=== PATIENT | male | born 1940 | race Caucasian/White ===

== ENCOUNTER → 2017-05-31 13:29 | Outpatient (CLI) | payer MEDICARE, SELFPAY ==
[2017-05-31 13:51] LABS: Blood Urea Nitrogen 13 mg/dL (7-18); Creatinine,Serum 1.46 mg/dL (0.70-1.30); Estimated Glomerular Filt Rate 47 ml/min (>60); GFR (African American) 57 ML/MIN (>60)
--- NOTE | 2017-05-31 13:59 | CT_ITS ---
CT angio head CLINICAL INDICATION: Visual disturbance, history of giant cell arteritis ITS.REASON: GIANT CELL ARTERITIS ORDERING PHYSICIAN: Reynaldo Jauregui MD PATIENT AGE: 76 years COMPARISON: MRA of 07/05/2016 TECHNIQUE: Axial images are obtained following the intravenous administration 100 mL of Isovue-370. Thin section axial images as well as sagittal and coronal and 3-D reformatted images are reviewed FINDINGS: No aneurysms are apparent. No major intracranial occlusive process. There are atheromatous changes involving the intracranial carotid arteries as mentioned on the MRI report with high-grade stenosis of the distal aspect of the left A1 segment of the anterior cerebral artery. There is some luminal irregularity also involving the proximal aspect of the right A1 segment of the anterior cerebral artery. Calcific plaque is present involving the cavernous portion of the carotids bilaterally. There is minimal narrowing involving the proximal aspect of the M1 segment of the right middle cerebral artery and proximal aspect of the M1 segment left middle cerebral artery. The ophthalmic arteries have an unremarkable appearance. No aneurysms or AVMs. There is some minimal luminal irregularity involving the proximal aspect of the right vertebral artery in the mid aspect of the left temporal artery. No occlusive change evident. No midline shift or mass effect or enhancing intracranial lesions apparent. IMPRESSION: 1. Mild luminal irregularities of the proximal aspect of the temporal arteries on both sides. This is nonspecific but may be seen with giant cell arteritis. 2. Atherosclerotic changes of the intracranial carotid arteries as described above with focal calcific plaque involving the A1 segment of the left intercerebral artery and minimal luminal irregularities of the right A1 segment and both M1 segments of the middle cerebral arteries.
--- NOTE | 2017-05-31 14:42 | HMH.ITSHM ---
ASPIRIN LISINOPRIL LOVASTATIN
== END ==
PROVIDERS: PCP Internal Medicine Adolescent Medicine; Visit Provider Internal Medicine Adolescent Medicine
DX: R51 Headache (principal); M31.6 Other giant cell arteritis
CPT/HCPCS: 36415; 70496; 82565; 84520; Q9967

== ENCOUNTER → 2017-09-07 11:04 | Outpatient (CLI) | payer MEDICARE, SELFPAY ==
[2017-09-07 12:44] LABS: Prostate Specific Ag Screen < 0.1 ng/mL (0.0-4.0)
== END ==
PROVIDERS: Visit Provider Urology
DX: Z12.5 Encounter for screening for malignant neoplasm of prostate (principal); Z85.46 Personal history of malignant neoplasm of prostate
CPT/HCPCS: 36415; G0103

== ENCOUNTER → 2017-11-02 16:31 | Outpatient (CLI) | payer MEDICARE, SELFPAY ==
--- NOTE | 2017-11-02 | XR_ITS ---
XR chest 2V HISTORY: ITS.REASON: DYSPNEA ON EXERTION ORDERING PHYSICIAN: Reynaldo Jauregui MD PATIENT AGE: 77 years COMPARISON: AP supine chest 10/12/2016 FINDINGS: The cardiomediastinal silhouette and pulmonary vascularity are within normal limits. There are sternal wire sutures and surgical clips likely from previous CABG. The lungs are clear without infiltrates, suspicious nodules, or pleural effusions. No acute bony abnormalities. There are moderate diffuse multilevel degenerative changes of the thoracic spine with mild diffuse dextroscoliotic curvature mid thoracic spine. IMPRESSION: Negative chest, no acute finding
[2017-11-02 16:47] LABS: Basophils # 0.1 K/mm3 (0-0.2); Basophils % 0.6 % (0.1-2.0); Eosinophils # 0.1 K/mm3 (0.0-0.4); Eosinophils % 1.3 % (0.1-12.0); Hemoglobin 13.3 g/dL (14.1-18.0); Lymphocytes # 1.5 K/mm3 (0.7-4.5); Lymphocytes % 15.3 K/mm3 (10-50); Mean Corpuscular HGB Conc 32.5 g/dL (31.8-35.4); Mean Corpuscular Hemoglobin 32.7 pg (27.0-31.2); Mean Corpuscular Volume 100.4 fl (80-94); Mean Platelet Volume 7.5 fl (7.4-10.4); Monocytes # 0.7 K/mm3 (0.1-1.0); Monocytes % 7.5 % (1.7-9.3); Neutrophils # 7.3 K/mm3 (1.8-7.8); Neutrophils % 75.4 % (37.0-80.0); Platelet Count 218 K/mm3 (142-424); Red Blood Count 4.08 M/mm3 (4.60-6.20); Red Cell Distribution Width 14.5 % (11.5-17.5); White Blood Count 9.7 K/mm3 (4.8-10.8)
[2017-11-02 19:04] LABS: Erythrocyte Sedimentation Rate 42 mm/hr (0-20)
[2017-11-02 20:27] LABS: Creatine Kinase MB 0.7 ng/ml (0.0-3.6); Troponin I < 0.02 ng/ml (0.00-0.06)
[2017-11-02 20:47] LABS: Alanine Aminotransferase 25 U/L (12-78); Albumin Level 3.6 gm/dL (3.4-5.0); Albumin/Globulin Ratio 1.1 (1.1-1.8); Alkaline Phosphatase 86 U/L (46-116); Anion Gap 14.4 mEq/L (5-15); Aspartate Amino Transferase 17 U/L (15-37); Bilirubin,Total 0.5 mg/dL (0.2-1.0); Blood Urea Nitrogen 11 mg/dL (7-18); Carbon Dioxide 26 mmol/L (21.0-32.0); Chloride 102 mmol/L (98-107); Creatine Kinase 71 U/L (39-308); Creatinine,Serum 1.37 mg/dL (0.70-1.30); Estimated Glomerular Filt Rate 50 ml/min (>60); GFR (African American) 61 ML/MIN (>60); Globulin 3.2 gm/dl (1.3-3.2); Glucose 110 mg/dL (74-106); Potassium 4.4 mmoL/L (3.5-5.1); Sodium 138 mmol/L (136-145); Thyroid Stimulating Hormone 1.65 uIU/ml (0.358-3.740); Total Protein,Serum 6.8 gm/dL (6.4-8.2)
== END ==
PROVIDERS: Visit Provider Nurse Practitioner Family
DX: R06.09 Other forms of dyspnea (principal); I25.10 Atherosclerotic heart disease of native coronary artery without angina pectoris; M31.6 Other giant cell arteritis
CPT/HCPCS: 36415; 71046; 80053; 82550; 82553; 83880; 84443; 84484; 85025; 85651

== ENCOUNTER → 2018-07-04 12:22 | Outpatient (CLI) | payer MEDICARE, SELFPAY ==
[2018-07-04 13:11] LABS: INR 2.05 (0.9-1.1); Prothrombin Time 20.7 seconds (9.4-11.8)
== END ==
PROVIDERS: Visit Provider Internal Medicine Adolescent Medicine
DX: Z51.81 Encounter for therapeutic drug level monitoring (principal); Z79.01 Long term (current) use of anticoagulants; I82.90 Acute embolism and thrombosis of unspecified vein
CPT/HCPCS: 36415; 85610

== ENCOUNTER 2018-07-11 12:42 | Outpatient (CLI) | payer MEDICARE, SELFPAY ==
[2018-07-11 14:26] LABS: Prothrombin Time 32.8 seconds (9.4-11.8)
== END 2018-07-11 15:48 | disposition home or self-care (01) ==
LOC: ACC 12:43
PROVIDERS: PCP Internal Medicine Adolescent Medicine; Visit Provider Internal Medicine Adolescent Medicine
DX: Z79.01 Long term (current) use of anticoagulants (principal); Z51.81 Encounter for therapeutic drug level monitoring
CPT/HCPCS: 36415; 85610; 99211; G0463

== ENCOUNTER 2018-07-18 13:15 | Outpatient (CLI) | payer MEDICARE, SELFPAY ==
[2018-07-18 15:39] LABS: PHA INR Fingerstick 2.9 (0.9-1.1)
== END 2018-07-18 15:47 | disposition home or self-care (01) ==
LOC: ACC 13:16
PROVIDERS: PCP Internal Medicine Adolescent Medicine; Visit Provider Internal Medicine Adolescent Medicine
DX: Z51.81 Encounter for therapeutic drug level monitoring (principal); Z79.01 Long term (current) use of anticoagulants; Z86.711 Personal history of pulmonary embolism
CPT/HCPCS: 85610; 99211; G0463

== ENCOUNTER 2018-07-25 22:38 | Observation (INO) ==
[2018-07-25 23:12] LABS: Basophils # 0.1 K/mm3 (0-0.2); Basophils % 0.5 % (0.1-2.0); Eosinophils # 0.1 K/mm3 (0.0-0.4); Eosinophils % 0.7 % (0.1-12.0); Hematocrit 33.7 % (42.0-52.0); Hemoglobin 11.1 g/dL (14.1-18.0); Lymphocytes # 2.1 K/mm3 (0.7-4.5); Lymphocytes % 20.6 % (10-50); Mean Corpuscular HGB Conc 32.9 g/dL (31.8-35.4); Mean Corpuscular Hemoglobin 33.8 pg (27.0-31.2); Mean Corpuscular Volume 102.7 fl (80-94); Mean Platelet Volume 7.9 fl (7.4-10.4); Monocytes # 0.7 K/mm3 (0.1-1.0); Monocytes % 6.6 % (1.7-9.3); Neutrophils # 7.2 K/mm3 (1.8-7.8); Neutrophils % 71.5 % (37.0-80.0); Platelet Count 247 K/mm3 (142-424); Red Blood Count 3.28 M/mm3 (4.60-6.20); Red Cell Distribution Width 15.6 % (11.5-17.5); White Blood Count 10.1 K/mm3 (4.8-10.8)
[2018-07-25 23:27] LABS: Alanine Aminotransferase 23 U/L (12-78); Albumin/Globulin Ratio 0.8 (1.1-1.8); Alkaline Phosphatase 82 U/L (46-116); Aspartate Amino Transferase 20 U/L (15-37); Bilirubin,Total 0.2 mg/dL (0.2-1.0); Blood Urea Nitrogen 14 mg/dL (7-18); C-Reactive Protein 1.7 mg/L (0.0-0.9); Calcium 8.5 mg/dL (8.5-10.1); Carbon Dioxide 25 mmol/L (21.0-32.0); Chloride 105 mmol/L (98-107); Globulin 3.8 gm/dl (1.3-3.2); Glucose 118 mg/dL (74-106); Sodium 141 mmol/L (136-145); Total Protein,Serum 6.8 gm/dL (6.4-8.2)
[2018-07-25 23:38] LABS: INR 2.56 (0.9-1.1); Prothrombin Time 25.7 seconds (9.4-11.8)
--- NOTE | 2018-07-25 23:46 | Emergency Department Note ---
ED Disposition Clinical Impression: RBBB Syncope Qualifiers: Syncope type: unspecified Qualified Code(s): R55 - Syncope and collapse Disposition: Admitted as Observation Condition on Discharge: Fair - Critical Care Critical Care Time: No Attestation: On 07/25/18, the high probability of a clinically significant, sudden or life threatening deterioration of the following system(s) required my full and direct attention, intervention and personal management. The time I documented below is in addition to time spent performing reported procedures but includes the following listed in this critical care notation. Medical Decision Making - Medical Records Medical records reviewed: Yes: I reviewed the patient's medical records. - James Inquiry Pt receiving controlled substance: No Vital Signs: 07/25/18 22:46 07/25/18 23:40 07/26/18 00:30 Temperature 98 F Temperature Source Oral Pulse Rate [Right Radial] 95 H 89 86 Respiratory Rate 16 16 15 Blood Pressure [Right Arm] 176/99 H 149/99 H 134/71 Blood Pressure Mean [Right Arm] 124 115 92 Blood Pressure Source [Right Arm] Automatic Cuff Blood Pressure Position [Right Arm] Sitting 02 Sat by Pulse Oximetry 96 97 96 Oxygen Delivery Method Room Air Room Air - Lab Data Lab results reviewed: Yes: I reviewed the patient's lab results. Lab Results 07/25/18 23:05: WBC 10.1, RBC 3.28 L, Hgb 11.1 L, Hct 33.7 L, MCV 102.7 H, MCH 33.8 H, MCHC 32.9, RDW 15.6, Plt Count 247, MPV 7.9, Neut % (Auto) 71.5, Lymph % (Auto) 20.6, [place] % (Auto) 6.6, Eos % (Auto) 0.7, Baso % (Auto) 0.5, Neut # (Auto) 7.2, Lymph # (Auto) 2.1, [place] # (Auto) 0.7, Eos # (Auto) 0.1, Baso # (Auto) 0.1, ESR 69 H 07/25/18 23:05: Sodium 141, Potassium 4.0, Chloride 105, Carbon Dioxide 25, Anion Gap 15.0, BUN 14, Creatinine 1.33 H, Estimated Creat Clear 56, Estimated GFR 52 L, Est GFR ( Amer) 63, Glucose 118 H, Calcium 8.5, Total Bilirubin 0.2, AST 20, ALT 23, Alkaline Phosphatase 82, Troponin I < 0.02, C-Reactive Protein 1.7 H, Total Protein 6.8, Albumin 3.0 L, Globulin 3.8 H, Albumin/Globulin Ratio 0.8 L 07/25/18 23:25: PT 25.7 H, INR 2.56 H Result diagrams: 07/25/18 23:05 07/25/18 23:05 Orders (Tests/Meds): ED MEDICATIONS Generic Name Dose Route Start Last Admin Trade Name Freq PRN Reason Stop Dose Admin Sodium Chloride 10 ml 07/25/18 22:57 Saline Flush 10ml Syringe IV 08/24/18 22:56 NEEDED PRN Maintain IV Site ORDERS Category Date Time Status CT head/brain wo con Stat Cat Scan 07/25/18 22:56 Taken XR chest portable Stat Exams 07/25/18 23:06 Taken - Radiology Data #1 Image(s): Chest Image Reviewed: Yes I reviewed the patient's radiology image Preliminary Findings: Normal/NAD - CT Data CT Scan: Head Time Received: 01:[address] Reviewed: Yes: I have viewed the radiologist's interpretation Preliminary Findings: Normal/NAD - ECG Data Tracing #1 Normal Sinus Rhythm: Yes Ischemic changes: non-specific ST-T wave changes Conduction abnormalities present: RBBB ECG compared to prior tracings: there are no significant changes Syncope HPI - General Chief Complaint: Syncope Stated Complaint: Possible Blood Clot,Seizure Time Seen by Provider: 07/25/18 23:15 Mode of Arrival: Ambulatory Source of Information: Patient, Spouse, Medical Record Limitations: No Limitations Description of Symptoms (Recalled from ER Triage Doc. by RN): patient states that [facility] when he got home he walked over to the couch and sat down then "blacked out" reports he does not remember what happened after he sat down on the couch and then finally "came to" sitting up on the couch, reports he felt generally weak after the episode but now "feels much better" alert, oriented x3, appropriately answering questions, states patient sat down on couch and "dropped his head and would not speak for around one minute" before he came to - History of Present Illness HPI narrative: acute episode of syncope for about 1 minute tonight at home - no sz activity and pt felt not quite right just prior but no palpiations - he was back to baseline in a couple of minutes - no prev episodes does have hx of ht dis , s/p cabg- had recent dvt with pul emboli and on coumadin MD complaint: loss of consciousness Onset (ago): minute(s) Duration of episode: 1 -: minutes(s) Prodromal symptoms: lightheaded Witnessed: yes - by bystander Context: at rest Injuries sustained associated with event: none Current symptoms: back to baseline History: history of CAD Treatments prior to arrival: none - Related Data Home Medications Medication Instructions Recorded Confirmed aspirin 81 mg tablet,delayed 81 mg PO ONCE 09/07/17 07/25/18 release Lovastatin 40 mg PO WEEKLY 06/27/18 07/25/18 Warfarin Sodium 1.25 mg PO MOWEFR 07/18/18 07/25/18 Warfarin Sodium 2.5 mg PO SUTUWETHSA 07/18/18 07/25/18 Allergies Allergy/AdvReac Type Severity Reaction Status Date / Time No Known Allergies Allergy Verified 07/25/18 22:54 [facility] History - Hepatitis A Screen Drug use history?: No High risk sexual behaviors?: No History of sexually transmitted infection?: No Currently employed?: No Childcare worker?: No Do you have indoor plumbing?: Yes Do you have electricity?: Yes Attestation statement:: This patient has been screened for Hepatitis A risk factors. I have reviewed the patient's past medical history: Yes - Social History Alcohol Intake: never Occupational Status: other - Psychiatric History Expresses thoughts of harming self/others: None Suicide Plan Description: No Plan Family Hx:: Diabetes, Hypertension, Cancer ROS Obtained: Yes All systems reviewed & no additional complaints - Constitutional Constitutional: Denies fever(s) - Eyes Eyes: Denies change in vision - ENT Ears, Nose, Mouth, and Throat: Denies sore throat - Cardiovascular Cardiovascular: Denies chest pain, Reports lightheadedness, Denies rapid heart rate - Respiratory Respiratory: No cough - Gastrointestinal Gastrointestingal: Denies: abdominal pain - Genitourinary Male Genitourinary: Denies hematuria - Musculoskeletal Musculoskeletal: Denies joint pain, Denies joint swelling - Integumentary/Breasts Skin/Breast: Denies rash - Neurologic Neurologic: Reports as per HPI, Denies headache(s), Denies seizure-like activity Physical Exam - General General appearance: alert, in no apparent distress - Head Head exam: atraumatic - Eye Eye exam: Present: PERRL, EOMI. Absent: scleral icterus - ENT ENT exam: Present: mucous membranes dry, other (no evid of tongue biting ) - Neck Neck exam: Present: normal inspection, other (neg carotid bruit ) - Respiratory Respiratory exam: Present: normal lung sounds bilaterally. Absent: respiratory distress - Cardiovascular Cardiovascular exam: Present: regular rate, systolic murmur, +S4 - Abdominal Exam Abdominal exam: Present: soft - Extremities Exam Extremities exam: Absent: calf tenderness - Neurological Exam Neurological exam: Present: alert, oriented X3, CN II-XII intact. Absent: motor sensory deficit - Psychiatric Psychiatric exam: Present: normal affect - Skin Skin exam: Absent: rash
[2018-07-26 00:23] LABS: Erythrocyte Sedimentation Rate 69 mm/hr (0-20)
[2018-07-26 04:52] LABS: INR 2.75 (0.9-1.1); Prothrombin Time 27.5 seconds (9.4-11.8)
[2018-07-26 04:56] LABS: Basophils % 0.4 % (0.1-2.0); Eosinophils # 0.1 K/mm3 (0.0-0.4); Hematocrit 35.1 % (42.0-52.0); Hemoglobin 10.9 g/dL (14.1-18.0); Lymphocytes % 32.1 % (10-50); Mean Corpuscular HGB Conc 31.1 g/dL (31.8-35.4); Mean Corpuscular Hemoglobin 32.7 pg (27.0-31.2); Mean Corpuscular Volume 105.2 fl (80-94); Mean Platelet Volume 7.7 fl (7.4-10.4); Monocytes # 0.6 K/mm3 (0.1-1.0); Monocytes % 6.7 % (1.7-9.3); Neutrophils # 5.5 K/mm3 (1.8-7.8); Neutrophils % 59.8 % (37.0-80.0); Platelet Count 241 K/mm3 (142-424); Red Blood Count 3.34 M/mm3 (4.60-6.20); Red Cell Distribution Width 15.8 % (11.5-17.5); White Blood Count 9.3 K/mm3 (4.8-10.8)
[2018-07-26 05:00] LABS: Anion Gap 13.9 mEq/L (5-15); Calcium 8.9 mg/dL (8.5-10.1); Potassium 3.9 mmoL/L (3.5-5.1)
--- NOTE | 2018-07-26 09:08 | History & Physical Report ---
*Admission Date: 07/26/18 *Chief complaint: syncope *History of present illness: 78 year old year old male with a h/o of PMR, CAD with CABG 6 years ago, HTN, and hyperlipidemia who is currently warfarin for a DVT/PE that occurred approx 4 weeks ago presented to the ED last evening following a syncopal event at home. [facility] History Medical History: Reports:: Cancer (PROSTATE CANCER 2011), Coronary Artery Disease, Deep Vein Thrombosis Denies:: Diabetes Mellitus Type 1, Diabetes Mellitus Type 2, MRSA *Have you ever received a pneumonia vaccine?: Yes *Have you received a flu vaccine this season?: Yes Other Medical History: Reports: Arthritis Other Surgeries: Yes: CABG, Cardiac Catheterization, Cardiac Surgery, Cholecystectomy, Colonoscopy, EGD Amputation: No Fractures: No - *Social History Educational Level: Completed College Alcohol Intake: never *Occupational Status:: retired Housing: house Household Members: spouse *Travel in the last 8 weeks: None - Psychiatric History Expresses thoughts of harming self/others: None Suicide Plan Description: No Plan Family Hx:: Cancer, Diabetes, Stroke, Other Review of Systems - *Neurologic Denies headache(s), Denies seizure-like activity Meds Home Medications Medication Instructions Recorded Confirmed Type aspirin 81 mg tablet,delayed 81 mg PO 159909/07/17 07/26/18 History release Lovastatin 40 mg PO MO@159906/27/18 07/26/18 History Warfarin Sodium 1.25 mg PO MOFR@159907/18/18 07/26/18 History Warfarin Sodium 2.5 mg PO SUTUWETHSA@159907/18/18 07/26/18 History Cholecalciferol (Vitamin D3) 5,000 unit PO 159907/26/18 07/26/18 History [Vitamin D3] Lisinopril [Lisinopril 10mg Tab] 10 mg PO 1600 07/26/18 07/26/18 History predniSONE [Deltasone 10mg 10 mg PO 1600 07/26/18 07/26/18 History tablet] Allergies Allergy/AdvReac Type Severity Reaction Status Date / Time No Known Allergies Allergy Verified 07/25/18 22:54 Exam Vital signs and Labs for Last 24 Hours: Temp Pulse Resp BP Pulse Ox 98.8 F 87 17 163/87 H 98 07/26/18 07:21 07/26/18 07:21 07/26/18 07:21 07/26/18 07:21 07/26/18 07:21 Laboratory Results - last 24 hr 07/25/18 23:05: WBC 10.1, RBC 3.28 L, Hgb 11.1 L, Hct 33.7 L, MCV 102.7 H, MCH 33.8 H, MCHC 32.9, RDW 15.6, Plt Count 247, MPV 7.9, Neut % (Auto) 71.5, Lymph % (Auto) 20.6, [place] % (Auto) 6.6, Eos % (Auto) 0.7, Baso % (Auto) 0.5, Neut # (Auto) 7.2, Lymph # (Auto) 2.1, [place] # (Auto) 0.7, Eos # (Auto) 0.1, Baso # (Auto) 0.1, ESR 69 H 07/25/18 23:05: Sodium 141, Potassium 4.0, Chloride 105, Carbon Dioxide 25, Anion Gap 15.0, BUN 14, Creatinine 1.33 H, Estimated Creat Clear 56, Estimated GFR 52 L, Est GFR ( Amer) 63, Glucose 118 H, Calcium 8.5, Total Bilirubin 0.2, AST 20, ALT 23, Alkaline Phosphatase 82, Troponin I < 0.02, C-Reactive Protein 1.7 H, Total Protein 6.8, Albumin 3.0 L, Globulin 3.8 H, Albumin/Globulin Ratio 0.8 L 07/25/18 23:25: PT 25.7 H, INR 2.56 H 07/26/18 04:35: Troponin I < 0.02 07/26/18 04:35: WBC 9.3, RBC 3.34 L, Hgb 10.9 L, Hct 35.1 L, MCV 105.2 H, MCH 32.7 H, MCHC 31.1 L, RDW 15.8, Plt Count 241, MPV 7.7, Neut % (Auto) 59.8, Lymph % (Auto) 32.1, [place] % (Auto) 6.7, Eos % (Auto) 1.0, Baso % (Auto) 0.4, Neut # (Auto) 5.5, Lymph # (Auto) 3.0, [place] # (Auto) 0.6, Eos # (Auto) 0.1, Baso # (Auto) 0.0 07/26/18 04:35: PT 27.5 H, INR 2.75 H 07/26/18 04:35: Sodium 144, Potassium 3.9, Chloride 106, Carbon Dioxide 28, Anion Gap 13.9, BUN 12, Creatinine 1.16, Estimated Creat Clear 66, Estimated GFR 61, Est GFR ( Amer) 74, Glucose 92 D, Calcium 8.9, Magnesium 2.3 H 07/26/18 07:29: Troponin I < 0.02 I & O for Last 24 hours: Intake & Output 07/23/18 07/24/18 07/25/18 07/26/18 11:59 11:59 11:59 11:59 Intake Total 812 / 812 Balance 812 / 812 Weight 195 lb
--- NOTE | 2018-07-26 09:12 | Pharmacy Consult Notes ---
[facility] Pharmacy VTE Monitoring - Patient Demographics Admission date: 07/26/18 Report Date: 07/26/18 Time: 09:11 Allergies/Adverse Reactions: Patient Allergies No Known Allergies Allergy (Verified 07/25/18 22:54) Height: 1.7 m Weight: 88.451 kg Patient Problems: Current Active Problems Syncope (Acute) RBBB (Acute) - VTE Risk Labs: VTE Related Lab Results Hgb 10.9 g/dL (14.1-18.0) L 07/26/18 04:35 Hct 35.1 % (42.0-52.0) L 07/26/18 04:35 Plt Count 241 K/mm3 (142-424) 07/26/18 04:35 PT 27.5 seconds (9.4-11.8) H 07/26/18 04:35 INR 2.75 (0.9-1.1) H 07/26/18 04:35 BUN 12 mg/dL (7-18) 07/26/18 04:35 Creatinine 1.16 mg/dL (0.70-1.30) 07/26/18 04:35 Estimated Creat Clear 66 mL/min (50-200) 07/26/18 04:35 Was VTE Risk Assessment Performed: Yes VTE Risk Level: Moderate Risk Clinical Trial Participant: No - Prophylaxis VTE Prophylaxis Ordered?: Yes Types of VTE Prophylaxis: TEDS Knee High
--- NOTE | 2018-07-26 10:42 | Carotid Imaging Report ---
"Cerebrovascular Exam Indications: 780.2 Syncope and collapse. IMPRESSIONS 1. The bilateral vertebral arteries are patent with normal antegrade flow. 2. Study suggests less than 20% stenosis involving the right internal carotid artery and the left internal carotid artery. No change from the study of 12-Jun-2015. History: Coronary artery disease. Risk factors: Hypertension. Hyperlipidemia. Carotid duplex study. Complete study and Doppler flow study including spectral analysis, color and zacarias scale imaging. Location: Vascular laboratory. Patient status: Inpatient. Tables: Arterial flow: + +--------+--------+ |Location |V sys |V ed | + +--------+--------+ |Right CCA - proximal|45.6cm/s|14.9cm/s| + +--------+--------+ |Right CCA - distal |49.5cm/s|17.3cm/s| + +--------+--------+ |Right ECA |103cm/s |--------| + +--------+--------+ |Right ICA - proximal|33.4cm/s|11.8cm/s| + +--------+--------+ |Right ICA - mid |47.1cm/s|18.7cm/s| + +--------+--------+ |Right ICA - distal |62.9cm/s|28cm/s | + +--------+--------+ |Right vertebral |37.8cm/s|--------| + +--------+--------+ |Left CCA - proximal |71.7cm/s|22.6cm/s| + +--------+--------+ |Left CCA - distal |40.3cm/s|9.8cm/s | + +--------+--------+ |Left ECA |105cm/s |--------| + +--------+--------+ |Left ICA - proximal |41.3cm/s|17.2cm/s| + +--------+--------+ |Left ICA - mid |65.8cm/s|29cm/s | + +--------+--------+ |Left ICA - distal |57.8cm/s|21.9cm/s| + +--------+--------+ |Left vertebral |40.3cm/s|--------| + +--------+--------+ Velocity ratios: + + + + + + | |Right, V sys|Right, V ed|Left, V sys|Left, V ed| + + + + + + |Max ICA/dist CCA|1.27 |1.62 |1.63 |2.95 | + + + + + + (Report amended ) Electronically signed by: Eugene Hines [id number]"
--- NOTE | 2018-07-26 16:12 | H&P/Discharge Summary ---
General - General Admission date:: 07/26/18 Discharge date: 07/26/18 *Admission Date: 07/26/18 *Chief complaint: syncope *History of present illness: 78 year old male with a h/o HTN, hyperlidemia, CABG 6 years ago, PMR who was started on coumadin 4 weeks ago due to DVT/PE presented to ED for evaluation following a syncopal event at home. Patient had been to [facility] last evening and felt fairly well. States he got home, sit down on the couch and felt dizzy which led to tunnel vision and subsequent episode of unresponsiveness. reports he was unresponsive for approx one minute and was shaking a little. Patient awake to his saying "are you ok?" States he felt groggy for a few minutes, then has been at baseline since. No further episodes of dizziness. Denies any associated chest pain, shortness of breath or other CV symptoms. No recent illness. In the ED, EKG was found to be at baseline. Labs were unremarkable. He was admitted for observation and further evaluation. [facility] History I have reviewed the patient's past medical history: Yes Medical History: Reports:: Cancer (PROSTATE CANCER 2011), Coronary Artery Disease, Deep Vein Thrombosis Denies:: Diabetes Mellitus Type 1, Diabetes Mellitus Type 2, MRSA *Have you ever received a pneumonia vaccine?: Yes *Have you received a flu vaccine this season?: Yes Other Medical History: Reports: Arthritis Other Surgeries: Yes: CABG, Cardiac Catheterization, Cardiac Surgery, C holecystectomy, Colonoscopy, EGD Amputation: No Fractures: No - *Social History Educational Level: Completed College Alcohol Intake: never *Occupational Status:: retired Housing: house Household Members: spouse *Travel in the last 8 weeks: None - Psychiatric History Expresses thoughts of harming self/others: None Suicide Plan Description: No Plan Family Hx:: Cancer, Diabetes, Stroke, Other Review of Systems - Review of Systems Review of systems:: pertinent systems reviewed and negative unless documented below - *Neurologic Reports dizziness, Denies headache(s), Denies seizure-like activity Exam Vital signs and Labs for Last 24 Hours: Temp Pulse Resp BP Pulse Ox 98.0 F 88 18 144/87 H 96 07/26/18 11:44 07/26/18 11:44 07/26/18 11:44 07/26/18 11:44 07/26/18 11:44 Laboratory Results - last 24 hr 07/25/18 23:05: WBC 10.1, RBC 3.28 L, Hgb 11.1 L, Hct 33.7 L, MCV 102.7 H, MCH 33.8 H, MCHC 32.9, RDW 15.6, Plt Count 247, MPV 7.9, Neut % (Auto) 71.5, Lymph % (Auto) 20.6, [place] % (Auto) 6.6, Eos % (Auto) 0.7, Baso % (Auto) 0.5, Neut # (Auto) 7.2, Lymph # (Auto) 2.1, [place] # (Auto) 0.7, Eos # (Auto) 0.1, Baso # (Auto) 0.1, ESR 69 H 07/25/18 23:05: Sodium 141, Potassium 4.0, Chloride 105, Carbon Dioxide 25, Anion Gap 15.0, BUN 14, Creatinine 1.33 H, Estimated Creat Clear 56, Estimated GFR 52 L, Est GFR ( Amer) 63, Glucose 118 H, Calcium 8.5, Total Bilirubin 0.2, AST 20, ALT 23, Alkaline Phosphatase 82, Troponin I < 0.02, C-Reactive Protein 1.7 H, Total Protein 6.8, Albumin 3.0 L, Globulin 3.8 H, Albumin/Globulin Ratio 0.8 L 07/25/18 23:25: PT 25.7 H, INR 2.56 H 07/26/18 04:35: Troponin I < 0.02 07/26/18 04:35: WBC 9.3, RBC 3.34 L, Hgb 10.9 L, Hct 35.1 L, MCV 105.2 H, MCH 32.7 H, MCHC 31.1 L, RDW 15.8, Plt Count 241, MPV 7.7, Neut % (Auto) 59.8, Lymph % (Auto) 32.1, [place] % (Auto) 6.7, Eos % (Auto) 1.0, Baso % (Auto) 0.4, Neut # (Auto) 5.5, Lymph # (Auto) 3.0, [place] # (Auto) 0.6, Eos # (Auto) 0.1, Baso # (Auto) 0.0 07/26/18 04:35: PT 27.5 H, INR 2.75 H 07/26/18 04:35: Sodium 144, Potassium 3.9, Chloride 106, Carbon Dioxide 28, Anion Gap 13.9, BUN 12, Creatinine 1.16, Estimated Creat Clear 66, Estimated GFR 61, Est GFR ( Amer) 74, Glucose 92 D, Calcium 8.9, Magnesium 2.3 H 07/26/18 07:29: Troponin I < 0.02 I & O for Last 24 hours: Intake & Output 07/24/18 07/25/18 07/26/18 07/27/18 11:59 11:59 11:59 11:59 Intake Total 812 / 812 360 / 360 Balance 812 / 812 360 / 360 Weight 195 lb Narrative: Alert and oriented x3. Rate and rhythm regular. No LE edema. Lung sounds clear and equal. Abdomen soft and nontender. No carotid bruit. Cranial nerves intact. ENT exam unremarkable. Hospital Course Hospital Course: Patient was admitted for observation. Tele was placed which was uneventful. MRI brain, carotid doppler, EEG and Echo were obtained, all of which were unremarkable. Patient has not had any further episodes of dizziness. He is ambulated around the room without difficulty. He feels fairly well and desires to go home. Discharge home. No medication changes. FU with Dr. Jauregui on Monday. FU with coumadin clinic in 2 weeks Results Labs on day of discharge: Labs from last 24 hours 07/26/18 07/26/18 07/26/18 07:29 04:35 04:35 WBC RBC Hgb Hct MCV MCH MCHC RDW Plt Count MPV Neut % (Auto) Lymph % (Auto) [place] % (Auto) Eos % (Auto) Baso % (Auto) Neut # (Auto) Lymph # (Auto) [place] # (Auto) Eos # (Auto) Baso # (Auto) ESR PT 27.5 H INR 2.75 H Sodium 144 Potassium 3.9 Chloride 106 Carbon Dioxide 28 Anion Gap 13.9 BUN 12 Creatinine 1.16 Estimated Creat Clear 66 Estimated GFR 61 Est GFR ( Amer) 74 Glucose 92 D Calcium 8.9 Magnesium 2.3 H Total Bilirubin AST ALT Alkaline Phosphatase Troponin I < 0.02 C-Reactive Protein Total Protein Albumin Globulin Albumin/Globulin Ratio 07/26/18 07/26/18 07/25/18 04:35 04:35 23:25 WBC 9.3 RBC 3.34 L Hgb 10.9 L Hct 35.1 L MCV 105.2 H MCH 32.7 H MCHC 31.1 L RDW 15.8 Plt Count 241 MPV 7.7 Neut % (Auto) 59.8 Lymph % (Auto) 32.1 [place] % (Auto) 6.7 Eos % (Auto) 1.0 Baso % (Auto) 0.4 Neut # (Auto) 5.5 Lymph # (Auto) 3.0 [place] # (Auto) 0.6 Eos # (Auto) 0.1 Baso # (Auto) 0.0 ESR PT 25.7 H INR 2.56 H Sodium Potassium Chloride Carbon Dioxide Anion Gap BUN Creatinine Estimated Creat Clear Estimated GFR Est GFR ( Amer) Glucose Calcium Magnesium Total Bilirubin AST ALT Alkaline Phosphatase Troponin I < 0.02 C-Reactive Protein Total Protein Albumin Globulin Albumin/Globulin Ratio 07/25/18 07/25/18 23:05 23:05 WBC 10.1 RBC 3.28 L Hgb 11.1 L Hct 33.7 L MCV 102.7 H MCH 33.8 H MCHC 32.9 RDW 15.6 Plt Count 247 MPV 7.9 Neut % (Auto) 71.5 Lymph % (Auto) 20.6 [place] % (Auto) 6.6 Eos % (Auto) 0.7 Baso % (Auto) 0.5 Neut # (Auto) 7.2 Lymph # (Auto) 2.1 [place] # (Auto) 0.7 Eos # (Auto) 0.1 Baso # (Auto) 0.1 ESR 69 H PT INR Sodium 141 Potassium 4.0 Chloride 105 Carbon Dioxide 25 Anion Gap 15.0 BUN 14 Creatinine 1.33 H Estimated Creat Clear 56 Estimated GFR 52 L Est GFR ( Amer) 63 Glucose 118 H Calcium 8.5 Magnesium Total Bilirubin 0.2 AST 20 ALT 23 Alkaline Phosphatase 82 Troponin I < 0.02 C-Reactive Protein 1.7 H Total Protein 6.8 Albumin 3.0 L Globulin 3.8 H Albumin/Globulin Ratio 0.8 L DS: Diagnosis - Discharge Diagnosis (1) PMR (polymyalgia rheumatica) Status: Chronic (2) Essential (primary) hypertension Status: Chronic (3) Anticoagulated on warfarin Status: Acute (4) RBBB Status: Acute (5) Syncope Status: Acute (6) DVT (deep venous thrombosis) Status: Acute (7) Pulmonary emboli Status: Acute Discharge Medications - Medications for Discharge Home Medication List at Discharge: Continue aspirin 81 mg tablet,delayed release 81 mg PO 1600 Lovastatin 40 mg PO MO@1600 Warfarin Sodium 2.5 mg PO SUTUWETHSA@1600 Lisinopril [Lisinopril 10mg Tab] 10 mg PO 1600 Warfarin Sodium 1.25 mg PO MOFR@1600 predniSONE [Deltasone 10mg tablet] 10 mg PO 1600 Cholecalciferol (Vitamin D3) [Vitamin D3] 5,000 unit PO 1600 Disposition Disposition: Home, Self-Care
--- NOTE | 2018-07-26 16:36 | Cardiology Report ---
PROCEDURE: 2-D M-mode and color Doppler study INDICATIONS FOR THE TEST: Chest pain COPD Heart Murmur Tobacco Smoking Palpitations Fatigue SyncopeX Edema HypertensionXDiabetes Mellitus Rheumatic Fever SOB PRABHAKAR ObesityXHyperlipidemiaX Family History HD Additional History CAD,CABG PATIENT INFORMATION HEIGHT: 67 WEIGHT:195 GENDER: Male B/P:162/87 2-D/M-MODE INTERPRETATION: 2-D MEASUREMENTS OBSERVED VALUES IN CMS Right Ventricular Dimension (RVDd) 2.5 Interventricular Septum (Thickness)(IVsd) 1.0 Left Ventricular Internal Dimensions(LVIDd) 3.2 Left Ventricular Posterior Wall (Thickness)(LVPWd) 1.1 Aortic Root 3.6 Aortic Cusp Separation 1.9 Left Atrial Dimensions (LAD) 3.7 2D 1. Left atrium is mildly enlarged, left ventricle is normal size, mild qualitative concentric left ventricular hypertrophy, visually estimated ejection fraction 55% with no regional wall motion abnormality. 2. The right atrium and right ventricle are moderately enlarged with normal contractility. 3. The aortic valve is minimally thickened and fibrosed. 4. The mitral and tricuspid valve are grossly normal. 5. The pulmonic valve is poorly visualized. 6. No significant pericardial effusion noted. DOPPLER INTERROGATION: Doppler interrogation of the aortic, mitral and tricuspid valvular presence of mild mitral and tricuspid regurgitation, tricuspid regurgitation jet velocity is inadequate for calculation of the right ventricular systolic pressure, grade 1 diastolic dysfunction seen with tissue Doppler evidence of raised left atrial pressure. CONCLUSION: 1. Mildly enlarged left atrium, normal left ventricular size, mild concentric left ventricular hypertrophy, visually estimated ejection fraction 55% with no regional wall motion abnormality, grade 1 diastolic dysfunction seen with tissue Doppler evidence of raised left atrial pressure. 2. Moderately enlarged right ventricle with normal contractility. 3. Mild mitral and tricuspid regurgitation 4. No significant pericardial effusion noted.
== END 2018-07-26 17:03 | disposition home or self-care (01) ==
LOC: 2ND 22:38 → ER 22:38 → 2ND 07-26 01:25
PROVIDERS: ADMIT Emergency Medicine; ATTEND Internal Medicine Adolescent Medicine
CPT/HCPCS: 36415; 70450; 70553; 71010; 71045; 80048; 80053; 83735; 84484; 85025; 85610; 85651; 86140; 93005; 93306; 93880; 95816; 99284; A9576; G0378

== ENCOUNTER 2018-08-09 12:25 | Outpatient (CLI) | payer MEDICARE, SELFPAY ==
[2018-08-09 13:35] LABS: PHA INR Fingerstick 2.9 (0.9-1.1)
== END 2018-08-09 13:44 | disposition home or self-care (01) ==
LOC: ACC 12:25
PROVIDERS: PCP Internal Medicine Adolescent Medicine; Visit Provider Internal Medicine Adolescent Medicine
DX: Z51.81 Encounter for therapeutic drug level monitoring (principal); Z79.01 Long term (current) use of anticoagulants; I26.99 Other pulmonary embolism without acute cor pulmonale
CPT/HCPCS: 85610; 99211; G0463

== ENCOUNTER 2018-09-06 12:30 | Outpatient (CLI) | payer MEDICARE, SELFPAY ==
[2018-09-06 13:32] LABS: PHA INR Fingerstick 2.3 (0.9-1.1)
== END 2018-09-06 13:33 | disposition home or self-care (01) ==
LOC: ACC 12:33
PROVIDERS: PCP Internal Medicine Adolescent Medicine; Visit Provider Internal Medicine Adolescent Medicine
DX: Z51.81 Encounter for therapeutic drug level monitoring (principal); Z79.01 Long term (current) use of anticoagulants; I26.99 Other pulmonary embolism without acute cor pulmonale
CPT/HCPCS: 85610; 99211; G0463

== ENCOUNTER → 2018-09-13 11:51 | Outpatient (CLI) | payer MEDICARE, SELFPAY ==
[2018-09-13 13:58] LABS: Prostate Specific Ag, Diagnost < 0.05 ng/mL (0.0-4.0)
== END ==
PROVIDERS: Visit Provider Urology
DX: C61 Malignant neoplasm of prostate (principal)
CPT/HCPCS: 36415; 84153

== ENCOUNTER 2018-10-04 12:26 | Outpatient (CLI) | payer MEDICARE, SELFPAY ==
[2018-10-04 13:06] LABS: PHA INR Fingerstick 2.4 (0.9-1.1)
== END 2018-10-04 13:12 | disposition home or self-care (01) ==
LOC: ACC 12:27
PROVIDERS: PCP Internal Medicine Adolescent Medicine; Visit Provider Internal Medicine Adolescent Medicine
DX: Z51.81 Encounter for therapeutic drug level monitoring (principal); Z79.01 Long term (current) use of anticoagulants; I26.99 Other pulmonary embolism without acute cor pulmonale
CPT/HCPCS: 85610; 99211; G0463

== ENCOUNTER 2018-11-05 12:27 | Outpatient (CLI) | payer MEDICARE, SELFPAY ==
[2018-11-05 13:42] LABS: PHA INR Fingerstick 2.2 (0.9-1.1)
== END 2018-11-05 13:46 | disposition home or self-care (01) ==
LOC: ACC 12:28
PROVIDERS: PCP Internal Medicine Adolescent Medicine; Visit Provider Internal Medicine Adolescent Medicine
DX: Z51.81 Encounter for therapeutic drug level monitoring (principal); Z79.01 Long term (current) use of anticoagulants; I26.99 Other pulmonary embolism without acute cor pulmonale
CPT/HCPCS: 85610; 99211; G0463

== ENCOUNTER 2018-12-19 12:33 | Outpatient (CLI) | payer MEDICARE, SELFPAY ==
[2018-12-19 13:59] LABS: PHA INR Fingerstick 2.2 (0.9-1.1)
== END 2018-12-19 14:12 | disposition home or self-care (01) ==
LOC: ACC 12:34
PROVIDERS: PCP Internal Medicine Adolescent Medicine; Visit Provider Internal Medicine Adolescent Medicine
DX: Z51.81 Encounter for therapeutic drug level monitoring (principal); Z79.01 Long term (current) use of anticoagulants; I26.99 Other pulmonary embolism without acute cor pulmonale
CPT/HCPCS: 85610; 99211; G0463

== ENCOUNTER → 2019-01-15 12:11 | Outpatient (CLI) | payer MEDICARE, SELFPAY ==
[2019-01-15 12:44] LABS: Basophils # 0.1 K/mm3 (0-0.2); Basophils % 0.8 % (0.1-2.0); Eosinophils # 0.2 K/mm3 (0.0-0.4); Eosinophils % 2.2 % (0.1-12.0); Hematocrit 44.8 % (42.0-52.0); Hemoglobin 13.8 g/dL (14.1-18.0); Lymphocytes % 39.3 % (10-50); Mean Corpuscular HGB Conc 30.7 g/dL (31.8-35.4); Mean Corpuscular Hemoglobin 28.9 pg (27.0-31.2); Mean Platelet Volume 8.9 fl (7.4-10.4); Monocytes # 0.6 K/mm3 (0.1-1.0); Monocytes % 7.9 % (1.7-9.3); Neutrophils # 3.8 K/mm3 (1.8-7.8); Neutrophils % 49.8 % (37.0-80.0); Platelet Count 233 K/mm3 (142-424); Red Blood Count 4.76 M/mm3 (4.60-6.20); Red Cell Distribution Width 14.9 % (11.5-17.5); White Blood Count 7.5 K/mm3 (4.8-10.8)
[2019-01-15 12:52] LABS: Prothrombin Time 17.2 seconds (9.4-11.8)
[2019-01-15 14:30] LABS: C-Reactive Protein 0.2 mg/dL (0.0-0.9); Creatine Kinase 82 U/L (39-308)
[2019-01-15 17:25] LABS: Erythrocyte Sedimentation Rate 20 mm/hr (0-20)
== END ==
PROVIDERS: Visit Provider Internal Medicine Adolescent Medicine
DX: M31.6 Other giant cell arteritis (principal); Z51.81 Encounter for therapeutic drug level monitoring; Z79.01 Long term (current) use of anticoagulants
CPT/HCPCS: 36415; 82550; 85025; 85610; 85651; 86140

== ENCOUNTER 2019-01-30 12:30 | Outpatient (CLI) | payer MEDICARE, SELFPAY ==
[2019-01-30 15:25] LABS: PHA INR Fingerstick 2.6 (0.9-1.1)
== END 2019-01-30 15:31 | disposition home or self-care (01) ==
LOC: ACC 12:32
PROVIDERS: PCP Internal Medicine Adolescent Medicine; Visit Provider Internal Medicine Adolescent Medicine
DX: Z51.81 Encounter for therapeutic drug level monitoring (principal); Z79.01 Long term (current) use of anticoagulants; I26.99 Other pulmonary embolism without acute cor pulmonale
CPT/HCPCS: 85610; 99211; G0463

== ENCOUNTER 2019-03-13 12:23 | Outpatient (CLI) | payer MEDICARE, SELFPAY | END 2019-03-13 13:43 | disposition home or self-care (01) | LOC: ACC 12:25 | PROVIDERS: PCP Internal Medicine Adolescent Medicine; Visit Provider Internal Medicine Adolescent Medicine | DX: Z51.81 Encounter for therapeutic drug level monitoring (principal); Z79.01 Long term (current) use of anticoagulants; I26.99 Other pulmonary embolism without acute cor pulmonale | CPT/HCPCS: 99211; G0463 ==

== ENCOUNTER 2019-04-24 12:31 | Outpatient (CLI) | payer MEDICARE, SELFPAY ==
[2019-04-24 13:09] LABS: PHA INR Fingerstick 1.9 (0.9-1.1)
== END 2019-04-24 13:10 | disposition home or self-care (01) ==
LOC: ACC 12:32
PROVIDERS: PCP Internal Medicine Adolescent Medicine; Visit Provider Internal Medicine Adolescent Medicine
DX: Z51.81 Encounter for therapeutic drug level monitoring (principal); Z79.01 Long term (current) use of anticoagulants; I26.99 Other pulmonary embolism without acute cor pulmonale
CPT/HCPCS: 85610; 99211; G0463

== ENCOUNTER 2019-05-15 12:24 | Outpatient (CLI) | payer MEDICARE, SELFPAY ==
[2019-05-15 15:20] LABS: PHA INR Fingerstick 2.7 (0.9-1.1)
== END 2019-05-15 15:22 | disposition home or self-care (01) ==
LOC: ACC 12:25
PROVIDERS: PCP Internal Medicine Adolescent Medicine; Visit Provider Internal Medicine Adolescent Medicine
DX: Z51.81 Encounter for therapeutic drug level monitoring (principal); Z79.01 Long term (current) use of anticoagulants
CPT/HCPCS: 85610; 99211; G0463

== ENCOUNTER 2019-06-14 12:22 | Outpatient (CLI) | payer MEDICARE, SELFPAY ==
[2019-06-14 13:44] LABS: PHA INR Fingerstick 2.7 (0.9-1.1)
== END 2019-06-14 13:45 | disposition home or self-care (01) ==
LOC: ACC 12:24
PROVIDERS: PCP Internal Medicine Adolescent Medicine; Visit Provider Internal Medicine Adolescent Medicine
DX: Z51.81 Encounter for therapeutic drug level monitoring (principal); Z79.01 Long term (current) use of anticoagulants
CPT/HCPCS: 85610; 99211; G0463

== ENCOUNTER 2019-07-26 12:19 | Outpatient (CLI) | payer MEDICARE, SELFPAY ==
[2019-07-26 14:54] LABS: PHA INR Fingerstick 2.4 (0.9-1.1)
== END 2019-07-26 14:55 | disposition home or self-care (01) ==
PROVIDERS: PCP Internal Medicine Adolescent Medicine; Visit Provider Internal Medicine Adolescent Medicine
DX: Z51.81 Encounter for therapeutic drug level monitoring (principal); Z79.01 Long term (current) use of anticoagulants
CPT/HCPCS: 85610; 99211; G0463

== ENCOUNTER 2019-09-04 12:12 | Outpatient (CLI) | payer MEDICARE, SELFPAY ==
[2019-09-04 13:57] LABS: PHA INR Fingerstick 2.2 (0.9-1.1)
== END 2019-09-04 14:02 | disposition home or self-care (01) ==
LOC: ACC 12:13
PROVIDERS: PCP Internal Medicine Adolescent Medicine; Visit Provider Internal Medicine Adolescent Medicine
DX: Z51.81 Encounter for therapeutic drug level monitoring (principal); Z79.01 Long term (current) use of anticoagulants
CPT/HCPCS: 85610; 99211; G0463

== ENCOUNTER 2019-10-16 12:24 | Outpatient (CLI) | payer MEDICARE, SELFPAY | END 2019-10-16 14:36 | disposition home or self-care (01) | LOC: ACC 12:26 | PROVIDERS: PCP Internal Medicine Adolescent Medicine; Visit Provider Internal Medicine Adolescent Medicine | DX: Z51.81 Encounter for therapeutic drug level monitoring (principal); Z79.01 Long term (current) use of anticoagulants | CPT/HCPCS: 85610; 99211; G0463 ==

== ENCOUNTER 2019-11-27 12:25 | Outpatient (CLI) | payer MEDICARE, SELFPAY ==
[2019-11-27 14:08] LABS: PHA INR Fingerstick 2.3 (0.9-1.1)
== END 2019-11-27 14:26 | disposition home or self-care (01) ==
LOC: ACC 12:26
PROVIDERS: PCP Internal Medicine Adolescent Medicine; Visit Provider Internal Medicine Adolescent Medicine
DX: Z51.81 Encounter for therapeutic drug level monitoring (principal); Z79.01 Long term (current) use of anticoagulants
CPT/HCPCS: 85610; 99211; G0463

== ENCOUNTER 2020-01-08 12:25 | Outpatient (CLI) | payer MEDICARE, SELFPAY ==
[2020-01-08 16:12] LABS: PHA INR Fingerstick 2.4 (0.9-1.1)
== END 2020-01-08 16:14 | disposition home or self-care (01) ==
LOC: ACC 12:27
PROVIDERS: PCP Internal Medicine Adolescent Medicine; Visit Provider Internal Medicine Adolescent Medicine
DX: Z51.81 Encounter for therapeutic drug level monitoring (principal); Z79.01 Long term (current) use of anticoagulants
CPT/HCPCS: 85610; 99211; G0463

== ENCOUNTER 2020-02-19 12:23 | Outpatient (CLI) | payer MEDICARE, SELFPAY | END 2020-02-19 13:49 | disposition home or self-care (01) | LOC: ACC 12:24 | PROVIDERS: PCP Internal Medicine Adolescent Medicine; Visit Provider Internal Medicine Adolescent Medicine | DX: Z51.81 Encounter for therapeutic drug level monitoring (principal); Z79.01 Long term (current) use of anticoagulants | CPT/HCPCS: 85610; 99211; G0463 ==

== ENCOUNTER 2020-04-01 13:17 | Outpatient (CLI) | payer MEDICARE, SELFPAY ==
[2020-04-01 15:37] LABS: PHA INR Fingerstick 2.4 (0.9-1.1)
== END 2020-04-01 15:39 | disposition home or self-care (01) ==
LOC: ACC 13:18
PROVIDERS: PCP Internal Medicine Adolescent Medicine; Visit Provider Internal Medicine Adolescent Medicine
DX: Z51.81 Encounter for therapeutic drug level monitoring (principal); Z79.01 Long term (current) use of anticoagulants
CPT/HCPCS: 85610; 99211; G0463

== ENCOUNTER 2020-05-13 12:55 | Outpatient (CLI) | payer MEDICARE, SELFPAY ==
[2020-05-13 16:36] LABS: PHA INR Fingerstick 2.3 (0.9-1.1)
== END 2020-05-13 16:37 | disposition home or self-care (01) ==
LOC: ACC 12:57
PROVIDERS: PCP Internal Medicine Adolescent Medicine; Visit Provider Internal Medicine Adolescent Medicine
DX: Z51.81 Encounter for therapeutic drug level monitoring (principal); Z79.01 Long term (current) use of anticoagulants
CPT/HCPCS: 85610; 99211; G0463

== ENCOUNTER → 2020-06-11 10:33 | Outpatient (CLI) | payer MEDICARE, SELFPAY ==
[2020-06-11 11:04] LABS: Basophils # 0.1 K/mm3 (0-0.2); Basophils % 1.2 % (0.1-2.0); Eosinophils # 0.7 K/mm3 (0.0-0.4); Eosinophils % 7.9 % (0.1-12.0); Hematocrit 48.8 % (42.0-52.0); Lymphocytes # 3.1 K/mm3 (0.7-4.5); Lymphocytes % 34.9 % (10-50); Mean Corpuscular HGB Conc 30.7 g/dL (31.8-35.4); Mean Corpuscular Hemoglobin 30.9 pg (27.0-31.2); Mean Corpuscular Volume 100.5 fl (80-94); Mean Platelet Volume 8.3 fl (7.4-10.4); Monocytes # 0.6 K/mm3 (0.1-1.0); Monocytes % 6.3 % (1.7-9.3); Neutrophils # 4.4 K/mm3 (1.8-7.8); Neutrophils % 49.7 % (37.0-80.0); Platelet Count 235 K/mm3 (142-424); Red Blood Count 4.86 M/mm3 (4.60-6.20); Red Cell Distribution Width 13.7 % (11.5-17.5); White Blood Count 8.9 K/mm3 (4.8-10.8)
[2020-06-11 12:23] LABS: Erythrocyte Sedimentation Rate 18 mm/hr (0-20)
[2020-06-11 12:24] LABS: Chloride 105 mmol/L (98-107); Sodium 141 mmol/L (136-145)
[2020-06-11 12:26] LABS: Alanine Aminotransferase 19 U/L (12-78); Aspartate Amino Transferase 31 U/L (17-59); Blood Urea Nitrogen 16 mg/dl (9-20); Estimated Glomerular Filt Rate 49 ml/min (>60); GFR (African American) 59 ML/MIN (>60)
[2020-06-11 12:27] LABS: Albumin Level 4.4 g/dl (3.5-5.0); Albumin/Globulin Ratio 1.3 (1.1-1.8); Alkaline Phosphatase 103 U/L (38-126); Bilirubin,Total 0.6 mg/dl (0.2-1.3); Calcium 9.3 mg/dl (8.4-10.2); Carbon Dioxide 31 mmol/L (22.0-30.0); Chol/HDL Ratio 5.6 (1-3.5); Cholesterol 230 mg/dl (140-200); Globulin 3.3 g/dL (1.3-3.2); Glucose 102 mg/dl (74-100); HDL Cholesterol 41 mg/dl (40-60); Total Protein,Serum 7.7 g/dl (6.3-8.2); Triglycerides 284 mg/dl (30-150); VLDL Cholesterol 57 mg/dL (0-40)
[2020-06-11 12:38] LABS: Direct LDL Cholesterol 130.01 mg/dL (100-129)
== END ==
PROVIDERS: Visit Provider Internal Medicine Adolescent Medicine
DX: I25.10 Atherosclerotic heart disease of native coronary artery without angina pectoris (principal); M31.6 Other giant cell arteritis; E78.5 Hyperlipidemia, unspecified
CPT/HCPCS: 36415; 80053; 80061; 85025; 85651

== ENCOUNTER 2020-07-02 12:55 | Outpatient (CLI) | payer MEDICARE, SELFPAY ==
[2020-07-02 14:55] LABS: PHA INR Fingerstick 2.2 (0.9-1.1)
== END 2020-07-02 15:15 | disposition home or self-care (01) ==
LOC: ACC 12:56
PROVIDERS: PCP Internal Medicine Adolescent Medicine; Visit Provider Internal Medicine Adolescent Medicine
DX: Z51.81 Encounter for therapeutic drug level monitoring (principal); Z79.01 Long term (current) use of anticoagulants
CPT/HCPCS: 85610; 99211; G0463

== ENCOUNTER 2020-08-13 12:52 | Outpatient (CLI) | payer MEDICARE, SELFPAY ==
[2020-08-13 13:42] LABS: PHA INR Fingerstick 2.1 (0.9-1.1)
== END 2020-08-13 13:50 | disposition home or self-care (01) ==
LOC: ACC 12:53
PROVIDERS: PCP Internal Medicine Adolescent Medicine; Visit Provider Internal Medicine Adolescent Medicine
DX: Z51.81 Encounter for therapeutic drug level monitoring (principal); Z79.01 Long term (current) use of anticoagulants
CPT/HCPCS: 85610; 99211; G0463

== ENCOUNTER → 2020-08-18 17:21 | Outpatient (CLI) | payer MEDICARE, SELFPAY ==
[2020-08-18 17:56] LABS: Basophils # 0.1 K/mm3 (0-0.2); Basophils % 0.9 % (0.1-2.0); Eosinophils # 0.4 K/mm3 (0.0-0.4); Eosinophils % 4.7 % (0.1-12.0); Hemoglobin 14.4 g/dL (14.1-18.0); Lymphocytes % 40.2 % (10-50); Mean Corpuscular HGB Conc 32.8 g/dL (31.8-35.4); Mean Corpuscular Hemoglobin 31.1 pg (27.0-31.2); Mean Corpuscular Volume 94.7 fl (80-94); Mean Platelet Volume 8.1 fl (7.4-10.4); Monocytes # 0.6 K/mm3 (0.1-1.0); Monocytes % 8.2 % (1.7-9.3); Neutrophils # 3.5 K/mm3 (1.8-7.8); Platelet Count 219 K/mm3 (142-424); Red Blood Count 4.64 M/mm3 (4.60-6.20); Red Cell Distribution Width 13.5 % (11.5-17.5); White Blood Count 7.6 K/mm3 (4.8-10.8)
[2020-08-18 18:03] LABS: INR 1.72 (0.9-1.1); Prothrombin Time 19.5 seconds (10.1-12.5)
[2020-08-18 18:24] LABS: Erythrocyte Sedimentation Rate 25 mm/hr (0-20)
[2020-08-18 18:52] LABS: Alanine Aminotransferase 14 U/L (12-78); Albumin Level 4.5 g/dl (3.5-5.0); Albumin/Globulin Ratio 1.6 (1.1-1.8); Alkaline Phosphatase 88 U/L (38-126); Anion Gap 12.3 mEq/L (5-15); Aspartate Amino Transferase 30 U/L (17-59); Bilirubin,Total 0.3 mg/dl (0.2-1.3); Blood Urea Nitrogen 16 mg/dl (9-20); Calcium 9.9 mg/dl (8.4-10.2); Carbon Dioxide 29 mmol/L (22.0-30.0); Chloride 105 mmol/L (98-107); Estimated Glomerular Filt Rate 49 ml/min (>60); GFR (African American) 59 ML/MIN (>60); Globulin 2.8 g/dL (1.3-3.2); Glucose 76 mg/dl (74-100); Potassium 5.3 mmoL/L (3.5-5.1); Sodium 141 mmol/L (136-145); Total Protein,Serum 7.3 g/dl (6.3-8.2)
[2020-08-18 19:24] LABS: Thyroid Stimulating Hormone 2.69 uIU/mL (0.465-4.68)
== END ==
PROVIDERS: Visit Provider Nurse Practitioner Family
DX: R53.83 Other fatigue (principal); L30.9 Dermatitis, unspecified; I82.503 Chronic embolism and thrombosis of unspecified deep veins of lower extremity, bilateral
CPT/HCPCS: 36415; 80053; 84443; 85025; 85610; 85651

== ENCOUNTER → 2020-08-25 11:05 | Outpatient (POV) | payer MEDICARE, SELFPAY | PROVIDERS: Visit Provider Dermatology | DX: Z00.00 Encounter for general adult medical examination without abnormal findings (principal) ==

== ENCOUNTER 2020-09-24 12:57 | Outpatient (CLI) | payer MEDICARE, SELFPAY ==
[2020-09-24 13:52] LABS: PHA INR Fingerstick 2.2 (0.9-1.1)
== END 2020-09-24 13:55 | disposition home or self-care (01) ==
PROVIDERS: PCP Internal Medicine Adolescent Medicine; Visit Provider Internal Medicine Adolescent Medicine
DX: Z51.81 Encounter for therapeutic drug level monitoring (principal); Z79.01 Long term (current) use of anticoagulants
CPT/HCPCS: 85610; 99211; G0463

== ENCOUNTER → 2020-10-29 13:24 | Outpatient (CLI) | payer MEDICARE, SELFPAY ==
[2020-10-29 14:11] LABS: Erythrocyte Sedimentation Rate 25 mm/hr (0-20)
[2020-10-29 14:12] LABS: Anion Gap 13.1 mEq/L (5-15); Blood Urea Nitrogen 16 mg/dl (9-20); Calcium 9.2 mg/dl (8.4-10.2); Carbon Dioxide 31 mmol/L (22.0-30.0); Chloride 104 mmol/L (98-107); Estimated Glomerular Filt Rate 42 ml/min (>60); GFR (African American) 51 ML/MIN (>60); Glucose 98 mg/dl (74-100); Potassium 5.1 mmoL/L (3.5-5.1); Sodium 143 mmol/L (136-145)
== END ==
PROVIDERS: Visit Provider Nurse Practitioner Family
DX: R51.9 Headache, unspecified (principal); R70.0 Elevated erythrocyte sedimentation rate
CPT/HCPCS: 36415; 80048; 85651; 86140

== ENCOUNTER 2020-11-05 12:54 | Outpatient (CLI) | payer MEDICARE, SELFPAY ==
[2020-11-05 14:01] LABS: PHA INR Fingerstick 1.9 (0.9-1.1)
== END 2020-11-05 13:56 | disposition home or self-care (01) ==
PROVIDERS: PCP Internal Medicine Adolescent Medicine; Visit Provider Internal Medicine Adolescent Medicine
DX: Z51.81 Encounter for therapeutic drug level monitoring (principal); Z79.01 Long term (current) use of anticoagulants
CPT/HCPCS: 85610; 99211; G0463

== ENCOUNTER 2020-12-17 12:49 | Outpatient (CLI) | payer MEDICARE, SELFPAY ==
[2020-12-17 14:49] LABS: PHA INR Fingerstick 2.3 (0.9-1.1)
== END 2020-12-17 14:59 | disposition home or self-care (01) ==
LOC: ACC 12:51
PROVIDERS: PCP Internal Medicine Adolescent Medicine; Visit Provider Internal Medicine Adolescent Medicine
DX: Z51.11 Encounter for antineoplastic chemotherapy (principal); Z79.01 Long term (current) use of anticoagulants
CPT/HCPCS: 85610; 99211; G0463

== ENCOUNTER 2021-01-28 12:49 | Outpatient (CLI) | payer MEDICARE, SELFPAY ==
[2021-01-28 14:04] LABS: PHA INR Fingerstick 1.8 (0.9-1.1)
== END 2021-01-28 14:11 | disposition home or self-care (01) ==
LOC: ACC 12:51
PROVIDERS: PCP Internal Medicine Adolescent Medicine; Visit Provider Internal Medicine Adolescent Medicine
DX: Z51.81 Encounter for therapeutic drug level monitoring (principal); Z79.01 Long term (current) use of anticoagulants
CPT/HCPCS: 85610; 99211; G0463

== ENCOUNTER 2021-03-10 12:53 | Outpatient (CLI) | payer MEDICARE, SELFPAY ==
[2021-03-10 16:28] LABS: PHA INR Fingerstick 1.9 (0.9-1.1)
== END 2021-03-10 16:50 | disposition home or self-care (01) ==
LOC: ACC 12:54
PROVIDERS: PCP Internal Medicine Adolescent Medicine; Visit Provider Internal Medicine Adolescent Medicine
DX: Z51.81 Encounter for therapeutic drug level monitoring (principal); Z79.01 Long term (current) use of anticoagulants
CPT/HCPCS: 85610; 99211; G0463

== ENCOUNTER 2021-04-05 09:00 | Outpatient (CLI) | payer MEDICARE, SELFPAY ==
[2021-04-05 15:13] LABS: PHA INR Fingerstick 1.4 (0.9-1.1)
== END 2021-04-05 15:15 | disposition home or self-care (01) ==
LOC: ACC 09:01
PROVIDERS: PCP Internal Medicine Adolescent Medicine; Visit Provider Internal Medicine Adolescent Medicine
DX: Z51.81 Encounter for therapeutic drug level monitoring (principal); Z79.01 Long term (current) use of anticoagulants
CPT/HCPCS: 85610; 99211; G0463

== ENCOUNTER 2021-04-21 12:55 | Outpatient (CLI) | payer MEDICARE, SELFPAY | END 2021-04-21 15:06 | disposition home or self-care (01) | LOC: ACC 12:56 | PROVIDERS: PCP Internal Medicine Adolescent Medicine; Visit Provider Internal Medicine Adolescent Medicine | DX: Z51.81 Encounter for therapeutic drug level monitoring (principal); Z79.01 Long term (current) use of anticoagulants | CPT/HCPCS: 99211; G0463 ==

== ENCOUNTER 2021-06-01 12:57 | Outpatient (CLI) | payer MEDICARE, SELFPAY | END 2021-06-01 13:53 | disposition home or self-care (01) | LOC: ACC 12:59 | PROVIDERS: PCP Internal Medicine Adolescent Medicine; Visit Provider Internal Medicine Adolescent Medicine | DX: Z51.81 Encounter for therapeutic drug level monitoring (principal); Z79.01 Long term (current) use of anticoagulants | CPT/HCPCS: 85610; 99211; G0463 ==

== ENCOUNTER 2021-06-29 12:56 | Outpatient (CLI) | payer MEDICARE, SELFPAY ==
[2021-06-29 14:10] LABS: PHA INR Fingerstick 2.3 (0.9-1.1)
== END 2021-06-29 14:12 | disposition home or self-care (01) ==
LOC: ACC 12:57
PROVIDERS: PCP Internal Medicine Adolescent Medicine; Visit Provider Internal Medicine Adolescent Medicine
DX: Z51.81 Encounter for therapeutic drug level monitoring (principal); Z79.01 Long term (current) use of anticoagulants
CPT/HCPCS: 85610; 99211; G0463

== ENCOUNTER 2021-08-16 12:03 | Outpatient (CLI) | payer MEDICARE, SELFPAY | END 2021-08-16 13:14 | disposition home or self-care (01) | LOC: ACC 12:04 | PROVIDERS: PCP Internal Medicine Adolescent Medicine; Visit Provider Internal Medicine Adolescent Medicine | DX: Z51.81 Encounter for therapeutic drug level monitoring (principal); Z79.01 Long term (current) use of anticoagulants | CPT/HCPCS: 85610; 99211; G0463 ==

== ENCOUNTER 2021-09-27 12:58 | Outpatient (CLI) | payer MEDICARE, SELFPAY ==
[2021-09-27 14:42] LABS: INR 7.71 (0.9-1.1); Prothrombin Time 74.9 seconds (10.1-12.5)
[2021-09-27 14:55] LABS: PHA INR Fingerstick 6.8 (0.9-1.1)
== END 2021-09-27 14:57 | disposition home or self-care (01) ==
LOC: ACC 12:58
PROVIDERS: PCP Internal Medicine Adolescent Medicine; Visit Provider Internal Medicine Adolescent Medicine
DX: Z51.81 Encounter for therapeutic drug level monitoring (principal); Z79.01 Long term (current) use of anticoagulants; I82.503 Chronic embolism and thrombosis of unspecified deep veins of lower extremity, bilateral
CPT/HCPCS: 36415; 85610; 99211; G0463

== ENCOUNTER 2021-10-01 12:59 | Outpatient (CLI) | payer MEDICARE, SELFPAY ==
[2021-10-01 14:00] LABS: PHA INR Fingerstick 1.5 (0.9-1.1)
== END 2021-10-01 14:09 | disposition home or self-care (01) ==
PROVIDERS: Internal Medicine Adolescent Medicine; PCP Internal Medicine Adolescent Medicine; Visit Provider Internal Medicine Adolescent Medicine
DX: Z51.81 Encounter for therapeutic drug level monitoring (principal); Z79.01 Long term (current) use of anticoagulants
CPT/HCPCS: 85610; 99211; G0463

== ENCOUNTER 2021-10-14 12:58 | Outpatient (CLI) | payer MEDICARE, SELFPAY | END 2021-10-14 13:34 | disposition home or self-care (01) | LOC: ACC 12:59 | PROVIDERS: PCP Internal Medicine Adolescent Medicine; Visit Provider Internal Medicine Adolescent Medicine | DX: Z51.81 Encounter for therapeutic drug level monitoring (principal); Z79.01 Long term (current) use of anticoagulants | CPT/HCPCS: 85610; 99211; G0463 ==

== ENCOUNTER 2021-11-01 13:30 | Outpatient (CLI) | payer MEDICARE, SELFPAY ==
[2021-11-01 14:43] LABS: PHA INR Fingerstick 2.6 (0.9-1.1)
== END 2021-11-01 14:45 | disposition home or self-care (01) ==
PROVIDERS: PCP Internal Medicine Adolescent Medicine; Visit Provider Internal Medicine Adolescent Medicine
DX: Z51.81 Encounter for therapeutic drug level monitoring (principal); Z79.01 Long term (current) use of anticoagulants
CPT/HCPCS: 85610; 99211; G0463

== ENCOUNTER 2021-11-15 12:56 | Outpatient (CLI) | payer MEDICARE, SELFPAY ==
[2021-11-15 14:25] LABS: PHA INR Fingerstick 1.7 (0.9-1.1)
== END 2021-11-15 14:34 | disposition home or self-care (01) ==
LOC: ACC 12:59
PROVIDERS: PCP Internal Medicine Adolescent Medicine; Visit Provider Internal Medicine Adolescent Medicine
DX: Z51.81 Encounter for therapeutic drug level monitoring (principal); Z79.01 Long term (current) use of anticoagulants
CPT/HCPCS: 85610; 99211; G0463

== ENCOUNTER 2021-12-02 13:21 | Outpatient (CLI) | payer MEDICARE, SELFPAY ==
[2021-12-02 14:54] LABS: PHA INR Fingerstick 1.7 (0.9-1.1)
== END 2021-12-02 15:58 | disposition home or self-care (01) ==
LOC: ACC 13:22
PROVIDERS: PCP Internal Medicine Adolescent Medicine; Visit Provider Internal Medicine Adolescent Medicine
DX: Z51.81 Encounter for therapeutic drug level monitoring (principal); Z79.01 Long term (current) use of anticoagulants
CPT/HCPCS: 85610; 99211; G0463

== ENCOUNTER 2021-12-23 12:57 | Outpatient (CLI) | payer MEDICARE, SELFPAY ==
[2021-12-23 13:58] LABS: PHA INR Fingerstick 2.5 (0.9-1.1)
== END 2021-12-23 13:59 ==
LOC: ACC 12:57
PROVIDERS: PCP Internal Medicine Adolescent Medicine; Visit Provider Internal Medicine Adolescent Medicine
DX: Z51.81 Encounter for therapeutic drug level monitoring (principal); Z79.01 Long term (current) use of anticoagulants
CPT/HCPCS: 85610; 99211; G0463

== ENCOUNTER 2022-02-03 12:56 | Outpatient (CLI) | payer MEDICARE, SELFPAY ==
[2022-02-03 13:17] LABS: PHA INR Fingerstick 2.4 (0.9-1.1)
== END 2022-02-03 13:19 ==
LOC: ACC 12:57
PROVIDERS: PCP Internal Medicine Adolescent Medicine; Visit Provider Internal Medicine Adolescent Medicine
DX: Z51.81 Encounter for therapeutic drug level monitoring (principal); Z79.01 Long term (current) use of anticoagulants
CPT/HCPCS: 85610; 99211; G0463

== ENCOUNTER 2022-03-17 13:00 | Outpatient (CLI) | payer MEDICARE, SELFPAY ==
[2022-03-17 15:54] LABS: PHA INR Fingerstick 2.9 (0.9-1.1)
== END 2022-03-17 16:00 ==
LOC: ACC 13:01
PROVIDERS: PCP Internal Medicine Adolescent Medicine; Visit Provider Internal Medicine Adolescent Medicine
DX: Z51.81 Encounter for therapeutic drug level monitoring (principal); Z79.01 Long term (current) use of anticoagulants
CPT/HCPCS: 85610; 99211; G0463

== ENCOUNTER 2022-05-04 13:30 | Outpatient (CLI) | payer MEDICARE, SELFPAY ==
[2022-05-04 15:54] LABS: PHA INR Fingerstick 1.9 (0.9-1.1)
== END 2022-05-04 15:55 ==
LOC: ACC 13:32
PROVIDERS: PCP Internal Medicine Adolescent Medicine; Visit Provider Internal Medicine Adolescent Medicine
DX: Z51.81 Encounter for therapeutic drug level monitoring (principal); Z79.01 Long term (current) use of anticoagulants
CPT/HCPCS: 85610; 99211; G0463

== ENCOUNTER 2022-05-07 15:04 | Emergency (ER) | payer MEDICARE, SELFPAY ==
[2022-05-07 15:10] VITALS: BP 117/68; PULSE 72; RESP 20; TEMP 36.8; O2SAT 95; BMI 26.6
[2022-05-07 15:45] VITALS: BP 131/75; PULSE 83; RESP 22; O2SAT 94; BMI 25.8
--- NOTE | 2022-05-07 15:54 | XR_ITS ---
PROCEDURE INFORMATION: Exam: XR Chest Exam date and time: 05/07/2022 4:19 PM Age: 81 years old Clinical indication: Other: Dizzy TECHNIQUE: Imaging protocol: Radiologic exam of the chest. Views: 1 view. COMPARISON: CR [id number] XR chest portable 07/26/2018 12:00 AM FINDINGS: Lungs: No evidence of pneumonia or interstitial edema. Pleural spaces: Unremarkable. No pleural effusion. No pneumothorax. Heart/Mediastinum: Contours of the mediastinal silhouette are unchanged. Bones/joints: Sternotomy wires are intact IMPRESSION: No evidence of pneumonia or interstitial edema.
--- NOTE | 2022-05-07 16:12 | ECG_ITS ---
APPROVED REPORT Exam: Resting ECG HR:69 bpm ECG Measurements Heart Rate 69 AXES IL 180 P 62 QRSd 152 QRS 96 QT 423 T 88 QTc 443 Conclusion SINUS RHYTHM WITH SINUS ARRHYTHMIA INTRAVENTRICULAR CONDUCTION DELAY [130+ ms QRS DURATION] POSSIBLE RIGHT VENTRICULAR HYPERTROPHY [SOME/ALL OF: PROMINENT R IN V1, LATE TRANSITION, RAD, EDWIN, SSS] ABNORMAL ECG UNCONFIRMED REPORT Electronically signed by : Reynaldo Jauregui MD 05/09/2022 20:21:05
[2022-05-07 17:30] VITALS: BP 120/71; PULSE 66; RESP 18; O2SAT 96
[2022-05-07 17:30] LABS: Microscopic, Urine URINE MICROSCOPIC (MICROSCOPIC)
[2022-05-07 17:39] LABS: Appearance,Urine CLEAR (Clear); Bilirubin,Urine Negative (Negative); Blood, Urine Negative (Negative); Color,Urine YELLOW (Yellow); Glucose,Urine (UA) Negative (Negative); Ketones,Urine Negative (Negative); Leukocyte Esterase,Urine Negative (Negative); Nitrate,Urine Negative (Negative); Protein,Urine Negative (Negative); Urobilinogen,Urine 0.2 EU/dl (0.2)
[2022-05-07 17:45] LABS: Squamous Epithelial Cell,Urine Occasional #/hpf (0-5); WBC,Urine Occasional #/hpf (0-3)
[2022-05-07 18:00] VITALS: BP 110/54; PULSE 61; RESP 16; O2SAT 97
[2022-05-07 18:20] LABS: Alanine Aminotransferase 11 U/L (12-78); Albumin Level 3.8 g/dl (3.5-5.0); Albumin/Globulin Ratio 1.4 (1.1-1.8); Alkaline Phosphatase 88 U/L (38-126); Anion Gap 8.7 mEq/L (5-15); Aspartate Amino Transferase 24 U/L (17-59); Bilirubin,Total 0.2 mg/dl (0.2-1.3); Blood Urea Nitrogen 11 mg/dl (9-20); Calcium 8.4 mg/dl (8.4-10.2); Carbon Dioxide 32 mmol/L (22.0-30.0); Chloride 103 mmol/L (98-107); Creatinine Clearance Estimated 43 mL/min (50-200); Estimated Glomerular Filt Rate 45 ml/min (>60); GFR (African American) 54 ML/MIN (>60); Globulin 2.8 g/dL (1.3-3.2); Glucose 97 mg/dl (74-100); Potassium 4.7 mmoL/L (3.5-5.1); Sodium 139 mmol/L (136-145); Total Protein,Serum 6.6 g/dl (6.3-8.2)
[2022-05-07 18:23] LABS: Basophils # 0.1 K/mm3 (0-0.2); Basophils % 1.1 % (0.1-2.0); Eosinophils # 0.2 K/mm3 (0.0-0.4); Eosinophils % 2.6 % (0.1-12.0); Hematocrit 39.9 % (42.0-52.0); Hemoglobin 13.1 g/dL (14.1-18.0); INR 2.14 (0.9-1.1); Lymphocytes # 1.8 K/mm3 (0.7-4.5); Lymphocytes % 30.6 % (10-50); Mean Corpuscular HGB Conc 32.8 g/dL (31.8-35.4); Mean Corpuscular Hemoglobin 30.2 pg (27.0-31.2); Mean Corpuscular Volume 92.2 fl (80-94); Mean Platelet Volume 8.9 fl (7.4-10.4); Monocytes # 0.5 K/mm3 (0.1-1.0); Neutrophils # 3.4 K/mm3 (1.8-7.8); Neutrophils % 56.6 % (37.0-80.0); Platelet Count 209 K/mm3 (142-424); Prothrombin Time 22.1 seconds (10.1-12.5); Red Blood Count 4.33 M/mm3 (4.60-6.20); Red Cell Distribution Width 14.2 % (11.5-17.5); White Blood Count 5.9 K/mm3 (4.8-10.8)
[2022-05-07 18:32] LABS: Troponin I < 0.01 ng/ml (0.00-0.034)
--- NOTE | 2022-05-07 18:44 | HMH.EDGENADL ---
Discharge Plan Disposition Patient Disposition: Home, Self-Care Condition: Good Chief Complaint: Dizziness Prescriptions Prescriptions: No Action aspirin [Aspir-81] 81 mg tablet,delayed release (DR/EC) 81 mg PO 1600 lisinopril 10 MG tablet 10 mg PO 1600 lovastatin 40 MG tablet 40 mg PO MO@1600 warfarin 2.5 MG tablet 2.5 mg PO SUTUWETHSA@1600 warfarin 2.5 MG tablet 1.25 mg PO MOFR@1600 Referrals Follow up/Referrals: Reynaldo Jauregui MD [Primary Care Provider] - See instructions Activity Restrictions/Add. Instructions Additional Instructions/Restrictions: Call operation shift supervisor on Monday. Return to ER for recurrent symptoms. Home medication as directed Clinical Impressions Clinical Impression: Near syncope, Bradycardia Instructions Patient Instructions: Dizziness, Nonvertigo Discharge ED Provider: Donavon Blakely Adult HPI General Chief complaint: Dizziness Stated complaint: nausea, dizzy Time Seen by Provider: 05/07/22 15:54 Mode of Arrival: Ambulatory Source of Information: Patient and Spouse Limitations: No Limitations Description of Symptoms (Recalled from ER Triage Doc. 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 HE ALSO REPORTS CHEST HEAVINESS AT THE TIME OF THE EPISODE, AND C/O LEF SIDE CHEST PRESSURE AT THIS TIME. REPORTS A HISTORY OF HEART BYPASS. DENIES NAUSEA, SOA. History of Present Illness HPI narrative: 81yo M evaluated in the emergency department secondary to near syncope. Patient reports he became weak, pale and very lightheaded. Did not fully lose consciousness nor did he fall. Patient reports his smart watch told him his heart rate was in the 30s. Denies previous episodes similar to this. Patient did have bypass surgery several decades ago. Follows with a operation shift supervisor annually. Denies any chest pain. Had mild shortness of breath when his heart rate was low but is now recovered and feels normal. Denies recent illness. Related Data Home Medications Medication Instructions Recorded Confirmed aspirin 81 mg tablet,delayed 81 mg PO 1600 Heart disease 09/07/17 05/05/22 release (Aspir-) lovastatin 40 mg tablet 40 mg PO MO@1600 Cholesterol 06/27/18 05/05/22 warfarin 2.5 mg tablet 1.25 mg PO MOFR@1600 HX OF PE/DVT 07/18/18 05/05/22 warfarin 2.5 mg tablet 2.5 mg PO SUTUWETHSA@1600 HX OF 07/18/18 05/05/22 PE/DVT lisinopril 10 mg tablet 10 mg PO 1600 High blood pressure 07/26/18 05/05/22 Allergies Allergy/AdvReac Type Severity Reaction Status Date / Time No Known Allergies Allergy Verified 09/13/18 11:33 [facility] Disclaimer: The information contained in this section may have been updated after the patient was seen, as this information can be updated by other users. Medical History Coronary artery disease due to lipid rich plaque Prostate cancer Surgical History No significant past surgical history Family History Other Family history of cancer Family history of diabetes mellitus type II Family history of stroke Social History Smoking Status: Never smoker alcohol intake: never substance use type: denies use current occupational status: retired Travel in the last 8 weeks: None household members: spouse housing: house lives independently: Yes marital status: education level: college caffeine: No special arielle needs: No agree to transfusion: No do you feel safe at home: Yes victim of physical abuse: No victim of emotional abuse: No victim of sexual abuse: No would you like helpful sources: No ROS Obtained: Yes Systems reviewed as appropriate & no additional complaints except as documented Physical Exam General General appeara
--- NOTE | 2022-05-07 18:50 | PC.NURSE ---
pt refused covid test
[2022-05-07 19:05] VITALS: BP 119/76; PULSE 61; RESP 16; TEMP 36.8; O2SAT 97
== END 2022-05-07 19:07 | disposition home or self-care (01) ==
PROVIDERS: Emergency Provider Family Medicine; PCP Internal Medicine Adolescent Medicine
DX: R55 Syncope and collapse (principal); R00.1 Bradycardia, unspecified; R42 Dizziness and giddiness; I25.10 Atherosclerotic heart disease of native coronary artery without angina pectoris; C61 Malignant neoplasm of prostate; Z80.9 Family history of malignant neoplasm, unspecified; Z82.3 Family history of stroke; Z83.3 Family history of diabetes mellitus
CPT/HCPCS: 36415; 71045; 80053; 81001; 84484; 85025; 85610; 93005; 96361; 96374; 99285; J2405

== ENCOUNTER → 2022-05-09 12:49 | Outpatient (CLI) | payer MEDICARE, SELFPAY ==
--- NOTE | 2022-05-09 12:50 | CA_ITS ---
APPROVED REPORT EXAM: Comprehensive 2D, Doppler, and color-flow Echocardiogram [employer] Farmer: Bethanie Prasad RVT Ht: 5 ft 8 in Wt: 174lbs BSA: 1.93 BP: 110/59 mmHg Indications: BRADYCARDIA,CABG,CAD,SOA,PRE SYNCOPE 2D Dimensions LVOT 2.17 cm (M/F) 1.5-2.5 LA Volume 32.60 mL LA Volume Index 16.89 mL/m2 (M/F) 16-34 M-Mode Dimensions RVDd 2.74 cm (0.9-2.6) LA Diam 4.20 cm (1.9-4.0) LVDd 4.69 cm (3.5-5.7) Ao Diam 3.55 cm (2.0-3.7) LVDs 3.30 cm (3.5-5.7) IVSd 0.79 cm (0.6-1.1) PWd 0.64 cm (0.6-1.1) EF (Teich) 56.70% FS 29.60% EDV (Teich) 101.90 mL ESV (Teich) 44.10 mL LV Diastology E Decel Time 263.00 (160-240 msec) E/A Ratio 0.5 MED E' 6.70 (< 7 cm/sec) E'/MED E' Ratio 8.90 (>14) LAT E' 8.10 (<10 cm/sec) E/LAT E' Ratio 7.36 (>14) Aortic Valve AO Peak GR. 3.20 mmHg Mitral Valve MV E Max Anthony. 60.00 (40-130 cm/s) MV A Velocity 120.00 (40-130 cm/s) E/A Ratio 0.50 MV Decel. Time 263.00 (160-240 ms) MV PHT 77.00 ms Pulmonary Valve PV Peak Velocity 87.00 (50-150 cm/s) Left Ventricle Left atrium is mildly enlarged, left ventricle is normal size mild concentric left ventricular hypertrophy, estimated ejection fraction 55% with no regional wall motion abnormality, grade 1 diastolic dysfunction seen without tissue Doppler evidence of raise left atrial pressure. Right Ventricle Right atrium and right ventricle are normal size and contractility. Aortic Valve Aortic valve is minimally thickened and calcified without aortic stenosis or aortic insufficiency. Mitral Valve Mitral valve is grossly normal, there is trace mitral regurgitation. Tricuspid Valve Tricuspid grossly normal, there is trace tricuspid regurgitation, tricuspid regurgitation jet velocity is inadequate for calculation of the right ventricular systolic pressure. Pulmonic Valve Pulmonic valve is poorly visualized. Great Vessels Aortic root is normal size. Inferior vena cava is poorly visualized. Pericardium No significant pericardial effusion noted. Conclusion 1. Mildly enlarged left atrium, normal left ventricular size, mild concentric left ventricular hypertrophy, estimated ejection fraction 55% with no regional wall motion abnormality, grade 1 diastolic dysfunction seen without tissue Doppler evidence of raise left atrial pressure. 2. Trace mitral and tricuspid regurgitation. 3. No significant pericardial effusion noted. 4. Inferior vena cava is poorly visualized. Electronically signed by : Jerson De La Rosa MD 05/10/2022 06:07:36
== END ==
LOC: RT 12:50
PROVIDERS: PCP Internal Medicine Adolescent Medicine; Visit Provider Internal Medicine
DX: I25.810 Atherosclerosis of coronary artery bypass graft(s) without angina pectoris (principal); R00.1 Bradycardia, unspecified; R06.09 Other forms of dyspnea; R42 Dizziness and giddiness; R55 Syncope and collapse; R94.31 Abnormal electrocardiogram [ECG] [EKG]; Z95.1 Presence of aortocoronary bypass graft
CPT/HCPCS: 93306

== ENCOUNTER 2022-05-11 09:52 | Day surgery (SDC) | payer MEDICARE, SELFPAY ==
[2022-05-11] VITALS (15 sets, daily range): BP systolic 93–169; BP diastolic 54–97; PULSE 59–88; RESP 16–19; O2SAT 91–98; BMI 27.2
--- NOTE | 2022-05-11 07:04 | IR_ITS ---
APPROVED REPORT Patient Location: Outpatient [facility] Worker: AMILCAR Henriquez RT (R) PROCEDURES 1. Pocket formation for Permanent Pacemaker Placement. 2. Placement of an atrial sensing and pacing coil into the right atrial appendage. 3. Placement of a ventricular sensing and pacing coil in the right ventricular apex. 4. Permanent Pacemaker Placement. 5. Atrial Lead Revision INDICATION Symptomatic bradycardia, Syncope, Heart rate 30 per patient's home radiation monitor in the setting of syncope Informed consent was obtained prior to the procedure. COMPLICATIONS None Estimated Blood Loss: Less than 10 ML TECHNIQUE 1% Lidocaine with epinephrine used to anesthetized the left anterior aspect of the chest. Scalpel was used to make the initial cutaneous incision while electrocautery was used to dissect down tinto the fascia. The fascia was lifted off the pectoralis muscle and digitally manipulated creating a pocket for the pacemaker. The patient was then placed in Trendelenburg position and the subclavian vein was accessed twice via the Selinger technique, there are two wires in the vein. A 6 [place] sheath was placed under fluoroscopic guidance into the subclavian vein over one of the wires while keeping the other wire in place within the subclavian vein. The dilator was removed from the sheath. Using fluoroscopic guidance, the ventricular lead was placed into the right ventricular apex, screwed and secured into place. Electronic interrogation proved acceptable thresholds and voltage within the lead. Using 3-0 silk, the ventricular lead was then secured into place. Lead was secured to the facia using the 3-0 silk. Following this, the sheath was pealed away. An additional 6 [place] fresh sheath and dilator was placed over the existing wire. Using fluoroscopic guidance, the atrial lead was the placed into the right atrial appendage and screwed and secured in place. Electrical interrogation demonstrated acceptable thresholds and voltage number. The atrial lead was then secured into place using 3-0 silk. 1 gram of Ancef was used to flush the pocket. Following the pacemaker generator being secured to the fascia and in place, Monocryl was used to close the subcutaneous layers while vinod were used to close the cutaneous layer. A pressure dressing was placed and the patient was transferred to the postop holding area in stable condition for postoperative care. Patient brought back to procedure room for atrial lead revision. Using fluoroscopic guidance, the atrial lead was the placed into the right atrial appendage and screwed and secured in place. Electrical interrogation demonstrated acceptable thresholds and voltage number. The atrial lead was then secured into place using 3-0 silk. 1 gram of Ancef was used to flush the pocket. Following the pacemaker generator being secured to the fascia and in place, Monocryl was used to close the subcutaneous layers while vinod were used to close the cutaneous layer. A pressure dressing was placed and the patient was transferred to the postop holding area in stable condition for postoperative care. INTERROGATION Generator Model number: Hostspot MRI DR IS-1 L311 Generator Serial number: [id number] Atrial lead model number: Ingevity + IS-1 Bi Positive Fix RA/RV 52cm 7841 Atrial lead serial number: [id number] P-wave: 5.0 mV Impedence: 650 Ohms Threshold: 1.0V @ 0.4ms Current: 1.5 mA Right Ventricular lead model number: Ingevity + IS-1 Bi Positive Fix RA/RV 59cm 7842 Right Ventricular lead serial number: [id number] R-wave: 18.0 mV Impedence: 1100 Ohms Threshold: 1.0V @ 0.4ms Current: 0.9 mA Pacing Parameters: Mode: DDDR Base/Max Track:60 p
[2022-05-11 10:27] LABS: Basophils # 0.1 K/mm3 (0-0.2); Basophils % 1.3 % (0.1-2.0); Eosinophils # 0.2 K/mm3 (0.0-0.4); Eosinophils % 3.1 % (0.1-12.0); Hematocrit 45.6 % (42.0-52.0); Hemoglobin 14.6 g/dL (14.1-18.0); Lymphocytes # 2.2 K/mm3 (0.7-4.5); Lymphocytes % 33.3 % (10-50); Mean Corpuscular HGB Conc 32.1 g/dL (31.8-35.4); Mean Corpuscular Hemoglobin 29.9 pg (27.0-31.2); Mean Corpuscular Volume 93.3 fl (80-94); Monocytes # 0.4 K/mm3 (0.1-1.0); Monocytes % 6.5 % (1.7-9.3); Neutrophils # 3.7 K/mm3 (1.8-7.8); Neutrophils % 55.8 % (37.0-80.0); Platelet Count 228 K/mm3 (142-424); Red Blood Count 4.89 M/mm3 (4.60-6.20); Red Cell Distribution Width 14.2 % (11.5-17.5); White Blood Count 6.5 K/mm3 (4.8-10.8)
[2022-05-11 10:33] LABS: Chloride 104 mmol/L (98-107); Potassium 3.9 mmoL/L (3.5-5.1); Sodium 142 mmol/L (136-145)
[2022-05-11 10:36] LABS: Anion Gap 11.9 mEq/L (5-15); Blood Urea Nitrogen 12 mg/dl (9-20); Carbon Dioxide 30 mmol/L (22.0-30.0); Creatinine Clearance Estimated 48 mL/min (50-200); Estimated Glomerular Filt Rate 49 ml/min (>60); GFR (African American) 59 ML/MIN (>60)
[2022-05-11 10:37] LABS: Calcium 8.7 mg/dl (8.4-10.2); Glucose 95 mg/dl (74-100)
[2022-05-11 10:38] LABS: INR 1.38 (0.9-1.1); Prothrombin Time 14.6 seconds (10.1-12.5)
--- NOTE | 2022-05-11 12:02 | EXP.ANES.CKL ---
[facility] Disclaimer: The information contained in this section may have been updated after the patient was seen, as this information can be updated by other users. Medical History Coronary artery disease due to lipid rich plaque Prostate cancer Syncope Surgical History No significant past surgical history Family History Other Family history of cancer Family history of diabetes mellitus type II Family history of stroke Social History Smoking Status: Never smoker alcohol intake: never substance use type: denies use current occupational status: retired Travel in the last 8 weeks: None household members: spouse housing: house lives independently: Yes marital status: education level: college caffeine: No special arielle needs: No agree to transfusion: No do you feel safe at home: Yes victim of physical abuse: No victim of emotional abuse: No victim of sexual abuse: No would you like helpful sources: No [facility] Anesthesia Checklist Patient Identification Patient Identification: Arm Band and Verbal (Name & ) Structural Data Admitted From: Home Planned Operative Procedure/s: Pacemaker Consent for Planned Operative Procedure(s) Verified: Yes NPO Status Verified Time NPO: 00:00 Additional verifications Anesthesia Reactions: No Hx Blood Transfusions: No Blood Transfusion Reaction: No Airway Assessment C-Spine Mobility Assessed: Yes TMJ Mobility Assessed: Yes Dentition: Good Dentition Neurological Assessment Level of Consciousness: Awake Hx Seizures: No Numbness or tingling in extremities: No Anesthesia Plan Anesthesia Risk discussed: Yes Anesthesia Plan: Verified ASA Class: III Anesthesia Type: MAC
--- NOTE | 2022-05-11 13:13 | XR_ITS ---
FINAL REPORT CLINICAL HISTORY: post pacemaker COMPARISON: 05/07/2022 FINDINGS: SINGLE-VIEW CHEST The heart size is normal. The patient is status post median sternotomy and CABG. There has been interval placement of a left pacemaker. There is minimal atelectasis in the left lung base. There is no evidence of CHF. There is no pneumothorax. IMPRESSION: Interval placement of left-sided pacemaker without pneumothorax. Reviewed, Interpreted and Dictated by Anjel Bond MD Transcribed by Makenna Mon Authenticated and . [facility]
--- NOTE | 2022-05-11 15:02 | XR_ITS ---
FINAL REPORT CLINICAL HISTORY: abnormal ekg COMPARISON: Earlier the same day FINDINGS: PORTABLE CHEST A left-sided pacemaker is present. The patient is status post CABG. The heart is normal in size. The mediastinum is unremarkable. There has been resolution of left base atelectasis. There is no pneumothorax. IMPRESSION: Unremarkable. Reviewed, Interpreted and Dictated by Anjel Bond MD Transcribed by Althea Andre Authenticated and [facility]
--- NOTE | 2022-05-11 15:24 | SUR.PHASEII ---
1500 Dr Garcia notified of patient abnormal tele readings, multiple PVCs. Sent pictures of tele strips. New orders for chest xray, bisoprolol mg now and daily. Justyn PM rep. contacted. After chest xray, dr garcia states lead must be repositioned.
--- NOTE | 2022-05-11 17:54 | XR_ITS ---
PROCEDURE INFORMATION: Exam: XR Chest Exam date and time: 05/11/2022 5:54 PM Age: 81 years old Clinical indication: Screening exam; Other screening; Patient HX: Pacemaker/aid leads re-positioned. ; Additional info: Confirm pacemaker/aid placement TECHNIQUE: Imaging protocol: Radiologic exam of the chest. Views: 1 view. COMPARISON: CR XR CHEST PORTABLE 05/11/2022 3:02 PM FINDINGS: Lungs: Decreased pulmonary expansion. Question mild central vascular congestion. New bandlike alveolar opacity in the left base most likely represents atelectasis from current low lung volumes, new since comparison exam at 3:04 p.m.. Pleural spaces: No pleural effusion. No pneumothorax. Heart/Mediastinum: Heart size within normal limits for portable AP technique. No tracheal/mediastinal shift. Vasculature: Dual lead cardiac pacemaker via left subclavian approach again noted without gross hardware complication. The right atrial lead has been repositioned, directed more cranially. Bones/joints: No acute osseous abnormalities are identified. IMPRESSION: 1. Right atrial lead redirected. No gross hardware complication. 2. Low lung volumes with left basilar atelectasis. No pneumothorax.
--- NOTE | 2022-05-11 18:58 | SUR.PHASEII ---
1830 physician called about abnormal paced rhythm, tele strip sent to dr garcia. no new orders at this time.
== END 2022-05-11 19:01 | disposition home or self-care (01) ==
PROVIDERS: PCP Internal Medicine Adolescent Medicine; Visit Provider Internal Medicine
DX: R94.31 Abnormal electrocardiogram [ECG] [EKG] (principal); Z79.01 Long term (current) use of anticoagulants; Z79.899 Other long term (current) drug therapy; Z95.1 Presence of aortocoronary bypass graft; I45.4 Nonspecific intraventricular block; I49.5 Sick sinus syndrome; R55 Syncope and collapse; I25.83 Coronary atherosclerosis due to lipid rich plaque; I25.810 Atherosclerosis of coronary artery bypass graft(s) without angina pectoris
CPT/HCPCS: 33208; 71045; 80048; 85025; 85610; 99152; 99153; C1785; C1898; J2704

== ENCOUNTER 2022-05-19 04:07 | Emergency (ER) | payer MEDICARE, SELFPAY ==
[2022-05-19] VITALS (10 sets, daily range): BP systolic 127–147; BP diastolic 70–93; PULSE 72–88; RESP 10–17; TEMP 36.4–36.6; O2SAT 93–99; BMI 26.6
--- NOTE | 2022-05-19 03:58 | ECG_ITS ---
APPROVED REPORT Exam: Resting ECG HR:88 bpm ECG Measurements Heart Rate 88 AXES WI 216 P 58 QRSd 154 QRS 90 QT 413 T 54 QTc 459 Conclusion SINUS RHYTHM WITH FIRST DEGREE AV BLOCK RIGHT BUNDLE BRANCH BLOCK [120+ ms QRS DURATION, UPRIGHT V1, 40+ ms S IN I/aVL/V4/V5/V6] ABNORMAL ECG UNCONFIRMED REPORT Electronically signed by : Reynaldo Jauregui MD 05/19/2022 21:51:18
--- NOTE | 2022-05-19 04:09 | XR_ITS ---
PROCEDURE INFORMATION: Exam: XR Chest Exam date and time: 05/19/2022 4:12 AM Age: 81 years old Clinical indication: Pain; Prior surgery; Surgery date: Post-operative (0-2 days); Patient HX: States chest pressure, dizziness. ; Additional info: SOA, pacmaker placed 05/18 TECHNIQUE: Imaging protocol: Radiologic exam of the chest. Views: 2 views. COMPARISON: CR XR CHEST PORTABLE 05/11/2022 5:54 PM FINDINGS: Tubes, catheters and devices: Left-sided pacemaker is unchanged. Lungs: Unremarkable. No consolidation. Pleural spaces: Unremarkable. No pleural effusion. No pneumothorax. Heart/Mediastinum: Cardiomediastinal silhouette is stable with sequelae from prior open heart surgery. Bones/joints: Osseous structures are unchanged. IMPRESSION: No acute findings.
--- NOTE | 2022-05-19 04:22 | PC.NURSE ---
pt going to scan at this time
--- NOTE | 2022-05-19 04:24 | PC.NURSE ---
pt back in room
[2022-05-19 04:31] LABS: Basophils # 0.1 K/mm3 (0-0.2); Basophils % 1.8 % (0.1-2.0); Eosinophils # 0.3 K/mm3 (0.0-0.4); Eosinophils % 3.9 % (0.1-12.0); Hematocrit 42.4 % (42.0-52.0); Hemoglobin 13.8 g/dL (14.1-18.0); Lymphocytes # 3.4 K/mm3 (0.7-4.5); Lymphocytes % 44.2 % (10-50); Mean Corpuscular HGB Conc 32.6 g/dL (31.8-35.4); Mean Corpuscular Hemoglobin 29.9 pg (27.0-31.2); Mean Corpuscular Volume 91.8 fl (80-94); Mean Platelet Volume 9.2 fl (7.4-10.4); Monocytes # 0.6 K/mm3 (0.1-1.0); Monocytes % 7.7 % (1.7-9.3); Neutrophils # 3.3 K/mm3 (1.8-7.8); Neutrophils % 42.4 % (37.0-80.0); Platelet Count 202 K/mm3 (142-424); Red Blood Count 4.62 M/mm3 (4.60-6.20); Red Cell Distribution Width 14.5 % (11.5-17.5); White Blood Count 7.8 K/mm3 (4.8-10.8)
[2022-05-19 04:38] LABS: INR 1.48 (0.9-1.1); Prothrombin Time 15.6 seconds (10.1-12.5)
[2022-05-19 04:39] LABS: Anion Gap 8.9 mEq/L (5-15); Blood Urea Nitrogen 14 mg/dl (9-20); Calcium 8.6 mg/dl (8.4-10.2); Carbon Dioxide 30 mmol/L (22.0-30.0); Chloride 105 mmol/L (98-107); Creatinine Clearance Estimated 54 mL/min (50-200); Estimated Glomerular Filt Rate 58 ml/min (>60); GFR (African American) 70 ML/MIN (>60); Glucose 107 mg/dl (74-100); Potassium 3.9 mmoL/L (3.5-5.1); Sodium 140 mmol/L (136-145)
--- NOTE | 2022-05-19 04:44 | HMH.EDSOB ---
Discharge Plan Disposition Patient Disposition: Home, Self-Care Chief Complaint: Shortness of Breath/Dyspnea Prescriptions Prescriptions: No Action aspirin [Aspir-81] 81 mg tablet,delayed release (DR/EC) 81 mg PO 1600 bisoprolol fumarate 10 mg Tablet 10 mg PO DAILY Qty: 31 3RF lovastatin 40 MG tablet 40 mg PO MO@1600 warfarin 2.5 MG tablet 2.5 mg PO SUTUWETHSA@1600 warfarin 2.5 MG tablet 1.25 mg PO MOFR@1600 Clinical Impressions Clinical Impression: Chest pain, RBBB, Anticoagulated on warfarin Instructions Patient Instructions: DI for Shortness of Breath Discharge ED Provider: Norma (ED)Quang Resp/SOB HPI General Chief Complaint: Shortness of Breath/Dyspnea Stated Complaint: Dizzy Time Seen by Provider: 05/19/22 04:20 Mode of Arrival: EMS Source of Information: Patient, Spouse, EMS and Medical Record Limitations: No Limitations Description of Symptoms (Recalled from ER Triage Doc. by RN): Pt c/o being woke up with SOA, chest pressure, and dizziness. States he felt like I was having a heart attack . He did take Maalox d/t the pressure prior to EMS arrival to his home. Pt had a pacemaker placed 05/12. Dressings are intact. No crepitus or hematoma noted on palpation. Light bruising present to anterior chest. He is taking warfarin. Pt denies any pain, SOA, or pressure at this time. He denies having any continued dizziness. History of Present Illness pt with episode of indigestion with sob and weakness - recent pacemaker - uses coumadin Complaint: shortness of breath Onset (ago): hour(s) Context: other (pacemaker ) Severity: moderate Treatment prior to arrival: none Related Data Home oxygen amount: none Home Medications Medication Instructions Recorded Confirmed aspirin 81 mg tablet,delayed 81 mg PO 1600 Heart disease 09/07/17 05/11/22 release (Aspir-) lovastatin 40 mg tablet 40 mg PO MO@1600 Cholesterol 06/27/18 05/11/22 warfarin 2.5 mg tablet 1.25 mg PO MOFR@1600 HX OF PE/DVT 07/18/18 05/11/22 warfarin 2.5 mg tablet 2.5 mg PO SUTUWETHSA@1600 HX OF 07/18/18 05/11/22 PE/DVT Previous Rx's Medication Instructions Recorded bisoprolol fumarate 10 mg tablet 10 mg PO DAILY #31 tabs 05/11/22 Allergies Allergy/AdvReac Type Severity Reaction Status Date / Time No Known Allergies Allergy Verified 05/11/22 10:24 Well's Criteria PE Score Clinical signs/symptoms of DVT: No PE is #1 diagnosis or equally likely: Yes Heart rate is > 100: No Immobile at least 3 days, or surgery in past 4 wks: No Previously, obj. diagnosed PE or DVT: Yes Hemoptysis: No Malignancy w/Rx within 6mo, or palliative: No PE Score: 3 Risk of Pulmonary Embolism by score: >3 pts=Hi Risk (78%) [facility] Disclaimer: The information contained in this section may have been updated after the patient was seen, as this information can be updated by other users. Medical History Coronary artery disease due to lipid rich plaque Prostate cancer Syncope Surgical History No significant past surgical history Family History Other Family history of cancer Family history of diabetes mellitus type II Family history of stroke Social History Smoking Status: Never smoker alcohol intake: never substance use type: denies use current occupational status: retired Travel in the last 8 weeks: None household members: spouse housing: house lives independently: Yes marital status: education level: college caffeine: No special arielle needs: No agree to transfusion: No do you feel safe at home: Yes victim of physical abuse: No victim of emotional abuse: No victim of sexual abuse: No would you like helpful sources: No ROS Obtained: Yes A
[2022-05-19 04:48] LABS: NT Pro Brain Natriuretic Pep. 115 pg/mL (0-450)
[2022-05-19 04:52] LABS: Troponin I < 0.01 ng/ml (0.00-0.034)
--- NOTE | 2022-05-19 05:20 | CT_ITS ---
PROCEDURE INFORMATION: Exam: CTA Chest With Contrast Exam date and time: 05/19/2022 5:56 AM Age: 81 years old Clinical indication: Pain; Chest pressure; Prior surgery; Surgery type: Pacemaker; Additional info: SOA, recent pacemaker placement, warfarin d/t dvt TECHNIQUE: Imaging protocol: Computed tomographic angiography of the chest with contrast. 3D rendering (Not supervised by radiologist): MIP and/or 3D reconstructed images were created by the technologist. Radiation optimization: All CT scans at this facility use at least one of these dose optimization techniques: automated exposure control; mA and/or kV adjustment per patient size (includes targeted exams where dose is matched to clinical indication); or iterative reconstruction. Contrast material: ISOVUE; Contrast volume: 70 ml; Contrast route: INTRAVENOUS (IV); Other protocol: This patient has received 0 known CTs and 0 known cardiac nuclear medicine studies in the 12 months prior to the current study. COMPARISON: [facility] CT angio chest 06/27/2018 3:39 PM FINDINGS: Tubes, catheters and devices: Right heart pacemaker. Pulmonary arteries: Normal. No pulmonary emboli. Aorta: Unremarkable. No aortic aneurysm. No aortic dissection. Lungs: Unremarkable. No consolidation. No masses. Pleural spaces: Unremarkable. No pneumothorax. No pleural effusion. Heart: Unremarkable. No cardiomegaly. No pericardial effusion. Coronary arteries: Coronary atherosclerosis. Lymph nodes: Unremarkable. No enlarged lymph nodes. Bones/joints: Prior median sternotomy and CABG. Soft tissues: Unremarkable. IMPRESSION: 1. No evidence of pulmonary embolism or other acute process. 2. Coronary atherosclerosis status post CABG.
--- NOTE | 2022-05-19 05:25 | PC.NURSE ---
reviewed labs and POC with pt & spouse
--- NOTE | 2022-05-19 07:31 | PC.NURSE ---
DR SMITH AT BEDSIDE
[2022-05-19 07:44] LABS: Troponin I < 0.01 ng/ml (0.00-0.034)
--- NOTE | 2022-05-19 08:09 | PC.NURSE ---
pharmacy at the bedside
== END 2022-05-19 08:30 | disposition home or self-care (01) ==
PROVIDERS: Emergency Provider Emergency Medicine; PCP Internal Medicine Adolescent Medicine
DX: R07.89 Other chest pain (principal); I45.10 Unspecified right bundle-branch block; Z79.01 Long term (current) use of anticoagulants; I25.10 Atherosclerotic heart disease of native coronary artery without angina pectoris; Z85.038 Personal history of other malignant neoplasm of large intestine; Z80.9 Family history of malignant neoplasm, unspecified; Z83.3 Family history of diabetes mellitus; Z82.3 Family history of stroke
CPT/HCPCS: 71046; 71275; 80048; 83880; 84484; 85025; 85610; 93005; 96361; 96374; 96375; 99285; Q9967

== ENCOUNTER 2022-05-24 11:28 | Outpatient (CLI) | payer MEDICARE, SELFPAY ==
[2022-05-24 15:07] LABS: PHA INR Fingerstick 2.6 (0.9-1.1)
== END 2022-05-24 15:09 ==
LOC: ACC 11:29
PROVIDERS: PCP Internal Medicine Adolescent Medicine; Visit Provider Internal Medicine Adolescent Medicine
DX: Z51.81 Encounter for therapeutic drug level monitoring (principal); Z79.01 Long term (current) use of anticoagulants
CPT/HCPCS: 85610; 99211; G0463

== ENCOUNTER 2022-06-02 11:47 | Day surgery (SDC) | payer MEDICARE, SELFPAY ==
[2022-05-05 14:48] VITALS: BMI 25.8
[2022-06-02 12:20] VITALS: BP 122/69; PULSE 60; RESP 18; TEMP 36.3; O2SAT 98
--- NOTE | 2022-06-02 12:50 | EXP.ANES.CKL ---
[facility] Disclaimer: The information contained in this section may have been updated after the patient was seen, as this information can be updated by other users. Medical History Coronary artery disease due to lipid rich plaque Prostate cancer Syncope Surgical History (Updated 06/02/22 @ 12:15 by Corinna Renae RN) No significant past surgical history S/P placement of cardiac pacemaker Family History Other Family history of cancer Family history of diabetes mellitus type II Family history of stroke Social History Smoking Status: Never smoker alcohol intake: never substance use type: denies use current occupational status: retired Travel in the last 8 weeks: None household members: spouse housing: house lives independently: Yes marital status: education level: college caffeine: No special arielle needs: No agree to transfusion: No do you feel safe at home: Yes victim of physical abuse: No victim of emotional abuse: No victim of sexual abuse: No would you like helpful sources: No [facility] Anesthesia Checklist Patient Identification Patient Identification: Arm Band and Family Structural Data Admitted From: Home Planned Operative Procedure/s: EGD Consent for Planned Operative Procedure(s) Verified: Yes Verified Documents: Surgical Consent NPO Status Verified Time NPO: 00:00 Additional verifications Patient : No Anesthesia Reactions: No Hx Blood Transfusions: No Blood Transfusion Reaction: No Cephalosporin Allergy: No Previous Colonoscopy: No Airway Assessment C-Spine Mobility Assessed: Yes TMJ Mobility Assessed: Yes Dentition: Edentulous Neurological Assessment Level of Consciousness: Awake, Alert and Appropriate Hx Seizures: No Numbness or tingling in extremities: No Anesthesia Plan Anesthesia Risk discussed: Yes ASA Class: II Anesthesia Type: MAC Preoperative Comments Pre-Operative Comments: History of CABG. Current Pacemaker. Problem with balance.
[2022-06-02 13:12] VITALS: O2SAT 98
--- NOTE | 2022-06-02 13:23 | HMH.SCOPE ---
Procedure: Date: 06/02/22 Patient Date of :: 1940 Procedure Performed:: Diagnostic EGD Indications:: Dyspepsia, weight loss Performing Provider:: Abhay Levy MD Referring Provider:: Reynaldo Jauregui Sedation:: Propofol Procedure:: The gastroscope was gently passed through the incisoral orifice into the oral cavity and under direct visualization the esophagus was intubated. The endoscope was passed down the esophagus, through the stomach, and into the duodenum. Color, texture, mucosa, and anatomy of the esophagus, stomach, and duodenum were carefully examined with the scope. Findings:: Oropharynx: normal Esophagus: normal EG Junction: intact at 40 cm Cardia: normal Fundus: normal Body: normal Antrum: normal Duodenal bulb: normal Duodenum (second and third portion): normal Impression: Normal EGD No evidence of esophagitis, gastritis, ulcer disease or hiatus hernia Recommendations:: Symptomatic therapy as indicated. Anti-anxiety agent may someitmes be of benefit. Complications:: None Estimated blood obtained (mL): 0
[2022-06-02 13:29] VITALS: BP 89/54; PULSE 60; RESP 15; TEMP 36.4; O2SAT 96
[2022-06-02 13:39] VITALS: BP 126/71; BP 98/51; PULSE 60; PULSE 62; RESP 16; RESP 17; O2SAT 96; O2SAT 98
[2022-06-02 13:59] VITALS: BP 130/70; PULSE 61; RESP 16; O2SAT 98
[2022-06-02 14:39] VITALS: BP 130/70; PULSE 61; RESP 16; O2SAT 98
== END 2022-06-02 14:45 | disposition home or self-care (01) ==
PROVIDERS: PCP Internal Medicine Adolescent Medicine; Visit Provider Internal Medicine Gastroenterology
PROC: 0DJ08ZZ Inspection of Upper Intestinal Tract, Via Natural or Artificial Opening Endoscopic (ICD-10-PCS; CPT 43235; principal; 2022-06-02 13:00)
DX: R10.13 Epigastric pain (principal); R63.4 Abnormal weight loss; Z79.899 Other long term (current) drug therapy
CPT/HCPCS: 43235

== ENCOUNTER 2022-06-16 11:18 | Outpatient (CLI) | payer MEDICARE, SELFPAY ==
[2022-06-16 13:45] LABS: PHA INR Fingerstick 2.2 (0.9-1.1)
== END 2022-06-16 13:55 ==
LOC: ACC 11:18
PROVIDERS: PCP Internal Medicine Adolescent Medicine; Visit Provider Internal Medicine Adolescent Medicine
DX: Z51.81 Encounter for therapeutic drug level monitoring (principal); Z79.01 Long term (current) use of anticoagulants
CPT/HCPCS: 85610; 99211; G0463

== ENCOUNTER 2022-07-27 12:50 | Outpatient (CLI) | payer MEDICARE, SELFPAY ==
[2022-07-27 15:30] LABS: PHA INR Fingerstick 2.1 (0.9-1.1)
== END 2022-07-27 15:36 ==
LOC: ACC 12:50
PROVIDERS: PCP Internal Medicine Adolescent Medicine; Visit Provider Internal Medicine Adolescent Medicine
DX: Z51.81 Encounter for therapeutic drug level monitoring (principal); Z79.01 Long term (current) use of anticoagulants
CPT/HCPCS: 85610; 99211; G0463

== ENCOUNTER 2022-09-07 09:53 | Outpatient (CLI) | payer MEDICARE, SELFPAY ==
[2022-09-07 10:09] LABS: PHA INR Fingerstick 2.6 (0.9-1.1)
== END 2022-09-07 10:10 ==
LOC: ACC 09:54
PROVIDERS: PCP Internal Medicine Adolescent Medicine; Visit Provider Internal Medicine Adolescent Medicine
DX: Z51.81 Encounter for therapeutic drug level monitoring (principal); Z79.01 Long term (current) use of anticoagulants
CPT/HCPCS: 85610; 99211; G0463

== ENCOUNTER → 2022-09-15 12:02 | Outpatient (CLI) | payer MEDICARE, SELFPAY ==
--- NOTE | 2022-09-15 12:02 | CA_ITS ---
APPROVED REPORT Exam: Pharmacologic Technologist: Miri Ellsworth, Ht: 5 ft 6 in Wt: 173 lbs BSA: 1.88 m2 HR: 60 bpm BP: 146/80 mmHg Rhythm: NSR Medical History Medications: Warfarin,,,,, Asa,,,,, BisOPROLOL,,,,, Stress Test Details Test: LEXISCAN Reason for pharmacologic stress test: physical limitation. HR Resting HR: 60 bpm Max Heart Rate (APMHR): 138 bpm Max HR Achieved: 79 bpm Target HR (85% APMHR): 117 bpm % of APMHR: 57 Recovery HR: 63 bpm BP Resting BP: 146.0/80.0 mmHg Max BP: 156.0/72.0 mmHg Recovery BP: 156.0/72.0 mmHg ECG Resting ECG: NSR, 1st degree AVB, RBBB Stress ECG: No change Arrhythmia: APC's Recovery ECG: No change Recovery Arrhythmia: None Clinical Exercise duration: 04:18 min Highest Stage Achieved: Stress ECG Conclusion Symptoms: mild head discomfort & malaise. No CP. Arrhythmias/Ectopy: Occasional PAC. ST-T Changes: No significant changes Conclusion: Non-diagnostic Lexiscan stress due to baseline abnormalities. Myoview images reported separately. Test Summary REST . . . . . . . Resting REST 07:37 . . 60 . 146/ 80 . . Stage 1 01:00 . . 68 . . . . Stage 2 01:00 . . 74 . 147/ 64 . . Stage 3 01:00 . . 68 . . . . Stage 4 01:00 . . 66 . 152/ 74 . . Stage 4 01:18 . . 65 . 152/ 74 . Stop exercise at 04:18 RECOVERY 01:00 . . 65 . 149/ 72 . . RECOVERY 02:00 . . 73 . 147/ 72 . . RECOVERY 03:00 . . 64 . 156/ 72 . . RECOVERY 03:18 . . 65 . 156/ 72 . . Electronically signed by : Ya Hannah, 09/15/2022 23:41:14
--- NOTE | 2022-09-15 12:02 | NM_ITS ---
APPROVED REPORT Exam: Nuclear Stress Test Indication: soa...fatigue Patient Location: Outpatient Stress Tech: Miri Easley [place] Tech:Jessica CelestinAMILCAR RT(R)(N) Ht: 5 ft 8 in Wt: 175 lbs HR: 60 bpm BP: 146/80 mmHg BSA: 1.93 m2 TID: 1.12 BMI: 26.6 History: soa..fatigue Procedure: Patient received 0.4 mg of intravenous Lexiscan, resting heart rate 60 bpm, resting blood pressure 146/82 mmHg, with Lexiscan maximum heart rate achieved was 79 bpm which is 85 % of the maximum predicted heart rate and blood pressure was 156/72 mmHg. With Lexiscan, patient denied any complaint of chest pain. Cardiac Stress and Resting SPECT Images: Cardiac Stress and Resting SPECT images were obtained using technetium 99m Myoview 32.9 mCi stress and 10.39 mCi at rest. Resting and stress imaging in both supine and prone positions demonstrate no fixed or reversible perfusion defects. There is borderline reduction in global and regional LV systolic function. LVEF is calculated at 49%. Conclusion: No fixed or reversible perfusion defects. Borderline reduction in global and regional LV systolic function. LVEF is calculated at 49%. Electronically signed by : Ya Hannah, 09/15/2022 23:45:52
== END ==
LOC: RAD 12:02
PROVIDERS: PCP Internal Medicine Adolescent Medicine; Visit Provider Nurse Practitioner Family
DX: R06.09 Other forms of dyspnea (principal)
CPT/HCPCS: 78452; 93017; A9502; J2785

== ENCOUNTER 2022-10-19 12:59 | Outpatient (CLI) | payer MEDICARE, SELFPAY ==
[2022-10-19 14:42] LABS: PHA INR Fingerstick 2.3 (0.9-1.1)
== END 2022-10-19 14:48 ==
LOC: ACC 13:00
PROVIDERS: PCP Internal Medicine Adolescent Medicine; Visit Provider Internal Medicine Adolescent Medicine
DX: Z79.01 Long term (current) use of anticoagulants (principal); Z51.81 Encounter for therapeutic drug level monitoring
CPT/HCPCS: 85610; 99211; G0463

== ENCOUNTER 2022-11-30 12:58 | Outpatient (CLI) | payer MEDICARE, SELFPAY ==
[2022-11-30 13:14] LABS: PHA INR Fingerstick 2.8 (0.9-1.1)
== END 2022-11-30 13:16 ==
LOC: ACC 12:58
PROVIDERS: PCP Internal Medicine Adolescent Medicine; Visit Provider Internal Medicine Adolescent Medicine
DX: Z79.01 Long term (current) use of anticoagulants (principal); Z51.81 Encounter for therapeutic drug level monitoring
CPT/HCPCS: 85610; 99211; G0463

== ENCOUNTER 2023-01-11 12:50 | Outpatient (CLI) | payer MEDICARE, SELFPAY ==
[2023-01-11 16:13] LABS: PHA INR Fingerstick 2.7 (0.9-1.1)
== END 2023-01-11 16:14 ==
LOC: ACC 12:52
PROVIDERS: PCP Internal Medicine Adolescent Medicine; Visit Provider Internal Medicine Adolescent Medicine
DX: Z79.01 Long term (current) use of anticoagulants (principal); Z51.81 Encounter for therapeutic drug level monitoring
CPT/HCPCS: 85610; 99211; G0463

== ENCOUNTER 2023-02-22 12:59 | Outpatient (CLI) | payer MEDICARE, SELFPAY ==
[2023-02-22 13:15] LABS: PHA INR Fingerstick 3.1 (0.9-1.1)
== END 2023-02-22 13:19 ==
LOC: ACC 13:00
PROVIDERS: PCP Internal Medicine Adolescent Medicine; Visit Provider Internal Medicine Adolescent Medicine
DX: Z79.01 Long term (current) use of anticoagulants (principal); Z51.81 Encounter for therapeutic drug level monitoring
CPT/HCPCS: 85610; 99211; G0463

== ENCOUNTER 2023-03-22 13:22 | Outpatient (CLI) | payer MEDICARE, SELFPAY ==
[2023-03-22 14:20] LABS: PHA INR Fingerstick 2.8 (0.9-1.1)
== END 2023-03-22 15:29 ==
LOC: ACC 13:24
PROVIDERS: PCP Internal Medicine Adolescent Medicine; Visit Provider Internal Medicine Adolescent Medicine
DX: Z79.01 Long term (current) use of anticoagulants (principal); Z51.81 Encounter for therapeutic drug level monitoring
CPT/HCPCS: 85610; 99211; G0463

== ENCOUNTER 2023-05-03 12:57 | Outpatient (CLI) | payer MEDICARE, SELFPAY ==
[2023-05-03 13:37] LABS: PHA INR Fingerstick 2.5 (0.9-1.1)
== END 2023-05-03 13:42 ==
LOC: ACC 12:58
PROVIDERS: PCP Internal Medicine Adolescent Medicine; Visit Provider Internal Medicine Adolescent Medicine
DX: Z79.01 Long term (current) use of anticoagulants (principal); Z51.81 Encounter for therapeutic drug level monitoring
CPT/HCPCS: 85610; 99211; G0463

== ENCOUNTER 2023-06-21 13:00 | Outpatient (CLI) | payer MEDICARE, SELFPAY ==
[2023-06-21 14:15] LABS: PHA INR Fingerstick 2.4 (0.9-1.1)
== END 2023-06-21 14:36 ==
LOC: ACC 13:01
PROVIDERS: PCP Internal Medicine Adolescent Medicine; Visit Provider Internal Medicine Adolescent Medicine
DX: Z79.01 Long term (current) use of anticoagulants (principal); Z51.81 Encounter for therapeutic drug level monitoring
CPT/HCPCS: 85610; 99211; G0463

== ENCOUNTER 2023-08-02 12:26 | Outpatient (CLI) | payer MEDICARE, SELFPAY ==
[2023-08-02 13:08] LABS: PHA INR Fingerstick 1.7 (0.9-1.1)
== END 2023-08-02 13:09 ==
LOC: ACC 12:27
PROVIDERS: PCP Internal Medicine Adolescent Medicine; Visit Provider Internal Medicine Adolescent Medicine
DX: Z51.81 Encounter for therapeutic drug level monitoring (principal); Z79.01 Long term (current) use of anticoagulants
CPT/HCPCS: 85610; 99211; G0463

== ENCOUNTER 2023-09-13 12:27 | Outpatient (CLI) | payer MEDICARE, SELFPAY ==
[2023-09-13 13:24] LABS: PHA INR Fingerstick 3.4 (0.9-1.1)
== END 2023-09-13 13:27 ==
LOC: ACC 12:29
PROVIDERS: PCP Internal Medicine Adolescent Medicine; Visit Provider Internal Medicine Adolescent Medicine
DX: Z79.01 Long term (current) use of anticoagulants (principal); Z51.81 Encounter for therapeutic drug level monitoring
CPT/HCPCS: 85610; 99211; G0463

== ENCOUNTER 2023-10-11 12:25 | Outpatient (CLI) | payer MEDICARE, SELFPAY ==
[2023-10-11 13:53] LABS: PHA INR Fingerstick 2.4 (0.9-1.1)
== END 2023-10-11 14:07 ==
LOC: ACC 12:26
PROVIDERS: PCP Internal Medicine Adolescent Medicine; Visit Provider Internal Medicine Adolescent Medicine
DX: Z79.01 Long term (current) use of anticoagulants (principal); I26.99 Other pulmonary embolism without acute cor pulmonale
CPT/HCPCS: 85610; 99211; G0463

== ENCOUNTER 2023-11-21 12:22 | Outpatient (CLI) | payer MEDICARE, SELFPAY ==
[2023-11-21 12:44] LABS: PHA INR Fingerstick 2.6 (0.9-1.1)
== END 2023-11-21 15:00 | disposition home or self-care (01) ==
LOC: ACC 12:23
PROVIDERS: PCP Internal Medicine Adolescent Medicine; Visit Provider Internal Medicine Adolescent Medicine
DX: Z79.01 Long term (current) use of anticoagulants (principal); I48.91 Unspecified atrial fibrillation
CPT/HCPCS: 85610; 99211; G0463

== ENCOUNTER 2024-01-10 12:52 | Outpatient (CLI) | payer MEDICARE, SELFPAY ==
[2024-01-10 14:37] LABS: PHA INR Fingerstick 2.1 (0.9-1.1)
== END 2024-01-10 14:41 ==
LOC: ACC 12:53
PROVIDERS: PCP Internal Medicine Adolescent Medicine; Visit Provider Internal Medicine Adolescent Medicine
DX: Z79.01 Long term (current) use of anticoagulants (principal); Z86.711 Personal history of pulmonary embolism
CPT/HCPCS: 85610; 99211; G0463

== ENCOUNTER 2024-02-21 12:54 | Outpatient (CLI) | payer MEDICARE, SELFPAY ==
[2024-02-21 13:55] LABS: PHA INR Fingerstick 1.8 (0.9-1.1)
== END 2024-02-21 13:57 ==
LOC: ACC 12:55
PROVIDERS: PCP Internal Medicine Adolescent Medicine; Visit Provider Internal Medicine Adolescent Medicine
DX: Z79.01 Long term (current) use of anticoagulants (principal); Z86.711 Personal history of pulmonary embolism
CPT/HCPCS: 85610; 99211; G0463

== ENCOUNTER 2024-04-03 13:04 | Outpatient (CLI) | payer MEDICARE, SELFPAY ==
[2024-04-03 14:00] LABS: PHA INR Fingerstick 2.3 (0.9-1.1)
== END 2024-04-03 14:07 ==
LOC: ACC 13:04
PROVIDERS: PCP Internal Medicine Adolescent Medicine; Visit Provider Internal Medicine Adolescent Medicine
DX: Z79.01 Long term (current) use of anticoagulants (principal); Z86.711 Personal history of pulmonary embolism
CPT/HCPCS: 85610; 99211; G0463

== ENCOUNTER 2024-05-15 12:58 | Outpatient (CLI) | payer MEDICARE, SELFPAY ==
[2024-05-15 13:47] LABS: PHA INR Fingerstick 2.1 (0.9-1.1)
== END 2024-05-15 13:50 ==
LOC: ACC 12:59
PROVIDERS: PCP Internal Medicine Adolescent Medicine; Visit Provider Internal Medicine Adolescent Medicine
DX: Z79.01 Long term (current) use of anticoagulants (principal); Z86.711 Personal history of pulmonary embolism
CPT/HCPCS: 85610; 99211; G0463

== ENCOUNTER 2024-06-26 12:58 | Outpatient (CLI) | payer MEDICARE, SELFPAY ==
[2024-06-26 13:40] LABS: PHA INR Fingerstick 1.8 (0.9-1.1)
== END 2024-06-26 13:42 ==
LOC: ACC 12:59
PROVIDERS: PCP Internal Medicine Adolescent Medicine; Visit Provider Internal Medicine Adolescent Medicine
DX: I48.91 Unspecified atrial fibrillation (principal); Z79.01 Long term (current) use of anticoagulants
CPT/HCPCS: 85610; 99211; G0463

== ENCOUNTER 2024-08-07 12:46 | Outpatient (CLI) | payer MEDICARE, SELFPAY ==
--- OUTSIDE RECORDS SUMMARY | 2024-08-07 12:48 | XMS_ITS | Data Portability ---
Author Organization [facility] Address [address] [place] [address] Care Team Providers Care Rn Clinician Name Role Phone DANTENINI BORDEN Primary Care Provider Assessment Encounter Date Assessment Date Assessment LastModified by Organization Details LastModified Time 09/22/2023 09/22/2023 Impression: 1. Dyspnea on exertion: Undiagnosed new problem, appears stable x 6 months 2. Coronary artery disease s/p PCI 2002 and CABG 2012: Chronic problem, stable without angina. SPECT 05/28/2019: Normal perfusion, EF 65% No evidence of ischemia per SPECT 09/22/2023 3. [employer] dual-chamber pacemaker system (05/11/2022) 4. Hypertension: Chronic problem, stable. 5. CKD 3 6. History of Pulmonary Embolism June 2018 No evidence of pulmonary hypertension or RV dysfunction per echo 09/22/2023 Plan: As noted above, Mr. Pemberton presented in April with significant symptomatic bradycardia and underwent dual-chamber pacemaker implantation by Dr. Brumfield in the end of April. This was complicated by lead dislodgement requiring lead revision. Medication changes: None. Mr. Pemberton has noted worsening exertional dyspnea over the last 6 months or so. He is now having to stop several times whilst taking his trash bins to the bottom of his driveway. He has undergone a thorough evaluation for a cardiac cause, and he has no evidence of any significant structural abnormalities on echocardiogram, no pulmonary hypertension and no evidence of ischemia to explain his current symptoms. Likewise, he did not experience any clinical benefit after trial of diuretic therapy. We will refer him to Dr. Daniels for an evaluation for potential pulmonary cause for his exertional dyspnea. RTC: 3 months, or sooner if needed. Not available 09/23/2023 09:41:47 12/27/2023 12/27/2023 Impression: 1. Dyspnea on exertion: Undiagnosed new problem, appears stable 2. Coronary artery disease s/p PCI 2002 and CABG 2012: Chronic problem, stable without angina. SPECT 05/28/2019: Normal perfusion, EF 65% No evidence of ischemia per SPECT 09/22/2023 3. [employer] dual-chamber pacemaker system (05/11/2022) 4. Hypertension: Chronic problem, stable. 5. CKD 3 6. History of Pulmonary Embolism June 2018 No evidence of pulmonary hypertension or RV dysfunction per echo 09/22/2023 Plan: As noted above, Mr. Pemberton presented in April with significant symptomatic bradycardia and underwent dual-chamber pacemaker implantation by Dr. Brumfield in the end of April. This was complicated by lead dislodgement requiring lead revision. Medication changes: None. Mr. Pemberton has noted worsening exertional dyspnea over the last 6 months or so. He is now having to stop several times whilst taking his trash bins to the bottom of his driveway. He has undergone a thorough evaluation for a cardiac cause, and he has no evidence of any significant structural abnormalities on echocardiogram, no pulmonary hypertension and no evidence of ischemia to explain his current symptoms. Likewise, he did not experience any clinical benefit after trial of diuretic therapy. At this point, it remains unclear what the cause of his dyspnea is. We briefly discussed consideration of dyssynchrony from exclusive RV pacing. In this context, he may benefit from upgrading to a biventricular system. RTC: 6 months, or sooner if needed. [email or web address] Not available 12/27/2023 18:34:46 Plan of Treatment Reminders Order Date Submit Date Provider Last Modified By Organization Details Last Modified Time Details Appointments RECHECK 2024 02:30P M GABRIELE ROSENBERG MD Not available Not available Not available Lab CBC w/ auto diff 2023 024 [facility], [address] [place] [address], [place], [address], 12/12/2023 13:42:16 BMP, serum or plasma 2023 024 [facility], [address] [place] [address], [phone], 12/12/2023 13:26:38 Referral None recorded. Procedures None recorded. Surgeries None recorded. Imaging CT, chest, w/o contrast 2023 024 [facility], [address] [place], [address], 12/22/2023 14:42:31 Medication Orders None recorded. Patient TargetsNo targets recorded. Patient InstructionsNo instructions recorded. Reason for Referral None Reported. Results Created Date Observation Date Name Description Value Unit Range Abnormal Flag Note LastModifiedBy Organization Detail LastModifiedTime 12/12/1912/12/2023 BASIC METAB OLIC PANEL glucose 104 mg/dL 74-100 high Not Available [facility] [address] [place] [address], [phone], 12/12/2023 13:26:38 12/12/19 24 12/12/2023 BASIC METAB OLIC PANEL blood urea nitrogen 14 mg/dL 6-20 normal Not Available [facility] [address] [place] [address], [phone], 12/12/2023 13:26:38 12/12/19 24 12/12/2023 BASIC METAB OLIC PANEL creatinine 1.50 mg/dL 0.70-1 .28 high Not Available [facility] [address] [place] [address], [id number], 12/12/2023 13:26:38 12/12/19 24 12/12/2023 BASIC METAB OLIC PANEL BUN/creatini ne ratio 9 (calc ) 10-20 low Not Available [facility] [address] [place] [address], [address], 12/12/2023 13:26:38 12/12/19 24 12/12/2023 BASIC METAB OLIC PANEL sodium 141 mmol/ L 136-14 5 normal Not Available [facility] [address] [place] [address], [address], 12/12/2023 13:26:38 12/12/19 24 12/12/2023 BASIC METAB OLIC PANEL potassium 4.7 mmol/ L 3.4-5. 0 normal Not Available [facility] [address] [place] [address], [phone], 12/12/2023 13:26:38 12/12/19 24 12/12/2023 BASIC METAB OLIC PANEL chloride 105 mmol/ L 98-107 normal Not Available [facility] [address] [place] [address], [address], 12/12/2023 13:26:38 12/12/19 24 12/12/2023 BASIC METAB OLIC PANEL carbon dioxide 25 mmol/ L 22-31 normal Not Available [facility] [address] [place] [address], [phone], 12/12/2023 13:26:38 12/12/19 24 12/12/2023 BASIC METAB OLIC PANEL anion gap 11 (calc ) 7-25 normal Not Available [facility] [address] [place] [address], [address], 12/12/2023 13:26:38 12/12/19 24 12/12/2023 BASIC METAB OLIC PANEL calcium 9.2 mg/dL 8.6-10 .2 normal Not Available [facility] [address] [place] [address], [phone], 12/12/2023 13:26:38 12/12/19 24 12/12/2023 BASIC METAB OLIC PANEL GFR 46 >= 60 abnormal NOT E New calcu latio n for GFR (CKD- EPI 2020) is formu lated witho ut race adjus tment facto rs at the recom menda tion of the [employer] ty of Nephr ology . This calcu latio n has not been valid ated in pregn ant women . For pedia tric patie nts refer to https :[email or web address] [email or web address].o calri/pr ofess ional s/KDO QI/gf r_cal culat orPed Not Available [facility] [address] [place] [address], [address], 12/12/2023 13:26:38 12/12/19 24 12/12/2023 COMPL ETE BLOOD COUNT white blood cells 7.5 10*3/ uL 3.8-10 .8 normal Not Available [facility] [address] [place] [address], [address], 12/12/2023 13:42:15 12/12/19 24 12/12/2023 COMPL ETE BLOOD COUNT red blood cells 4.72 10*6/ uL 4.20-5 .80 normal Not Available [facility] [address] [place] [address], [address], 12/12/2023 13:42:15 12/12/19 24 12/12/2023 COMPL ETE BLOOD COUNT hemoglobin 14.4 g/dL 14.0-1 8.0 normal Not Available [facility] [address] [place] [address], [address], 12/12/2023 13:42:15 12/12/19 24 12/12/2023 COMPL ETE BLOOD COUNT hematocrit 44.6 % 40.0-5 2.0 normal Not Available [facility] [address] [place] [address], [address], 12/12/2023 13:42:15 12/12/19 24 12/12/2023 COMPL ETE BLOOD COUNT MCV 95 fL 80-100 normal Not Available [facility] [address] [place] [address], [address], 12/12/2023 13:42:15 12/12/19 24 12/12/2023 COMPL ETE BLOOD COUNT MCH 31 pg 26-35 normal Not Available [facility] [address] [place] [address], [address], 12/12/2023 13:42:15 12/12/19 24 12/12/2023 COMPL ETE BLOOD COUNT MCHC 32 g/dL 32-36 normal Not Available [facility] [address] [place] [address], [address], 12/12/2023 13:42:15 12/12/19 24 12/12/2023 COMPL ETE BLOOD COUNT RDW 13.7 % 11.0-1 5.0 normal Not Available [facility] [address] [place] [address], [address], 12/12/2023 13:42:15 12/12/19 24 12/12/2023 COMPL ETE BLOOD COUNT MPV 9.9 fL 6.2-10 .5 normal Not Available [facility] [address] [place] [address], [address], 12/12/2023 13:42:15 12/12/19 24 12/12/2023 COMPL ETE BLOOD COUNT platelet count 186 10*3/ uL 150-40 0 normal Not Available [facility] [address] [place] [address], [address], 12/12/2023 13:42:15 12/12/19 24 12/12/2023 COMPL ETE BLOOD COUNT neutrophil,a bsolute 4.3 10*3/ uL 1.6-8. 4 normal Not Available [facility] [address] [place] [address], [address], 12/12/2023 13:42:15 12/12/19 24 12/12/2023 COMPL ETE BLOOD COUNT lymphocyte,a bsolute 2.2 10*3/ uL 0.4-5. 1 normal Not Available [facility] [address] [place] [address], [address], 12/12/2023 13:42:15 12/12/19 24 12/12/2023 COMPL ETE BLOOD COUNT monocyte,abs olute 0.8 10*3/ uL 0.0-1. 2 normal Not Available [facility] [address] [place] [address], [address], 12/12/2023 13:42:15 12/12/19 24 12/12/2023 COMPL ETE BLOOD COUNT eosinophil,a bsolute 0.2 10*3/ uL 0.0-0. 8 normal Not Available [facility] [address] [place] [address], [address], 12/12/2023 13:42:15 12/12/19 24 12/12/2023 COMPL ETE BLOOD COUNT basophil,abs olute 0.0 10*3/ uL 0.0-0. 3 normal Not Available [facility] [address] [place] [address], [address], 12/12/2023 13:42:15 12/12/19 24 12/12/2023 COMPL ETE BLOOD COUNT % neutrophils 57.2 % 42.0-7 8.0 normal Not Available [facility] [address] [place] [address], [address], 12/12/2023 13:42:15 12/12/19 24 12/12/2023 COMPL ETE BLOOD COUNT % lymphocytes 28.8 % 11.0-4 7.0 normal Not Available [facility] [address] [place] [address], [address], 12/12/2023 13:42:15 12/12/19 24 12/12/2023 COMPL ETE BLOOD COUNT % monocytes 10.2 % 0.0-11 .0 normal Not Available [facility] [address] [place] [address], [address], 12/12/2023 13:42:15 12/12/19 24 12/12/2023 COMPL ETE BLOOD COUNT % eosinophils 3.2 % 0.0-7. 0 normal Not Available [facility] [address] [place] [address], [address], 12/12/2023 13:42:15 12/12/19 24 12/12/2023 COMPL ETE BLOOD COUNT % basophils 0.6 % 0.0-3. 0 normal Not Available [facility] [address] [place] [address], [address], 12/12/2023 13:42:15 12/12/19 24 12/12/2023 COMPL ETE BLOOD COUNT nucleated red cells 0.1 % 0.0-0. 9 normal Not Available [facility] [address] [place], [address], 12/12/2023 13:42:15 12/12/19 24 12/12/2023 COMPL ETE BLOOD COUNT nucleated RBCs, absolute 0.01 10*3/ uL not estab. normal Not Available [facility] [address] [place] [address], [address], 12/12/2023 13:42:15 08/29/19 24 08/26/2023 remot e devic e inter rogat ion (PROC ) No observ ation record ed. [email or web address] Not Available 2023 19:20:54 09/22/19 24 09/22/2023 US, doppl er echoc ardio gram, w/ color flow No observ ation record ed. [email or web address] [facility] Cardiology [address], [place], [address], 09/22/2023 16:58:13 11/07/19 24 11/06/2023 remot e devic e inter rogat ion (PROC ) No observ ation record ed. [email or web address] Not Available 2023 04:40:23 12/12/19 24 12/12/2023 XR, chest , 2 view [facility] [address] [facility] [address] [place] [address] Nelli moseley Name: SESAR Mauricionga moseley : 941 Nelli moseley Orderi ng Provid er: YECENIA NGUYEN EXAM DATE: 2023 EXAM: XR CHEST PA/LAT CLINIC AL INFORM ATION: Shortn ess of breath IMAGES PROVID ED: PA and latera l views of the chest. COMPAR LUKE: None. FINDIN GS: Heart size is within normal limits . Lung santamaria are clear. Left chest wall transv enous pacer in place. IMPRES KUMAR: No acute cardio pulmon john change s. Interp reted By: Court Marie MD Electr onical ly Signed By: Court Marie MD on 024 12:06 PM [email or web address] [facility] [address] [place], [address], 12/13/2023 10:51:00 12/22/19 24 12/22/2023 CT, chest , w/o contr ast [facility] [address] [place] [address] Patien t Name: SESAR moseley : 941 Patien t Orderi ng Provid er: YECENIA NGUYEN EXAM DATE: 2023 EXAM: CT CHEST W/O CONTRA ST CLINIC AL INFORM ATION: Shortn ess of breath TECHNI QUE: Multip le axial CT images of the chest were obtain ed withou t inject ion of IV contra st. COMPAR LUKE: None. FINDIN GS: AIRWAY S AND LUNGS: Trache a, princi pal bronch i and major bronch ial branch es are patent and normal . Puncta te subple ural nodule in the right base. Refere nce image #106 of series 202. MEDIAS TINUM: No medias tinal lympha denopa thy. SVC, pulmon john arteri es, pulmon john veins and their major branch es and tribut carin are normal . No gross cardia c abnorm ality. The ascend ing aorta is minima lly promin ent measur ing 3.7 cm. PLEURA AND CHEST WALL: No pleura l effusi on or mass. No chest wall abnorm ality. UPPER ABDOMI NAL ORGANS : Limite d imagin g of the upper abdome n shows a benign -appea ring cyst in the liver dome. IMPRES KUMAR: 1. Mild disten tion/d ilatat ion of the ascend ing thorac ic aorta 2. Puncta te nodule right base. Sugges t follow -up screen ing chest CT 12 Interp reted By: Court Marie MD Electr onical ly Signed By: Court Marie MD on 12/22/19 1:54 PM mazin [facility] [address] [place] [address] Dr, [place], [address], 12/22/2023 15:01:36 02/05/20 24 02/05/2024 remot e devic e inter rogat ion (PROC ) No observ ation record ed. [email or web address] Not Available 2023 18:57:09 05/06/19 25 05/06/2024 remot e devic e inter rogat ion (PROC ) No observ ation record ed. [email or web address] Not Available 2024 08:44:12 08/06/19 25 08/05/2024 remot e devic e inter rogat ion (PROC ) No observ ation record ed. [email or web address] Not Available 2024 19:19:58 Result Notes None recorded. Problems Name Problem SNOMED Code Status Onset Date Resolution Date Notes Provider Name and Address Organization Details Recorded Time Right bundle branch block 21225008 Active 2015 From [employer];Prov ider: Court Cruz;Stat us: Active Not Available [facility] 7 02:22:11 Headache 28621913 Active 2018 Brooklyn Scott [facility] 9 14:32:33 Low back pain 176426131 Active 2019 Brooklyn Scott [facility] 0 14:25:55 Dyspnea 231004011 Active 2023 Salena Galdamez [facility] 4 15:10:55 Coronary arteriosc lerosis in osage artery 84300145970 07 Active 2015 From Automated Load;Prov ider: Court Cruz;Stat us: Active Not Available [facility] 6 04:41:35 Hyperlipi demia 30449244 Active 2015 From Automated Load;Prov ider: Court Cruz;Stat us: Active Not Available [facility] 6 04:41:35 Problem Notes None recorded. Procedures Surgical History Date Name Laterality Status Provider Name and Address Organization Details Recorded Time 12/12/19 24 Airway Resistance completed [facility] 12/12/2023 11:23:15 12/12/19 24 Diffusion Capacity completed [facility] 12/12/2023 11:23:10 12/12/19 24 Lung Volumes, Plethysmography completed [facility] 12/12/2023 11:23:12 12/12/19 24 Spirometry completed [facility] 12/12/2023 11:23:07 12/12/19 24 Pulmonary Function Testing completed YECENIA GREEN MD [address] [place] [address], [address], [facility] 12/12/2023 11:28:29 09/22/19 24 Stress Test - Nuclear Lexiscan completed GABRIELE ROSENBERG MD [address] [place] [address], [phone], [facility] 09/22/2023 16:55:31 10/28/19 23 EKG completed Alyssia Ruiz [facility] 10/27/2022 10:32:39 05/28/19 20 Stress Test - Nuclear Lexiscan completed COURT CRUZ MD [address] [place] [address], [address], [facility] 05/28/2019 14:08:27 05/14/19 20 Electromyography (EMG) with Nerve Conduction Study (NCV) completed Yessenia (Citlali) Jennifer [facility] 05/14/2019 13:44:50 04/03/20 17 Stress Test - Nuclear completed COURT CRUZ MD [address] [place] [address], [phone], [facility] 04/03/2017 16:02:00 09/07/19 17 Electromyography (EMG) with Nerve Conduction Study (NCV) completed Yessenia (Citlali) Jennifer [facility] 09/06/2016 13:52:06 04/26/19 13 Cardiac Surgery completed Clare Uriarte [facility] 03/11/2019 14:51:26 09/22/19 02 Cardiac Catheterization completed Clare Uriarte [facility] 03/11/2019 14:51:26 CABG completed [facility] 09/01/2016 13:56:37 Prostate Surgery completed [facility] 09/01/2016 13:56:45 Cholecystectomy completed Daniela Beavers [facility] 03/07/2017 09:03:25 Imaging Results Imaging Date Name Status LastModified by Organization Details LastModified Time 08/26/2023 remote device interrogation (PROC) completed [email or web address] Information not available 08/29/2023 19:20:54 09/22/2023 US, doppler echocardiogram, w/ color flow completed mavis [facility] Cardiology [address] , [place], [address], 09/22/2023 16:58:13 11/06/2023 remote device interrogation (PROC) completed [email or web address] Information not available 11/07/2023 04:40:23 12/12/2023 XR, chest, 2 view completed [facility] Pulmonary [address] [facility], [place], [address], 12/13/2023 10:51:00 12/22/2023 CT, chest, w/o contrast completed [facility] [address] , [place], [address], 12/22/2023 15:01:36 02/05/2024 remote device interrogation (PROC) completed [email or web address] Information not available 02/05/2024 18:57:09 05/06/2024 remote device interrogation (PROC) completed [email or web address] Information not available 05/06/2024 08:44:12 08/05/2024 remote device interrogation (PROC) completed [email or web address] Information not available 08/05/2024 19:19:58 Procedure Notes None recorded. 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 . USE WITH CAUTI ON>. [facility] 0 08:25:31 [id number] Product containin g 3-hydroxy -3-methyl glutaryl- coenzyme A reductase inhibitor (product) medicatio n myalgias (muscle pain) Not available Not available 03/11/20162008 03120 009 SNOMED React ion: MYALG IA; INTOL ERANT OF MEDIC INE>> [facility] 0 08:25:49 Medications Name Sig Start Date Stop Date Status Note LastModified by Organization Details LastModified Time furosemid e 40 mg tablet Take 1 tablet every day by oral route as directed . 09/21 completed Not Available Not Available Not Available prednison e 10 mg tablet TAKE 4 TABLETS BY MOUTH ONCE DAILY FOR 30 DAYS 01/27 completed Not Available Not Available Not Available Protonix 40 mg tablet,de layed release Daily 09/01 completed Duration : 90 days;Ins truction s: TAKE 1 TABLET AT BEDTIME; Frequenc y: daily;Me dication Descript ion: pantopra zole; Dosage:1 ; Route:or al; refills: 2; Quantity :90 delayed release tablet Not Available Not Available Not Available ketoconaz ole 2 % shampoo 01/27 completed Not Available Not Available Not Available lovastati n 40 mg tablet Every week 03/11 completed Frequenc y: Every week;Med ication Descript ion: lovastat in; Dosage:1 ; Route:or al; refills: 6; Quantity :30 tablet Not Available Not Available Not Available warfarin 2.5 mg tablet TAKE 1 TABLET BY MOUTH ONCE DAILY active Not Available Not Available No t Available tramadol 50 mg tablet take 1 or 2 tablets Q4H not to exceed 8 per day 2019 active Not Available Not Available Not Avai lable triamcino lone acetonide 0.1 % topical cream active Not Available Not Available Not Available bisoprolo l fumarate 10 mg tablet Take 1 tablet every day by oral route. active Not Available Not Available No t Available erythromy yael 5 mg/gram (0.5 %) eye ointment APPLY A THIN 1/4 INCH STRIP TWICE A DAY FOR 3 DAYS BEFORE BUT NOT DAY OF SURGERY active Not Available Not Available No t Available lisinopri l 10 mg tablet TAKE 1 TABLET BY MOUTH ONCE DAILY 10/27 completed Not Available Not Available Not Available nitroglyc shayy 0.4 mg sublingua l tablet DISSOLVE ONE TABLET UNDER THE TONGUE EVERY 5 MINUTES NEEDED FOR CHEST PAIN. DO NOT EXCEED A TOTAL OF 3 DOSES IN 15 MINUTES active Not Available Not Available No t Available aspirin 81 mg tablet Take 1 tablet every day by oral route. 2008 active Duration : 30 days;Hung quency: daily;Me dication Descript ion: aspirin; Dosage:1 ; Route:or al; refills: 0; Quantity :30 tablet Not Available Not Available Not Available gabapenti n 100 mg capsule 01/27 completed Not Available Not Available Not Available ketoconaz ole 2 % topical cream 01/27 completed Not Available Not Available Not Available enoxapari n 80 mg/0.8 mL subcutane ous syringe INJECT 1 SYRINGE SUBCUTAN EOUSLY TWICE DAILY OR DIRECTED 10/27 completed Not Available Not Available Not Available Coumadin 09/01 completed Medicati on Descript ion: warfarin ; Dosage:a s directed ; refills: 0 Not Available Not Available Not Available Vitamin D3 1 QD active Not Available Not Available Not Available omeprazol e 20 mg tablet,de layed release TAKE 1 TABLET BY MOUTH ONCE DAILY active Not Available Not Available No t Available Multi Vitamin 1 QD 03/11 completed Not Available Not Available Not Available Vitals Date Recorded Body height Oxygen saturation Oxygen saturation in Arterial blood by Pulse oximetry Heart rate Body mass index (BMI) Body weight Systolic blood pressure Diastolic blood pressure Provider Name and Address Organization Details Last Updated DateTime 4 172.72 cm 99 % 99 % 93 /min 26.7 kg/m2 79498.4 6 g 132 mm[Hg] 78 mm[Hg] Jessi Colunga [facility] 4 14:47:11 Date Recorded Body height Body mass index (BMI) Body weight Heart rate Oxygen saturation Oxygen saturation in Arterial blood by Pulse oximetry Systolic blood pressure Diastolic blood pressure Provider Name and Address Organization Details Last Updated DateTime 4 165.1 cm 32.1 kg/m2 40497.3 3 g 97 /min 97 % 97 % 142 mm[Hg] 82 mm[Hg] Soraida Dixon [facility] 4 10:50:14 Date Recorded Body height Oxygen saturation Oxygen saturation in Arterial blood by Pulse oximetry Heart rate Body mass index (BMI) Body weight Systolic blood pressure Diastolic blood pressure Provider Name and Address Organization Details Last Updated DateTime 4 165.1 cm 97 % 97 % 70 /min 30.1 kg/m2 76692.2 2 g 126 mm[Hg] 80 mm[Hg] [facility] Keanu [facility] 4 14:07:52 Date Recorded Body height Body mass index (BMI) Body weight Heart rate Oxygen saturation Oxygen saturation in Arterial blood by Pulse oximetry Systolic blood pressure Diastolic blood pressure Provider Name and Address Organization Details Last Updated DateTime 4 165.1 cm 29.6 kg/m2 45260.4 4 g 59 /min 96 % 96 % 133 mm[Hg] 83 mm[Hg] Kellen Ochoa [facility] 4 11:36:00 Social History Question Answer Notes LastModified by Organizat ion Details LastModified Time Tobacco Smoking Status [facility] 13:56:04 What Is Your Level Of Alcohol Consumption? None [email or web address] Information not available 09/01/2016 What Is Your Level Of Caffeine Consumption? None [email or web address] Information not available 09/01/2016 How Much Tobacco Do You Chew? None Information not available 03/11/2019 Which Illicit Or Recreational Drugs Have You Used? None Information not available 03/11/2019 Do You Or Have You Ever Used E-cigarettes Or Vape? 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 With Others Information not available 03/11/2019 Marital Status [email or web address] Informatio n not available 09/01/2016 What Was The Date Of Your Most Recent Tobacco Screening? 12/28/2023 [email or web address] Information not available 12/28/2023 What Is Your Relationship Status? [email or web address] Information not available 10/27/2022 Do You Or Have You Ever Used Smokeless Tobacco? Never Used Smokeless Tobacco Information not available 03/11/2019 How Much Tobacco Do You Smoke? No [email or web address] Information not available 09/01/2016 Have You Recently Traveled Abroad? No [email or web address] Information not available 10/27/2022 Sex: Male Functional Status None recorded. Mental Status None recorded. Family History Relationship Description Onset Age of this Age Resolved Age Notes LastModified by Organization Details LastModified Time Father Hypertensive disorder [email or web address] Not available 2016 13:55:25 Father Family history of stroke Not available 2018 14:50:51 Father Family history of malignant neoplasm Not available 2018 14:50:51 Father Diabetes mellitus [email or web address] Not available 2016 13:55:50 Mother Hypertensive disorder [email or web address] Not available 2016 13:55:25 Mother Family history of malignant neoplasm Not available 2018 14:50:51 Unspecified Relation Heart disease Not available 2018 14:50:51 Medical History Condition Response Thyroid Disease N Atrial Fibrillation N Black Lung N Thyroid Problems N Lung Disease N Nervous Illness N Vascular Disease N Ulcers N Diabetes N Rheumatic Fever N Bleeding Disorder N Hiatal hernia N Blood Clot Y Tuberculosis N AIDS/HIV N Hyperlipidemia Y Cancer Y Stroke N Asthma N Peripheral Vascular Disease N Reflux/GERD Y Jaundice N Warfarin Management N Heart Disease N Headaches Y Hypertension N Immunizations Vaccine Type Date Status Note Provider Nam e and Address Organization Details Recorded Time Influenza, split virus, quadrivalent, preservative 7 completed Daniela crawford [facility] 03/07/2017 14:33:04 Influenza, split virus, quadrivalent, preservative 9 completed Clare Chapito [facility] 03/11/2019 14:45:47 pneumococcal, unspecified formulation 8 completed Clare Chapito [facility] 03/11/2019 14:46:12 Past Encounters Encounter ID Performer Location Encounter Start Date Encounter Closed Date Diagnosis/Indication Diagnosis SNOMED-CT Code Diagnosis ICD10 Code Diagnosis Note [id number] ANGIE CAMARENA MD NEUROLOGY [facility] [address] [place] [address] 09/01/2016 13:48:24 09/01/2016 15:18:09 Neuropathy 326431482 G62.9 Idiopathic peripheral neuropathy 13175273 G60.9 Paresthesia 34887856 R20 .2 History of giant cell arteritis 0855231005 12350 Z86.79 [id number] Yessenia (Citlali) Jennifer NEUROLOGY [facility] [address] [place] [address] 09/06/2016 13:25:19 09/09/2016 12:40:58 Paresthesia [address]84 R20.[id number] CRUZ MD CARDIOLOG Y [address] [place] [address] 03/07/2017 13:43:30 03/07/2017 15:48:21 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 The patient is otherwise doing well on current management . No new active problems identified . Chronic problems are all stable. Patient is to continue current regimen without change. All questions answered and regimen reviewed. Patient is to call for any change in status. Hyperlipidemia 83877014 E78.5 Managed by PCP. Right bund le branch block 58251935 I45.0 Atypical chest pain 1025 82334 R07.89 The patient's symptoms are unlikely to be cardiac. He was previously evaluated with a stress test in 2013 for atypical chest pain. The patient is however, feel that his symptoms are similar to what he experience d prior to his bypass surgery therefore we will arrange a Gabriele protocol stress Myoview study since he feels he's able to walk on a treadmill. [id number] COURT CRUZ MD HEART STATION [place] [address] [place] [address] 5 04/03/2017 12:08:37 04/04/2017 08:46:10 [id number] ANGIE CAMARENA MD NEUROLOGY [place] [address] 03/11/2019 14:29:45 03/11/2019 15:28:31 Low back pain 951032986 M54.5 Neuropathy 462802759 G62 [id number] CRUZ MD CARDIOLOG Y [place] [address] [place] [address] 5 04/22/2019 11:41:49 04/22/2019 12:16:48 Coronary arteriosclerosis in osage artery 0454737383 107 I25.10 Medication changes, as well as new medication s were reviewed and discussed in detail including benefit and risk of therapy. The patient is otherwise doing well on current management . No new active problems identified . Chronic problems are all stable. Patient is to continue current regimen without change. All questions answered and regimen reviewed. Patient is to call for any change in status. Hyperlipidemia 95239215 E78.5 Managed by PCP. Right bund le branch block 10611761 I45.0 [id number] Yessenia Rodriguez (Camille) NEUROLOGY [place] [address] 05/14/2019 13:05:23 05/14/2019 15:11:19 Paresthesia 64624557 R20.2 [id number] ANGIE CAMARENA MD NEUROLOGY [place] [address] 1 05/14/2019 13:51:24 05/14/2019 15:52:05 Low back pain 539646139 M54.[id number] CRUZ MD CARDIOLOG Y [address] [place] [address] 5 05/20/2019 11:46:54 05/20/2019 14:03:14 Coronary arteriosclerosis in osage artery 2851827913 107 I25.118 Electrocar diogram shows right bundle branch block. No acute changes. I've ordered some baseline laboratory studies and will renew his nitroglyce rin prescripti on. He will have a Lexiscan stress test scheduled with follow-up in 2 weeks. Hyperlipidemia 10994950 E78.5 Managed by PCP. Right bund le branch block 98048761 I45.0 Chronic right bundle branch block. [id number] COURT CRUZ MD HEART STATION [place] [address] [place], [place] [address] 05/28/2019 07:37:16 05/29/2019 08:24:[id number] CRUZ MD CARDIOLOG Y [address] FLOOR [place] [address] 5 06/06/2019 13:48:48 06/06/2019 14:38:58 Coronary arteriosclerosis in osage artery 4774946320 107 I25.118 Electrocar diogram shows right bundle branch block. No acute changes. 05/28/19: LexiNGXT: NML, EF 65%. Patient reassured. No further testing advise at this time. Hyperlipidemia 15268777 E78.5 Managed by PCP. Right bund le branch block 09269095 I45.0 Chronic right bundle branch block. [id number] ANGIE CAMARENA MD NEUROLOGY [address] [place] [address] 06/12/2019 14:23:47 06/12/2019 15:31:40 Low back pain 888711681 M54.[id number] CRUZ MD CARDIOLOG Y [address] [place], [place] [address] 01/06/2020 13:28:15 01/06/2020 15:45:42 Coronary arteriosclerosis in osage artery 8968965799 107 I25.118 Electrocar diogram shows right bundle branch block. No acute changes. 05/28/19: LexiNGXT: NML, EF 65%. Patient reassured. No further testing advise at this time. Hyperlipidemia 51958433 E78.5 Managed by PCP. Right bund le branch block 08676953 I45.0 Chronic right bundle branch block. [id number] GABRIELE ROSENBERG MD CARDIOLOG Y [address] [place], [place] [address] 01/27/2021 10:48:59 01/27/2021 11:18:23 Coronary arteriosclerosis in osage artery 1099233434 107 I25.118 History of PCI 09/26/2002 (Dr Cruz):P CI of the LAD with 2.5 x 13 Cypher stentPCI of diagonal with 2.5 x 13 Cypher stent Coronary angiograph y 05/09/2012 showed severe three vessel disease and he underwent CABGLexisc an SPECT 05/28/2019: Normal perfusion, EF 65% 01/2021: Stable clinical condition. PLAN:Cosmo nue ASA 81mg; lipid lowering per PCP. I advise him to treat to target LDL of <70He has Nitro for PRN usageRTC 1 year Hyperlipidemia 33017376 E78.5 Managed by PCP. Right bund le branch block 76200454 I45.0 Chronic right bundle branch block. No specific management required History of pulmonary embolus 229284905 Z86.711 On chronic Warfarin managed by PCP History of coronary artery bypass grafting 054736355 Z95.1 04/2012: 3v CABG Chronic ki dney disease stage 3B 453625121 N18.32 [id number] GABRIELE ROSENBERG MD CARDIOLOG Y [address] [place] [address] 10/27/2022 10:14:28 10/27/2022 11:19:35 Coronary arteriosclerosis in osage artery 5441515647 107 I25.118 History of PCI 09/26/2002 (Dr Cruz):P CI of the LAD with 2.5 x 13 Cypher stentPCI of diagonal with 2.5 x 13 Cypher stent Coronary angiograph y 05/09/2012 showed severe three vessel disease and he underwent CABGLexisc an SPECT 05/28/2019: Normal perfusion, EF 65% History of coronary artery bypass grafting 139048207 Z95.1 04/2012: 3v CABG Hyperlipidemia 19040718 E78.5 Right bund le branch block 07211289 I45.0 History of pulmonary embolus 953037658 Z86.711 On chronic Warfarin managed by PCP Chronic ki dney disease stage 3B 639411450 N18.32 Cardiac pa cemaker in situ 500280146 Z95.0 [id number] GABRIELE ROSENBERG MD CARDIOLOG Y [address] [place] [address] 08/10/2023 13:52:20 08/10/2023 15:17:20 Coronary arteriosclerosis in osage artery 3339080905 107 I25.118 History of PCI 09/26/2002 (Dr Cruz):P CI of the LAD with 2.5 x 13 Cypher stentPCI of diagonal with 2.5 x 13 Cypher stent Coronary angiograph y 05/09/2012 showed severe three vessel disease and he underwent CABGLexisc an SPECT 05/28/2019: Normal perfusion, EF 65% History of coronary artery bypass grafting 643039354 Z95.1 04/2012: 3v CABG Hyperlipidemia 46174367 E78.5 Right bund le branch block 77601276 I45.0 History of pulmonary embolus 343297516 Z86.711 On chronic Warfarin managed by PCP Chronic dney disease stage 3B 739821338 N18.32 Cardiac pa cemaker in situ 220462284 Z95.0 Dyspnea on exertion 6084 5006 R06.09 [id number] GABRIELE ROSENBERG MD CARDIOLOG Y [address] ,[address] [place] [address] 09/22/2023 12:10:13 09/22/2023 15:16:30 Coronary arteriosclerosis in osage artery 4672874816 107 I25.118 History of PCI 09/26/2002 (Dr Cruz):P CI of the LAD with 2.5 x 13 Cypher stentPCI of diagonal with 2.5 x 13 Cypher stent Coronary angiograph y 05/09/2012 showed severe three vessel disease and he underwent CABGLexisc an SPECT 05/28/2019: Normal perfusion, EF 65% 09/22/2023 Impression :1. Low risk nuclear stress test.2. There was no clinical, hemodynami c, or electrocar diographic evidence for myocardial ischemia during vasodilato r infusion.3 . Perfusion: SPECT images demonstrat e normal myocardial perfusion. 4. Function: Gated SPECT images demonstrat e normal ventricula r size and low-normal systolic function. LVEDV: 93ml. LVEF: 49%. Septal wall motion is abnormal. History of coronary artery bypass grafting 578800216 Z95.1 04/2012: 3v CABG Hyperlipidemia 28363440 E78.5 Right bund le branch block 07437962 I45.0 History of pulmonary embolus 370608301 Z86.711 On chronic Warfarin managed by PCP Chronic ki dney disease stage 3B 033006834 N18.32 Cardiac pa lynette in situ 907282550 Z95.0 Dyspnea on exertion 6084 5006 R06.09 [id number] GABRIELE ROSENBERG MD HEART STATION [address] [place] [address] 09/22/2023 12:28:12 09/25/2023 13:13:10 [id number] YECENIA DANIELS-KIERA ESQUIVEL MD PULMONARY [address] [facility] [place] [address] 12/12/2023 10:18:55 12/12/2023 12:30:34 Dyspnea 356189457 R06.00 New onset exertional dyspnea without any recent evidence of worsened cardiac pathology despite his previous coronary disease status post CABG and pacemaker implantati on, no radiograph ic or PFT abnormalit ies to suggest a pulmonary cause however, presenting symptomato logy as well as clinical findings suggestive of likely coexistent anemia which may explain his recent exertional shortness of breath. Favor proceeding with a chest CT to complete a pulmonary evaluation as a potential cause of his dyspnea as well as proceeding with a CBC and a basic metabolic profile. I will communicat e results of his blood work which he has agreed to have done today and I plan to see him soon after his CT images been obtained. Coronary arteriosclerosis 52737981 I25.10 [id number] GABRIELE ROSENBERG MD CARDIOLOG Y [address] ,[address] [place] [address] 12/27/2023 13:21:44 12/27/2023 15:05:57 Coronary arteriosclerosis in osage artery 8309816203 107 I25.118 History of PCI 09/26/2002 (Dr Cruz):P CI of the LAD with 2.5 x 13 Cypher stentPCI of diagonal with 2.5 x 13 Cypher stent Coronary angiograph y 05/09/2012 showed severe three vessel disease and he underwent CABGLexisc an SPECT 05/28/2019: Normal perfusion, EF 65% 09/22/2023 Impression :1. Low risk nuclear stress test.2. There was no clinical, hemodynami c, or electrocar diographic evidence for myocardial ischemia during vasodilato r infusion.3 . Perfusion: SPECT images demonstrat e normal myocardial perfusion. 4. Function: Gated SPECT images demonstrat e normal ventricula r size and low-normal systolic function. LVEDV: 93ml. LVEF: 49%. Septal wall motion is abnormal. History of coronary artery bypass grafting 908042792 Z95.1 04/2012: 3v CABG Hyperlipidemia 67354007 E78.5 Right bund le branch block 72959310 I45.0 History of pulmonary embolus 856752716 Z86.711 On chronic Warfarin managed by PCP Chronic ki dney disease stage 3B 078511073 N18.32 Cardiac pa cemaker in situ 912900297 Z95.0 Dyspnea on exertion 6084 5006 R06.09 [id number] YECENIA DANIELS-KIERA ESQUIVEL MD PULMONARY [address] [facility] [place] [address] 12/28/2023 10:57:04 12/28/2023 11:58:18 Dyspnea 607852987 R06.00 Exertional dyspnea without any other upper or lower respirator y tract symptoms, no radiograph ic nor functional pulmonary dysfunctio n, no evidence of cardiac pathology and no evidence of anemia. Etiology likely secondary to cardiopulm onary deconditio telly and increased weight. We discussed the importance of structured aerobic exercise activities as well as weight reduction. I plan to see him back in reevaluati on on an as-needed basis Multiple n odules of lung 504511945 R91.[address] (<6 mm) noncalcifi ed pulmonary nodules in this patient without any previous history of tobacco exposure nor environmen tiffany exposures, and overall low risk for a primary pulmonary neoplastic process. No indication for further imaging studies as per current Fleischner 's criteria Health Concerns Section Related Observation LastModified by Organization Detai ls LastModified Time None Recorded Concern Status LastModified by Organization Details LastModified Time None Recorded Advance Directives Directive None Recorded Payers Encounter Date Sequence Insurance Name Policy Number Policy Araiza Covered Member ID Araiza Member ID Guarantor Name 09/22/2023 1 [employer] (MEDICARE REPLACEMENT/A DVANTAGE - PPO) Sesar Pemberton [id number] Sesar Pemberton 09/22/2023 1 [employer] (MEDICARE REPLACEMENT/A DVANTAGE - PPO) Sesar Pemberton [id number] Sesar Pemberton 12/12/2023 1 [employer] (MEDICARE REPLACEMENT/A DVANTAGE - PPO) Sesar Pemberton [id number] Sesar Pemberton 12/27/2023 1 [employer] (MEDICARE REPLACEMENT/A DVANTAGE - PPO) Sesar Pemberton [id number] Sesar Pemberton 12/28/2023 1 [employer] (MEDICARE REPLACEMENT/A DVANTAGE - PPO) Sesar Pemberton [id number] Sesar Pemberton Notes Date Note Type Note Provider Name and Address Organization Details Recorded Time 09/22/2023 text/html CARDIOVASCULAR HISTORY:# Coronary artery disease s/p PCI 2002 and CABG 2013a. 09/26/2002 (Dr Cruz) PCI of LAD and diagonal:PCI of the LAD with 2.5 x 13 Cypher stentPCI of diagonal with 2.5 x 13 Cypher stent b. Coronary angiography 05/09/2012 showed severe three vessel disease and he underwent CABG Lexiscan SPECT 05/28/2019: Normal perfusion, EF 65% # CKD 3b# Dyslipidemia Other comorbidities:June 2018 thrombophlebitis and pulmonary embolism and have subsequently been on warfarin managed by Dr. Jauregui. 08/11/2023: Earlier than scheduled visit due to concerns about dyspneaa. CAD s/p PCI 2002 and CABG 2013b. History of PE June 2018c. [employer] dual-chamber pacemaker implant 05/11/2022 (Dr Brumfield)Former patient of Dr Court Cruz from [place], [place]. As noted in his patient case, Mr. Pemberton reports being hardly able to do anything for about 6 months. He is symptomatic when he does groceries, and with showering. He reports some orthopnea over the last month or so. He is not aware of any weight gain. Objectively, his weight is gone up by about 3 pounds since last visit. He has not been aware of any sustained chest pain or nausea, but does report some chest tightness when he is out of breath. I do not have any lab work for review today. We discussed checking a CBC and BMP today. He would like to add on an A1c and PSA. We discussed that in the absence of any significant abnormalities on his lab work, an ischemic evaluation would be in order given his exertional symptoms described above. He underwent bypass surgery 11 years ago, and has not had any ischemic testing since May 2019. Likewise, he has a history of PE and 2019, but has not had any follow-up echo to evaluate for pulmonary hypertension. 09/21/2023: Followup visit re: concerns about dyspneaa. CAD s/p PCI 2002 and CABG 2013b. History of PE June 2018c. [employer] dual-chamber pacemaker implant 05/11/2022 (Dr Brumfield)Former patient of Dr Court Cruz from [place], [place]. As previously discussed, Mr. Pemberton had reported being hardly able to do anything for about 6 months. He is symptomatic when he does groceries, and with showering. He reports some orthopnea over the last month or so. He is not aware of any weight gain. He has not been aware of any sustained chest pain or nausea, but does report some chest tightness when he is out of breath. At his last visit, furosemide was prescribed but did not make any difference in his symptoms of dyspnea. Lab workup 08/10/2023 did not reveal any cause for his symptoms. He completed an echo which did not show any evidence of pulmonary hypertension, and an ischemic evaluation did not show any evidence of left ventricular chamber enlargement or ischemia. At this point, it is not clear what the cause of his dyspnea is. We discussed evaluation by one of our pulmonologists, which she would like to proceed with. We also discussed that in the absence of any pulmonary pathology, consideration should be given to dyssynchrony from exclusive RV pacing. On 12/07/2022, he had been 43% v-paced, and is now around 90% RVP. GABRIELE ROSENBERG MD [address] [place] [address], [phone], [facility] 09/23/2023 09:41:53 12/12/2023 text/html Patient comes in for evaluation of exertional dyspnea. He has a longstanding history of coronary disease status post CABG and pacemaker placement implantation, a recent cardiac evaluation was unrevealing as to the etiology of his exertional dyspnea sputum production or wheezes. He does state that his activity tolerance has significantly decreased over the last few months. He also states that he becomes fairly dizzy when he gets short of breath and he has to lean forward and in order to regain his composure, not feel as dizzy and not feel as short of breath. He denies any significant tobacco exposure or any other known environmental exposures. He does not have any history of hematemesis, melena or hematochezia but is on chronic warfarin therapy secondary to a previous history of pulmonary emboli. He has been told he would require systemic anticoagulation for life. He does not have any previous history of seasonal allergies. Chest x-ray performed today does not show any evidence of acute airspace disease. PFTs are unremarkable YECENIA GHOTRA MD [address] [place] [address], [phone], [facility] 12/12/2023 11:44:54 12/27/2023 text/html CARDIOVASCULAR HISTORY:# Coronary artery disease s/p PCI 2002 and CABG 2013a. 09/26/2002 (Dr Cruz) PCI of LAD and diagonal:PCI of the LAD with 2.5 x 13 Cypher stentPCI of diagonal with 2.5 x 13 Cypher stent b. Coronary angiography 05/09/2012 showed severe three vessel disease and he underwent CABG Lexiscan SPECT 05/28/2019: Normal perfusion, EF 65% # CKD 3b# Dyslipidemia Other comorbidities:June 2018 thrombophlebitis and pulmonary embolism and have subsequently been on warfarin managed by Dr. Jauregui. 09/21/2023: Followup visit re: concerns about dyspneaa. CAD s/p PCI 2002 and CABG 2013b. History of PE June 2018c. [employer] dual-chamber pacemaker implant 05/11/2022 (Dr Brumfield)Former patient of Dr Court Cruz from [place], [place]. As previously discussed, Mr. Pemberton had reported being hardly able to do anything for about 6 months. He is symptomatic when he does groceries, and with showering. He reports some orthopnea over the last month or so. He is not aware of any weight gain. He has not been aware of any sustained chest pain or nausea, but does report some chest tightness when he is out of breath. At his last visit, furosemide was prescribed but did not make any difference in his symptoms of dyspnea. Lab workup 08/10/2023 did not reveal any cause for his symptoms. He completed an echo which did not show any evidence of pulmonary hypertension, and an ischemic evaluation did not show any evidence of left ventricular chamber enlargement or ischemia. At this point, it is not clear what the cause of his dyspnea is. We discussed evaluation by one of our pulmonologists, which she would like to proceed with. We also discussed that in the absence of any pulmonary pathology, consideration should be given to dyssynchrony from exclusive RV pacing. On 12/07/2022, he had been 43% v-paced, and is now around 90% RVP. 12/27/2023: 3 month rechecka. CAD s/p PCI 2002 and CABG 2013b. History of PE June. [employer] dual-chamber pacemaker implant 05/11/2022 (Dr Brumfield)Former patient of Dr Court Cruz from [place], [place]. As previously discussed, Mr. Pemberton had reported being hardly able to do anything for about 6 months. He is symptomatic when he does groceries, and with showering. Since his last visit, he reports no changes . He was seen by Dr. Daniels, and has a follow-up visit scheduled for tomorrow. He currently reports up to 13,000 steps of activity per day.His weight has increased by about 6 pounds since last visit.No peripheral edema, PND or orthopnea reported.He has not experienced any falls since I last saw him.No epistaxis, or GI bleeding on Coumadin. As previously discussed, a trial of furosemide did not make any difference in his symptoms of dyspnea. Lab workup 08/10/2023 did not reveal any cause for his symptoms. He completed an echo which did not show any evidence of pulmonary hypertension, and an ischemic evaluation did not show any evidence of left ventricular chamber enlargement or ischemia. At this point, it remains unclear what the cause of his dyspnea is. We briefly discussed consideration of dyssynchrony from exclusive RV pacing. In this context, he may benefit from upgrading to a biventricular system. Labwork of 12/12/2023 was reviewed:CBC: NormalBMP: Creatinine 1.50, potassium 4.7 CT chest 12/22/2023:1. Mild distention/dilatation of the ascending thoracic aorta2. Punctate nodule right base. Suggest follow-up screening chest CT GABRIELE ROSENBERG MD [address] [place], [id number], [facility] 12/27/2023 18:36:40 12/28/2023 text/html Patient comes in for follow-up of exertional dyspnea. He has had an extensive cardiac evaluation which was unremarkable. Previous PFTs were essentially unremarkable and he returns today with a CT scan of the chest which shows no significant parenchymal pulmonary normalities other than minimal punctuate lung nodules, largest one measuring 4 mm in size without a previous history of tobacco abuse, environmental exposures and no family history of lung cancer. He continues to complain of mild exertional dyspnea without any associated cough, sputum production, hemoptysis or wheezes. He does not have any chest pains or anginal equivalents, denies any significant palpitations and he does not have any lower extremity edema, orthopnea or pressures or nodule dyspnea. He does not have any evidence of anemia as per recent CBC. He does have chronic kidney disease which has remained stable. YECENIA GHOTRA MD [address] [place] [address], [id number], [facility] 12/28/2023 11:49:59
[2024-08-07 13:09] LABS: PHA INR Fingerstick 3.6 (0.9-1.1)
== END 2024-08-07 13:16 ==
LOC: ACC 12:46
PROVIDERS: PCP Internal Medicine Adolescent Medicine; Visit Provider Internal Medicine Adolescent Medicine
DX: Z79.01 Long term (current) use of anticoagulants (principal); Z86.711 Personal history of pulmonary embolism
CPT/HCPCS: 85610; 99211; G0463

== ENCOUNTER 2024-09-04 13:06 | Outpatient (CLI) | payer MEDICARE, SELFPAY ==
--- OUTSIDE RECORDS SUMMARY | 2024-09-04 13:08 | XMS_ITS | Data Portability ---
Author Organization [facility] Address [address] [place] [address] Care Team Providers Care Data Engineer Name Role Phone DANTENINI BORDEN Primary Care Provider [phone] Assessment Encounter Date Assessment Date Assessment LastModified by Organization Details LastModified Time 09/22/2023 09/22/2023 Impression: 1. Dyspnea on exertion: Undiagnosed new problem, appears stable x 6 months 2. Coronary artery disease s/p PCI 2002 and CABG 2012: Chronic problem, stable without angina. SPECT 05/28/2019: Normal perfusion, EF 65% No evidence of ischemia per SPECT 09/22/2023 3. [employer] dual-chamber pacemaker system (05/11/2022) 4. Hypertension: [...] RTC: 3 months, or sooner if needed. [email or web address] Not available 09/23/2023 09:41:47 12/27/2023 12/27/2023 Impression: 1. Dyspnea on exertion: Undiagnosed new problem, appears stable 2. Coronary artery disease s/p PCI 2002 and CABG 2012: Chronic problem, stable without angina. SPECT 05/28/2019: Normal perfusion, EF 65% No evidence of ischemia per SPECT 09/22/2023 3. [employer] dual-chamber pacemaker system (05/11/2022) 4. Hypertension: [...] RTC: 6 months, or sooner if needed. [email or web address] Not available 12/27/2023 18:34:46 Plan of Treatment Reminders Order Date Submit Date Provider Last Modified By Organization Details Last Modified Time Details Appointments RECHECK 2024 02:30P M GABRIELE ROSENBERG MD Not available Not available Not available Lab CBC w/ auto diff 2023 024 [facility], [address] [place] [address], [place], [address], 12/12/2023 13:42:16 BMP, serum or plasma 2023 024 [facility], [address] [place] [address], [address], 12/12/2023 13:26:38 Referral None recorded. Procedures None recorded. Surgeries None recorded. Imaging CT, chest, w/o contrast 2023 024 [facility], [address] [place], [address], 12/22/2023 14:42:31 Medication Orders None recorded. Patient TargetsNo targets recorded. Patient InstructionsNo instructions recorded. Reason for Referral None Reported. Results Created Date Observation Date Name Description Value Unit Range Abnormal Flag Note LastModifiedBy Organization Detail LastModifiedTime 12/12/1912/12/2023 BASIC METAB OLIC PANEL glucose 104 mg/dL 74-100 high Not Available [facility] [address] [place] [address], [address], 12/12/2023 13:26:38 12/12/19 24 12/12/2023 BASIC METAB OLIC PANEL blood urea nitrogen 14 mg/dL 6-20 normal Not Available [facility] [address] [place] [address], [address], 12/12/2023 13:26:38 12/12/19 24 12/12/2023 BASIC METAB OLIC PANEL creatinine 1.50 mg/dL 0.70-1 .28 high Not Available [facility] [address] [place] [address], [address], 12/12/2023 13:26:38 12/12/19 24 12/12/2023 BASIC METAB OLIC PANEL BUN/creatini ne ratio 9 (calc ) 10-20 low Not Available [facility] [address] [place] [address], [address], 12/12/2023 13:26:38 12/12/19 24 12/12/2023 BASIC METAB OLIC PANEL sodium 141 mmol/ L 136-14 5 normal Not Available [facility] [address] [place] [address], [address], 12/12/2023 13:26:38 12/12/19 24 12/12/2023 BASIC METAB OLIC PANEL potassium 4.7 mmol/ L 3.4-5. 0 normal Not Available [facility] [address] [place] [address], [address], 12/12/2023 13:26:38 12/12/19 24 12/12/2023 BASIC METAB OLIC PANEL chloride 105 mmol/ L 98-107 normal Not Available [facility] [address] [place] [address], [address], 12/12/2023 13:26:38 12/12/19 24 12/12/2023 BASIC METAB OLIC PANEL carbon dioxide 25 mmol/ L 22-31 normal Not Available [facility] [address] [place] [address], [address], 12/12/2023 13:26:38 12/12/19 24 12/12/2023 BASIC METAB OLIC PANEL anion gap 11 (calc ) 7-25 normal Not Available [facility] [address] [place] [address], [address], 12/12/2023 13:26:38 12/12/19 24 12/12/2023 BASIC METAB OLIC PANEL calcium 9.2 mg/dL 8.6-10 .2 normal Not Available [facility] [address] [place] [address], [address], 12/12/2023 13:26:38 12/12/19 24 12/12/2023 BASIC METAB [...] patie nts refer to [email or web address] :[email or web address] QI/gf r_cal culat orPed Not Available [facility] [address] [place] [address], [address], 12/12/2023 13:26:38 12/12/19 24 12/12/2023 COMPL ETE BLOOD COUNT white blood cells 7.5 10*3/ uL 3.8-10 .8 normal Not Available [facility] [address] [place] [address], [address], 12/12/2023 13:42:15 12/12/19 24 12/12/2023 COMPL ETE BLOOD COUNT red blood cells 4.72 10*6/ uL 4.20-5 .80 normal Not Available [facility] [address] [place] [address], [address], 12/12/2023 13:42:15 12/12/19 24 12/12/2023 COMPL ETE BLOOD COUNT hemoglobin 14.4 g/dL 14.0-1 8.0 normal Not Available [facility] [address] [place] [address], [address], 12/12/2023 13:42:15 12/12/19 24 12/12/2023 COMPL ETE BLOOD COUNT hematocrit 44.6 % 40.0-5 2.0 normal Not Available [facility] [address] [place] [address], [address], 12/12/2023 13:42:15 12/12/19 24 12/12/2023 COMPL ETE BLOOD COUNT MCV 95 fL 80-100 normal Not Available [facility] [address] [place] [address], [address], 12/12/2023 13:42:15 12/12/19 24 12/12/2023 COMPL ETE BLOOD COUNT MCH 31 pg 26-35 normal Not Available [facility] [address] [place] [address], [address], 12/12/2023 13:42:15 12/12/19 24 12/12/2023 COMPL ETE BLOOD COUNT MCHC 32 g/dL 32-36 normal Not Available [facility] [address] [place] [address], [address], 12/12/2023 13:42:15 12/12/19 24 12/12/2023 COMPL ETE BLOOD COUNT RDW 13.7 % 11.0-1 5.0 normal Not Available [facility] [address] [place] [address], [address], 12/12/2023 13:42:15 12/12/19 24 12/12/2023 COMPL ETE BLOOD COUNT MPV 9.9 fL 6.2-10 .5 normal Not Available [facility] [address] [place] [address], [address], 12/12/2023 13:42:15 12/12/19 24 12/12/2023 COMPL ETE BLOOD COUNT platelet count 186 10*3/ uL 150-40 0 normal Not Available [facility] [address] [place] [address], [address], 12/12/2023 13:42:15 12/12/19 24 12/12/2023 COMPL ETE BLOOD COUNT neutrophil,a bsolute 4.3 10*3/ uL 1.6-8. 4 normal Not Available [facility] [address] [place] [address], [address], 12/12/2023 13:42:15 12/12/19 24 12/12/2023 COMPL ETE BLOOD COUNT lymphocyte,a bsolute 2.2 10*3/ uL 0.4-5. 1 normal Not Available [facility] [address] [place] [address], [address], 12/12/2023 13:42:15 12/12/19 24 12/12/2023 COMPL ETE BLOOD COUNT monocyte,abs olute 0.8 10*3/ uL 0.0-1. 2 normal Not Available [facility] [address] [place] [address], [address], 12/12/2023 13:42:15 12/12/19 24 12/12/2023 COMPL ETE BLOOD COUNT eosinophil,a bsolute 0.2 10*3/ uL 0.0-0. 8 normal Not Available [facility] [address] [place] [address], [address], 12/12/2023 13:42:15 12/12/19 24 12/12/2023 COMPL ETE BLOOD COUNT basophil,abs olute 0.0 10*3/ uL 0.0-0. 3 normal Not Available [facility] [address] [place] [address], [address], 12/12/2023 13:42:15 12/12/19 24 12/12/2023 COMPL ETE BLOOD COUNT % neutrophils 57.2 % 42.0-7 8.0 normal Not Available [facility] [address] [place] [address], [address], 12/12/2023 13:42:15 12/12/19 24 12/12/2023 COMPL ETE BLOOD COUNT % lymphocytes 28.8 % 11.0-4 7.0 normal Not Available [facility] [address] [place] [address], [address], 12/12/2023 13:42:15 12/12/19 24 12/12/2023 COMPL ETE BLOOD COUNT % monocytes 10.2 % 0.0-11 .0 normal Not Available [facility] [address] [place] [address], [address], 12/12/2023 13:42:15 12/12/19 24 12/12/2023 COMPL ETE BLOOD COUNT % eosinophils 3.2 % 0.0-7. 0 normal Not Available [facility] [address] [place] [address], [address], 12/12/2023 13:42:15 12/12/19 24 12/12/2023 COMPL ETE BLOOD COUNT % basophils 0.6 % 0.0-3. 0 normal Not Available [facility] [address] [place] [address], [address], 12/12/2023 13:42:15 12/12/19 24 12/12/2023 COMPL ETE BLOOD COUNT nucleated red cells 0.1 % 0.0-0. 9 normal Not Available [facility] [address] [place], [address], 12/12/2023 13:42:15 12/12/19 24 12/12/2023 COMPL ETE BLOOD COUNT nucleated RBCs, absolute 0.01 10*3/ uL not estab. normal Not Available [facility] [address] [place] [address], [address], 12/12/2023 13:42:15 08/29/19 24 08/26/2023 remot e devic e inter rogat ion (PROC ) No observ ation record ed. [email or web address] Not Available 2023 19:20:54 09/22/19 24 09/22/2023 US, doppl er echoc ardio gram, w/ color flow No observ ation record ed. [email or web address] [facility] Cardiology [address], [place], [address], 09/22/2023 16:58:13 11/07/19 24 11/06/2023 remot e devic e inter rogat ion (PROC ) No observ ation record ed. [email or web address] Not Available 2023 04:40:23 12/12/19 24 12/12/2023 XR, chest , 2 view [facility] [address] [facility] [address] [place] [address] Nelli moseley Name: SESAR Mauricionga moseley : [...] MD on 024 12:06 PM [email or web address] [facility] Pulmonary [address] [place], [address], 12/13/2023 10:51:00 12/22/19 24 12/22/2023 CT, chest , w/o contr ast [facility] [address] [facility] [place] [address] Patien t Name: SESAR moseley : 89 [...] MD on 12/22/19 1:54 PM [email or web address] [facility] [address] [place] [address] Dr, [place], [address], 12/22/2023 15:01:36 02/05/20 24 02/05/2024 remot e [...] Details Recorded Time Right bundle branch block 19800596 Active 2015 From Automated Load;Prov ider: Court Cruz;Stat us: Active Not Available [facility] 7 02:22:11 Headache 45050582 Active 2018 Brooklyn Scott [facility] 9 14:32:33 Low back pain 809990960 Active 2019 Brooklyn Scott [facility] 0 14:25:55 Dyspnea 535825233 Active 2023 Salena Galdamez [facility] 4 15:10:55 Coronary arteriosc lerosis in [place] artery 37119050852 07 Active 2015 From Automated Load;Prov ider: Court Cruz;Stat us: Active Not Available [facility] 6 04:41:35 Hyperlipi demia 83366812 Active 2015 From Automated Load;Prov ider: Court Cruz;Stat us: Active Not Available [facility] 6 04:41:35 Problem Notes None recorded. Procedures Surgical History Date Name Laterality Status Provider Name and Address Organization Details Recorded Time 12/12/19 24 Airway Resistance completed [facility] 12/12/2023 11:23:15 12/12/19 24 Diffusion Capacity completed [facility] 12/12/2023 11:23:10 12/12/19 24 Lung Volumes, Plethysmography completed [facility] 12/12/2023 11:23:12 12/12/19 24 Spirometry completed [facility] 12/12/2023 11:23:07 12/12/19 24 Pulmonary Function Testing completed YECENIA GREEN MD [address] [place] [address], [address], [facility] 12/12/2023 11:28:29 09/22/19 24 Stress Test - Nuclear Lexiscan completed GABRIELE ROSENBERG MD [address] [place] [address], [address], [facility] 09/22/2023 16:55:31 10/28/19 23 EKG completed Alyssia Ruiz [facility] 10/27/2022 10:32:39 05/28/19 20 Stress Test - Nuclear Lexiscan completed COURT CRUZ MD [address] [place] [address], [address], [facility] 05/28/2019 14:08:27 05/14/19 20 Electromyography (EMG) with Nerve Conduction Study (NCV) completed Yessenia (Citlali) Jennifer [facility] 05/14/2019 13:44:50 04/03/20 17 Stress Test - Nuclear completed COURT CRUZ MD [address] [place] [address], [address], [facility] 04/03/2017 16:02:00 09/07/19 17 Electromyography (EMG) with Nerve Conduction Study (NCV) completed Yessenia (Citlali) Jennifer [facility] 09/06/2016 13:52:06 04/26/19 13 Cardiac Surgery completed Clare Uriarte [facility] 03/11/2019 14:51:26 09/22/19 02 Cardiac Catheterization completed Clare Uriarte [facility] 03/11/2019 14:51:26 CABG completed [facility] 09/01/2016 13:56:37 Prostate Surgery completed [facility] 09/01/2016 13:56:45 Cholecystectomy completed Daniela Beavers [facility] 03/07/2017 09:03:25 Imaging Results Imaging Date Name Status LastModified by Organization Details LastModified Time 08/26/2023 remote device interrogation (PROC) completed [email or web address] Information not available 08/29/2023 19:20:54 09/22/2023 US, doppler echocardiogram, w/ color flow completed [email or web address] [facility] Cardiology [address] , [place], [address], 09/22/2023 16:58:13 11/06/2023 remote device interrogation (PROC) completed [email or web address] Information not available 11/07/2023 04:40:23 12/12/2023 XR, chest, 2 view completed [facility] [address] [facility], [place], [address], 12/13/2023 10:51:00 12/22/2023 CT, chest, w/o contrast completed [facility] [address] , [place], [address], 12/22/2023 15:01:36 02/05/2024 remote device interrogation (PROC) completed [email or web address] Information not available 02/05/2024 18:57:09 05/06/2024 remote device interrogation (PROC) completed [email or web address] Information not available 05/06/2024 08:44:12 08/05/2024 remote device interrogation (PROC) completed [email or web address] Information not available 08/05/2024 19:19:58 Procedure Notes None recorded. 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 . USE WITH CAUTI ON>. [facility] 0 08:25:31 058556 Product containin g 3-hydroxy -3-methyl glutaryl- coenzyme A reductase inhibitor (product) medicatio n myalgias (muscle pain) Not available Not available 03/11/20162008 56598 009 SNOMED React ion: MYALG IA; INTOL ERANT OF MEDIC INE>> [facility] 0 08:25:49 Medications Name Sig Start Date [...] % 99 % 93 /min 26.7 kg/m2 24941.4 6 g 132 mm[Hg] 78 mm[Hg] Jessi Keanu [facility] 4 14:47:11 Date Recorded Body height Body mass index (BMI) Body weight Heart rate Oxygen saturation Oxygen saturation in Arterial blood by Pulse oximetry Systolic blood pressure Diastolic blood pressure Provider Name and Address Organization Details Last Updated DateTime 4 165.1 cm 32.1 kg/m2 48247.3 3 g 97 /min 97 % 97 % 142 mm[Hg] 82 mm[Hg] Soraida Dixon [facility] 4 10:50:14 Date Recorded Body height Oxygen saturation Oxygen saturation in Arterial blood by Pulse oximetry Heart rate Body mass index (BMI) Body weight Systolic blood pressure Diastolic blood pressure Provider Name and Address Organization Details Last Updated DateTime 4 165.1 cm 97 % 97 % 70 /min 30.1 kg/m2 86294.2 2 g 126 mm[Hg] 80 mm[Hg] [facility] Keanu [facility] 4 14:07:52 Date Recorded Body height Body mass index (BMI) Body weight Heart rate Oxygen saturation Oxygen saturation in Arterial blood by Pulse oximetry Systolic blood pressure Diastolic blood pressure Provider Name and Address Organization Details Last Updated DateTime 4 165.1 cm 29.6 kg/m2 24365.4 4 g 59 /min 96 % 96 % 133 mm[Hg] 83 mm[Hg] Kellen Ochoa [facility] 4 11:36:00 Social History Question Answer Notes LastModified by Organizat ion Details LastModified Time Tobacco Smoking Status Never Smoker [facility] 09/01/2016 13:56:04 What Is Your Level Of Caffeine Consumption? None [email or web address] Information not available 09/01/2016 How Much Tobacco Do You Chew? None Information not available 03/11/2019 Which Illicit Or Recreational Drugs Have You Used? None Information not available 03/11/2019 Education 4 Year College [email or web address] Information not available 09/01/2016 Live Alone Or With Others? With Others Information not available 03/11/2019 Marital Status [email or web address] Informatio n not available 09/01/2016 What Was The Date Of Your Most Recent Tobacco Screening? 12/28/2023 Information not available 12/28/2023 What Is Your Relationship Status? [email or web address] Information not available 10/27/2022 How Much Tobacco Do You Smoke? No [email or web address] Information not available 09/01/2016 Have You Recently Traveled Abroad? No [email or web address] Information not available 10/27/2022 Sex: Male Functional Status Question Answer Note LastModified by Organizat ion Details LastModified Time What is your level of alcohol consumption? None [email or web address] Information not available 09/01/2016 Do you or have you ever used smokeless tobacco? Never used smokeless tobacco Information not available 03/11/2019 What is your occupation? [employer] [email or web address] Information not available 09/01/2016 Do you or have you ever used e-cigarettes or vape? Never used electronic cigarettes Information not available 03/11/2019 Mental Status None recorded. Family History Relationship Description Onset Age of this Age Resolved Age Notes LastModified by Organization Details LastModified Time Father Hypertensive disorder [email or web address] Not available 2016 13:55:25 Father Family history of stroke Not available 2018 14:50:51 Father Family history of malignant neoplasm Not available 2018 14:50:51 Father Diabetes mellitus [email or web address] Not available 2016 13:55:50 Mother Hypertensive disorder [email or web address] Not available 2016 13:55:25 Mother Family history [...] split virus, quadrivalent, preservative 7 completed Daniela Short [facility] 03/07/2017 14:33:04 Influenza, split virus, quadrivalent, preservative 9 completed Clare Uriarte [facility] 03/11/2019 14:45:47 pneumococcal, unspecified formulation 8 completed Clare Uriarte [facility] 03/11/2019 14:46:12 Past Encounters Encounter ID Performer Location Encounter Start Date Encounter Closed Date Diagnosis/Indication Diagnosis SNOMED-CT Code Diagnosis ICD10 Code Diagnosis Note [id number] ANGIE CAMARENA MD NEUROLOGY [facility] [address] [place] [address] 09/01/2016 13:48:24 09/01/2016 15:18:09 Neuropathy 049091384 G62.9 Idiopathic peripheral neuropathy 74566112 G60.9 Paresthesia 43543678 R20 .2 History of giant cell arteritis 4798339476 56514 Z86.79 [id number] ANGIE CAMARENA MD NEUROLOGY [facility] [address] [place] [id number] 09/06/2016 13:25:19 09/09/2016 12:40:58 [address]67 R20.[id number] CRUZ MD CARDIOLOG [address] [place] [address] 03/07/2017 13:43:30 03/07/2017 15:48:21 Coronary arteriosclerosis in [place] artery 8343319418 107 I25.10 Medication changes, as well as [...] call for any change in status. Hyperlipidemia 23690018 E78.5 Managed by PCP. Right bund le branch block 09823409 I45.0 Atypical chest pain 1025 35722 R07.89 The patient's symptoms are unlikely to be cardiac. He was previously evaluated with a stress test in 2013 for atypical chest pain. The patient is however, feel that his symptoms are similar to what he experience d prior to his bypass surgery therefore we will arrange a Gabriele protocol stress Myoview study since he feels he's able to walk on a treadmill. [id number] COURT CRUZ MD HEART [facility]ATION [place] [address] [place], [place] [address] 04/03/2017 12:08:37 04/04/2017 08:46:10 [id number] ANGIE [place] [address] 03/11/2019 14:29:45 03/11/2019 15:28:31 Low back pain 644989750 M54.5 Neuropathy 242618235 G62 [id number] CRUZ MD CARDIOLOG Y [address] [place] [address] 5 04/22/2019 11:41:49 04/22/2019 12:16:48 Coronary arteriosclerosis in [place] artery 3403113853 107 I25.10 Medication changes, as well as [...] call for any change in status. Hyperlipidemia 80123213 E78.5 Managed by PCP. Right bund le branch block [id number] I45.0 [id number] ANGIE CAMARENA MD NEUROLOGY [place] [address] 1 05/14/2019 13:05:23 05/14/2019 15:11:19 Paresthesia 69575388 R20.2 [id number] ANGIE CAMARENA MD NEUROLOGY [place] [address] 1 05/14/2019 13:51:24 05/14/2019 15:52:05 Low back pain 260352624 M54.[id number] CRUZ MD CARDIOLOG Y [address] [place], [place] [address] 05/20/2019 11:46:54 05/20/2019 14:03:14 Coronary arteriosclerosis in [place] artery 6728727144 107 I25.118 Electrocar diogram shows right bundle branch block. No acute changes. I've ordered some baseline laboratory studies and will renew his nitroglyce rin prescripti on. He will have a Lexiscan stress test scheduled with follow-up in 2 weeks. Hyperlipidemia 87374168 E78.5 Managed by PCP. Right bund le branch block 96747270 I45.0 Chronic right bundle branch block. [id number] COURT CRUZ MD [facility]ART [facility] [place] [address] [place], [place] [address] 05/28/2019 07:37:16 05/29/2019 08:24:[id number] CRUZ MD CARDIOLOG Y [address],[facility] FLOOR [place] [address] 5 06/06/2019 13:48:48 06/06/2019 14:38:58 Coronary arteriosclerosis in [place] artery 9921215321 107 I25.118 Electrocar diogram shows right bundle branch block. No acute changes. 05/28/19: LexiNGXT: NML, EF 65%. Patient reassured. No further testing advise at this time. Hyperlipidemia 89921172 E78.5 Managed by PCP. Right bund le branch block 14374051 I45.0 Chronic right bundle branch block. [id number] ANGIE CAMARENA MD NEUROLOGY [address] [place] [address] 06/12/2019 14:23:47 06/12/2019 15:31:40 Low back pain 883659043 M54.[id number] CRUZ MD CARDIOLOG Y [address] [place], [place] [address] 01/06/2020 13:28:15 01/06/2020 15:45:42 Coronary arteriosclerosis in [place] artery 3407160428 107 I25.118 Electrocar diogram shows right bundle branch block. No acute changes. 05/28/19: LexiNGXT: NML, EF 65%. Patient reassured. No further testing advise at this time. Hyperlipidemia 97329308 E78.5 Managed by PCP. Right bund le branch block 69600680 I45.0 Chronic right bundle branch block. [id number] GABRIELE ROSENBERG MD CARDIOLOG Y [address] [place], [place] [address] 01/27/2021 10:48:59 01/27/2021 11:18:23 Coronary arteriosclerosis in [place] artery 5235786182 107 I25.118 History of PCI 09/26/2002 (Dr [...] Nitro for PRN usageRTC 1 year Hyperlipidemia 14655910 E78.5 Managed by PCP. Right bund le branch block 62115015 I45.0 Chronic right bundle branch block. No specific management required History of pulmonary embolus 638479907 Z86.711 On chronic Warfarin managed by PCP History of coronary artery bypass grafting 418006708 Z95.1 04/2012: 3v CABG Chronic ki dney disease stage 3B 929985676 N18.32 [id number] GABRIELE ROSENBERG MD CARDIOLOG Y [address] [place] [address] 10/27/2022 10:14:28 10/27/2022 11:19:35 Coronary arteriosclerosis in [place] artery [id number] 107 I25.118 History of PCI 09/26/2002 (Dr Cruz):P CI of the LAD with 2.5 x 13 Cypher stentPCI of diagonal with 2.5 x 13 Cypher stent Coronary angiograph y 05/09/2012 showed severe three vessel disease and he underwent CABGLexisc an SPECT 05/28/2019: Normal perfusion, EF 65% History of coronary artery bypass grafting 139309915 Z95.1 04/2012: 3v CABG Hyperlipidemia 56221990 E78.5 Right bund le branch block 39397543 I45.0 History of pulmonary embolus 947535159 Z86.711 On chronic Warfarin managed by PCP Chronic ki dney disease stage 3B 003602642 N18.32 Cardiac pa cemaker in situ 576366487 Z95.0 [id number] GABRIELE ROSENBERG MD CARDIOLOG Y [address] V[address] HERNANDEZ,[address] [place] [address] 08/10/2023 13:52:20 08/10/2023 15:17:20 Coronary arteriosclerosis in [place] artery 3666674703 107 I25.118 History of PCI 09/26/2002 (Dr Cruz):P CI of the LAD with 2.5 x 13 Cypher stentPCI of diagonal with 2.5 x 13 Cypher stent Coronary angiograph y 05/09/2012 showed severe three vessel disease and he underwent CABGLexisc an SPECT 05/28/2019: Normal perfusion, EF 65% History of coronary artery bypass grafting 731854654 Z95.1 04/2012: 3v CABG Hyperlipidemia 67050598 E78.5 Right bund le branch block 64134360 I45.0 History of pulmonary embolus 936278948 Z86.711 On chronic Warfarin managed by PCP Chronic ki dney disease stage 3B 658330516 N18.32 Cardiac pa cemaker in situ 399926718 Z95.0 Dyspnea on exertion 6084 5006 R06.09 [id number] GABRIELE ROSENBERG MD CARDIOLOG Y [address] [place] [address] 09/22/2023 12:10:13 09/22/2023 15:16:30 Coronary arteriosclerosis in [place] artery 0517407706 107 I25.118 History of PCI 09/26/2002 (Dr [...] abnormal. History of coronary artery bypass grafting 018050912 Z95.1 04/2012: 3v CABG Hyperlipidemia 90054868 E78.5 Right bund le branch block 16014876 I45.0 History of pulmonary embolus 893702284 Z86.711 On chronic Warfarin managed by PCP Chronic ki dney disease stage 3B 422876511 N18.32 Cardiac pa cemaker in situ 264507791 Z95.0 Dyspnea on exertion 6084 5006 R06.09 [id number] GABRIELE ROSENBERG MD HEART STATION [address] ,[address] [place] [address] 09/22/2023 12:28:12 09/25/2023 13:13:10 [id number] YECENIA DANIELS-KIERA ESQUIVEL MD PULMONARY [address] [facility], [address] [place] [address] 12/12/2023 10:18:55 12/12/2023 12:30:34 Dyspnea 678243446 R06.00 New onset exertional dyspnea without any [...] his CT images been obtained. Coronary arteriosclerosis 32689543 I25.10 [id number] GABRIELE ROSENBERG MD CARDIOLOG Y [address] [place] [address] 12/27/2023 13:21:44 12/27/2023 15:05:57 Coronary arteriosclerosis in [place] artery 3967584594 107 I25.118 History of PCI 09/26/2002 (Dr [...] abnormal. 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 History of pulmonary embolus 310183581 Z86.711 On chronic Warfarin managed by PCP Chronic ki dney disease stage 3B 716122862 N18.32 Cardiac pa cemaker in situ 565670235 Z95.0 Dyspnea on exertion 6084 5006 R06.09 [id number] YECENIA DANIELS-KIERA ESQUIVEL MD PULMONARY [address] [facility], [address] [place] [address] 12/28/2023 10:57:04 12/28/2023 11:58:18 Dyspnea 613115875 R06.00 Exertional dyspnea without any other upper [...] as-needed basis Multiple n odules of lung 356992380 R91.[address] (<6 mm) [...] Recorded Advance Directives Directive None Recorded Payers Insurance Date Sequence Insurance Name Policy Number Policy Araiza Covered Member ID Araiza Member ID Guarantor Name 08/05/2024 1 [employer] (MEDICARE REPLACEMENT/A DVANTAGE - PPO) Sesar Pemberton [id number] Sesar Pemberton 08/21/2020 PAYMENT PLAN Sesar Pemberton Notes Date Note Type Note [...] CABG 2013b. History of PE June 2018c. [employer] dual-chamber pacemaker implant 05/11/2022 (Dr Brumfield)Former patient of Dr Court Cruz from [place], [place]. As noted in his patient case, [...] CABG 2013b. History of PE June 2018c. [employer] dual-chamber pacemaker implant 05/11/2022 (Dr Brumfield)Former patient of Dr Court Cruz from [place], [place]. As previously discussed, Mr. Pemberton had [...] now around 90% RVP. GABRIELE ROSENBERG MD [address] [place] [address], [phone], [facility] 09/23/2023 09:41:53 12/12/2023 text/html Patient comes in [...] disease. PFTs are unremarkable YECENIA GHOTRA MD [address] [place] [address], [phone], [facility] 12/12/2023 11:44:54 12/27/2023 text/html CARDIOVASCULAR HISTORY:# Coronary [...] and CABG 2013b. History of PE June. [employer] dual-chamber pacemaker implant 05/11/2022 (Dr Brumfield)Former patient of Dr Court Cruz from [place], [place]. As previously discussed, Mr. Pemberton had [...] CABG 2013b. History of PE June 2018c. [employer] dual-chamber pacemaker implant 05/11/2022 (Dr Brumfield)Former patient of Dr Court Cruz from [place], [place]. As previously discussed, Mr. Pemberton had [...] follow-up screening chest CT GABRIELE ROSENBERG MD [address] [place] [address], [phone], [facility] 12/27/2023 18:36:40 12/28/2023 text/html Patient comes in [...] which has remained stable. YECENIA GHOTRA MD [address] [place] [address], [phone], [facility] 12/28/2023 11:49:59
[2024-09-04 14:43] LABS: PHA INR Fingerstick 2.6 (0.9-1.1)
== END 2024-09-04 14:45 ==
LOC: ACC 13:06
PROVIDERS: PCP Internal Medicine Adolescent Medicine; Visit Provider Internal Medicine Adolescent Medicine
DX: Z79.01 Long term (current) use of anticoagulants (principal); I48.91 Unspecified atrial fibrillation
CPT/HCPCS: 85610; 99211; G0463

== ENCOUNTER 2024-10-16 12:59 | Outpatient (CLI) | payer MEDICARE, SELFPAY ==
--- OUTSIDE RECORDS SUMMARY | 2024-10-16 13:02 | XMS_ITS | Encounter Summary ---
Author Organization [employer] ([place], [place], [place], [place]) Address [address] [place] [address] Care Team Providers Care Harvesting Manager Name Role Phone Unavailable Primary Care Provider Unavailabl e Encounter Details Date Type Department Care Team (Late st Contact Info) Description 06/29/2018 Transcribed Document [facility] [place] [facility] [place] [address] ProviderAngelique MD [address] [place] [id number] Social History Tobacco Use Types Packs/Day Years Used Date Smoking Tobacco: Never Assessed Sex and Gender Information Value Date Recorded Sex Assigned at Not on file Legal Sex Male 3:45 PM CDT Gender Identity Not on file Sexual Orientation Not on file documented as of this encounter Miscellaneous Notes * Cerner Conversion Note - Historical ProviderMD - 06/29/2018 10:15 AM CDT Care Management Assessment/Plan Entered On: 06/29/2018 10:19 EDT Performed On: 06/29/2018 10:15 EDT by CYNTHIA FRANKLIN Manager-Care Lexii Care Management Note Care Management Note Report : CYNTHIA FRANKLIN Manager-Care Management - 06/29/18 10:19:32 pt is alert and oriented, he agrees that a nurse coming in and checking on him after his hospital stay would be helpful. he will be on Coumadin. pt and are very pleasant. will support POC and assess for any further DC needs. CYNTHIA Mosqueda Manager-Care Management - 06/29/2018 11:12 EDT Anticipated Discharge Date : 07/02/2018 10:18 EDT Care Management Note : pt is alert and oriented, he agrees that a nurse coming in and checking on him after his hospital stay would be helpful. he will be on Coumadin. pt and are very pleasant. will support POC and assess for any further DC needs. rj Documentation Status Complete : Yes CYNTHIA FRANKLIN Manager-Care Management - 06/29/2018 10:15 EDT Patient History Information Obtained from, Care Mgt : Patient Current Primary Care Physician : Reynaldo Jauregui Durable Power of Chip Crusher Operator Name : No Emergency Contact #1 : Shefali Pemberton Emergency Contact #1 Emergency Contact #1 Relationship : Emergency Contact #2 : Brooklyn Gardner Emergency Contact #2 Emergency Contact #2 Relationship : daughter Living Situation : Home Patient Lives With : Family member(s) Mobility Assistance Prior to Admission : Independent Current Daily Living Assistance : None Sensory Deficits : None Professional Skilled Services : None Current Home Treatments : None Home Equipment : None Assistance Needed with ADLs : None Sources of Income : Social Security, Disability (SSD) Patient History Note : Pt is alert and oriented, he is here with a PE. Pts is at bedside. pt and are very pleasant, I thanked them for choosing [facility] and they seem content with the service. pt reports that he has had issues with Coumadin vs Elaquis before. Pts reports that if they lived in [facility] they would be able to get Part D with [employer] but because they live in [place] they can not. Pt is agreeable to home health. CYNTHIA FRANKLIN Manager-Care Management - 06/29/2018 10:15 EDT Info/List/Choices Provided Patient Offered Choice/Affiliations Explained : Yes List/Info Provided Pt/Fam/Support Person : Home health Important Medicare Message Reviewed With : Spouse CYNTHIA FRANKLIN Manager-Care Management - 06/29/2018 11:14 EDT Final Discharge Disposition Note-CM Final Discharge Disposition Note-CM : Pt has a low readmission risk score of 32. he will be followed by , for a quick medication check. CYNTHIA FRANKLIN Manager-Care Management - 06/29/2018 11:12 EDT Electronically signed by Kimberly Jefferson Conversion Cloth Winding Supervisor Cerner at 08/05/2022 1:21 PM CDT documented in this encounter Plan of Treatment Not on file documented as of this encounter Visit Diagnoses Not on filedocumented in this encounter
--- OUTSIDE RECORDS SUMMARY | 2024-10-16 13:02 | XMS_ITS | Encounter Summary ---
Author Organization [employer] ([place], [place], [place], [place]) Address [address] [place] [address] Care Team Providers Care Road Production General Manager Name Role Phone Unavailable Primary Care Provider Unavailabl e Encounter Details Date Type Department Care Team (Late st Contact Info) Description 06/29/2018 Transcribed Document [facility] [place] Family Medicine [facility] [place] [address] ProviderAngelique MD [address] [place] [address] [id number] Social History Tobacco Use Types Packs/Day Years Used Date Smoking Tobacco: Never Assessed Sex and Gender Information Value Date Recorded Sex Assigned at Not on file Legal Sex Male 3:45 PM CDT Gender Identity Not on file Sexual Orientation Not on file documented as of this encounter Miscellaneous Notes * Cerner Conversion Note - Historical ProviderMD - 06/29/2018 1:46 PM CDT Patient: SESAR FU Age: 77 years Sex: Male : 1940 Associated Diagnoses: None Author: THU ARAGON MD Refering Physician: Dr. Narvaez Reason for Consult: Pulmonary Embolism Basic Information CC: shortness of breath with exertion, lower extremity swelling HPI: This is a 77-year-old male with a past medical history significant for bilateral lower extremity DVTs who presented to an [facility] for complaints of numbness in the lower extremities over the last 2 weeks. 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 On morning of presentation patient woke up with moderate edema and swelling of the right lower extremity and some mild discomfort. He went to the [facility] emergency department where he had a lower extremity venous duplex and a CT PE protocol. It was found he had a right lower extremity acute DVT as well as a reported bilateral pulmonary embolism. He was started on a heparin drip and transferred to [facility] for further evaluation and treatment. We've been asked to see him today for pulmonary embolism. Past Medical History: History of bilateral lower extremity DVTs CAD Hypertension Hyperlipidemia Prostate cancer Past surgical history: Left heart catheter with stents CABG Cholecystectomy Prostate cancer surgical intervention Family history: Diabetes Cancer CVA Social history: Patient is a nonsmoker. No drug or alcohol abuse history. 06/29: Patient resting in bed, seen on RA. States he has been up walking in the hallways some, his shortness of breath with exertion has improved significantly since admission. Started on Lovenox last evening per IM and transitioning to Coumadin. Review of Systems Constitutional: No fever. Eye: No recent visual problem. Ear/Nose/Mouth/Throat: No decreased hearing. Respiratory: Shortness of breath (improved), No cough, No sputum production, No wheezing. Cardiovascular: Peripheral edema (right lower extremity), No chest pain. Gastrointestinal: No nausea, No vomiting, No abdominal pain. Genitourinary: No dysuria, No hematuria. Musculoskeletal: No back pain, No muscle pain. Integumentary: No rash, No pruritus. Neurologic: Alert and oriented X4. Psychiatric: No anxiety, No depression. Health Status Allergies: Allergic Reactions (Selected) Severity Not Documented Iodinated radiocontrast dyes- Skin rash and skin rash. Nonallergic Reactions (Selected) Severe Statins- Leg pain and leg pain., No qualifying data available Current medications: (Selected) Inpatient Medications Ordered Colace: 100 mg, Oral, BID, PRN: Constipation DuoNeb 0.5 mg-2.5 mg/3 mL inhalation solution: 3 mL, Nebulized Inhalation, Q6H, PRN: Shortness of Breath Lipitor: 10 mg, Oral, Weekly Lovenox: 90 mg, SubCutaneous, [id number] MiraLax: 17 Gram, Oral, Daily, PRN: Constipation Pepcid: 20 mg, Oral, Q12H Tylenol: 650 mg, Oral, Q4H, PRN: Pain (Mild 1-3) Zofran: 4 mg, IV Push, Q4H, PRN: Nausea aspirin: 81 mg, Oral, Daily lisinopril: 10 mg, Oral, Daily morphine: 2 mg, IV Push, Q2H, PRN: Pain (Severe 7-10) warfarin: 10 mg, Oral, 1-Time warfarin: 5 mg, Oral, Daily Documented Medications Documented CeleBREX 200 mg oral capsule: 1 Cap, Oral, Daily, 60 Cap, 0 Refill(s) aspirin 325 mg oral tablet: 1 Tab, Oral, Daily, 0 Refill(s) gabapentin 100 mg oral capsule: 1 Cap, Oral, At Bedtime, 0 Refill(s) lisinopril 10 mg oral tablet: 1 Tab, Oral, Daily, 0 Refill(s) lovastatin 40 mg oral tablet: 1 Tab, Oral, Monday, 0 Refill(s), Medications (13) Active Scheduled: (7) aspirin EC 81 mg tab 81 mg 1 Tab, Oral, Daily atorvastatin 10 mg tab 10 mg 1 Tab, Oral, Weekly enoxaparin 100 mg/1 mL inj 90 mg 0.9 mL, SubCutaneous, [id number] famotidine 20 mg tab 20 mg 1 Tab, Oral, Q12H lisinopril 10 mg tab 10 mg 1 Tab, Oral, Daily warfarin 10 mg tab 10 mg 1 Tab, Oral, 1-Time warfarin 5 mg tab 5 mg 1 Tab, Oral, Daily Continuous: (0) PRN: (6) acetaminophen 325 mg tab 650 mg 2 Tab, Oral, Q4H albuterol-ipratropium inh 3 mL 3 mL, Nebulized Inhalation, Q6H docusate sodium 100 mg cap 100 mg 1 Cap, Oral, BID morphine 2 mg/1 ml inj 2 mg 1 mL, IV Push, Q2H ondansetron 4 mg/2 mL inj 4 mg 2 mL, IV Push, Q4H polyethylene glycol 3350 pwd 17 g pkt 17 Gram 1 Packet, Oral, Daily Problem list: All Problems At risk for sleep apnea / IMO 21099213 / Confirmed Hx of temporal arteritis / SNOMED CT 761730951 / Confirmed, Active Problems (2) At risk for sleep apnea Hx of temporal arteritis Physical Examination VS/Measurements Vitals Signs (last 24 hrs) Last Charted Minimum Maximum Temp 98.7 (JUN 29 11:15) 97.9 (JUN 29 08:40) H 100 (JUN 28 18:30) Mon HR 104 (JUN 29 11:15) 96 (JUN 29 06:22) 104 (JUN 29 11:15) Resp Rate 18 (JUN 29 11:15) 18 (JUN 29 00:30) 20 (JUN 28 18:30) SBP L 86 (JUN 29 11:15) L 86 (JUN 29 11:15) 122 (JUN 29 00:30) DBP L 51 (JUN 29:15) L 51 (JUN 29 11:15) 89 (JUN 29 00:30) MAP 62 (JUN 29 11:15) 62 (JUN 29 11:15) 104 (JUN 29 00:30) SpO2 95 (JUN 29:) L 93 (JUN 29 00:30) 96 (JUN 29 08:40) Intake & Output Totals Last 24 Hours (7a-7a) Intake (3 Events) Continuous Infusions (25 mL) Oral Intake (480 mL) Output (0 Events) No output events found in the last 24 hours. Input Total: 505 mL Output Total: 0 mL Balance: 505 mL General: Alert and oriented, No acute distress. Eye: Pupils are equal, round and reactive to light, Normal conjunctiva. HENT: Normocephalic, Oral mucosa is moist. Neck: Supple. Respiratory: Respirations are non-labored. Pattern: Regular. Breath sounds: Bilateral, Diminished, No rales present, No rhonchi present, No wheezes present. Cardiovascular: Normal rate, Regular rhythm, right lower extremity swelling, 1+ edema. Gastrointestinal: Soft, Non-tender, Normal bowel sounds, rounded/obese. Musculoskeletal: Normal range of motion. Integumentary: Warm, Dry, Shields, Intact. Neurologic: Alert, Oriented, No focal deficits. Psychiatric: Cooperative, Appropriate mood & affect. Review / Management Results review: Labs (Last four charted values) WBC H 9.8 (JUN 28) HB L 10.8 (JUN 28) HCT L 34.5 (JUN 28) Plt 195 (JUN 28) Na 144 (JUN 28) K 3.8 (JUN 28) Cl 110 (JUN 28) CO2 26 (JUN 28) BUN 17 (JUN 28) Cr 1.20 (JUN 28) Glu R 91 (JUN 28) Ca 8.9 (JUN 28) PT 11.3 (JUN 29) INR 1.0 (JUN 29) . No Radiology Results Found Impression and Plan 1. Pulmonary - Acute pulmonary embolisms Saddle PE Involving bilateral pulmonary arteries and subsegmental branches Not in acute decompensation. No hypoxemia or hemodynamic instabilty Pending TTE Patient was on coumadin for his last DVT and he was on it for about a year Hx of Giant cell arteritis on prednisone in the past 2. Cardiovascular - Reported Right heart strain from OSH Patient has no current hemodynamic compromise or hypoxia - Right lower extremity DVT - Hx previous BLE DVT 3. Temporal arteritis Giant cell arteritis Plan: Supplemental O2 as needed; currently on RA Therapeutic Lovenox with bridge to Coumadin. If other oral agent started, bridging is not indicated Hypercoagulable work up including Factor V, Antiphospholipid and cardiolipin - can follow up with results in outpatient clinic Prednisone 40 mg daily; taper over a week to 10mg, to stay at 10 mg daily until sees us in clinic for Giant cell arteritis TTE did not show any strain Patient will need a lifelong anticoagulation therapy due to second episode of DVT. He is at risk of DVT/PE due to his underlying Giant cell arteritis. Follow up in clinic for PE. Will need rheumatology referral as well Thank you for the consult. Will sign off. Please call for any questions or concerns documented in this encounter Plan of Treatment Not on file documented as of this encounter Visit Diagnoses Not on filedocumented in this encounter
--- OUTSIDE RECORDS SUMMARY | 2024-10-16 13:02 | XMS_ITS | Encounter Summary ---
Author Organization [employer] ([place], [place], [place], [place]) Address [address] [place] [address] Care Team Providers Care Juice Packaging Machines Setter Name Role Phone Unavailable Primary Care Provider Unavailabl e Encounter Details Date Type Department Care Team (Late st Contact Info) Description 06/27/2018 Transcribed Document [facility] [place] Family Medicine [facility] [place] [address] ProviderAngelique MD [address] [place] [address] [id number] Social History Tobacco Use Types Packs/Day Years Used Date Smoking Tobacco: Never Assessed Sex and Gender Information Value Date Recorded Sex Assigned at Not on file Legal Sex Male 3:45 PM CDT Gender Identity Not on file Sexual Orientation Not on file documented as of this encounter Miscellaneous Notes * Cerner Conversion Note - Historical ProviderMD - 06/27/2018 11:02 PM CDT Evaluation, Occupational Therapy Entered On: 06/29/2018 15:20 EDT Performed On: 06/29/2018 10:44 EDT by HOLLEY JACKSON OTR/L General Information, OT Visit Type, OT : Initial evaluation Patient Orders : Order Date Order Ordering 06/27/2018 23:02 OT Evaluation and Treatment Ordered By: RHETT GREEN MD Active Diagnoses : 06/28/2018 00:00 Acute embolism and thrombosis of unspecified deep veins of right lower extremity 06/28/2018 00:00 Other pulmonary embolism without acute cor pulmonale Admission Date : 06/27/2018 19:49 Co-treated by, OT : Physical Therapist Personal Devices : Personal Devices Dentures, lower, Dentures, partial plate, Glasses Assistive Devices : Assistive Devices No Devices Recorded General Information Comment, OT : PE/DVT HOLLEY JACKSON OTR/Kathia - 06/29/2018 15:16 EDT General Status Patient Received Status : Supine in bed Treatment Start Time : 06/29/2018 10:36 EDT Patient Left Status : RN/PCT informed, Family/Visitors at bedside, All needs met and within reach, Other: up in room RN/PCT Informed Comment : TOMASZ joaquin Treatment End Time : 06/29/2018 10:44 EDT Treatment Time : 8 Minute(s) HOLLEY JACKSON OTR/Kathia - 06/29/2018 15:16 EDT History and Environment, OT Living Situation, Therapy : Home Patient Lives With : Family member(s) Professional Skilled Services : None Persons Providing Information : Patient Home Equipment, Therapy : None HOLLEY JACKSON OTR/Kathia - 06/29/2018 15:16 EDT Prior LOF Bathing, OT : Independent Prior LOF Bed Mobility : Independent Prior LOF Upper Body Dressing, OT : Independent Prior LOF Lower Body Dressing, OT : Independent Prior LOF Toileting : Independent Prior LOF Transfer : Independent Prior LOF Grooming, OT : Independent Prior LOF for IADLs, OT : Independent HOLLEY JACKSON OTR/Kathia - 06/29/2018 15:16 EDT Upper Extremity Right UE Active ROM : WFL Right UE Strength : WFL Left UE Active ROM : WFL Left UE Strength : WFL HOLLEY JACKSON OTR/Kathia - 06/29/2018 15:16 EDT Self Care/Home Management, OT Self Feeding Assist Level, OT : Independent, complete Grooming Assist Level, OT : Independent, complete Bathing Assist Level, OT : Independent, complete Upper Body Dressing Assist Level, OT : Independent, complete Lower Body Dressing Assist Level, OT : Independent, complete Toileting Assist Level : Independent, complete Toilet Transfer Assist Level : Independent, complete HOLLEY JACKSON OTR/Kathia - 06/29/2018 15:16 EDT Functional Mobility Mobility Grid Bed Roll Left : Rehab Complete independence Bed Roll Right : Rehab Complete independence Bed Scooting : Rehab Complete independence Supine to Sit : Rehab Complete independence Sit to Stand : Rehab Complete independence Bed to Chair : Rehab Complete independence Chair to Bed : Rehab Complete independence Stand to Sit : Rehab Complete independence Sit to Supine : Rehab Complete independence HOLLEY JACKSON ROSSI/Kathia - 06/29/2018 15:16 EDT Cognition Assessment, OT Orientation : Oriented x 4 HLOLEY JACKSON ROSIS/Kathia - 06/29/2018 15:16 EDT Indication Assessment, OT Occupational Therapy Indicated : No Occupational Therapy Not Indicated : No skilled services indicated HOLLEY JACKSON ROSSI/Kathia - 06/29/2018 15:16 EDT Plan of Care, OT OT Tx Plan/Goals Established w Patient : No HOLLEY JACKSONROSSI/Kathia - 06/29/2018 15:16 EDT Treatment Note Subjective Comment : agreeable Patient's Response to Treatment : pt tolerated well Additional Objective Information : pt independent in room transfers. Extended distance to hallway with . Demonstarted safety and independence. Assessment : pt has no OT concerns. Pt safe with transfers with no SOA. Independent with ADLS. Safe for home dc Plan for Treatment : defer HOLLEY JACKSON ROSSI/Kathia - 06/29/2018 15:16 EDT Pain Assessment Pain Scaled Used : 0-10 Pain scale Pain Score During-Intervention : 0 HOLLEY JACKSON ROSSI/Kathia - 06/29/2018 15:16 EDT Image 1 - Images currently included in the form version of this document have not been included in the text rendition version of the form. [facility] OT Charges OT Eval Low Complexity : 1 HOLLEY JACKSONROSSI/Kathia - 06/29/2018 15:16 EDT Electronically signed by Gt Jefferson Conversion Program Or Project Administrator Cerner at 08/05/2022 1:27 PM CDT documented in this encounter Plan of Treatment Not on file documented as of this encounter Visit Diagnoses Not on filedocumented in this encounter
--- OUTSIDE RECORDS SUMMARY | 2024-10-16 13:02 | XMS_ITS | Encounter Summary ---
Author Organization [employer] ([place], [place], [place], [place]) Address [address] [place] [address] Care Team Providers Care Information Management Specialist Name Role Phone Unavailable Primary Care Provider Unavailabl e Encounter Details Date Type Department Care Team (Late st Contact Info) Description 06/30/2018 Transcribed Document [facility] [place] [address] [place] [address] ProviderAngelique MD [address] [place], [place] [phone] Social History Tobacco Use Types Packs/Day Years Used Date Smoking Tobacco: Never Assessed Sex and Gender Information Value Date Recorded Sex Assigned at Not on file Legal Sex Male 3:45 PM CDT Gender Identity Not on file Sexual Orientation Not on file documented as of this encounter Miscellaneous Notes * [employer]ner Conversion Note - Historical ProviderMD - 06/30/2018 2:00 AM CDT Supervisor Cook Room Details Entered On: 06/30/2018 1:31 EDT Performed On: 06/30/2018 2:00 EDT by Alix Galarza, Rn-Resource Order Details Isolation Precautions Order Detail : Standard Precautions Order Detail : N/A IV Order Detail : 1 Oxygen Order Detail : 0 Nurse Collect Order Detail : 0 Lift/Transfer : Minimal Central Line Order Detail : No Room Service : Appropriate Arterial Line : No Alix Galarza, Rn-Resource - 06/30/2018 1:31 EDT documented in this encounter Plan of Treatment Not on file documented as of this encounter Visit Diagnoses Not on filedocumented in this encounter
--- OUTSIDE RECORDS SUMMARY | 2024-10-16 13:02 | XMS_ITS | Encounter Summary ---
Author Organization [employer] ([place], [place], [place], [place]) Address [address] [place] [address] Care Team Providers Care Meat Carrier Name Role Phone Unavailable Primary Care Provider Unavailabl e Encounter Details Date Type Department Care Team (Late st Contact Info) Description 06/29/2018 Transcribed Document [facility] [place] [facility] [place] [address] ProviderAngelique MD [address] [place] [address] [id number] Social History Tobacco Use Types Packs/Day Years Used Date Smoking Tobacco: Never Assessed Sex and Gender Information Value Date Recorded Sex Assigned at Not on file Legal Sex Male 3:45 PM CDT Gender Identity Not on file Sexual Orientation Not on file documented as of this encounter Miscellaneous Notes * Cerner Conversion Note - Historical ProviderMD - 06/29/2018 10:35 PM CDT Patient: WILLY PEMBERTON Age: 77 Years Sex: Male : 1940 Chief Complaint: transferred from [facility] with SOA, RLE swelling, DVT, bilat PE Subjective Had extensive discussion about anticoagulants once again and high risk case manager confirms that his insurance will not cover after the first month eliquis. So the patient agrees with loading with warfarin. Physical Exam (1, 6, 12) Vitals & Measurements T: 36.8 ??C TMIN: 36.6 ??C TMAX: 37.5 ??C HR: 114(Monitored) RR: 14 BP: 109/68 SpO2: 95% Awake alert pleasantly conversant in no acute distress illogically grossly intact with appropriate Speech pattern and thought processes HEENT normocephalic atraumatic PERRLA EOMI no conjunctivitis no sclerae icterus oropharynx is clear Neck supple no JVD no thyromegaly Lungs clear to auscultation bilaterally with good air movement Heart regular rate no murmur Abdomen normal bowel sounds soft nontender nondistended no organomegaly Extremities without clubbing cyanosis but 1+ edema in the right lower extremity with obvious DVT discussed pulses 2+ equal bilaterally Blood Glucose Checks No qualifying data available. Intake & Output Intake & Output Totals Last 24 Hours (7a-7a) Intake (3 Events) Continuous Infusions (25 mL) Oral Intake (480 mL) Output (0 Events) No output events found in the last 24 hours. Input Total: 505 mL Output Total: 0 mL Balance: 505 mL Assessment/Plan (1, 3 (EC+EU or N), 4(2 EU or EC +N or NW)) Bilateral pulmonary embolism I26.99 Lovenox bridging to Coumadin. We'll watch until INR is moving and determine how long he can stay versus going home 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, 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 Right leg DVT I82.401 Warfarin Orders: warfarin, 5 mg, Oral, Tab, Daily, Routine, Start 06/30/18 18:00:00 EDT Consult to Home Health PT/INR Prothrombin Time Medications Inpatient aspirin, 81 mg= 1 Tab, Oral, Daily Colace, 100 mg= 1 Cap, Oral, BID, PRN DuoNeb 0.5 mg-2.5 mg/3 mL inhalation solution, 3 mL, Nebulized Inhalation , Q6H, PRN Lipitor, 10 mg= 1 Tab, Oral, Weekly lisinopril, 10 mg= 1 Tab, Oral, Daily Lovenox, 90 mg= 0.9 mL, SubCutaneous, Q16DSke MiraLax, 17 Gram= 1 Packet, Oral, Daily, PRN morphine, 2 mg= 1 mL, IV Push, Q2H, PRN Pepcid, 20 mg= 1 Tab, Oral, Q12H Tylenol, 650 mg= 2 Tab, Oral, Q4H, PRN warfarin, 5 mg= 1 Tab, Oral, Daily Zofran, 4 mg= 2 mL, IV Push, Q4H, PRN Home aspirin 325 mg oral tablet, 325 mg= 1 Tab, Oral, Daily CeleBREX 200 mg oral capsule, 200 mg= 1 Cap, Oral, Daily gabapentin 100 mg oral capsule, 100 mg= 1 Cap, Oral, At Bedtime lisinopril 10 mg oral tablet, 10 mg= 1 Tab, Oral, Daily lovastatin 40 mg oral tablet, 40 mg= 1 Tab, Oral, Monday Allergies statins (leg pain, leg pain) iodinated radiocontrast dyes (Skin rash, Skin rash) Routine Labs - Last 24 Hours JUN 28 05:43 144 110 17 / 91 3.8 26 1.20 \ No qualifying data available. Blood Gases (Current Encounter/Past 24 Hours) No Blood Gas Results Found (Past 24 Hours) Electrolytes(BMP) Results (Current Encounter/Past 24 Hours) Sodium Level 144 mmol/L 06/28/2018 07:42 Potassium Level 3.8 mmol/L 06/28/2018 07:42 Chloride Level 110 mmol/L 06/28/2018 07:42 Carbon Dioxide Level 26 mmol/L 06/28/2018 07:42 Anion Gap 12 06/28/2018 07:42 Blood Urea Nitrogen 17 mg/dL 06/28/2018 07:42 Glucose Level 91 mg/dL 06/28/2018 07:42 Calcium Level 8.9 mg/dL 06/28/2018 07:42 Creatinine Level 1.20 mg/dL 06/28/2018 07:42 Cardiac Markers (Current Encounter/Past 24 Hours) ProBNP 84 pg/mL 06/28/2018 07:51 CBC Results (Current Encounter/Past 24 Hours) WBC 9.8 K/uL HI 06/28/2018 07:41 Hct 34.5 % LOW 06/28/2018 07:41 Hgb 10.8 g/dL LOW 06/28/2018 07:41 Platelet Count 195 K/uL 06/28/2018 07:41 CMP Results (Current Encounter/Past 24 Hours) Bun/Creatinine 14.2 06/28/2018 07:42 eGFR NonAfrican 59 mL/min/1.73m2 LOW 06/28/2018 07:58 eGFR >60 mL/min/1.73m2 06/28/2018 07:42 Creatinine Level 1.20 mg/dL 06/28/2018 07:42 Sodium Level 144 mmol/L 06/28/2018 07:42 Potassium Level 3.8 mmol/L 06/28/2018 07:42 Chloride Level 110 mmol/L 06/28/2018 07:42 Carbon Dioxide Level 26 mmol/L 06/28/2018 07:42 Anion Gap 12 06/28/2018 07:42 Blood Urea Nitrogen 17 mg/dL 06/28/2018 07:42 Glucose Level 91 mg/dL 06/28/2018 07:42 Calcium Level 8.9 mg/dL 06/28/2018 07:42 Coagulation Results (Current Encounter/Past 24 Hours) PT 11.3 Second(s) 06/29/2018 10:27 INR 1.0 06/29/2018 10:27 Creatinine Clearance (Current Encounter/Past 24 Hours) Creatinine Level 1.20 mg/dL 06/28/2018 07:42 Bun/Creatinine 14.2 06/28/2018 07:42 Estimated Creatinine Clearance 49.88 mL/Min 06/28/2018 07:42 Diagnostic Results No Radiology Results Found documented in this encounter Plan of Treatment Not on file documented as of this encounter Visit Diagnoses Not on filedocumented in this encounter
--- OUTSIDE RECORDS SUMMARY | 2024-10-16 13:02 | XMS_ITS | Encounter Summary ---
Author Organization [employer] ([place], [place], [place], [place]) Address [address] [place] [address] Care Team Providers Care Apprise Counselor Name Role Phone Unavailable Primary Care Provider Unavailabl e Encounter Details Date Type Department Care Team (Late st Contact Info) Description 06/27/[address] [facility] [place] Medicine [facility] [place] [address] ProviderAngelique MD [address] [place] [id number] Social History Tobacco Use Types Packs/Day Years Used Date Smoking Tobacco: Never Assessed Sex and Gender Information Value Date Recorded Sex Assigned at Not on file Legal Sex Male 3:45 PM CDT Gender Identity Not on file Sexual Orientation Not on file documented as of this encounter Miscellaneous Notes * [employer]ner Conversion Note - Historical ProviderMD - 06/27/2018 11:02 PM CDT Pain Assessment Entered On: 06/30/2018 1:31 EDT Performed On: 06/30/2018 0:27 EDT by Alix Galarza Rn-Resource Intervention Information: acetaminophen Performed by Alix Galarza Rn-Resource on 06/29/2018 23:27:00 EDT acetaminophen,650mg Oral,Pain (Mild 1-3) Pain Assessment Pain Scale Used : 0-10 Scale Alix Galarza Rn-Resource - 06/30/2018 1:31 EDT Pain Scale Intensity : 0 Alix Galarza Rn-Resource - 06/30/2018 1:31 EDT Image 4 - Images currently included in the form version of this document have not been included in the text rendition version of the form. documented in this encounter Plan of Treatment Not on file documented as of this encounter Visit Diagnoses Not on filedocumented in this encounter
--- OUTSIDE RECORDS SUMMARY | 2024-10-16 13:02 | XMS_ITS | Encounter Summary ---
Author Organization [employer] ([place], [place], [place], [place]) Address [address] [place] [address] Care Team Providers Care Hardener Helper Name Role Phone Unavailable Primary Care Provider Unavailabl e Encounter Details Date Type Department Care Team (Late st Contact Info) Description 06/29/2018 Transcribed Document [facility] [place] Family Medicine [address] [place] [address] ProviderAngelique MD [address] [place], [place] [phone] Social History Tobacco Use Types Packs/Day Years Used Date Smoking Tobacco: Never Assessed Sex and Gender Information Value Date Recorded Sex Assigned at Not on file Legal Sex Male 3:45 PM CDT Gender Identity Not on file Sexual Orientation Not on file documented as of this encounter Miscellaneous Notes * [employer]ner Conversion Note - Historical ProviderMD - 06/29/2018 2:00 AM CDT Professor Of Latin American Studies Details Entered On: 06/29/2018 5:35 EDT Performed On: 06/29/2018 2:00 EDT by Lizzy Balbuena, RN Order Details Isolation Precautions Order Detail : Standard Precautions Order Detail : N/A IV Order Detail : 1 Oxygen Order Detail : 0 Nurse Collect Order Detail : 0 Lift/Transfer : Minimal Central Line Order Detail : No Room Service : Appropriate Arterial Line : No Lizzy Balbuena RN - 06/29/2018 5:35 EDT Electronically signed by Kimberly Jefferson Conversion Safety Pin Assembling Machine Operator Jc at 08/05/2022 1:06 PM CDT documented in this encounter Plan of Treatment Not on file documented as of this encounter Visit Diagnoses Not on filedocumented in this encounter
--- OUTSIDE RECORDS SUMMARY | 2024-10-16 13:02 | XMS_ITS | Encounter Summary ---
Author Organization [employer] ([place], [place], [place], [place]) Address [address] [place] [address] Care Team Providers Care Dump Operator Name Role Phone Unavailable Primary Care Provider Unavailabl e Encounter Details Date Type Department Care Team (Late st Contact Info) Description 06/29/2018 Transcribed Document [facility] [place] Family Medicine [address] [place] [address] ProviderAngelique MD [address] [place], [place] [phone] Social History Tobacco Use Types Packs/Day Years Used Date Smoking Tobacco: Never Assessed Sex and Gender Information Value Date Recorded Sex Assigned at Not on file Legal Sex Male 3:45 PM CDT Gender Identity Not on file Sexual Orientation Not on file documented as of this encounter Miscellaneous Notes * Cerner Conversion Note - Historical ProviderMD - 06/29/2018 5:00 AM CDT Chart Check - Review Order Profile Entered On: 06/29/2018 5:38 EDT Performed On: 06/29/2018 5:00 EDT by Lizzy Balbuena, RN Chart Check Chart Reviewed Date and Time : 06/29/2018 5:38 EDT Powerplans Initiated/Discontinued as Appropriate : Yes All Active Orders Reviewed : Yes Lizzy Balbuena, RN - 06/29/2018 5:37 EDT documented in this encounter Plan of Treatment Not on file documented as of this encounter Visit Diagnoses Not on filedocumented in this encounter
--- OUTSIDE RECORDS SUMMARY | 2024-10-16 13:02 | XMS_ITS | Encounter Summary ---
Author Organization [employer] ([place], [place], [place], [place]) Address [address] [place] [address] Care Team Providers Care Registered Nurses Name Role Phone Unavailable Primary Care Provider Unavailabl e Encounter Details Date Type Department Care Team (Late st Contact Info) Description 06/27/2018 Transcribed Document [facility] [place] [facility] [place] [address] ProviderAngelique MD [address] [place] [id number] Social History Tobacco Use Types Packs/Day Years Used Date Smoking Tobacco: Never Assessed Sex and Gender Information Value Date Recorded Sex Assigned at Not on file Legal Sex Male 3:45 PM CDT Gender Identity Not on file Sexual Orientation Not on file documented as of this encounter Miscellaneous Notes * Cerner Conversion Note - Historical ProviderMD - 06/27/2018 8:09 PM CDT Care Management Assessment/Plan Entered On: 06/29/2018 12:42 EDT Performed On: 06/29/2018 12:41 EDT by TAVO JAMES RN Care Management Note Anticipated Discharge Date : 07/02/2018 10:18 EDT Care Management Note : [facility] is not covered by [facility]. Spoke with Silva. She arranged with [facility] through [facility] Care Management Note Report : CYNTHIA FRANKLIN, Corking Machine Operator-Care Management - 06/29/18 10:19:32 pt is alert and oriented, he agrees that a nurse coming in and checking on him after his hospital stay would be helpful. he will be on Coumadin. pt and are very pleasant. will support POC and assess for any further DC needs. rj Documentation Status Complete : Yes TAVO JAMES RN - 06/29/2018 12:41 EDT Electronically signed by Ronny, [facility] Conversion Oil Seal Assembler Cerner at 08/05/2022 1:25 PM CDT documented in this encounter Plan of Treatment Not on file documented as of this encounter Visit Diagnoses Not on filedocumented in this encounter
--- OUTSIDE RECORDS SUMMARY | 2024-10-16 13:02 | XMS_ITS | Encounter Summary ---
Author Organization [employer] ([place], [place], [place], [place]) Address [address] [place] [address] Care Team Providers Care Metal Hanging Supervisor Name Role Phone Unavailable Primary Care Provider Unavailabl e Encounter Details Date Type Department Care Team (Late st Contact Info) Description 06/29/2018 Transcribed Document [facility] [place] Family Medicine [facility] [place] [address] ProviderAngelique MD [address] [place] [id number] Social History Tobacco Use Types Packs/Day Years Used Date Smoking Tobacco: Never Assessed Sex and Gender Information Value Date Recorded Sex Assigned at Not on file Legal Sex Male 3:45 PM CDT Gender Identity Not on file Sexual Orientation Not on file documented as of this encounter Miscellaneous Notes * Cerner Conversion Note - Historical ProviderMD - 06/29/2018 11:20 AM CDT Discharge Summary, PT Entered On: 06/29/2018 11:20 EDT Performed On: 06/29/2018 11:20 EDT by LINDA CRESPO PT Discharge Summary Reason for Discharge : Other: no acute skilled PTx services required at this time Discharged to, Therapy : Other: remains at hospital for workup Discharge Summary Comment, PT : As 06/29, pt without c/o pain, SOA and noted saturating with SpO2 >=94% throughout; pt ambulating up ad nestor in room; educated pt on role of PTx and importance of ambulation with anticoagulants; pt with verbal understanding and noted to be ambulating with in hallways post therapy session; no acute skilled PTx services required at this time LINDA CRESPO PT - 06/29/2018 11:20 EDT documented in this encounter Plan of Treatment Not on file documented as of this encounter Visit Diagnoses Not on filedocumented in this encounter
--- OUTSIDE RECORDS SUMMARY | 2024-10-16 13:02 | XMS_ITS | Encounter Summary ---
Author Organization [employer] ([place], [place], [place], [place]) Address [address] [place] [address] Care Team Providers Care Page Makeup System Operator Name Role Phone Unavailable Primary Care Provider Unavailabl e Encounter Details Date Type Department Care Team (Late st Contact Info) Description 06/30/[address] [facility] [place] [facility] [place] [address] ProviderAngelique MD [facility] [place], [place] [phone] Social History Tobacco Use Types Packs/Day Years Used Date Smoking Tobacco: Never Assessed Sex and Gender Information Value Date Recorded Sex Assigned at Not on file Legal Sex Male 3:45 PM CDT Gender Identity Not on file Sexual Orientation Not on file documented as of this encounter Miscellaneous Notes * Cerner Conversion Note - Historical ProviderMD - 06/30/2018 3:17 PM CDT Patient: WILLY PEMBERTON Age: 77 Years Sex: Male : 1940 Chief Complaint: transferred from [facility] with SOA, RLE swelling, DVT, bilat PE Subjective Discussed with patient his INR is already moving and try to confirm with him what his dose was in the past and he believes it may be 2-1/2 mg. He states that he has had high readings after 5 mg before. We will watch the patient closely and see if he is safe for discharge in the next 1-2 days Physical Exam (1, 6, 12) Vitals & Measurements T: 37.7 ??C TMIN: 36.3 ??C TMAX: 37.9 ??C HR: 99(Monitored) RR: 16 BP: 114/66 SpO2: 94% Awake alert pleasantly conversant in no acute distress illogically grossly intact with appropriate Speech pattern and thought processes HEENT normocephalic atraumatic PERRLA EOMI no conjunctivitis no sclerae icterus oropharynx is clear Neck supple no JVD no thyromegaly Lungs clear to auscultation bilaterally Heart regular rate no murmur Abdomen normal bowel sounds soft nontender nondistended no organomegaly Extremities without clubbing cyanosis but 1+ edema in the right lower extremity with obvious DVT discussed pulses 2+ equal bilaterally Blood Glucose Checks No qualifying data available. Intake & Output Intake & Output Totals Last 24 Hours (7a-7a) Intake (1 Events) Oral Intake (360 mL) Output (0 Events) No output events found in the last 24 hours. Input Total: 360 mL Output Total: 0 mL Balance: 360 mL Assessment/Plan (1, 3 (EC+EU or N), 4(2 EU or EC +N or NW)) Bilateral pulmonary embolism I26.99 Recurrent DVT and now pulmonary embolism before he knew he had DVT. Lovenox bridging to Coumadin. We will mobilize and make sure he is safe on room air to go home 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, 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 Right leg DVT I82.401 Lovenox to warfarin Medications Inpatient aspirin, 81 mg= 1 Tab, Oral, Daily Colace, 100 mg= 1 Cap, Oral, BID, PRN DuoNeb 0.5 mg-2.5 mg/3 mL inhalation solution, 3 mL, Nebulized Inhalation , Q6H, PRN Lipitor, 10 mg= 1 Tab, Oral, Weekly lisinopril, 10 mg= 1 Tab, Oral, Daily Lovenox, 90 mg= 0.9 mL, SubCutaneous, [id number] MiraLax, 17 Gram= 1 Packet, Oral, Daily, [...] Hours) Electrolytes(BMP) Results (Current Encounter/Past 24 Hours) No BMP Results Found (Past 24 Hours) Cardiac Markers (Current Encounter/Past 24 Hours) No Cardiac Marker Results Found (Past 24 Hours) CBC Results (Current Encounter/Past 24 Hours) No CBC Results Found (Past 24 Hours) CMP Results (Current Encounter/Past 24 Hours) No CMP Results Found (Past 24 Hours) Coagulation Results (Current Encounter/Past 24 Hours) PT 13.4 Second(s) DC 06/30/2018 05:22 INR 1.2 DC 06/30/2018 05:22 Creatinine Clearance (Current Encounter/Past 24 Hours) No Creatinine Clearance Results Found (Past 24 Hours) documented in this encounter Plan of Treatment Not on file documented as of this encounter Visit Diagnoses Not on filedocumented in this encounter
--- OUTSIDE RECORDS SUMMARY | 2024-10-16 13:03 | XMS_ITS | Encounter Summary ---
Author Organization [employer] ([place], [place], [place], [place]) Address [address] [place] [address] Care Team Providers Care Assisted Living Administrator Name Role Phone Unavailable Primary Care Provider Unavailabl e Encounter Details Date Type Department Care Team (Late st Contact Info) Description 06/28/2018 Transcribed Document [facility] [address] [place] [address] Jett Narvaez MD [address] [place] [address] [place] [address] Social History Tobacco Use Types Packs/Day Years Used Date Smoking Tobacco: Never Assessed Sex and Gender Information Value Date Recorded Sex Assigned at Not on file Legal Sex Male 3:45 PM CDT Gender Identity Not on file Sexual Orientation Not on file documented as of this encounter Miscellaneous Notes * Cerner Conversion Note - Jett Narvaez MD - 06/28/2018 12:04 AM EDT Patient: SESAR FU Age: 77 years Sex: Male : 1940 Associated Diagnoses: None Author: JETT NARVAEZ MD Subjective Date of admission 06/27/[address] Jauregui Accepting physician Dr. Wells Transferring facility [facility] Chief complaint right leg swelling History of present illness Patient presents as a transfer from [facility]. He has been having some numbness in her lower extremities for the past 2 weeks Patient was recently placed on gabapentin for presumed neuropathic leg pain. This morning patient woke up with moderate edema and swelling of right lower extremity with some mild discomfort He called his family physician who recommended patient be seen in the emergency room. Patient underwent Emergent workup in the emergency room including lower extremity venous duplex and CT scan of the chest Which identified right lower extremity acute DVT as well as reported bilateral pulmonary emboli. Patient subsequently transported to our hospital for admission and further inpatient management Patient received heparin drip prior to transfer. Mr. Nilay garcia the arrived in room 4:15 His is present at bedside. Patient is currently pain free on room air without any distress. He denies any chest pain as outlined above although reports dyspnea for the past several weeks. No report of syncope nausea vomiting or diarrhea. Further workup in the emergency room identified the peripheral right cell count of 14,000, potassium of 3.5, serum creatinine 1.5, And EKG with right bundle branch block. Vision was noted to have normal troponin. Review of Systems Constitutional: Negative Eye: Negative. Ear/Nose/Mouth/Throat: Negative. Respiratory: SOA. Cardiovascular: Negative. Gastrointestinal: Nausea. Genitourinary: Negative. Endocrine: Negative. Musculoskeletal: Negative. Integumentary: Negative Neurologic: Negative. All other systems are negative PMH: History of DVT bilateral lower extremity approximately 4 years ago, coronary artery disease with prior stents as well as coronary artery bypass graft Hypertension, dyslipidemia, cholecystectomy, and history of prostate cancer with prior surgical intervention Family history reviewed and is positive for diabetes, cancers, and cerebrovascular accident Home medications home medication list is attached reviewed with the patient and med rec was done Health Status Allergies: Allergic Reactions (Selected) Severity Not Documented Iodinated radiocontrast dyes- Skin rash and skin rash. Nonallergic Reactions (Selected) Severe Statins- Leg pain and leg pain., No qualifying data available Current medications: (Selected) Inpatient Medications Ordered Colace: 100 mg, Oral, BID, PRN: Constipation DuoNeb 0.5 mg-2.5 mg/3 mL inhalation solution: 3 mL, Nebulized Inhalation, Q6H, PRN: Shortness of Breath MiraLax: 17 Gram, Oral, Daily, PRN: Constipation Pepcid: 20 mg, Oral, Q12H Tylenol: 650 mg, Oral, Q4H, PRN: Pain (Mild 1-3) Zofran: 4 mg, IV Push, Q4H, PRN: Nausea aspirin: 81 mg, Oral, Daily heparin injection 25,000 Units + NaCl 0.45% Premix Diluent 250 mL: Titrate, IntraVENous lisinopril: 10 mg, Oral, Daily morphine: 2 mg, IV Push, Q2H, PRN: Pain (Severe 7-10) Incomplete lovastatin 40 mg oral tablet: 1 Tab, Oral, Weekly Documented Medications Documented CeleBREX 200 mg oral capsule: 1 Cap, Oral, Daily, 60 Cap, 0 Refill(s) gabapentin 100 mg oral capsule: Cap, Oral, Daily, 0 Refill(s) lisinopril 10 mg oral tablet: Tab, Oral, Daily, 0 Refill(s) lovastatin 40 mg oral tablet: Tab, Oral, Weekly, 0 Refill(s), Home Medications (4) Active CeleBREX 200 mg oral capsule 200 mg = 1 Cap, Oral, Daily gabapentin 100 mg oral capsule , Oral, Daily lisinopril 10 mg oral tablet , Oral, Daily lovastatin 40 mg oral tablet , Oral, Weekly , Medications (10) Active Scheduled: (3) aspirin 81 mg, Oral, Daily famotidine 20 mg tab 20 mg 1 Tab, Oral, Q12H lisinopril 10 mg tab 10 mg 1 Tab, Oral, Daily Continuous: (1) heparin/NaCl 0.45% 25,000 Units + Premix Diluent NaCl 0.45% 250 mL 250 mL, IntraVENous PRN: (6) acetaminophen 325 mg tab 650 [...] Gram 1 Packet, Oral, Daily Problem list: Medical At risk for sleep apnea / IMO [id number] / Confirmed, Active Problems (1) At risk for sleep apnea Objective VS/Measurements No qualifying data available General: No acute distress. Eye: Normal conjunctiva. Neck: No jugular venous distention. Respiratory: Lungs are clear to auscultation, Respirations are non-labored, Breath sounds are equal. Cardiovascular: Regular rhythm, No gallop, S1+ S2 No S3 or S4 Hardin.. Gastrointestinal: Soft, Non-tender, Non-distended, Normal bowel sounds. Integumentary: No rash. Neurologic: No focal deficits. Psychiatric: Cooperative. Results Review General results Interpretation: No qualifying data available No qualifying data available No Radiology Results Found Ultrasound of lower extremities identified acute deep venous thrombosis involving right common femoral vein, popliteal vein, and posterior tibial vein Impression and Plan -Acute extensive right lower extremity DVT involving right common femoral vein, popliteal vein, and posterior tibial V -Acute bilateral pulmonary emboli per verbal report -Prior history of bilateral lower extremity DVTs approximately 4 years ago -Coronary artery disease with prior CABG -History of prostate cancer with prior surgical intervention -Abnormal serum creatinine likely represents some degree of acute kidney injury -Leukocytosis of unclear etiology, suspect stress related Plan: Patient is being admitted on telemetry , Continue with heparin drip Monitor labs closely, Obtain transthoracic echo cardiogram Pulmonary consultation, Continue subset off home medications I have discussed plan of care with patient as well as family members Patient elected full CODE STATUS documented in this encounter Plan of Treatment Not on file documented as of this encounter Visit Diagnoses Not on filedocumented in this encounter
--- OUTSIDE RECORDS SUMMARY | 2024-10-16 13:03 | XMS_ITS | Encounter Summary ---
Author Organization [employer] ([place], [place], [place], [place]) Address [address] [place] [address] Care Team Providers Care Capital [employer] Specialist Name Role Phone Unavailable Primary Care Provider Unavailabl e Encounter Details Date Type Department Care Team (Late st Contact Info) Description 07/01/2018 Transcribed Document [facility] [place] [facility] [place] [address] ProviderAngelique MD [address] [place] [id number] Social History Tobacco Use Types Packs/Day Years Used Date Smoking Tobacco: Never Assessed Sex and Gender Information Value Date Recorded Sex Assigned at Not on file Legal Sex Male 3:45 PM CDT Gender Identity Not on file Sexual Orientation Not on file documented as of this encounter Miscellaneous Notes * Cerner Conversion Note - Angelique ProviderMD - 07/01/2018 1:24 PM CDT [address] [place] [address] Patient Copy Patient Information: Name: SESAR FU Current Date: 07/01/2018 13:24:38 : 1940 Patient Address: [address] [id number] Patient Attending Physician: CATALINA MARIN MD-INT Primary Care Provider: NINI ROBLEDO (REF)JERZY Primary Care Provider Discharge Diagnosis: Right leg DVT Weight on Admission: 197 lb, 0 oz Comment: Follow-up Instructions: With: Address: When: Follow up with primary care provider Within 2 to 3 days Comments: see dr narvaez for pulmonary emboli,RLE DVT, warfarin adjust lifelong Discharge Instructions: Diet after Discharge: Resume usual diet as tolerated Activity after Discharge: No strenuous activities, Other: No deep bending or lifting heavy items. Wound/Incision Care after Discharge Comment: Keep right lower extremity elevated above heart level for next week for 15 mins at a time. Keep leg elevated otherwise as much as you can to relief pain and swelling. Return to hospital if shortness of air returns. Immunizations Documented During Stay: No Immunizations Found Heart Failure Discharge Instructions (if any): Stroke Related Discharge Instructions (if any): Warfarin Related Discharge Instructions (if any): Indication for Warfarin Anticoagulation: DVT treatment Warfarin Anticoagulation Disposition: Initiated this hospitalization Target INR: 2.0- 3.0 INR to be Drawn on: 07/04/2018 INR Result: INR: 2.4 (High), Reference Range: (0.9 - 1.1), 07/01/2018 4:41 AM DIAGNOSIS THERAPEUTIC RANGE a) Primary and secondary prevention of 2.0-3.0 venous thrombosis b) Active venous thrombosis, pulmonary 2.0-4.0 embolism and prevention of recurrent venous thrombosis c) Prevention of arterial thromboembolism 3.0-4.5 including patients with mechanical heart valves Notify Provider of Signs/Symptoms of: Significant bleeding, Clot Final Medication List: Printed Prescriptions aspirin (aspirin 81 mg oral delayed release tablet) 1 Tablet(s) Oral Every Day. Refills: 0. famotidine (Pepcid 20 mg oral tablet) 1 Tablet(s) Oral every 12 hours. Refills: 0. warfarin (warfarin 2.5 mg oral tablet) 1 Tablet(s) Oral Every Day. hold on 07/01, start doses on 07/02. Refills: 0. Other Medications acetaminophen (Tylenol 325 mg oral tablet) 2 Tablet(s) Oral Every 4 Hours as needed Pain (Mild 1-3). celecoxib (CeleBREX 200 mg oral capsule) 1 Capsule(s) Oral Every Day. gabapentin (gabapentin 100 mg oral capsule) 1 Capsule(s) Oral At Bedtime. lisinopril (lisinopril 10 mg oral tablet) 1 Tablet(s) Oral Every Day. lovastatin (lovastatin 40 mg oral tablet) 1 Tablet(s) Oral Monday. Patient Allergies: statins; iodinated radiocontrast dyes Medication Instructions: Take your medications faithfully. Do NOT skip medication. Do NOT stop taking medications without the direction of a physician. Carry a list of your medications with you at all times, and take this medication list with you to your first follow up visit. Report any side effects. Avoid herbal remedies unless discussed with your physician. As part of your treatment plan, your physician may have prescribed a limited course of a controlled substance. This medication may be given to help people with moderate or severe pain or for other medical conditions, but there are risks involved with treatment. Common side effects may include nausea, constipation, drowsiness, sweating, itching, dry mouth, and rash. More serious side effects may include cognitive and motor impairment, like problems with thinking, concentrating, alertness, and movement (e.g. slowed reflexes), and driving and operating heavy machinery can be dangerous. It is important for you to talk to your physician if you have these side effects or questions. These controlled substances can produce physical dependence and be habit-forming if taken for an extended period of time, which means that the body has gotten used to them and may experience withdrawal symptoms if they are abruptly stopped. Withdrawal symptoms can include runny nose, sweating, goose bumps, diarrhea, abdominal cramping, rapid heartbeat, difficulty sleeping, and nervousness. Patient education materials: Venous Thromboembolism Prevention Venous thromboembolism (VTE) is a condition in which a blood clot (thrombus) develops in the body. A thrombus usually occurs in a deep vein in the leg or the pelvis (DVT), but it can also occur in the arm. Sometimes, pieces of a thrombus can break off from its original place of development and travel through the bloodstream to other parts of the body. When that happens, the thrombus is called an embolus. An embolus that travels to one or both lungs is called a pulmonary embolism. An embolism can block the blood flow in the blood vessels of other organs as well. VTE is a serious health condition that can cause disability or . It is very important to get help right away and to not ignore symptoms. How can a VTE be prevented? Exercise regularly. Take a brisk 30 minute walk every day. Staying active and moving around can help you to prevent blood clots. ??? Avoid sitting or lying in bed for long periods of time without moving your legs. Change your position often, especially during long-distance travel (over 4 hours). ??? If you are a woman who is over 35 years of age, avoid unnecessary use of medicines that contain estrogen. These include control pills and hormone replacement therapy. ??? Do notsmoke, especially if you take estrogen medicines. If you need help quitting, ask your health care provider. ??? Eat plenty of fruits and vegetables. Ask your health care provider or dietitian if there are foods that you should avoid. ??? Maintain a weight that is appropriate for your height. Ask your health care provider what weight is healthy for you. ??? Wear loose-fitting clothing. Avoid constrictive or tight clothing around your legs or waist. ??? Try not to bump or injure your legs. Avoid crossing your legs when you are sitting. ??? Do notuse pillows under your knees while lying down unless told by your health care provider. ??? Wear support hose (compression stockings or BELKIS hose) as told by your health care provider Compression stockings increase blood flow in your legs and can help prevent blood clots. Do not let them bunch up when you are wearing them. How can I prevent VTE when I travel? Long-distance travel (over 4 hours) can increase the risk of a VTE. To prevent VTE when traveling: ??? Exercise your legs every hour by standing, stretching, and bending and straightening your legs. If you are traveling by airplane, train, or bus, walk up and down the aisle as often as possible to get your blood moving. If you are traveling by car, stop and get out of the car every hour to exercise your legs and stretch. Other types of exercise might include: ? Keeping your feet flat on the ground and raising your toes. ? Switching from tightening the muscles in your calves and thighs to relaxing those same muscles while you are sitting. ? Pointing and flexing your feet at the ankle joints while you are sitting. ??? Stay well hydrated while traveling. Drink enough water to keep your urine clear or pale yellow. ??? Avoid drinking alcohol during long travel. Generally, it is not recommended that you take medicines to prevent DVT during routine travel. How can VTE be prevented if I am hospitalized? A VTE may be prevented by taking medicines that are prescribed to prevent blood clots (anticoagulants). You can also help to prevent VTE while in the hospital by taking these actions: ??? Get out of bed and walk. Ask your health care provider if this is safe for you to do. ??? Request the use of a sequential compression device (SCD). This is a machine that pumps air into compression sleeves that are wrapped around your legs. ??? Request the use of compression stockings, which are tight, elastic stockings that apply pressure to the lower legs. Compression stockings are sometimes used with SCDs. How can I prevent VTE after surgery? Understand that there is an increased risk for VTE for the first 4?6 weeks after surgery. During this time: ??? Avoid long-distance travel (over 4 hours). If you must travel during this time, ask your health care provider about additional preventive actions that you can take. These might include exercising your arms and legs every hour while you travel. ??? Avoid sitting or lying still for too long. If possible, get up and walk around one time every hour. Ask your health care provider when this is safe for you to do. Get help right away if: ??? You have new or increased pain, swelling, or redness in an arm or leg. ??? You have numbness or tingling in an arm or leg. ??? You have shortness of breath while active or at rest. ??? You have chest pain. ??? You have a rapid or irregular heartbeat. ??? You feel light-headed or dizzy. ??? You cough up blood. ??? You notice blood in your vomit, bowel movement, or urine. These symptoms may represent a serious problem that is an emergency. Do not wait to see if the symptoms will go away. Get medical help right away. Call your local emergency services (911 in the [place] Do not drive yourself to the hospital. This information is not intended to replace advice given to you by your health care provider. Make sure you discuss any questions you have with your health care provider. Document Released: 03/22/2010 Document Revised: 09/08/2016 Document Reviewed: 07/29/2015 [employer] Interactive Patient Education ? 2017 [employer] Deep Vein Thrombosis A deep vein thrombosis (DVT) is a blood clot (thrombus) that usually occurs in a deep, larger vein of the lower leg or the pelvis, or in an upper extremity such as the arm. These are dangerous and can lead to serious and even life-threatening complications if the clot travels to the lungs. A DVT can damage the valves in your leg veins so that instead of flowing upward, the blood pools in the lower leg. This is called post-thrombotic syndrome, and it can result in pain, swelling, discoloration, and sores on the leg. What are the causes? A DVT is caused by the formation of a blood clot in your leg, pelvis, or arm. Usually, several things contribute to the formation of blood clots. A clot may develop when: ??? Your blood flow slows down. ??? Your vein becomes damaged in some way. ??? You have a condition that makes your blood clot more easily. What increases the risk? A DVT is more likely to develop in: ??? People who are older, especially over 60 years of age. ??? People who are overweight (obese). ??? People who sit or lie still for a long time, such as during long-distance travel (over 4 hours), bed rest, hospitalization, or during recovery from certain medical conditions like a stroke. ??? People who do not engage in much physical activity (sedentary lifestyle). ??? People who have chronic breathing disorders. ??? People who have a personal or family history of blood clots or blood clotting disease. ??? People who have peripheral vascular disease (PVD), diabetes, or some types of cancer. ??? People who have heart disease, especially if the person had a recent heart attack or has congestive heart failure. ??? People who have neurological diseases that affect the legs (leg paresis). ??? People who have had a traumatic injury, such as breaking a hip or leg. ??? People who have recently had major or lengthy surgery, especially on the hip, knee, or abdomen. ??? People who have had a central line placed inside a large vein. ??? People who take medicines that contain the hormone estrogen. These include control pills and hormone replacement therapy. ??? or during childbirth or the period. ??? Long plane flights (over 8 hours). What are the signs or symptoms? Symptoms of a DVT can include: ??? Swelling of your leg or arm, especially if one side is much worse. ??? Warmth and redness of your leg or arm, especially if one side is much worse. ??? Pain in your arm or leg. If the clot is in your leg, symptoms may be more noticeable or worse when you stand or walk. ??? A feeling of pins and needles, if the clot is in the arm. The symptoms of a DVT that has traveled to the lungs (pulmonary embolism, PE) usually start suddenly and include: ??? Shortness of breath while active or at rest. ??? Coughing or coughing up blood or blood-tinged mucus. ??? Chest pain that is often worse with deep breaths. ??? Rapid or irregular heartbeat. ??? Feeling light-headed or dizzy. ??? Fainting. ??? Feeling anxious. ??? Sweating. There may also be pain and swelling in a leg if that is where the blood clot started. These symptoms may represent a serious problem that is an emergency. Do not wait to see if the symptoms will go away. Get medical help right away. Call your local emergency services (911 in the [place] Do not drive yourself to the hospital.How is this diagnosed? Your health care provider will take a medical history and perform a physical exam. You may also have other tests, including: ??? Blood tests to assess the clotting properties of your blood. ??? Imaging tests, such as CT, ultrasound, MRI, X-ray, and other tests to see if you have clots anywhere in your body. How is this treated? After a DVT is identified, it can be treated. The type of treatment that you receive depends on many factors, such as the cause of your DVT, your risk for bleeding or developing more clots, and other medical conditions that you have. Sometimes, a combination of treatments is necessary. Treatment options may be combined and include: ??? Monitoring the blood clot with ultrasound. ??? Taking medicines by mouth, such as newer blood thinners (anticoagulants), thrombolytics, or warfarin. ??? Taking anticoagulant medicine by injection or through an IV tube. ??? Wearing compression stockings or using different types of?devices. ??? Surgery (rare) to remove the blood clot or to place a filter in your abdomen to stop the blood clot from traveling to your lungs. Treatments for a DVT are often divided into immediate treatment and long-term treatment (up to 3 months after DVT). You can work with your health care provider to choose the treatment program that is best for you. Follow these instructions at home: If you are taking a newer oral anticoagulant:??? Take the medicine every single day at the same time each day. ??? Understand what foods and drugs interact with this medicine. ??? Understand that there are no regular blood tests required when using this medicine. ??? Understand the side effects of this medicine, including excessive bruising or bleeding. Ask your health care provider or pharmacist about other possible side effects. If you are taking warfarin:??? Understand how to take warfarin and know which foods can affect how warfarin works in your body. ??? Understand that it is dangerous to take too much or too little warfarin. Too much warfarin increases the risk of bleeding. Too little warfarin continues to allow the risk for blood clots. ??? Follow your PT and INR blood testing schedule. The PT and INR results allow your health care provider to adjust your dose of warfarin. It is very important that you have your PT and INR tested as often as told by your health care provider. ??? Avoid major changes in your diet, or tell your health care provider before you change your diet. Arrange a visit with a registered dietitian to answer your questions. Many foods, especially foods that are high in vitamin K, can interfere with warfarin and affect the PT and INR results. Eat a consistent amount of foods that are high in vitamin K, such as: ? Spinach, kale, broccoli, cabbage, anni greens, turnip greens, Cleghorn sprouts, peas, cauliflower, seaweed, and parsley. ? Beef liver and pork liver. ? Green tea. ? Soybean oil. ??? Tell your health care provider about any and all medicines, vitamins, and supplements that you take, including aspirin and other edsq-lhb-exomjej anti-inflammatory medicines. Be especially cautious with aspirin and anti-inflammatory medicines. Do not take those before you ask your health care provider if it is safe to do so. This is important because many medicines can interfere with warfarin and affect the PT and INR results. ??? Do notstart or stop taking any vvow-jjw-ebfecoh or prescription medicine unless your health care provider or pharmacist tells you to do so. If you take warfarin, you will also need to do these things: ??? Hold pressure over cuts for longer than usual. ??? Tell your dentist and other health care providers that you are taking warfarin before you have any procedures in which bleeding may occur. ??? Avoid alcohol or drink very small amounts. Tell your health care provider if you change your alcohol intake. ??? Do notuse tobacco products, including cigarettes, chewing tobacco, and e-cigarettes. If you need help quitting, ask your health care provider. ??? Avoid contact sports. General instructions ??? Take abvn-cas-dyobcte and prescription medicines only as told by your health care provider. Anticoagulant medicines can have side effects, including easy bruising and difficulty stopping bleeding. If you are prescribed an anticoagulant, you will also need to do these things: ? Hold pressure over cuts for longer than usual. ? Tell your dentist and other health care providers that you are taking anticoagulants before you have any procedures in which bleeding may occur. ? Avoid contact sports. ??? Wear a medical alert bracelet or carry a medical alert card that says you have had a PE. ??? Ask your health care provider how soon you can go back to your normal activities. Stay active to prevent new blood clots from forming. ??? Make sure to exercise while traveling or when you have been sitting or standing for a long period of time. It is very important to exercise. Exercise your legs by walking or by tightening and relaxing your leg muscles often. Take frequent walks. ??? Wear compression stockings as told by your health care provider to help prevent more blood clots from forming. ??? Do notuse tobacco products, including cigarettes, chewing tobacco, and e-cigarettes. If you need help quitting, ask your health care provider. ??? Keep all follow-up appointments with your health care provider. This is important. How is this prevented? Take these actions to decrease your risk of developing another DVT: ??? Exercise regularly. For at least 30 minutes every day, engage in: ? Activity that involves moving your arms and legs. ? Activity that encourages good blood flow through your body by increasing your heart rate. ??? Exercise your arms and legs every hour during long-distance travel (over 4 hours). Drink plenty of water and avoid drinking alcohol while traveling. ??? Avoid sitting or lying in bed for long periods of time without moving your legs. ??? Maintain a weight that is appropriate for your height. Ask your health care provider what weight is healthy for you. ??? If you are a woman who is over 35 years of age, avoid unnecessary use of medicines that contain estrogen. These include control pills. ??? Do notsmoke, especially if you take estrogen medicines. If you need help quitting, ask your health care provider. If you are hospitalized, prevention measures may include: ??? Early walking after surgery, as soon as your health care provider says that it is safe. ??? Receiving anticoagulants to prevent blood clots.?If you cannot take anticoagulants, other options may be available, such as wearing compression stockings or using different types of devices. Get help right away if: ??? You have new or increased pain, swelling, or redness in an arm or leg. ??? You have numbness or tingling in an arm or leg. ??? You have shortness of breath while active or at rest. ??? You have chest pain. ??? You have a rapid or irregular heartbeat. ??? You feel light-headed or dizzy. ??? You cough up blood. ??? You notice blood in your vomit, bowel movement, or urine. These symptoms may represent a serious problem that is an emergency. Do not wait to see if the symptoms will go away. Get medical help right away. Call your local emergency services (911 in the [place] Do not drive yourself to the hospital. This information is not intended to replace advice given to you by your health care provider. Make sure you discuss any questions you have with your health care provider. Document Released: 04/03/2006 Document Revised: 09/08/2016 Document Reviewed: 07/29/2015 [employer] Interactive Patient Education ? 2017 [employer] Medication Leaflets: aspirin (oral) ( pir in) Arthritis Pain, Aspir 81, Aspir-Low, Ricardo Childrens Aspirin, Durlaza, Ecotrin, Ecpirin, Fasprin, Halfprin, Miniprin What is the most important information I should know about aspirin? You should not use aspirin if you have a bleeding disorder such as hemophilia, a recent history of stomach or intestinal bleeding, or if you are allergic to an NSAID (non-steroidal anti-inflammatory drug). Aspirin can cause Fabby's syndrome, a serious and sometimes fatal condition in children. What is aspirin? Aspirin is a salicylate (mf-HWP-xj-ate). It works by reducing substances in the body that cause pain, fever, and inflammation. Aspirin is used to treat pain, and reduce fever or inflammation. Aspirin is sometimes used to treat or prevent heart attacks, strokes, and chest pain (angina). Aspirin should be used for cardiovascular conditions only under the supervision of a doctor. Aspirin may also be used for purposes not listed in this medication guide. What should I discuss with my healthcare provider before taking aspirin? Do not give this medicine to a child or teenager with a fever, flu symptoms, or chicken pox. Aspirin can cause Fabby's syndrome, a serious and sometimes fatal condition in children. You should not use aspirin if you are allergic to it, or if you have: ? a recent history of stomach or intestinal bleeding; ?? a bleeding disorder such as hemophilia; or ?? if you have ever had an asthma attack or severe allergic reaction after taking aspirin or an NSAID (non-steroidal anti-inflammatory drug). Tell your doctor if you have ever had: ? asthma or seasonal allergies; ?? stomach ulcers; ?? liver disease; ?? kidney disease; ?? a bleeding or blood clotting disorder; ?? gout; or ?? heart disease, high blood pressure, or congestive heart failure. Taking aspirin during late may cause bleeding in the mother or the baby during delivery. Tell your doctor if you are or plan to become . You should not breast-feed while using this medicine. How should I take aspirin? Use exactly as directed on the label, or as prescribed by your doctor. Take with food if aspirin upsets your stomach. Do not crush, chew, break, or open an enteric-coated or delayed-release pill. Swallow it whole. The chewable tablet form of aspirin must be chewed before swallowing. If you use the orally disintegrating tablet or the dispersible tablet, follow all dosing instructions provided with your medicine. If you need surgery, tell your surgeon you currently use this medicine. You may need to stop for a short time. Do not take this medicine if you smell a strong vinegar odor in the aspirin bottle. The medicine may no longer be effective. Store at room temperature away from moisture and heat. What happens if I miss a dose? Since aspirin is used when needed, you may not be on a dosing schedule. Skip any missed dose if it's almost time for your next dose. Do not use two doses at one time. What happens if I overdose? Seek emergency medical attention or call the Poison Help line at . Overdose symptoms may include temporary hearing loss, seizure (convulsions), or coma. What should I avoid while taking aspirin? Avoid alcohol. Heavy drinking can increase your risk of stomach bleeding. If you are taking aspirin to prevent heart attack or stroke, avoid also taking ibuprofen (Advil, Motrin). Ibuprofen may make aspirin less effective. If you must use both medications, take the ibuprofen at least 8 hours before or 30 minutes after you take the aspirin (non-enteric coated form). Ask a doctor or pharmacist before using other medicines for pain, fever, swelling, or cold/flu symptoms. They may contain ingredients similar to aspirin (such as magnesium salicylate, ibuprofen, ketoprofen, or naproxen). What are the possible side effects of aspirin? Get emergency medical help if you have signs of an allergic reaction: hives; difficult breathing; swelling of your face, lips, tongue, or throat. Stop using aspirin and call your doctor at once if you have: ? ringing in your ears, confusion, hallucinations, rapid breathing, seizure (convulsions); ?? severe nausea, vomiting, or stomach pain; ?? bloody or tarry stools, coughing up blood or vomit that looks like coffee grounds; ?? fever lasting longer than 3 days; or ?? swelling, or pain lasting longer than 10 days. Common side effects may include: ? upset stomach, heartburn; ?? drowsiness; or ?? mild headache. This is not a complete list of side effects and others may occur. Call your doctor for medical advice about side effects. You may report side effects to FDA at 9-205-IGI-5309. What other drugs will affect aspirin? Ask your doctor before using aspirin if you take an antidepressant. Taking certain antidepressants with aspirin may cause you to bruise or bleed easily. Ask a doctor or pharmacist before using aspirin with any other medications, especially: ? a blood thinner (warfarin, Coumadin, Jantoven), or other medication used to prevent blood clots; or ?? other salicylates such as Nuprin Backache Caplet, Kaopectate, KneeRelief, Pamprin Cramp Formula, Pepto-Bismol, Tricosal, Trilisate, and others. This list is not complete. Other drugs may affect aspirin, including prescription and thho-eke-oaxnmts medicines, vitamins, and herbal products. Not all possible drug interactions are listed here. Where can I get more information? Your pharmacist can provide more information about aspirin. Remember, keep this and all other medicines out of the reach of children, never share your medicines with others, and use this medication only for the indication prescribed. Every effort has been made to ensure that the information provided by [employer] is accurate, up-to-date, and complete, but no guarantee is made to that effect. Drug information contained herein may be time sensitive. [employer] information has been compiled for use by healthcare practitioners and consumers in the [place] and therefore [employer] does not warrant that uses outside of the [place] are appropriate, unless specifically indicated otherwise. [employer] drug information does not endorse drugs, diagnose patients or recommend therapy. [employer] drug information is an informational resource designed to assist licensed healthcare practitioners in caring for their patients and/or to serve consumers viewing this service as a supplement to, and not a substitute for, the expertise, skill, knowledge and judgment of healthcare practitioners. The absence of a warning for a given drug or drug combination in no way should be construed to indicate that the drug or drug combination is safe, effective or appropriate for any given patient. [employer] does not assume any responsibility for any aspect of healthcare administered with the aid of information [employer] provides. The information contained herein is not intended to cover all possible uses, directions, precautions, warnings, drug interactions, allergic reactions, or adverse effects. If you have questions about the drugs you are taking, check with your doctor, nurse or pharmacist. Copyright 1713-0027 [employer] Version: 15.. Revision Date: 07/17/2017. warfarin (oral) (WAR far in) Coumadin, Jantoven What is the most important information I should know about warfarin? You should not take warfarin if you are prone to bleeding because of a medical condition, if you have an upcoming surgery, or if you need a spinal tap or epidural. Do not take warfarin if you cannot take it on time every day. Warfarin increases your risk of severe or fatal bleeding, especially if you have certain medical conditions, if you are 65 or older, or if you have had a stroke, or bleeding in your stomach or intestines. Seek emergency help if you have any bleeding that will not stop. Call your doctor at once if you have other signs of bleeding such as: swelling, pain, feeling very weak or dizzy, unusual bruising, bleeding gums, nosebleeds, heavy menstrual periods or abnormal vaginal bleeding, blood in your urine, bloody or tarry stools, coughing up blood or vomit that looks like coffee grounds. Many other drugs can increase your risk of bleeding when used with warfarin. Tell your doctor about all medicines you have recently used. Avoid making any changes in your diet without first talking to your doctor. Some foods can make warfarin less effective. What is warfarin? Warfarin is an anticoagulant (blood thinner). Warfarin reduces the formation of blood clots. Warfarin is used to treat or prevent blood clots in veins or arteries, which can reduce the risk of stroke, heart attack, or other serious conditions. Warfarin may also be used for purposes not listed in this medication guide. What should I discuss with my healthcare provider before taking warfarin? You should not take warfarin if you are allergic to it, or if: ? you have very high blood pressure; ?? you recently had or will have surgery on your brain, spine, or eye; ?? you undergo a spinal tap or spinal anesthesia (epidural); or ?? you cannot take warfarin on time every day. You also should not take warfarin if you are are prone to bleeding because of a medical condition, such as: ? a blood cell disorder (such as low red blood cells or low platelets); ?? ulcers or bleeding in your stomach, intestines, lungs, or urinary tract; ?? an aneurysm or bleeding in the brain; or ?? an infection of the lining of your heart. Do not take warfarin if you are , unless your doctor tells you to. Warfarin can cause defects, but preventing blood clots may outweigh any risks to the baby. If you are not , use effective control to prevent while taking warfarin and for at least 1 month after your last dose. Tell your doctor right away if you become . Warfarin can make you bleed more easily, especially if you have ever had: ? high blood pressure or serious heart disease; ?? kidney disease; ?? cancer or low blood cell counts; ?? an accident or surgery; ?? bleeding in your stomach or intestines; ?? a stroke; or ?? if you are 65 or older. To make sure warfarin is safe for you, tell your doctor if you have ever had: ? diabetes; ?? congestive heart failure; ?? liver disease, kidney disease (or if you are on dialysis); ?? a hereditary clotting deficiency; or ?? low blood platelets after receiving heparin. It is not known whether warfarin passes into breast milk. Watch for signs of bruising or bleeding in the baby if you take warfarin while you are breast-feeding a baby. How should I take warfarin? Follow all directions on your prescription label. Your doctor may occasionally change your dose. Do not take warfarin in larger or smaller amounts or for longer than your doctor tells you to. Take warfarin at the same time every day, with or without food. Never take a double dose. Warfarin can make it easier for you to bleed. Seek emergency help if you have any bleeding that will not stop. You will need frequent 'INR' or prothrombin time tests (to measure your blood-clotting time and determine your warfarin dose). You must remain under the care of a doctor while taking warfarin. If you receive warfarin in a hospital, call or visit your doctor 3 to 7 days after you leave the hospital. Your INR will need to be tested at that time. Do not miss any follow-up appointments. Tell your doctor if you are sick with diarrhea, fever, chills, or flu symptoms, or if your body weight changes. You may need to stop taking warfarin 5 to 7 days before having any surgery, dental work, or a medical procedure. Call your doctor for instructions. Wear a medical alert tag or carry an ID card stating that you take warfarin. Any medical care provider who treats you should know that you are taking this medicine. Store at room temperature away from heat, moisture, and light. What happens if I miss a dose? Take the missed dose as soon as you remember. Skip the missed dose if it is almost time for your next scheduled dose. Do not take extra medicine to make up the missed dose. What happens if I overdose? Seek emergency medical attention or call the Poison Help line at . An overdose can cause excessive bleeding. What should I avoid while taking warfarin? Avoid activities that may increase your risk of bleeding or injury. Use extra care to prevent bleeding while shaving or brushing your teeth. You may still bleed more easily for several days after you stop taking warfarin. Avoid making any changes in your diet without first talking to your doctor. Foods that are high in vitamin K (liver, leafy green vegetables, or vegetable oils) can make warfarin less effective. If these foods are part of your diet, eat a consistent amount on a weekly basis. Grapefruit juice, cranberry juice, jocelin juice, and pomegranate juice may interact with warfarin and lead to unwanted side effects. Avoid the use of these juice products while taking warfarin. Avoid drinking alcohol. Ask your doctor before using any medicine for pain, arthritis, fever, or swelling. This includes aspirin, ibuprofen (Advil, Motrin), naproxen (Aleve), celecoxib (Celebrex), diclofenac, indomethacin, meloxicam, and others. These medicines may affect blood clotting and may also increase your risk of stomach bleeding. What are the possible side effects of warfarin? Get emergency medical help if you have signs of an allergic reaction: hives; difficult breathing; swelling of your face, lips, tongue, or throat. Warfarin increases your risk of bleeding, which can be severe or life-threatening. Call your doctor at once if you have any signs of bleeding such as: ? sudden headache, feeling very weak or dizzy; ?? swelling, pain, unusual bruising; ?? bleeding gums, nosebleeds; ?? bleeding from wounds or needle injections that will not stop; ?? heavy menstrual periods or abnormal vaginal bleeding; ?? blood in your urine, bloody or tarry stools; or ?? coughing up blood or vomit that looks like coffee grounds. Clots formed by warfarin may block normal blood flow, which could lead to tissue or amputation of the affected body part. Get medical help at once if you have: ? pain, swelling, hot or cold feeling, skin changes, or discoloration anywhere on your body; or ?? sudden and severe leg or foot pain, foot ulcer, purple toes or fingers. Bleeding is the most common side effect of warfarin. This is not a complete list of side effects and others may occur. Call your doctor for medical advice about side effects. You may report side effects to FDA at 0-552-DMT-2402. What other drugs will affect warfarin? Many drugs (including some pzeu-ihe-mlwmphb medicines and herbal products) can affect your INR and may increase the risk of bleeding if you take them with warfarin. Not all possible drug interactions are listed in this medication guide. It is very important to ask your doctor and pharmacist before you start or stop using any other medicine, especially: ? other medicines to prevent blood clots; ?? an antibiotic or antifungal medicine; ?? supplements that contain vitamin K; or ?? herbal (botanical) products--coenzyme Q10, cranberry, echinacea, garlic, ginkgo biloba, ginseng, goldenseal, or Melvern's wort. This list is not complete and many other drugs can interact with warfarin. This includes prescription and sshp-ghx-lffjfvl medicines, vitamins, and herbal products. Give a list of all your medicines to any healthcare provider who treats you. Where can I get more information? Your pharmacist can provide more information about warfarin. Remember, keep this and all other medicines out of the reach of children, never share your medicines with others, and use this medication only for the indication prescribed. Every effort has been made to ensure that the information provided by [employer] is accurate, up-to-date, and complete, but no guarantee is made to that effect. Drug information contained herein may be time sensitive. [employer] information has been compiled for use by healthcare practitioners and consumers in the [place] and therefore [employer] does not warrant that uses outside of the [place] are appropriate, unless specifically indicated otherwise. [employer]'s drug information does not endorse drugs, diagnose patients or recommend therapy. [employer] drug information is an informational resource designed to assist licensed healthcare practitioners in caring for their patients and/or to serve consumers viewing this service as a supplement to, and not a substitute for, the expertise, skill, knowledge and judgment of healthcare practitioners. The absence of a warning for a given drug or drug combination in no way should be construed to indicate that the drug or drug combination is safe, effective or appropriate for any given patient. [facility] does not assume any responsibility for any aspect of healthcare administered with the aid of information [facility] provides. The information contained herein is not intended to cover all possible uses, directions, precautions, warnings, drug interactions, allergic reactions, or adverse effects. If you have questions about the drugs you are taking, check with your doctor, nurse or pharmacist. Copyright 5692-8556 [facility]. Version: 22.01. Revision Date: 12/29/2016. famotidine (fam [place] ti marysol) Heartburn Relief, Pepcid, Pepcid AC, Pepcid AC Maximum Strength What is the most important information I should know about famotidine? Follow all directions on your medicine label and package. Tell each of your healthcare providers about all your medical conditions, allergies, and all medicines you use. What is famotidine? Famotidine is used to treat and prevent ulcers in the stomach and intestines. It also treats conditions in which the stomach produces too much acid, such as Deborah-Mederos syndrome. Famotidine also treats gastroesophageal reflux disease (GERD) and other conditions in which acid backs up from the stomach into the esophagus, causing heartburn. Famotidine may also be used for purposes not listed in this medication guide. What should I discuss with my healthcare provider before taking famotidine? Heartburn can mimic early symptoms of a heart attack. Get emergency medical help if you have chest pain that spreads to your jaw or shoulder and you feel anxious or light-headed. You should not use this medicine if you are allergic to famotidine or similar medicines such as ranitidine (Zantac), cimetidine (Tagamet), or nizatidine (Axid). Ask a doctor or pharmacist if this medicine is safe to use if you have: ? kidney disease; ?? liver disease; ?? cancer stomach; or ?? long QT syndrome (in you or a family member). Ask a doctor before using this medicine if you are or breast-feeding. How should I take famotidine? Use exactly as directed on the label, or as prescribed by your doctor. You may take famotidine with or without food. Measure liquid medicine carefully. Use the dosing syringe provided, or use a medicine dose-measuring device (not a kitchen spoon). Most ulcers heal within 4 weeks of famotidine treatment, but it may take up to 8 weeks of using this medicine before your ulcer heals. Keep using the medication as directed. Call your doctor if the condition you are treating with famotidine does not improve, or if it gets worse while using famotidine. Famotidine may be only part of a complete program of treatment that also includes changes in diet or lifestyle habits. Follow all instructions of your doctor or dietitian. Store at room temperature away from moisture, heat, and light. Do not allow the liquid medicine to freeze. Throw away any unused famotidine liquid that is older than 30 days. What happens if I miss a dose? Take the medicine as soon as you can, but skip the missed dose if it is almost time for your next dose. Do not take two doses at one time. What happens if I overdose? Seek emergency medical attention or call the Poison Help line at . What should I avoid while taking famotidine? Avoid drinking alcohol. It can increase the risk of damage to your stomach. Avoid taking other stomach acid reducers unless your doctor has told you to. However, you may take an antacid (such as Maalox, Mylanta, Gaviscon, Milk of Magnesia, Rolaids, or Tums) with famotidine. What are the possible side effects of famotidine? Get emergency medical help if you have signs of an allergic reaction: hives; difficult breathing; swelling of your face, lips, tongue, or throat. Stop using famotidine and call your doctor at once if you have: ? confusion, hallucinations, agitation, lack of energy; ?? a seizure; ?? fast or pounding heartbeats, sudden dizziness (like you might pass out); or ?? unexplained muscle pain, tenderness, or weakness especially if you also have fever, unusual tiredness, and dark colored urine. Some side effects may be more likely in older adults. Common side effects may include: ? headache; ?? dizziness; or ?? constipation or diarrhea. This is not a complete list of side effects and others may occur. Call your doctor for medical advice about side effects. You may report side effects to FDA at 6-390-IHR-4920. What other drugs will affect famotidine? Famotidine can make it harder for your body to absorb other medicines you take by mouth. Tell your doctor if you are taking: ? cefditoren; ?? dasatinib; ?? delavirdine; or ?? fosamprenavir. This list is not complete. Other drugs may affect famotidine, including prescription and levr-zdl-ebuyzqw medicines, vitamins, and herbal products. Not all possible drug interactions are listed here. Where can I get more information? Your pharmacist can provide more information about famotidine. Remember, keep this and all other medicines out of the reach of children, never share your medicines with others, and use this medication only for the indication prescribed. Every effort has been made to ensure that the information provided by [employer] is accurate, up-to-date, and complete, but no guarantee is made to that effect. Drug information contained herein may be time sensitive. [employer] information has been compiled for use by healthcare practitioners and consumers in the [place] and therefore [employer] does not warrant that uses outside of the [place] are appropriate, unless specifically indicated otherwise. [employer] drug information does not endorse drugs, diagnose patients or recommend therapy. [employer] drug information is an informational resource designed to assist licensed healthcare practitioners in caring for their patients and/or to serve consumers viewing this service as a supplement to, and not a substitute for, the expertise, skill, knowledge and judgment of healthcare practitioners. The absence of a warning for a given drug or drug combination in no way should be construed to indicate that the drug or drug combination is safe, effective or appropriate for any given patient. [employer] does not assume any responsibility for any aspect of healthcare administered with the aid of information [employer] provides. The information contained herein is not intended to cover all possible uses, directions, precautions, warnings, drug interactions, allergic reactions, or adverse effects. If you have questions about the drugs you are taking, check with your doctor, nurse or pharmacist. Copyright 6565-3766 [employer] Version: 15.02. Revision Date: 03/15/2018. CIGARETTE SMOKING: The facts are clear, cigarette smoking will shorten your life. Smoking can cause many illnesses along the way. As a healthcare provider, we recommend that you stop smoking. Assistance with quitting is available by contacting 0-292-VUNH-NOW. This is a free resource providing counseling, support, and referral. Or you may contact your personal physician. 4 WAYS TO GET AHEAD OF SEPSIS SEPSIS is a MEDICAL EMERGENCY. Time matters! Infections put you and your family at risk for a life-threatening condition called sepsis. Sepsis is the body???s extreme response to an infection. It is life-threatening, and without timely treatment, sepsis can rapidly lead to tissue damage, organ failure, and . Sepsis happens when an infection you already have???in your skin, lungs, urinary tract or somewhere else???triggers a chain reaction throughout your body. 1 PREVENT INFECTIONS Take good care of chronic conditions. Talk to your doctor about getting the recommended vaccines. 2 PRACTICE GOOD HYGIENE Wash your hands frequently. Keep cuts or open sores clean and covered until they are healed. 3 KNOW THE SYMPTOMS Confusion or disorientation Shortness of breath High heart rate Fever, shivering, or feeling very cold Extreme pain or discomfort Clammy or sweaty skin 4 ACT FAST Get medical care IMMEDIATELY if you suspect sepsis or if you have an infection that???s not getting better or is getting worse. To learn more about sepsis and how to prevent infections, visit www.cdc.gov/sepsis. STROKE is an EMERGENCY [employer] ACT F.A.S.T! FACE ?? Facial droop ?? Uneven smile ARM ?? Arm numbness ?? Arm weakness SPEECH ?? Slurred speech ?? Difficulty speaking or understanding TIME ?? Call 911 and get to the hospital immediately Have the ambulance go to the nearest stroke center. STROKE Risk Factors High blood pressure High cholesterol Heart Disease Diabetes Smoking Heavy alcohol use Physical inactivity and obesity Atrial Fibrillation (irregular heartbeat) Family history of stroke Reminder: Be sure to sign up for the [employer] patient portal, which gives you 07/11 access to your medical information ??? including these discharge instructions ??? using your computer, smartphone, or tablet. Just go to [employer] to get started. Questions? Call . [facility] would like to thank you for allowing us to assist you with your healthcare needs. TANK Arreguin WARREN B, (or assisted sales representative) have received the above patient education materials/instructions and have verbalized understanding: Patient Signature _ Date/Time Patient Butadiene Converter Helper Signature (if needed) Date/Time Clinician/Hospital Butadiene Converter Helper Signature (if needed) Date/Time Electronically signed by Ronny [facility] Conversion Bird Tender Jc at 08/05/2022 1:31 PM CDT documented in this encounter Plan of Treatment Not on file documented as of this encounter Visit Diagnoses Not on filedocumented in this encounter
--- OUTSIDE RECORDS SUMMARY | 2024-10-16 13:03 | XMS_ITS | Encounter Summary ---
Author Organization [employer] ([place], [place], [place], [place]) Address [address] [place] [address] Care Team Providers Care Transition Program Manager Name Role Phone Unavailable Primary Care Provider Unavailabl e Encounter Details Date Type Department Care Team (Late st Contact Info) Description 07/01/2018 Transcribed Document [facility] [place] [facility] [place] [address] ProviderAngelique MD [address] [place] [id number] Social History Tobacco Use Types Packs/Day Years Used Date Smoking Tobacco: Never Assessed Sex and Gender Information Value Date Recorded Sex Assigned at Not on file Legal Sex Male 3:45 PM CDT Gender Identity Not on file Sexual Orientation Not on file documented as of this encounter Miscellaneous Notes * [employer]ner Conversion Note - Historical ProviderMD - 07/01/2018 3:16 PM CDT Patient: SESAR FU Age: 77 Years Sex: Male : 1940 Admission Information Mr. Fu is a 77-year-old white male who presented to outside hospital with apparent shortness of breath lower extremity edema was found to have DVT and pulmonary emboli. We received him in transfer and placed him on heparin drip. A partner Dr. seth admitted him on June 27 with the following description: Patient: SESAR FU Age: 77 years Sex: Male : 1940 Associated Diagnoses: None Author: REHTT SETH MD Subjective Date of admission 06/27/[address] Jauregui Accepting physician Dr. Faroouqi Transferring facility [facility] Chief complaint right leg swelling History of present illness Patient presents as a transfer from [facility]. He has been having some numbness [...] the patient and med rec was done [1] Hospital Course Patient was admitted initially on heparin drip he tolerated this well and required elevation of his right lower extremity to keep swelling that had collected out of his right leg. Patient was breathing fairly easily during his hospital stay and actually weaned to room air with sats of 95-96%. He's had no significant shortness of breath with activity and after debate about treatment he wanted warfarin due to ease of tolerance last time he had DVT and cost issues related to no prescription coverage with his Medicare. 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 So the patient was loaded with warfarin and he recalled that he was easy to anticoagulate and his usual dose was around 2-1/2 mg. The patient has easily anticoagulated with warfarin over the past 3 days. INR is currently 2.4 so I will have him hold today's dose and he will start 2.5 mg warfarin at home on July 02. He'll follow up closely with his PCP Dr. Latham and get his INR checked within the next 3 days for warfarin adjustment. At time of discharge patient feels no significant dyspnea on exertion or shortness of breath room air sats are 95-96% he is having some lower extremity edema in the right leg and I have told him to be up for 10-15 minutes at a time and elevate the right lower extremity above his heart as often as possible the next week. Patient will then advance his activity depending on tolerance and edema. Procedures and Treatment Provided No qualifying data available. 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 Warfarin is therapeutic so we will proceed with previous dosing of 2-1/2 mg daily but to start tomorrow skipping today. Rapid rise in INR is concerning that he will be supratherapeutic tomorrow but should revert back down to normal very quickly 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, 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 Anticipated patient would need home O2 but he appears to be well without it but he should follow up closely with Dr. 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 no deep knee bends or lifting items. return if more short of air,... Patient Discharge Condition Improved Discharge Disposition Discharge to home for self-care with Follow up closely with Dr. Latham for rechecking INR and recheck in O2 sat with activity Discharge Follow Up Follow up with primary care provider - Within 2 to 3 days Discharge Medications Home Medications (8) Active aspirin 81 mg oral delayed release tablet 81 mg = 1 Tab, Oral, Daily CeleBREX 200 mg oral capsule 200 mg = 1 Cap, Oral, Daily gabapentin 100 mg oral capsule 100 mg = 1 Cap, Oral, At Bedtime lisinopril 10 mg oral tablet 10 mg = 1 Tab, Oral, Daily lovastatin 40 mg oral tablet 40 mg = 1 Tab, Oral, Monday Pepcid 20 mg oral tablet 20 mg = 1 Tab, Oral, Q12H Tylenol 325 mg oral tablet 650 mg = 2 Tab, PRN, Oral, Q4H warfarin 2.5 mg oral tablet 2.5 mg = 1 Tab, Oral, Daily Lab Results Blood Gases (Current Encounter/Past 24 Hours) No [...] Coagulation Results (Current Encounter/Past 24 Hours) PT 25.9 Second(s) ME 07/01/2018 04:59 INR 2.4 ME 07/01/2018 04:59 Creatinine Clearance (Current Encounter/Past 24 Hours) No Creatinine Clearance Results Found (Past 24 Hours) Blood Products No qualifying data available. Type of Study: TTE procedure: EC Echo Complete. Patient Status: Routine IP [facility]: Adequate visualization Indications:Coronary artery disease. Allergies - Contrast. - Statins. Impression: Normal sized left ventricle. Normal left ventricular wall thickness. Visually estimated ejection fraction 50-55%. Abnormal systolic strain pattern. Normal left ventricular diastolic function. No hemodynamically significant valvular heart disease. No masses or thrombi are seen. [2] [1] H and P; RHETT SETH MD-INT 06/27/2018 23:04 EDT [2] [facility]; AMAURY ROJO MD-CAR 06/28/2018 07:52 EDT Electronically signed by [facility] Conversion Shearer [employer] at 08/05/2022 1:33 PM CDT documented in this encounter Plan of Treatment Not on file documented as of this encounter Visit Diagnoses Not on filedocumented in this encounter
--- OUTSIDE RECORDS SUMMARY | 2024-10-16 13:03 | XMS_ITS | Encounter Summary ---
Author Organization [employer] ([place], [place], [place], [place]) Address [address] [place] [address] Care Team Providers Care Ferris Wheel Attendant Name Role Phone Unavailable Primary Care Provider Unavailabl e Encounter Details Date Type Department Care Team (Late st Contact Info) Description 07/01/2018 Transcribed Document [facility] [place] [facility] [place] [address] ProviderAngelique MD [address] [place] [phone] Social History Tobacco Use Types Packs/Day Years Used Date Smoking Tobacco: Never Assessed Sex and Gender Information Value Date Recorded Sex Assigned at Not on file Legal Sex Male 3:45 PM CDT Gender Identity Not on file Sexual Orientation Not on file documented as of this encounter Miscellaneous Notes * Cerner Conversion Note - Angelique ProviderMD - 07/01/2018 1:14 PM CDT Discharge Instructions Entered On: 07/01/2018 13:24 EDT Performed On: 07/01/2018 13:14 EDT by Corinna Najera RN DC Instructions HWD Stroke/TIA Discharge Ins : N/A Heart Failure Discharge Ins : N/A Warfarin Discharge Ins : Open Diet After Discharge : Resume usual diet as tolerated Activity After Discharge : No strenuous activities, Other: No deep bending or lifting heavy items. Wound/Incision Care At Discharge Comment cision Care At Discharge Comment : Keep right lower extremity elevated above heart level for next week for 15 mins at a time. Keep leg elevated otherwise as much as you can to relief pain and swelling. Return to hospital if shortness of air returns. Corinna Najera RN - 07/01/2018 13:14 EDT Warfarin Discharge Instructions Indication for Warfarin Anticoagulation : DVT treatment Warfarin Anticoagulation Disposition : Initiated this hospitalization Target INR : 2.0- 3.0 INR to be Drawn on : 07/04/2018 EDT Last INR Result : INR: 2.4 (High), Reference Range: (0.9 - 1.1), 07/01/2018 4:41 AM DIAGNOSIS THERAPEUTIC RANGE a) Primary and secondary prevention of 2.0-3.0 venous thrombosis b) Active venous thrombosis, pulmonary 2.0-4.0 embolism and prevention of recurrent venous thrombosis c) Prevention of arterial thromboembolism 3.0-4.5 including patients with mechanical heart valves Notify Provider of Signs/Symptoms of : Significant bleeding, Clot Corinna Najera RN - 07/01/2018 13:14 EDT documented in this encounter Plan of Treatment Not on file documented as of this encounter Visit Diagnoses Not on filedocumented in this encounter
--- OUTSIDE RECORDS SUMMARY | 2024-10-16 13:03 | XMS_ITS | Encounter Summary ---
Author Organization [employer] ([place], [place], [place], [place]) Address [address] [place] [address] Care Team Providers Care Patient Intake Representative Name Role Phone Unavailable Primary Care Provider Unavailabl e Encounter Details Date Type Department Care Team (Late st Contact Info) Description 06/30/2018 Transcribed Document [facility] [place] Family Medicine [address] [place] [address] ProviderAngelique MD [address] [place], [place] [address] Social History Tobacco Use Types Packs/Day Years Used Date Smoking Tobacco: Never Assessed Sex and Gender Information Value Date Recorded Sex Assigned at Not on file Legal Sex Male 3:45 PM CDT Gender Identity Not on file Sexual Orientation Not on file documented as of this encounter Miscellaneous Notes * [employer]ner Conversion Note - Historical ProviderMD - 06/30/2018 5:00 AM CDT Chart Check - Review Order Profile Entered On: 06/30/2018 4:40 EDT Performed On: 06/30/2018 5:00 EDT by Alix Galarza, Rn-Resource Chart Check Chart Reviewed Date and Time : 06/30/2018 4:40 EDT [employer] Initiated/Discontinued as Appropriate : Yes All Active Orders Reviewed : Yes Alix Galarza, Rn-Resource - 06/30/2018 4:40 EDT documented in this encounter Plan of Treatment Not on file documented as of this encounter Visit Diagnoses Not on filedocumented in this encounter
--- OUTSIDE RECORDS SUMMARY | 2024-10-16 13:03 | XMS_ITS | Encounter Summary ---
Author Organization [employer] ([place], [place], [place], [place]) Address [address] [place] [address] Care Team Providers Care Electrician Apprentice Powerhouse Name Role Phone Unavailable Primary Care Provider Unavailabl e Encounter Details Date Type Department Care Team (Late st Contact Info) Description 06/27/2018 Transcribed Document [facility] [place] [facility] [place] [address] ProviderAngelique MD [address] [place] [id number] Social History Tobacco Use Types Packs/Day Years Used Date Smoking Tobacco: Never Assessed Sex and Gender Information Value Date Recorded Sex Assigned at Not on file Legal Sex Male 3:45 PM CDT Gender Identity Not on file Sexual Orientation Not on file documented as of this encounter Miscellaneous Notes * [employer]ner Conversion Note - Historical ProviderMD - 06/27/2018 11:02 PM CDT Evaluation, Physical Therapy Entered On: 06/29/2018 11:20 EDT Performed On: 06/29/2018 11:14 EDT by LINDA CRESPO, SIERRA General Information, PT Visit Type, PT : Initial evaluation Patient Orders : Order Date Order Ordering 06/27/2018 23:02 PT Evaluation and Treatment Ordered By: RHETT GREEN MD Active Diagnoses : 06/28/2018 00:00 Acute embolism and thrombosis of unspecified deep veins of right lower extremity 06/28/2018 00:00 Other pulmonary embolism without acute cor pulmonale Therapy Diagnosis, PT : Debility Onset of Problem, PT : 06/29/2018 EDT Admission Date : 06/27/2018 19:49 Co-treated by, PT : Occupational Therapist Personal Devices : Personal Devices Dentures, lower, Dentures, partial plate, Glasses Assistive Devices : Assistive Devices No Devices Recorded General Information Comment, PT : Admit Dx: acute PE, RLE DVT Hx: DVT LINDA CRESPO, PT - 06/29/2018 11:14 EDT General Status Patient Received Status : Supine in bed Treatment Start Time : 06/29/2018 10:36 EDT Patient Left Status : Other: standing with in room and ambulating soon after Treatment End Time : 06/29/2018 10:44 EDT Treatment Time : 8 Minute(s) LINDA CRESPO, PT - 06/29/2018 11:14 EDT History and Environment Patient Lives With : Family member(s) Professional Skilled Services : None Persons Providing Information : Patient CHERIE LINDA, PT - 06/29/2018 11:14 EDT Prior Level of Function PT GRID Prior LOF Ambulation, Household : Independent Prior LOF Ambulation, Community : Independent Prior LOF Bed Mobility : Independent Prior LOF Toileting : Independent Prior LOF Transfer : Independent LINDA CRESPO, PT - 06/29/2018 11:14 EDT Lower Extremity RLE Active ROM : WFL Right LE Strength : WFL LLE Active ROM : WFL Left LE Strength : WFL LINDA CRESPO, PT - 06/29/2018 11:14 EDT Functional Mobility Mobility Grid Supine to Sit : Rehab Complete independence Sit to Stand : Rehab Complete independence Stand to Sit : Rehab Complete independence Sit to Supine : Rehab Complete independence LINDA CRESPO, PT - 06/29/2018 11:14 EDT Sit to Stand Device : Belt, gait Stand to Sit Device : Belt, gait LINDA CRESPO, PT - 06/29/2018 11:14 EDT Gait Training/Assessment, PT Gait Assistance Level : Independent, complete Walking Distance : ~30ft inside room; pt then ambulating independently with in hallways Ambulatory Devices : None LINDA CRESPO, PT - 06/29/2018 11:14 EDT Cognition Assessment, PT Orientation : Oriented x 4 Attention Assessment : Present LINDA CRESPO, PT - 06/29/2018 11:14 EDT Edu Topics Physical Therapy Education Grid Gait Training : Verbalizes understanding, Returns demonstration LINDA CRESPO, PT - 06/29/2018 11:14 EDT Indication Assesessment, PT Physical Therapy Indicated : No LINDA CRESPO, PT - 06/29/2018 11:14 EDT Plan of Care, PT PT Tx Plan/Goals Established w Patient : Laurie LINDA CRESPO PT - 06/29/2018 11:14 EDT Treatment Note Subjective Comment : pt agreed to PTx eval Patient's Response to Treatment : Stable Assessment : pt without c/o pain, SOA and noted saturating with SpO2 >=94% throughout; pt ambulating up ad nestor in room; educated pt on role of PTx and importance of ambulation with anticoagulants; pt with verbal understanding and noted to be ambulating with in hallways post therapy session; no acute skilled PTx services required at this time LINDA CRESPO PT - 06/29/2018 11:14 EDT Pain Assessment Pain Scaled Used : 0-10 Pain scale Pain Score Pre-Intervention : 0 LINDA CRESPO PT - 06/29/2018 11:14 EDT Image 1 - Images currently included in the form version of this document have not been included in the text rendition version of the form. Anticipated Discharge Needs, OT/PT Recommend Continued Therapy at Discharge : No LINDA CRESPO PT - 06/29/2018 11:[address] [facility] PT Charges PT Eval Low Complexity : 1 LINDA CRESPO PT - 06/29/2018 11:14 EDT documented in this encounter Plan of Treatment Not on file documented as of this encounter Visit Diagnoses Not on filedocumented in this encounter
--- OUTSIDE RECORDS SUMMARY | 2024-10-16 13:03 | XMS_ITS | Encounter Summary ---
Author Organization [employer] ([place], [place], [place], [place]) Address [address] [place] [address] Care Team Providers Care Furs Salesperson Name Role Phone Unavailable Primary Care Provider Unavailabl e Encounter Details Date Type Department Care Team (Late st Contact Info) Description 06/27/2018 Transcribed Document [facility] [place] Medicine [address] [place] [address] ProviderAngelique MD [address] [place], [place] [id number] Social History Tobacco Use Types Packs/Day Years Used Date Smoking Tobacco: Never Assessed Sex and Gender Information Value Date Recorded Sex Assigned at Not on file Legal Sex Male 3:45 PM CDT Gender Identity Not on file Sexual Orientation Not on file documented as of this encounter Miscellaneous Notes * [employer] Conversion Note - Historical ProviderMD - 06/27/2018 11:03 PM CDT Consult Phone Call Documentation Entered On: 06/28/2018 8:07 EDT Performed On: 06/27/2018 23:03 EDT by Bethanie Gallardo Phone Call for Consults Consult Phone Call/Page Attempt : First call Consult Reason : pumlonary embolism Physician Requesting Consult : CATALINA MARIN MD-INT Provider Team Notified Name : Pulmonary medicine Date and Time Call Returned : 06/28/2018 8:06 EDT Additional Information : spoke to aj about the consult and he was aware of the consult and will see the pt Bethanie Gallardo - 06/28/2018 8:06 EDT documented in this encounter Plan of Treatment Not on file documented as of this encounter Visit Diagnoses Not on filedocumented in this encounter
--- OUTSIDE RECORDS SUMMARY | 2024-10-16 13:03 | XMS_ITS | Encounter Summary ---
Author Organization [employer] ([place], [place], [place], [place]) Address [address] [place] [address] Care Team Providers Care Application Spec Name Role Phone Unavailable Primary Care Provider Unavailabl e Encounter Details Date Type Department Care Team (Late st Contact Info) Description 06/27/2018 Transcribed Document [facility] Family Medicine Formerly [facility] [place] [address] ProviderAngelique MD [address] [place] [address] [id number] Social History Tobacco Use Types Packs/Day Years Used Date Smoking Tobacco: Never Assessed Sex and Gender Information Value Date Recorded Sex Assigned at Not on file Legal Sex Male 3:45 PM CDT Gender Identity Not on file Sexual Orientation Not on file documented as of this encounter Miscellaneous Notes * Cerner Conversion Note - Historical ProviderMD - 06/27/2018 7:46 PM CDT Admission History, Adult Entered On: 06/27/2018 20:09 EDT Performed On: 06/27/2018 19:46 EDT by Lizzy Balbuena RN Advance Directive Patient has Advance Directive *Q : Yes, Advance Directive not with the patient Advance Directive Type : CPR directive, Living will, Medical durable power of public relations associate (proxy) Copy Advance Directive Verified/on Chart : No Lizzy Balbuena RN - 06/27/2018 19:53 EDT Anesthesia/Transfusion History Family History of Anesthesia Reaction : No prior transfusion(s) Transfusion History : Prior anesthesia without reaction Family History of Anesthesia Reaction : None Lizzy Balbuena RN - 06/27/2018 19:53 EDT Functional Assessment Living Situation : Home Patient Lives With : Family member(s) Current Home Treatments : None Lizzy Balbuena RN - 06/27/2018 19:53 EDT General Info Arrived From : Acute Care Facility Mode of Arrival on Unit : Stretcher Patient Arrival Date/Time : 06/27/2018 19:30 EDT Want Family/Rep/Phys Notified of Admit : No Emergency Contact #1 : Shefali Pemberton Emergency Contact #1 Emergency Contact #1 Relationship : Emergency Contact #2 : Brooklyn Gardner Emergency Contact #2 Emergency Contact #2 Relationship : daughter Chief Complaint : transferred from [facility] with SOA, RLE swelling, DVT, bilat PE Information Obtained From : Patient Primary Language : [place] Communication Barrier : None Lizzy Balbuena RN - 06/27/2018 19:53 EDT Fall Risk Scales ABCs Fall Injury Risk Identification : Coagulation ABC Fall Injury Risk : Moderate to high injury risk RADER Hx Falls Immediate/Within 3 Months : No Rader Secondary Diagnosis : Yes RADER Use of Ambulatory Aid : None RADER IV Therapy or IV Access : Yes Rader Gait/Transferring : Normal, bedrest, immobile Rader Mental Status : Oriented to own ability Rader Fall Risk Score : 35 RADER Fall Scale Risk Level : 25-45 Medium Risk [place] Fall Interventions : Adequate lighting, Assistive devices within reach, Bed in low position, Call device within reach, Fall prevention handout/education per facility policy, Hourly comfort/safety rounds, Non-slip footwear, Personal items within reach, Reinforced to call for assistance before getting out of bed, Room free of clutter/spills, Upper side-rails up, Wheels locked, Wires/Cords secured Lizzy Balbuena RN - 06/27/2018 19:53 EDT Fall Risk Education Grid Alarms : Verbalizes understanding Assistive Equipment Use : Verbalizes understanding Bed Height/Stabilization : Verbalizes understanding Call light use : Verbalizes understanding Door Open : Verbalizes understanding Environmental Management : Verbalizes understanding Eyeglasses Use : Verbalizes understanding Fall Community Resources : Verbalizes understanding Fall Contract/Letter : Verbalizes understanding Fall Prevention in the Home : Verbalizes understanding Fall Prevention Protocol : Verbalizes understanding Hearing Aid Use : Verbalizes understanding Home Risk Assessment : Verbalizes understanding Need Constant Observation : Verbalizes understanding Night Light Use : Verbalizes understanding Nonskid Footwear Use : Verbalizes understanding Notification of Staff When Leaving : Verbalizes understanding Orthostatic Hypotension Precautions : Verbalizes understanding Personal Article Availability : Verbalizes understanding Prevention Responsibility Family : Verbalizes understanding Prevention Responsibility Patient : Verbalizes understanding Risk Alert Methods : Verbalizes understanding Risk Factors : Verbalizes understanding Safety Aids : Verbalizes understanding Siderails use/risks : Verbalizes understanding Special Assistive Devices : Verbalizes understanding Staff Responsiveness : Verbalizes understanding Symptom Identification & Action Plan *Q : Verbalizes understanding Symptom Reporting : Verbalizes understanding Toileting Schedule : Verbalizes understanding Transfer/Mobility Techniques : Verbalizes understanding Urinal/Bedpan Availability : Verbalizes understanding Wait for Assistance : Verbalizes understanding Wheelchair Safety : Verbalizes understanding Lizzy Balbuena RN - 06/27/2018 19:53 EDT Health Histories Smoking Status : Never (less than 100 in lifetime; none in last 30 days) Smokeless Tobacco Status : Never Lizzy Balbuena RN - 06/27/2018 19:53 EDT Social History (As Of: 06/27/2018 20:09:50 EDT) Tobacco: Never (less than 100 in lifetime) Smoking Status. Never Smokeless Tobacco Status. (Last Updated: 06/27/2018 20:00:56 EDT by Lizzy Balbuena RN) Alcohol: Alcohol Use History No. (Last Updated: 06/27/2018 20:00:56 EDT by Lizzy Balbuena RN) Substance Abuse: Drug Use Hx: No. (Last Updated: 06/27/2018 20:00:56 EDT by Lizzy Balbuena, RN) Height and Weight, Clinical Dosing Height Source : Stated Height Entry Format : [place] Height, Feet : 5 ft(Converted to: 152 cm, 60 Inch) Height, Inches : 8 Inch(Converted to: 0 ft 8 Inch, 20.32 cm) Clinical Height : 172.72 cm Weight Source : Bed scale Weight Entry Format : [place] Clinical Dosing Weight : 89.55 kg Weight, Pounds : 197 lb Body Surface Area (BSA) : 2.03 m2 Body Mass Index : 30 kg/m2 (HI) [place] Body Weight : 67 kg Lizzy Balbuena RN - 06/27/2018 19:53 EDT Infectious Disease History Infectious Disease History : Chicken pox/Shingles, Influenza, Measles, Mumps, Pertussis (Whooping cough) Active Surveillance Screen Assessment : Patient transferred from another hospital/ED Active Surveillance Screen Positive : Yes Fever/Chills Last 48 Hours : No Travel To Regions with Travel Advisories : No Travel Outside [place] Within Last 30 Days : No Contact With Traveler to Advisory Region : No Tuberculosis Symptoms : None Lizzy Balbuena RN - 06/27/2018 19:53 EDT Influenza Vaccine Asmt, Adult Previous Vaccines from Immunization Schedule : No qualifying data available. Influenza Immunization, Current Season : Yes Lizzy Balbuena RN - 06/27/2018 19:53 EDT Pneumococcal Vaccine Previous Vaccines from Immunization Schedule : No qualifying data available. Pneumonia Immunization Received : Yes Lizzy Balbuena RN - 06/27/2018 19:53 EDT Order Details Isolation Precautions Order Detail : Standard Precautions Order Detail : N/A IV Order Detail : 1 Oxygen Order Detail : 0 Nurse Collect Order Detail : 0 Lift/Transfer : Minimal Central Line Order Detail : No Room Service : Appropriate Arterial Line : No Lizzy Balbuena RN - 06/27/2018 19:53 EDT Nutrition History Feeding Ability : Independent Adaptive Feeding Equipment : Regular Eating Poorly Due to Decreased Appetite : No Unplanned Weight Loss in Past 3-6 Months : No Malnutrition Screening Tool Total(mal) : 0 Malnutrition Screening Tool Risk Level : Patient not at risk Lizzy Balbuena RN - 06/27/2018 19:53 EDT Psychosocial History Currently in Unsafe Situation : No Tried to Harm Yourself in the Past? : No Thoughts of Harming/Killing Yourself : No Lizzy Balbuena RN - 06/27/2018 19:53 EDT Sleep Apnea Risk Assmt Hx of Obstructive Sleep Apnea Diagnosis : No Snore Loudly : Yes Tired, Fatigued, or Sleepy During Day : No Observed Stopping Breathing During Sleep : Yes Have/Are Being Treated for Hypertension : Yes BMI Greater Than 35 kg/m2 : No Age over 50 Years Old : Yes Neck Circumference Greater Than 40 cm : No Gender Male : Yes STOP-BANG Sleep Apnea Risk Level Score : 5 Lizzy Balbuena RN - 06/27/2018 19:53 EDT Spiritual/Cultural Needs Taoism Preference : Temple Lizzy Balbuena RN - 06/27/2018 19:53 EDT Valuables and Belongings Valuables and Belongings : Clothing, Personal devices Clothing : Common streetwear Clothing Disposition : With patient Personal Device Disposition : With patient Personal Devices : Dentures, lower, Dentures, partial plate, Glasses Lizzy Balbuena, TOMASZ - 06/27/2018 19:53 EDT Electronically signed by [facility] Conversion Dinkey Locomotive Engineer Cerner at 08/05/2022 1:33 PM CDT documented in this encounter Plan of Treatment Not on file documented as of this encounter Visit Diagnoses Not on filedocumented in this encounter
--- OUTSIDE RECORDS SUMMARY | 2024-10-16 13:03 | XMS_ITS | Clinical Summary ---
Author Organization [employer] ([place], [place], [place], [place]) Address [address] [place] [address] Care Team Providers Care Residential Aide Name Role Phone Unavailable Primary Care Provider Unavailabl e Social History Tobacco Use Types Packs/Day Years Used Date Smoking Tobacco: Never Assessed Sex and Gender Information Value Date Recorded Sex Assigned at Not on file Legal Sex Male 3:45 PM CDT Gender Identity Not on file Sexual Orientation Not on file Plan of Treatment Not on file
--- OUTSIDE RECORDS SUMMARY | 2024-10-16 13:03 | XMS_ITS | Encounter Summary ---
Author Organization [employer] ([place], [place], [place], [place]) Address [address] [place] [address] Care Team Providers Care Lapping Machine Tender Name Role Phone Unavailable Primary Care Provider Unavailabl e Encounter Details Date Type Department Care Team (Late st Contact Info) Description 07/09/2018 Transcribed Document [facility] [place] Family Medicine [address] [place] [address] ProviderAngelique MD [address] [place], [place] [id number] Social History Tobacco Use Types Packs/Day Years Used Date Smoking Tobacco: Never Assessed Sex and Gender Information Value Date Recorded Sex Assigned at Not on file Legal Sex Male 3:45 PM CDT Gender Identity Not on file Sexual Orientation Not on file documented as of this encounter Miscellaneous Notes * Cerner Conversion Note - Historical ProviderMD - 07/09/2018 4:06 PM CDT Post Visit Phone Call Entered On: 07/09/2018 16:07 EDT Performed On: 07/09/2018 16:06 EDT by Brenda Ruiz Rn Post Visit Phone Call Post Visit Phone Call History : First call, Second call, Left message Brenda Ruiz Rn - 07/09/2018 16:06 EDT Electronically signed by Kimberly Jefferson Conversion Wall Mirror Department Supervisor Cerjeannine at 08/05/2022 1:24 PM CDT documented in this encounter Plan of Treatment Not on file documented as of this encounter Visit Diagnoses Not on filedocumented in this encounter
--- OUTSIDE RECORDS SUMMARY | 2024-10-16 13:03 | XMS_ITS | Continuity of Care Document ---
Author Organization [facility], [facility]Y [facility] Address [address] [facility] [address] [facility] [address] [place] [address] Care Team Providers Care Cargo Checker Name Role Phone VENKATNINI Primary Care Provider [phone] Assessment Encounter Date Assessment Date Assessment LastModified by Organization Details LastModified Time 09/30/2024 09/30/2024 Impression: 1. Dyspnea on exertion: Recent problem, appears stable 2. Coronary artery disease s/p PCI 2002 and CABG 2012: Chronic problem, stable without angina. SPECT 05/28/2019: Normal perfusion, EF 65% No evidence of ischemia per SPECT 09/22/2023 3. [employer] dual-chamber pacemaker system (05/11/2022) His device is functioning appropriately per in office device check 09/30/2024 4. Hypertension: Chronic problem, stable. 5. CKD [...] dislodgement requiring lead revision. Medication changes: None. We again discussed consideration of dyssynchrony from exclusive RV pacing. In this context, he may benefit from upgrading to a biventricular system. We will schedule him for an echocardiogram at his next visit, with further recommendations to follow. RTC: 6 months, or sooner if needed. Not available 09/30/2024 20:27:14 Plan of Treatment Reminders Order Date Submit Date Provider Last Modified By Organization Details Last Modified Time Details Appointments CARDIO ULTRASOUN D 2024 02:30P M CARDIO_UL TRASOUND Not available Not available Not available RECHECK 2024 03:15P M CHRISTY ROSENBERG MD Not available Not available Not available Lab None recorded. Referral None recorded. Procedures pacemaker programmi ng, dual lead (PROC) 2024 025 [facility], [address] [facility] [address], [place], [address], 10/01/2024 08:38:03 Surgeries None recorded. Imaging None recorded. Medication Orders None recorded. Patient TargetsNo targets recorded. Patient InstructionsNo instructions recorded. Reason for Referral None Reported. Results Created Date Observation Date Name Description Value Unit Range Abnormal Flag Note LastModifiedBy Organization Detail LastModifiedTime 10/02/19 25 09/30/2024 estrada mariano ion (PROC ) No observ ation record ed. BARCODE Not Available 2024 10:29:09 Result Notes None recorded. Problems Name Problem SNOMED Code Status Onset Date Resolution Date Notes Provider Name and Address Organization Details Recorded Time Right bundle branch block 92818211 Active 2015 From Automated Load;Prov ider: Court Cruz;Stat us: Active Not Available [facility] 7 02:22:11 Headache 40040236 Active 2018 Brooklyn Scott [facility] 9 14:32:33 Low back pain 091780378 Active 2019 Brooklyn Scott [facility] 0 14:25:55 Dyspnea 999132564 Active 2023 Salena Galdamez [facility] 4 15:10:55 Coronary arteriosc lerosis in [place] artery 78555588126 07 Active 2015 From Automated Load;Prov ider: Court Cruz;Stat us: Active Not Available [facility] 6 04:41:35 Hyperlipi demia 57710498 Active 2015 From Automated Load;Prov ider: Court Cruz;Stat us: Active Not Available [facility] 6 04:41:35 Problem Notes None recorded. Procedures Surgical History Date Name Laterality Status Provider Name and Address Organization Details Recorded Time 12/12/19 24 Airway Resistance completed [facility] 12/12/2023 11:23:15 12/12/19 24 Diffusion Capacity completed [facility] 12/12/2023 11:23:10 12/12/19 24 Lung Volumes, Plethysmography completed [facility] 12/12/2023 11:23:12 12/12/19 24 Spirometry completed [facility] 12/12/2023 11:23:07 12/12/19 24 Pulmonary Function Testing completed YECENIA GREEN MD [address] [place] [address], [phone] 12/12/2023 11:28:29 09/22/19 24 Stress Test - Nuclear Lexiscan completed CHRISTY ROSENBERG MD [address] [place] [address], [phone], [facility] 09/22/2023 16:55:31 10/28/19 23 EKG completed Alyssia Ruiz [facility] 10/27/2022 10:32:39 05/28/19 20 Stress Test - Nuclear Lexiscan completed COURT CRUZ MD [address] [place] [address], [phone], [facility] 05/28/2019 14:08:27 05/14/19 20 Electromyography (EMG) with Nerve Conduction Study (NCV) completed Yessenia Garcia) Jennifer [facility] 05/14/2019 13:44:50 04/03/20 17 Stress Test - Nuclear completed COURT CRUZ MD [address] [place] [address], [phone], [facility] 04/03/2017 16:02:00 09/07/19 17 Electromyography (EMG) with Nerve Conduction Study (NCV) completed Yessenia Garcia) Jennifer [facility] 09/06/2016 13:52:06 04/26/19 13 Cardiac Surgery completed Clare Uriarte [facility] 03/11/2019 14:51:26 09/22/19 02 Cardiac Catheterization completed Clare Uriarte [facility] 03/11/2019 14:51:26 CABG completed Zia Olea [facility] 09/01/2016 13:56:37 Prostate Surgery completed Zia [facility] 09/01/2016 13:56:45 Cholecystectomy completed Daniela Nimesh [facility] 03/07/2017 09:03:25 Imaging Results None recorded. Procedure Notes None recorded. Medical Equipment Implant [employer] Issuing Agency Serial Number Lot Number Status Provider Name and Address Organization Details Recorded Time [employer] FDA [id number] Y Mary Hart [facility] 10/28/2022 08:53:51 Allergies Allergen ID Allergen Name Allergen Category Reaction Reaction Severity Criticality Documentation Date Start Date Code Code System Note Provider Name and Address Organization Details Recorded Time 024300 Iodinated contrast media (substanc e) medicatio n Not available Not available Not available 03/11/20162008 63122 2003 SNOMED 2-202 0 PT claim s that he had cintr ast dye in 2019 witho ut a react ion.. . USE WITH CAUTI ON>. Jen Cyril jesusita [facility] 0 08:25:31 309514 Product containin g 3-hydroxy -3-methyl glutaryl- coenzyme A reductase inhibitor (product) medicatio n myalgias (muscle pain) Not available Not available 03/11/20162008 58203 009 SNOMED React ion: MYALG IA; INTOL ERANT OF MEDIC INE>> [facility] 08:25:49 Medications Name Sig Start Date [...] Not Available Vitals Date Recorded Body height Body mass index (BMI) Body weight Oxygen saturation Oxygen saturation in Arterial blood by Pulse oximetry Heart rate Systolic blood pressure Diastolic blood pressure Provider Name and Address Organization Details Last Updated DateTime 5 165.1 cm 28.7 kg/m2 13497.6 1 g 95 % 95 % 89 /min 128 mm[Hg] 70 mm[Hg] Jonathan Bush [facility] 5 11:23:44 Social History Question Answer Notes LastModified by Organizat ion Details LastModified Time Tobacco Smoking Status Never Smoker Zia Olea [facility] 09/01/2016 13:56:04 What Is Your Level Of Caffeine Consumption? None Information not available 09/01/2016 How Much Tobacco Do You Chew? None Information not available 03/11/2019 Which Illicit Or Recreational Drugs Have You Used? None Information not available 03/11/2019 Education 4 Year College [email or web address] Information not available 09/01/2016 Live Alone Or With Others? With Others Information not available 03/11/2019 Marital Status [email or web address] Informatio n not available 09/01/2016 What Was The Date Of Your Most Recent Tobacco Screening? 09/30/2024 [email or web address] Information not available 09/30/2024 What Is Your Relationship Status? [email or web address] Information not available 10/27/2022 How Much Tobacco Do You Smoke? No [email or web address] Information not available 09/01/2016 Have You Recently Traveled Abroad? No [email or web address] Information not available 10/27/2022 Sex: Male Functional Status Question Answer Note LastModified by Organizat ion Details LastModified Time What is your level of alcohol consumption? None [email or web address] Information not available 09/01/2016 Do you or have you ever used smokeless tobacco? 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 Never used electronic cigarettes Information not available 03/11/2019 Mental Status None recorded. Family History Relationship Description Onset Age of this Age Resolved Age Notes LastModified by Organization Details LastModified Time Father Hypertensive disorder [email or web address] Not available 2016 13:55:25 Father Family history of stroke Not available 2018 14:50:51 Father Family history of malignant neoplasm Not available 2018 14:50:51 Father Diabetes mellitus [email or web address] Not available 2016 13:55:50 Mother Hypertensive disorder [email or web address] Not available 2016 13:55:25 Mother Family history of malignant neoplasm Not available 2018 14:50:51 Unspecified Relation Heart disease Not available 2018 14:50:51 Medical History Condition Response Coronary Artery Disease Y Atrial Fibrillation N Heart Arrhythmia N COPD N Peripheral Arterial Disease N Nervous Illness N Edema N Anxiety Disorder N Hiatal hernia N Blood Clot Y Acid Reflux (GERD) Y Cancer Y Stroke N Arrhythmia N Headaches Y Endocrine Disorder N Heart Problems N Heart Conditions N Implanted Cardiac Device Y Black Lung N Ulcers N Rheumatic Fever N Bleeding Disorder N Tuberculosis N AIDS/HIV N Asthma N Cardiac Disease Y Peripheral Vascular Disease N Jaundice N GERD/Reflux Y Restless leg syndrome N Thyroid Disease N Lung Disease N Pacemaker Y Vascular Disease N History of Blood Thinners Y Blood Thinners Y Shortness of Breath Y High Cholesterol N Thyroid Problems N Chest Pain N Heart Attack (MA) N Diabetes N Cardiomyopathy N Heart Murmur N Congestive Heart Failure (CHF) N Hyperlipidemia Y Reflux/GERD Y Sleep Apnea N Warfarin Management N Heart Disease N Hypertension N Immunizations Vaccine Type Date Status Note Provider Nam e and Address Organization Details Recorded Time Influenza, split virus, quadrivalent, preservative 7 completed Daniela Beavers [facility] 03/07/2017 14:33:04 Influenza, split virus, quadrivalent, preservative 9 completed Clare Uriarte [facility] 03/11/2019 14:45:47 pneumococcal, unspecified formulation 8 completed Clare Uriarte [facility] 03/11/2019 14:46:12 Past Encounters Encounter ID Performer Location Encounter Start Date Encounter Closed Date Diagnosis/Indication Diagnosis SNOMED-CT Code Diagnosis ICD10 Code Diagnosis Note [id number] CHRISTY ROSENBERG MD CARDIOLOG [address] [place] [address] 09/30/2024 10:49:25 09/30/2024 13:53:08 Coronary arteriosclerosis in [place] artery 4010339755 107 I25.118 History of PCI 09/26/2002 (Dr [...] abnormal. History of coronary artery bypass grafting 298137885 Z95.1 04/2012: 3v CABG Hyperlipidemia 28205411 E78.5 Right bund le branch block 80035314 I45.0 History of pulmonary embolus 691658175 Z86.711 On chronic Warfarin managed by PCP Chronic ki dney disease stage 3B 365498451 N18.32 Cardiac pa cemaker in situ 440825872 Z95.0 Device: [employer] dual-chamb er pacemaker systemImpl ant: 05/10/2022M ode: DDDR 60 Dyspnea on exertion 6084 5006 R06.09 Health Concerns Section Related Observation LastModified by Organization Detai ls LastModified Time None Recorded Concern Status LastModified by Organization Details LastModified Time None Recorded Payers Encounter Date Sequence Insurance Name Policy Number Policy Araiza Covered Member ID Araiza Member ID Guarantor Name 09/30/2024 1 [employer] (MEDICARE REPLACEMENT/A DVANTAGE - PPO) Willy Pemberton [id number] Willy Pemberton Notes Date Note Type Note Provider Name and Address Organization Details Recorded Time 09/30/2024 text/html CARDIOVASCULAR HISTORY:# Coronary artery disease s/p [...] been on warfarin managed by Dr. Jauregui. 12/27/2023: 3 month recheckLabwork of 12/12/2023 was reviewed:CBC: NormalBMP: Creatinine 1.50, potassium 4.7 CT chest 12/22/2023:1. Mild distention/dilatation of the ascending thoracic aorta2. Punctate nodule right base. Suggest follow-up screening chest CT 09/30/2024: 6 month rechecka. CAD s/p PCI 2002 and CABG 2013b. History of PE June 2018c. [employer] dual-chamber pacemaker implant 05/11/2022 (Dr Brumfield)Former patient of Dr Court Cruz from [place], [place]. Since his last visit, he reports no changes .He continues to complain of exertional dyspnea.He currently reports about 2-6k steps of activity per day. Max of 11k over the past 6 months.He has lost about 6lbs of weight since last visit.No peripheral edema, PND or orthopnea reported.He has not experienced any falls since I last saw him.No epistaxis, or GI bleeding on Coumadin. His pacemaker system was interrogated at today's visit, and I reviewed the findings with him.See scanned document for complete results.Device: [employer] dual-chamber pacemaker systemImplant: 05/10/2022Mode: DDDR 60Pacing: AP 14%, RVP 95%Events: ATR x1.No permanent programming changes were made to his device. CHRISTY ROSENBERG MD [facility] [place], [address], [facility] 09/30/2024 20:28:17
--- OUTSIDE RECORDS SUMMARY | 2024-10-16 13:03 | XMS_ITS | Encounter Summary ---
Author Organization [employer] ([place], [place], [place], [place]) Address [address] [place] [address] Care Team Providers Care Fish Hatchery Inspector Name Role Phone Unavailable Primary Care Provider Unavailabl e Encounter Details Date Type Department Care Team (Late st Contact Info) Description 06/28/2018 Transcribed Document [facility] Family Medicine [address] [place] [address] ProviderAngelique MD [address] [place], [place] [id number] Social History Tobacco Use Types Packs/Day Years Used Date Smoking Tobacco: Never Assessed Sex and Gender Information Value Date Recorded Sex Assigned at Not on file Legal Sex Male 3:45 PM CDT Gender Identity Not on file Sexual Orientation Not on file documented as of this encounter Miscellaneous Notes * Cerner Conversion Note - Historical ProviderMD - 06/28/2018 10:20 AM CDT Attempt to Treat, OT Entered On: 06/28/2018 11:22 EDT Performed On: 06/28/2018 10:20 EDT by H[place]LEY JACKSON OTR/Kathia Attempt to Treat Unable to Treat Due To : Patient on hold Inability to Treat Comment : hold for DVT and PE not therapeutic yet for RN Notification : RN HOLLEY Pierre OTR/Kathia - 06/28/2018 11:22 EDT documented in this encounter Plan of Treatment Not on file documented as of this encounter Visit Diagnoses Not on filedocumented in this encounter
--- OUTSIDE RECORDS SUMMARY | 2024-10-16 13:03 | XMS_ITS | Encounter Summary ---
Author Organization [employer] ([place], [place], [place], [place]) Address [address] [place] [address] Care Team Providers Care Juvenile Court Judge Name Role Phone Unavailable Primary Care Provider Unavailabl e Encounter Details Date Type Department Care Team (Late st Contact Info) Description 06/28/2018 Transcribed Document [facility] Family Medicine [facility] [place] [address] ProviderAngelique MD [address] [place] [id number] Social History Tobacco Use Types Packs/Day Years Used Date Smoking Tobacco: Never Assessed Sex and Gender Information Value Date Recorded Sex Assigned at Not on file Legal Sex Male 3:45 PM CDT Gender Identity Not on file Sexual Orientation Not on file documented as of this encounter Miscellaneous Notes * Cerner Conversion Note - Historical ProviderMD - 06/28/2018 12:10 PM CDT Patient: WILLY PEMBERTON Age: 77 Years Sex: Male : 1940 Chief Complaint: transferred from [facility] with SOA, RLE swelling, DVT, bilat PE Subjective Discussed with patient treatment options. His heparin drip appears to be sleeping and not following properly and is therefore inadequate ineffective and not treating him properly. We will switch to subcutaneous Lovenox and consider other options for treatment with pulmonary coming to see him. Patient states he would prefer to be on warfarin as he does not have prescription drug coverage Physical Exam (1, 6, 12) Vitals & Measurements T: 37.4 ??C HR: 97(Monitored) RR: 18 BP: 156/104 SpO2: 94% HT: 172.72 cm WT: 89.55 kg BMI: 30 Awake alert pleasantly conversant in no acute [...] Output Totals Last 24 Hours (7a-7a) Intake (0 Events) No intake events found in the last 24 hours. Output (1 Events) Urine Voided (Volume) (350 mL) Input Total: 0 mL Output Total: 350 mL Balance: -350 mL Assessment/Plan (1, 3 (EC+EU or N), 4(2 EU or EC +N or NW)) Bilateral pulmonary embolism I26.99 Change heparin drip to Lovenox subcutaneous in anticipation that he will need Coumadin loading. Patient wishes to be back on warfarin due to lack of prescription drug coverage. He states he go to the Coumadin clinic in [place] 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, 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 Right leg DVT I82.401 Lovenox and then warfarin Orders: enoxaparin, 90 mg, SubCutaneous, Inj, B53BTaq, Start 06/28/18 10:00:[address] [facility] Medications Inpatient aspirin, 81 mg= 1 Tab, Oral, Daily Colace, 100 mg= 1 Cap, Oral, BID, PRN DuoNeb 0.5 mg-2.5 mg/3 mL inhalation solution, 3 mL, Nebulized Inhalation , Q6H, PRN Lipitor, 10 mg= 1 Tab, Oral, Weekly lisinopril, 10 mg= 1 Tab, Oral, Daily Lovenox, 90 mg= 0.9 mL, SubCutaneous, A93QKhb MiraLax, 17 Gram= 1 Packet, Oral, Daily, PRN morphine, 2 mg= 1 mL, IV Push, Q2H, PRN Pepcid, 20 mg= 1 Tab, Oral, Q12H Tylenol, 650 mg= 2 Tab, Oral, Q4H, PRN Zofran, 4 mg= 2 mL, IV Push, Q4H, PRN Home CeleBREX 200 mg oral capsule, 200 mg= 1 Cap, Oral, Daily gabapentin 100 mg oral capsule, Oral, Daily lisinopril 10 mg oral tablet, Oral, Daily lovastatin 40 mg oral tablet, Oral, Weekly Allergies statins (leg pain, leg pain) iodinated radiocontrast dyes (Skin rash, Skin rash) Routine Labs - Last 24 Hours JUN 28 05:43 144 110 17 / 91 3.8 26 1.20 \ Anion Gap: 12 Calcium Level: 8.9 mg/dL documented in this encounter Plan of Treatment Not on file documented as of this encounter Visit Diagnoses Not on filedocumented in this encounter
--- OUTSIDE RECORDS SUMMARY | 2024-10-16 13:03 | XMS_ITS | Encounter Summary ---
Author Organization [employer] ([place], [place], [place], [place]) Address [address] [place] [address] Care Team Providers Care Flat Bed Operator Name Role Phone Unavailable Primary Care Provider Unavailabl e Encounter Details Date Type Department Care Team (Late st Contact Info) Description 06/28/2018 Transcribed Document [facility] [place] [address] [place] [address] ProviderAngelique MD [address] [place], [place] [address] Social History Tobacco Use Types Packs/Day Years Used Date Smoking Tobacco: Never Assessed Sex and Gender Information Value Date Recorded Sex Assigned at Not on file Legal Sex Male 3:45 PM CDT Gender Identity Not on file Sexual Orientation Not on file documented as of this encounter Miscellaneous Notes * Cerner Conversion Note - Historical ProviderMD - 06/28/2018 12:21 PM CDT Attempt to Treat, PT Entered On: 06/28/2018 12:21 EDT Performed On: 06/28/2018 12:21 EDT by LINDA CRESPO PT Attempt to Treat Unable to Treat Due To : Patient on hold Inability to Treat Comment : RN request to hold due to acute PE and DVT and questionable therapeutic yet; will check 06/29 for PTx eval and tx; LINDA CRESPO PT - 06/28/2018 12:21 EDT Electronically signed by Kimberly Jefferson Conversion Spot Welder Body Assembly Cerner at 08/05/2022 1:15 PM CDT documented in this encounter Plan of Treatment Not on file documented as of this encounter Visit Diagnoses Not on filedocumented in this encounter
--- OUTSIDE RECORDS SUMMARY | 2024-10-16 13:03 | XMS_ITS | Encounter Summary ---
Author Organization [email or web address] ([place], [place], [place], [place]) Address [address] [place] [address] Care Team Providers Care Professional Nurse Name Role Phone Unavailable Primary Care Provider Unavailabl e Encounter Details Date Type Department Care Team (Late st Contact Info) Description 07/04/[address] [facility] Family Medicine [address] [place] [address] ProviderAngelique MD [address] [place], [place] [phone] Social History Tobacco Use Types Packs/Day Years Used Date Smoking Tobacco: Never Assessed Sex and Gender Information Value Date Recorded Sex Assigned at Not on file Legal Sex Male 3:45 PM CDT Gender Identity Not on file Sexual Orientation Not on file documented as of this encounter Miscellaneous Notes * Cerner Conversion Note - Historical ProviderMD - 07/04/2018 2:52 PM CDT Post Visit Phone Call Entered On: 07/04/2018 14:53 EDT Performed On: 07/04/2018 14:52 EDT by Brenda Ruiz Rn Post Visit Phone Call Post Visit Phone Call History : First call, Left message Brenda Ruiz Rn - 07/04/2018 14:52 EDT Electronically signed by Kimberly Jefferson Conversion Fabricator Assembler [employer] at 08/05/2022 1:12 PM CDT documented in this encounter Plan of Treatment Not on file documented as of this encounter Visit Diagnoses Not on filedocumented in this encounter
--- OUTSIDE RECORDS SUMMARY | 2024-10-16 13:03 | XMS_ITS | Referral Summary ---
Author Organization [employer] ([place], [place], [place], [place]) Address [address] [place] [address] Care Team Providers Care Pulp Machine Operator Name Role Phone Unavailable Primary Care [...]
--- OUTSIDE RECORDS SUMMARY | 2024-10-16 13:03 | XMS_ITS | Encounter Summary ---
Author Organization [employer] ([place], [place], [place], [place]) Address [address] [place] [address] Care Team Providers Care House Servant Name Role Phone Unavailable Primary Care Provider Unavailabl e Encounter Details Date Type Department Care Team (Late st Contact Info) Description 07/01/2018 Transcribed Document [facility] [place] [facility] [place] [address] ProviderAngelique MD [address] [place] [id number] Social History Tobacco Use Types Packs/Day Years Used Date Smoking Tobacco: Never Assessed Sex and Gender Information Value Date Recorded Sex Assigned at Not on file Legal Sex Male 3:45 PM CDT Gender Identity Not on file Sexual Orientation Not on file documented as of this encounter Miscellaneous Notes * Cerner Conversion Note - Historical ProviderMD - 07/01/2018 1:24 PM CDT Patient Education Materials Follows: Venous Thromboembolism Prevention Venous thromboembolism (VTE) is [...] 03/22/2010 Document Revised: 09/08/2016 Document Reviewed: 07/29/2015 [employer] Interactive Patient Education ? 2017 [employer] Deep Vein Thrombosis A deep vein [...] kale, broccoli, cabbage, anni greens, turnip greens, [place] sprouts, peas, cauliflower, seaweed, and parsley. ? Beef liver and pork liver. ? Green tea. ? Soybean oil. ??? Tell your health care provider about any and all medicines, vitamins, and supplements that you take, including aspirin and other dcqr-vwk-juajkvy anti-inflammatory medicines. Be especially cautious with aspirin and anti-inflammatory medicines. Do not take those before you ask your health care provider if it is safe to do so. This is important because many medicines can interfere with warfarin and affect the PT and INR results. ??? Do notstart or stop taking any nzza-slp-nsdwbav or prescription medicine unless your health care [...] Avoid contact sports. General instructions ??? Take livf-cob-gxmpklp and prescription medicines only as told by [...] 07/29/2015 [employer] Interactive Patient Education ? 2017 [employer] documented in this encounter Plan of Treatment Not on file documented as of this encounter Visit Diagnoses Not on filedocumented in this encounter
--- OUTSIDE RECORDS SUMMARY | 2024-10-16 13:03 | XMS_ITS | Encounter Summary ---
Author Organization [employer] ([place], [place], [place], [place]) Address [address] [place] [address] Care Team Providers Care Theoretical Physics Teacher Name Role Phone Unavailable Primary Care Provider Unavailabl e Encounter Details Date Type Department Care Team (Late st Contact Info) Description 07/01/[address] [facility] [place] [facility] [place] [address] ProviderAngelique MD [address] [place] [address] [id number] Social History Tobacco Use Types Packs/Day Years Used Date Smoking Tobacco: Never Assessed Sex and Gender Information Value Date Recorded Sex Assigned at Not on file Legal Sex Male 3:45 PM CDT Gender Identity Not on file Sexual Orientation Not on file documented as of this encounter Miscellaneous Notes * Cerner Conversion Note - Historical ProviderMD - 07/01/2018 1:13 PM CDT Nursing Discharge Summary Entered On: 07/01/2018 13:14 EDT Performed On: 07/01/2018 13:13 EDT by Corinna Najera RN Discharge Documentation Discharge Date/Time : 07/01/2018 13:45 EDT Patient Disposition, General : Discharge Discharge To : Home with ambulatory/outpatient follow-up Mode Of Departure, General Discharge : Private vehicle Accompanied By, Discharge : Spouse IV Discontinued : Yes Medications Given to Patient : No Personal Belongings With Patient : Yes Pt's Own Supply of Medications Returned : No Prescriptions Given to Patient : Yes Discharge Instructions Reviewed With, Opportunity For Questions Given : Patient, Spouse Patient Education Completed : Yes Number of Prescriptions Given : 1 Teaching Method : Explanation, Printed materials Teaching Evaluation : Verbalizes understanding Corinna Najera RN - 07/01/2018 13:13 EDT Electronically signed by [facility] Conversion Bundle Sorter Cerner at 08/05/2022 1:33 PM CDT documented in this encounter Plan of Treatment Not on file documented as of this encounter Visit Diagnoses Not on filedocumented in this encounter
--- OUTSIDE RECORDS SUMMARY | 2024-10-16 13:03 | XMS_ITS | Data Portability ---
Author Organization [facility] Douglas BRAYDON TidwellS [address] [facility] Address [address] [address] [place] [address] Care Team Providers Care Ambulance Driver Name Role Phone NINI ROBLEDO Primary Care Provider Assessment Encounter Date Assessment Date Assessment LastModified by Organization Details LastModified Time 12/27/2023 12/27/2023 Impression: 1. Dyspnea on exertion: Undiagnosed new problem, appears stable 2. Coronary artery disease s/p PCI 2002 and CABG 2012: Chronic problem, stable without angina. SPECT 05/28/2019: Normal perfusion, EF 65% No evidence of ischemia per SPECT 09/22/2023 3. [employer] dual-chamber pacemaker system (05/11/2022) 4. Hypertension: [...] RTC: 6 months, or sooner if needed. [email or web address] Not available 12/27/2023 18:34:46 09/30/2024 09/30/2024 Impression: 1. Dyspnea on exertion: Recent problem, appears stable 2. Coronary artery disease s/p PCI 2002 and CABG 2012: Chronic problem, stable without angina. SPECT 05/28/2019: Normal perfusion, EF 65% No evidence of ischemia per SPECT 09/22/2023 3. [employer] dual-chamber pacemaker system (05/11/2022) His device is [...] RTC: 6 months, or sooner if needed. [email or web address] Not available 09/30/2024 20:27:14 Plan of Treatment Reminders Order Date Submit Date Provider Last Modified By Organization Details Last Modified Time Details Appointments CARDIO ULTRASOUN D 2024 02:30P M CARDIO_UL TRASOUND Not available Not available Not available RECHECK 2024 03:15P M GABRIELE ROSENBERG MD Not available Not available Not available Lab CBC w/ auto diff 2023 024 [facility], [address] [place] [address], [phone], 12/12/2023 13:42:16 BMP, serum or plasma 2023 024 [facility], [address] [place] [address], [address], 12/12/2023 13:26:38 Referral None recorded. Procedures pacemaker programmi ng, dual lead (PROC) 2024 025 [facility], [address], [place], [address], 10/01/2024 08:38:03 Surgeries None recorded. Imaging CT, chest, w/o contrast 2023 024 [facility], [address] [place], [address], 12/22/2023 14:42:31 Medication Orders None recorded. Patient TargetsNo targets recorded. Patient InstructionsNo instructions recorded. Reason for Referral None Reported. Results Created Date Observation Date Name Description Value Unit Range Abnormal Flag Note LastModifiedBy Organization Detail LastModifiedTime 12/12/1912/12/2023 BASIC METAB OLIC PANEL glucose 104 mg/dL 74-100 high Not Available [facility] [address] [place] [address], [address], 12/12/2023 13:26:38 12/12/19 24 12/12/2023 BASIC METAB OLIC PANEL blood urea nitrogen 14 mg/dL 6-20 normal Not Available [facility] [address] [place] [address], [address], 12/12/2023 13:26:38 12/12/19 24 12/12/2023 BASIC METAB OLIC PANEL creatinine 1.50 mg/dL 0.70-1 .28 high Not Available [facility] [address] [place] [address], [address], 12/12/2023 13:26:38 12/12/19 24 12/12/2023 BASIC METAB OLIC PANEL BUN/creatini ne ratio 9 (calc ) 10-20 low Not Available [facility] [address] [place] [address], [address], 12/12/2023 13:26:38 12/12/19 24 12/12/2023 BASIC METAB OLIC PANEL sodium 141 mmol/ L 136-14 5 normal Not Available [facility] [address] [place] [address], [address], 12/12/2023 13:26:38 12/12/19 24 12/12/2023 BASIC METAB OLIC PANEL potassium 4.7 mmol/ L 3.4-5. 0 normal Not Available [facility] [address] [place] [address], [address], 12/12/2023 13:26:38 12/12/19 24 12/12/2023 BASIC METAB OLIC PANEL chloride 105 mmol/ L 98-107 normal Not Available [facility] [address] [place] [address], [address], 12/12/2023 13:26:38 12/12/19 24 12/12/2023 BASIC METAB OLIC PANEL carbon dioxide 25 mmol/ L 22-31 normal Not Available [facility] [address] [place] [address], [address], 12/12/2023 13:26:38 12/12/19 24 12/12/2023 BASIC METAB OLIC PANEL anion gap 11 (calc ) 7-25 normal Not Available [facility] [address] [place] [address], [address], 12/12/2023 13:26:38 12/12/19 24 12/12/2023 BASIC METAB OLIC PANEL calcium 9.2 mg/dL 8.6-10 .2 normal Not Available [facility] [address] [place] [address], [address], 12/12/2023 13:26:38 12/12/19 24 12/12/2023 BASIC METAB OLIC PANEL GFR 46 >= 60 abnormal NOT E New calcu latio n for GFR (CKD- EPI 2020) is formu lated witho ut race adjus tment facto rs at [facility] menda tion of the [employer] [employer] [facility] [employer] ation and Ameri can Socie ty of Nephr ology . This calcu latio n has not been valid ated in pregn ant women . For umm lemus nts refer to https ://marcos chavarria.raheem boyce/imer roy s/KDO QI/gf r_cal culat orPed Not Available [facility] [address] [place] [address], [address], 12/12/2023 13:26:38 12/12/19 24 12/12/2023 COMPL ETE BLOOD COUNT white blood cells 7.5 10*3/ uL 3.8-10 .8 normal Not Available [facility] [address] [place] [address], [address], 12/12/2023 13:42:15 12/12/19 24 12/12/2023 COMPL ETE BLOOD COUNT red blood cells 4.72 10*6/ uL 4.20-5 .80 normal Not Available [facility] [address] [place] [address], [address], 12/12/2023 13:42:15 12/12/19 24 12/12/2023 COMPL ETE BLOOD COUNT hemoglobin 14.4 g/dL 14.0-1 8.0 normal Not Available [facility] [address] [place] [address], [address], 12/12/2023 13:42:15 12/12/19 24 12/12/2023 COMPL ETE BLOOD COUNT hematocrit 44.6 % 40.0-5 2.0 normal Not Available [facility] [address] [place] [address], [address], 12/12/2023 13:42:15 12/12/19 24 12/12/2023 COMPL ETE BLOOD COUNT MCV 95 fL 80-100 normal Not Available [facility] [address] [place] [address], [address], 12/12/2023 13:42:15 12/12/19 24 12/12/2023 COMPL ETE BLOOD COUNT MCH 31 pg 26-35 normal Not Available [facility] [address] [place] [address], [address], 12/12/2023 13:42:15 12/12/19 24 12/12/2023 COMPL ETE BLOOD COUNT MCHC 32 g/dL 32-36 normal Not Available [facility] [address] [place] [address], [address], 12/12/2023 13:42:15 12/12/19 24 12/12/2023 COMPL ETE BLOOD COUNT RDW 13.7 % 11.0-1 5.0 normal Not Available [facility] [address] [place] [address], [address], 12/12/2023 13:42:15 12/12/19 24 12/12/2023 COMPL ETE BLOOD COUNT MPV 9.9 fL 6.2-10 .5 normal Not Available [facility] [address] [place] [address], [address], 12/12/2023 13:42:15 12/12/19 24 12/12/2023 COMPL ETE BLOOD COUNT platelet count 186 10*3/ uL 150-40 0 normal Not Available [facility] [address] [place] [address], [address], 12/12/2023 13:42:15 12/12/19 24 12/12/2023 COMPL ETE BLOOD COUNT neutrophil,a bsolute 4.3 10*3/ uL 1.6-8. 4 normal Not Available [facility] [address] [place] [address], [address], 12/12/2023 13:42:15 12/12/19 24 12/12/2023 COMPL ETE BLOOD COUNT lymphocyte,a bsolute 2.2 10*3/ uL 0.4-5. 1 normal Not Available [facility] [address] [place] [address], [address], 12/12/2023 13:42:15 12/12/19 24 12/12/2023 COMPL ETE BLOOD COUNT monocyte,abs olute 0.8 10*3/ uL 0.0-1. 2 normal Not Available [facility] [address] [place] [address], [address], 12/12/2023 13:42:15 12/12/19 24 12/12/2023 COMPL ETE BLOOD COUNT eosinophil,a bsolute 0.2 10*3/ uL 0.0-0. 8 normal Not Available [facility] [address] [place] [address], [address], 12/12/2023 13:42:15 12/12/19 24 12/12/2023 COMPL ETE BLOOD COUNT basophil,abs olute 0.0 10*3/ uL 0.0-0. 3 normal Not Available [facility] [address] [place] [address], [address], 12/12/2023 13:42:15 12/12/19 24 12/12/2023 COMPL ETE BLOOD COUNT % neutrophils 57.2 % 42.0-7 8.0 normal Not Available [facility] [address] [place] [address], [address], 12/12/2023 13:42:15 12/12/19 24 12/12/2023 COMPL ETE BLOOD COUNT % lymphocytes 28.8 % 11.0-4 7.0 normal Not Available [facility] [address] [place] [address], [address], 12/12/2023 13:42:15 12/12/19 24 12/12/2023 COMPL ETE BLOOD COUNT % monocytes 10.2 % 0.0-11 .0 normal Not Available [facility] [address] [place] [address], [address], 12/12/2023 13:42:15 12/12/19 24 12/12/2023 COMPL ETE BLOOD COUNT % eosinophils 3.2 % 0.0-7. 0 normal Not Available [facility] [address] [place] [address], [place], [address], 12/12/2023 13:42:15 12/12/19 24 12/12/2023 COMPL ETE BLOOD COUNT % basophils 0.6 % 0.0-3. 0 normal Not Available [facility] [address] [place] [address], [address], 12/12/2023 13:42:15 12/12/19 24 12/12/2023 COMPL ETE BLOOD COUNT nucleated red cells 0.1 % 0.0-0. 9 normal Not Available [facility] [address] [place] [address], [address], 12/12/2023 13:42:15 12/12/19 24 12/12/2023 COMPL ETE BLOOD COUNT nucleated RBCs, absolute 0.01 10*3/ uL not estab. normal Not Available [facility] [address] [place] [address], [address], 12/12/2023 13:42:15 08/29/19 24 08/26/2023 remot e devic e inter rogat ion (PROC ) No observ ation record ed. [email or web address] Not Available 2023 19:20:54 09/22/19 24 09/22/2023 US, doppl er echoc ardio gram, w/ color flow No observ ation record ed. [email or web address] [facility] [address] , [place], [address], 09/22/2023 16:58:13 11/07/19 24 11/06/2023 remot e devic e inter rogat ion (PROC ) No observ ation record ed. [email or web address] Not Available 2023 04:40:23 12/12/19 24 12/12/2023 XR, chest , 2 view [facility] [address] [facility] [address], [address] [place] [address] Nelli moseley Name: SESAR moseley : 941 Nelli moseley Orderi ng [...] Court Marie MD on 024 12:06 [facility] [address] [place], [address], 12/13/2023 10:51:00 12/22/19 24 12/22/2023 CT, chest , w/o contr ast [facility] [address] [facility] [place] [address] Nelli moseley Name: SESAR moseley : 941 Patinga moseley Orderi ng Provid er: YECENIA Vasquez [facility] EXAM DATE: 2023 EXAM: CT CHEST W/O [...] ural nodule in the right base. Refere lae image #106 of series 202. MEDIAS TINUM: [...] Marie MD on 12/22/19 1:54 PM mazin [facility] [address] [place] [address] Dr, [place], [address], 12/22/2023 15:01:36 02/05/20 24 02/05/2024 remot e [...] record ed. [email or web address] Not Available 2024 19:19:58 10/02/19 25 09/30/2024 pacem jesus inter rogat ion (PROC ) No observ ation record ed. [email or web address] Not Available 2024 10:29:09 Result Notes Documentation Provider Name and Address Organization Details Recorded Time Xr, Chest, 2 View : [place] [address] Patient Name: SESAR PEMBERTON Patient : 1940 Patient Ordering Provider: YECENIA NGUYEN EXAM DATE: 12/12/2023 EXAM: XR CHEST PA/LAT CLINICAL INFORMATION: Shortness of breath IMAGES PROVIDED: PA and lateral views of the chest. COMPARISON: None. FINDINGS: Heart size is within normal limits. Lung santamaria are clear. Left chest wall transvenous pacer in place. IMPRESSION: No acute cardiopulmonary changes. Interpreted By: Court Marie MD NIA GOHTRA MD [address] [place] [address], [address], [facility] 12/13/2023 10:51:00 Ct, Chest, W/o Contrast : [facility] [address] [place] [address] Patient Name: SESAR PEMBERTON Patient : 1940 Patient Ordering Provider: YECENIA NGUYEN EXAM DATE: 12/22/2023 EXAM: CT CHEST W/O CONTRAST CLINICAL INFORMATION: Shortness of breath TECHNIQUE: Multiple axial CT images of the chest were obtained without injection of IV contrast. COMPARISON: None. FINDINGS: AIRWAYS AND LUNGS: Trachea, principal bronchi and major bronchial branches are patent and normal. Punctate subpleural nodule in the right base. Reference image #106 of series 202. MEDIASTINUM: No mediastinal lymphadenopathy. SVC, pulmonary arteries, pulmonary veins and their major branches and tributaries are normal. No gross cardiac abnormality. The ascending aorta is minimally prominent measuring 3.7 cm. PLEURA AND CHEST WALL: No pleural effusion or mass. No chest wall abnormality. UPPER ABDOMINAL ORGANS: Limited imaging of the upper abdomen shows a benign-appearing cyst in the liver dome. IMPRESSION: 1. Mild distention/dilatation of the ascending thoracic aorta 2. Punctate nodule right base. Suggest follow-up screening chest CT 12 Interpreted By: Court Marie MD NIA GHOTRA MD [address] [place], [address], [facility] 12/22/2023 15:01:36 Problems Name Problem SNOMED Code Status Onset Date Resolution Date Notes Provider Name and Address Organization Details Recorded Time Right bundle branch block 25444290 Active 2015 From [employer];Prov ider: Court Cruz;Stat us: Active Not Available [facility] 7 02:22:11 Headache 79424547 Active 2018 [facility] 9 14:32:33 Low back pain 434153753 Active 2019 [place] [facility] 0 14:25:55 Dyspnea 383232846 Active 2023 [facility] 15:10:55 Coronary arteriosc lerosis in [place] artery 95426658282 07 Active 2015 From Automated Load;Prov ider: Court Cruz;Stat us: Active Not Available [facility] 6 04:41:35 Hyperlipi tramia 15538931 Active 2015 From Automated Load;Prov ider: Court Cruz;Stat us: Active Not Available [facility] 6 04:41:35 Problem Notes None recorded. Procedures Surgical History Date Name Laterality Status Provider Name and Address Organization Details Recorded Time 12/12/19 24 Airway Resistance completed [facility] 12/12/2023 11:23:15 12/12/19 24 Diffusion Capacity completed [facility] 12/12/2023 11:23:10 12/12/19 24 Lung Volumes, Plethysmography completed [facility] 12/12/2023 11:23:12 12/12/19 24 Spirometry completed [facility] 12/12/2023 11:23:07 12/12/19 24 Pulmonary Function Testing completed YECENIA GREEN MD [address] [place] [address], [address], [facility] 12/12/2023 11:28:29 09/22/19 24 Stress Test - Nuclear Lexiscan completed GABRIELE ROSENBERG MD [address] [place] [address], [address], [facility] 09/22/2023 16:55:31 10/28/19 EKG completed Alyssia Ruiz [facility] 10/27/2022 10:32:39 05/28/19 20 Stress Test - Nuclear Lexiscan completed COURT CRUZ MD [address] [place] [address], [address], [facility] 05/28/2019 14:08:27 05/14/19 20 Electromyography (EMG) with Nerve Conduction Study (NCV) completed Yessenia Rodriguez (Camille) [facility] 05/14/2019 13:44:50 04/03/20 17 Stress Test - Nuclear completed COURT CRUZ MD [address] [place], [address], [facility] 04/03/2017 16:02:00 09/07/19 17 Electromyography (EMG) with Nerve Conduction Study (NCV) completed Yessenia (Citlali) Jennifer [facility] 09/06/2016 13:52:06 04/26/19 13 Cardiac Surgery completed Clare Chapito [facility] 03/11/2019 14:51:26 09/22/19 02 Cardiac Catheterization completed Clare Chapito [facility] 03/11/2019 14:51:26 CABG completed Zia Olea [facility] 09/01/2016 13:56:37 Prostate Surgery completed [facility] 09/01/2016 13:56:45 Cholecystectomy completed Dnaiela Beavers [facility] 03/07/2017 09:03:25 Imaging Results None recorded. Procedure Notes None recorded. Medical Equipment Implant ABBIE Issuing Agency Serial Number Lot Number Status Provider Name and Address Organization Details Recorded Time [employer] FDA L311 Y Mary Hart [facility] 10/28/2022 08:53:51 Allergies Allergen ID Allergen Name Allergen Category Reaction Reaction Severity Criticality Documentation Date Start Date Code Code System Note Provider Name and Address Organization Details Recorded Time 083115 Iodinated contrast media (substanc e) medicatio n Not available Not available Not available 03/11/20162008 21755 2003 SNOMED 2-202 0 PT claim s that he had cintr ast dye in 2019 witho ut a react ion.. . USE WITH CAUTI ON>. Jen mc [facility] 0 08:25:31 777687 Product containin g 3-hydroxy -3-methyl glutaryl- coenzyme A reductase inhibitor (product) medicatio n myalgias (muscle pain) Not available Not available 03/11/20162008 44366 009 SNOMED React ion: MYALG IA; INTOL ERANT OF MEDIC INE>> Jen mc [facility] 0 08:25:49 Medications Name Sig Start [...] % 99 % 93 /min 26.7 kg/m2 25859.4 6 g 132 mm[Hg] 78 mm[Hg] Jessi Morganitez [facility] 4 14:47:11 Date Recorded Body height Body mass index (BMI) Body weight Oxygen saturation Oxygen saturation in Arterial blood by Pulse oximetry Heart rate Systolic blood pressure Diastolic blood pressure Provider Name and Address Organization Details Last Updated DateTime 5 165.1 cm 28.7 kg/m2 07129.6 1 g 95 % 95 % 89 /min 128 mm[Hg] 70 mm[Hg] Jonathan Bush [facility] 5 11:23:44 Date Recorded Body height Body mass index (BMI) Body weight Heart rate Oxygen saturation Oxygen saturation in Arterial blood by Pulse oximetry Systolic blood pressure Diastolic blood pressure Provider Name and Address Organization Details Last Updated DateTime 4 165.1 cm 32.1 kg/m2 43352.3 3 g 97 /min 97 % 97 % 142 mm[Hg] 82 mm[Hg] Soraida Dixon [facility] 4 10:50:14 Date Recorded Body height Oxygen saturation Oxygen saturation in Arterial blood by Pulse oximetry Heart rate Body mass index (BMI) Body weight Systolic blood pressure Diastolic blood pressure Provider Name and Address Organization Details Last Updated DateTime 4 165.1 cm 97 % 97 % 70 /min 30.1 kg/m2 98183.2 2 g 126 mm[Hg] 80 mm[Hg] Jessi Colunga [facility] 4 14:07:52 Date Recorded Body height Body mass index (BMI) Body weight Heart rate Oxygen saturation Oxygen saturation in Arterial blood by Pulse oximetry Systolic blood pressure Diastolic blood pressure Provider Name and Address Organization Details Last Updated DateTime 4 165.1 cm 29.6 kg/m2 75401.4 4 g 59 /min 96 % 96 % 133 mm[Hg] 83 mm[Hg] Kellen Ochoa [facility] 4 11:36:00 Social History Question Answer Notes LastModified by [employer] Details LastModified Time Tobacco Smoking Status Never Smoker [facility] 09/01/2016 13:56:04 What Is Your Level Of Caffeine Consumption? None [email or web address] Information not available 09/01/2016 How Much Tobacco Do You Chew? None Information not available 03/11/2019 Which Illicit Or Recreational Drugs Have You Used? None Information not available 03/11/2019 Education 4 Year College [email or web address] Information not available 09/01/2016 Live Alone Or With Others? With Others Information not available 03/11/2019 Marital Status [email or web address] Informatio n not available 09/01/2016 What Was The Date Of Your Most Recent Tobacco Screening? 09/30/2024 [email or web address] Information not available 09/30/2024 What Is Your Relationship Status? Information not available 10/27/2022 How Much Tobacco Do You Smoke? No [email or web address] Information not available 09/01/2016 Have You Recently Traveled Abroad? No [email or web address] Information not available 10/27/2022 Sex: Male Functional Status Question Answer Note LastModified by [employer] Details LastModified Time What is your level of alcohol consumption? None [email or web address] Information not available 09/01/2016 Do you or have you ever used smokeless tobacco? Never used smokeless tobacco Information not available 03/11/2019 What is your occupation? [employer] [email or web address] Information not available 09/01/2016 Do you or have you ever used e-cigarettes or vape? Never used electronic cigarettes Information not available 03/11/2019 Mental Status None recorded. Family History Relationship Description Onset Age of this Age Resolved Age Notes LastModified by Organization Details LastModified Time Father Hypertensive disorder Not available 2016 13:55:25 Father Family history of stroke Not available 2018 14:50:51 Father Family history of malignant neoplasm Not available 2018 14:50:51 Father Diabetes mellitus [email or web address] Not available 2016 13:55:50 Mother Hypertensive disorder [email or web address] Not available 2016 13:55:25 Mother Family history [...] Problems N Chest Pain N Heart Attack (ID) N Diabetes N Cardiomyopathy N Heart Murmur N Congestive Heart Failure (CHF) N Hyperlipidemia Y Reflux/GERD Y Sleep Apnea N Warfarin Management N Heart Disease N Hypertension N Immunizations Vaccine Type Date Status Note Provider Nam e and Address Organization Details Recorded Time Influenza, split virus, quadrivalent, preservative 7 completed Daniela crawford [facility] 03/07/2017 14:33:04 Influenza, split virus, quadrivalent, preservative 9 completed Clare Uriarte [facility] 03/11/2019 14:45:47 pneumococcal, unspecified formulation 8 completed Clare Uriarte [facility] 03/11/2019 14:46:12 Past Encounters Encounter ID Performer Location Encounter Start Date Encounter Closed Date Diagnosis/Indication Diagnosis SNOMED-CT Code Diagnosis ICD10 Code Diagnosis Note [id number] ANGIE CAMARENA MD NEUROLOGY [facility] [address] [place] [address] 09/01/2016 13:48:24 09/01/2016 15:18:09 Neuropathy 259342430 G62.9 Idiopathic peripheral neuropathy 44449215 G60.9 Paresthesia 27266018 R20 .2 History of giant cell arteritis 1633854969 18157 Z86.79 [id number] ANGIE CAMARENA MD NEUROLOGY [facility] [address] [place] [address] 09/06/2016 13:25:19 09/09/2016 12:40:58 Paresthesia [address]011 R20.[id number] CRUZ MD CARDIOLOG Y [address] [place] [address] 03/07/2017 13:43:30 03/07/2017 15:48:21 Coronary arteriosclerosis in [place] artery 1064676664 107 I25.10 Medication changes, as well as [...] call for any change in status. Hyperlipidemia 03503775 E78.5 Managed by PCP. Right bund le branch block 57952799 I45.0 Atypical chest pain 1025 31054 R07.89 The patient's symptoms are unlikely to be cardiac. He was previously evaluated with a stress test in 2013 for atypical chest pain. The patient is however, feel that his symptoms are similar to what he experience d prior to his bypass surgery therefore we will arrange a Gabriele protocol stress Myoview study since he feels he's able to walk on a treadmill. [id number] COURT CRUZ MD HEART STATION [place] [address] [place] [address] 04/03/2017 12:08:37 04/04/2017 08:46:10 [id number] ANGIE CAMARENA MD NEUROLOGY [place] [facility] [address] [place] [address] 03/11/2019 14:29:45 03/11/2019 15:28:31 Low back pain 211404493 M54.5 Neuropathy 757778593 G62 [id number] CRUZ MD CARDIOLOG Y [place] [address] [place], [place] [address] 04/22/2019 11:41:49 04/22/2019 12:16:48 Coronary arteriosclerosis in [place] artery 9570643966 107 I25.10 Medication changes, as well as [...] call for any change in status. Hyperlipidemia 73703940 E78.5 Managed by PCP. Right bund le branch block [id number] I45.0 [id number] ANGIE CAMARENA MD NEUROLOGY [facility] [address] [place] [address] 1 05/14/2019 13:05:23 05/14/2019 15:11:19 Paresthesia 93780621 R20.2 [id number] ANGIE CAMARENA MD NEUROLOGY [place] [facility] [address] [place] [address] 05/14/2019 13:51:24 05/14/2019 15:52:05 Low back pain 916002083 M54.[id number] CRUZ MD CARDIOLOG Y [address] [place] [address] 05/20/2019 11:46:54 05/20/2019 14:03:14 Coronary arteriosclerosis in [place] artery [id number] 107 I25.118 Electrocar diogram shows right bundle branch block. No acute changes. I've ordered some baseline laboratory studies and will renew his nitroglyce rin prescripti on. He will have a Lexiscan stress test scheduled with follow-up in 2 weeks. Hyperlipidemia 87686206 E78.5 Managed by PCP. Right bund le branch block 04659493 I45.0 Chronic right bundle branch block. [id number] COURT CRUZ MD [facility]ART STATION [place] [address] [place], [place] [address] 05/28/2019 07:37:16 05/29/2019 08:24:[id number] CRUZ MD CARDIOLOG Y [address] [place] [address] 5 06/06/2019 13:48:48 06/06/2019 14:38:58 Coronary arteriosclerosis in [place] artery [id number] 107 I25.118 Electrocar diogram shows right bundle branch block. No acute changes. 05/28/19: LexiNGXT: NML, EF 65%. Patient reassured. No further testing advise at this time. Hyperlipidemia 75044921 E78.5 Managed by PCP. Right bund le branch block 82808834 I45.0 Chronic right bundle branch block. [id number] ANGIE CAMARENA MD NEUROLOGY SB CLOSED [address] [place] [address] 06/12/2019 14:23:47 06/12/2019 15:31:40 Low back pain 503341155 M54.[id number] CRUZ MD CARDIOLOG Y [address] [place] [address] 5 01/06/2020 13:28:15 01/06/2020 15:45:42 Coronary arteriosclerosis in [place] artery [id number] 107 I25.118 Electrocar diogram shows right bundle branch block. No acute changes. 05/28/19: LexiNGXT: NML, EF 65%. Patient reassured. No further testing advise at this time. Hyperlipidemia 73919708 E78.5 Managed by PCP. Right bund le branch block 68535508 I45.0 Chronic right bundle branch block. [id number] GABRIELE ROSENBERG MD CARDIOLOG Y [address] [address]NANDEZ,[address] [place], [place] [address] 01/27/2021 10:48:59 01/27/2021 11:18:23 Coronary arteriosclerosis in [place] artery [id number] 107 I25.118 History of PCI 09/26/2002 (Dr [...] Nitro for PRN usageRTC 1 year Hyperlipidemia 72782693 E78.5 Managed by PCP. Right bund le branch block 34392949 I45.0 Chronic right bundle branch block. No specific management required History of pulmonary embolus 798744515 Z86.711 On chronic Warfarin managed by PCP History of coronary artery bypass grafting 459568170 Z95.1 04/2012: 3v CABG Chronic ki dney disease stage 3B 061532973 N18.32 [id number] GABRIELE ROSENBERG MD CARDIOLOG Y [address] [place] [address] 10/27/2022 10:14:28 10/27/2022 11:19:35 Coronary arteriosclerosis in [place] artery 6994858397 107 I25.118 History of PCI 09/26/2002 (Dr Cruz):P CI of the LAD with 2.5 x 13 Cypher stentPCI of diagonal with 2.5 x 13 Cypher stent Coronary angiograph y 05/09/2012 showed severe three vessel disease and he underwent CABGLexisc an SPECT 05/28/2019: Normal perfusion, EF 65% History of coronary artery bypass grafting 714499793 Z95.1 04/2012: 3v CABG Hyperlipidemia 52856900 E78.5 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 History of pulmonary embolus 328176672 Z86.711 On chronic Warfarin managed by PCP Chronic ki dney disease stage 3B 847059121 N18.32 Cardiac pa cemaker in situ 620387689 Z95.0 [id number] GABRIELE ROSENBERG MD CARDIOLOG Y [address] [place] [address] 08/10/2023 13:52:20 08/10/2023 15:17:20 Coronary arteriosclerosis in [place] artery 2192687889 107 I25.118 History of PCI 09/26/2002 (Dr Cruz):P CI of the LAD with 2.5 x 13 Cypher stentPCI of diagonal with 2.5 x 13 Cypher stent Coronary angiograph y 05/09/2012 showed severe three vessel disease and he underwent CABGLexisc an SPECT 05/28/2019: Normal perfusion, EF 65% History of coronary artery bypass grafting 089597303 Z95.1 04/2012: 3v CABG Hyperlipidemia 82798647 E78.5 Right bund le branch block 97625512 I45.0 History of pulmonary embolus 744892592 Z86.711 On chronic Warfarin managed by PCP Chronic bryn travis disease stage 3B 932285497 N18.32 Cardiac pa cemaker in situ 657702724 Z95.0 Dyspnea on exertion 6084 5006 R06.09 [id number] GABRIELE ROSENBERG MD CARDIOLOG Y [address] [place] [address] 09/22/2023 12:10:13 09/22/2023 15:16:30 Coronary arteriosclerosis in [place] artery 4117187631 107 I25.118 History of PCI 09/26/2002 (Dr [...] abnormal. History of coronary artery bypass grafting 627844047 Z95.1 04/2012: 3v CABG Hyperlipidemia 05391754 E78.5 Right bund le branch block 77819068 I45.0 History of pulmonary embolus 212391152 Z86.711 On chronic Warfarin managed by PCP Chronic ki dney disease stage 3B 946312530 N18.32 Cardiac pa lynette in situ 868795141 Z95.0 Dyspnea on exertion 6084 5006 R06.09 [id number] GABRIELE ROSENBERG MD HEART STATION [address] ,[address] [place] [address] 09/22/2023 12:28:12 09/25/2023 13:13:10 [id number] YECENIA DANIELS-KIERA ESQUIVEL MD PULMONARY [address] [facility], [address] [place] [address] 12/12/2023 10:18:55 12/12/2023 12:30:34 Dyspnea 510865472 R06.00 New onset exertional dyspnea without any [...] his CT images been obtained. Coronary arteriosclerosis 36984893 I25.10 [id number] GABRIELE ROSENBERG MD CARDIOLOG Y [address] ,[address] [place] [address] 12/27/2023 13:21:44 12/27/2023 15:05:57 Coronary arteriosclerosis in [place] artery 2198750894 107 I25.118 History of PCI 09/26/2002 (Dr [...] abnormal. History of coronary artery bypass grafting 734770139 Z95.1 04/2012: 3v CABG Hyperlipidemia 14259645 E78.5 Right bund le branch block 32446520 I45.0 History of pulmonary embolus 244403284 Z86.711 On chronic Warfarin managed by PCP Chronic ki dney disease stage 3B 837255076 N18.32 Cardiac pa katrinaker in situ 884559999 Z95.0 Dyspnea on exertion 6084 5006 R06.09 [id number] YECENIA DANIELS-KIERA ESQUIVEL MD PULMONARY [address] [facility], [address] [place] [address] 12/28/2023 10:57:04 12/28/2023 11:58:18 Dyspnea 314492424 R06.00 Exertional dyspnea without any other upper [...] as-needed basis Multiple n odules of lung 360213918 R91.[address] (<6 mm) noncalcifi ed pulmonary nodules in this patient without any previous history of tobacco exposure nor environmen tiffany exposures, and overall low risk for a primary pulmonary neoplastic process. No indication for further imaging studies as per current Fleischner 's criteria [id number] GABRIELE ROSENBERG MD CARDIOLOG Y EAST [address] [place] [address] ,[address] [place] [address] 09/30/2024 10:49:25 09/30/2024 13:53:08 Coronary arteriosclerosis in [place] artery 8302156914 107 I25.118 History of PCI 09/26/2002 (Dr [...] abnormal. History of coronary artery bypass grafting 621068688 Z95.1 04/2012: 3v CABG Hyperlipidemia 18343332 E78.5 Right bund [place] branch block 20718019 I45.0 History of pulmonary embolus 528582334 Z86.711 On chronic Warfarin managed by PCP Luz Maria clemente dney disease stage 3B 052338380 N18.32 Cardiac pa cemaker in situ 123096881 Z95.0 Device: FilterEasy dual-chamb er pacemaker systemImpl ant: 05/10/2022M ode: DDDR 60 Dyspnea on exertion 6084 5006 R06.09 Health Concerns Section Related Observation LastModified by Organization Detai ls LastModified Time None Recorded Concern Status LastModified by Organization Details LastModified Time None Recorded Advance Directives Directive None Recorded Payers Insurance Date Sequence Insurance Name Policy Number Policy Araiza Covered Member ID Araiza Member ID Guarantor Name 10/07/2024 1 [employer] (MEDICARE REPLACEMENT/A DVANTAGE - PPO) Sesar Pemberton [id number] Sesar Pemberton 08/21/2020 PAYMENT PLAN Sesar Pemberton [...] subsequently been on warfarin managed by Dr. Robledo. 08/11/2023: Earlier than scheduled visit due to concerns about dyspneaa. CAD s/p PCI 2002 and CABG 2013b. History of PE June. [employer] dual-chamber pacemaker implant 05/11/2022 (Dr Brumfield)Former patient of Dr Court Cruz from [place], [place]. As noted in his patient case, [...] and CABG 2013b. History of PE June. [employer] dual-chamber pacemaker implant 05/11/2022 (Dr Brumfield)Former patient of Dr Court Cruz from [place], [place]. As previously discussed, Mr. Pemberton had [...] now around 90% RVP. GABRIELE ROSENBERG MD [address] [place] [address], [phone], [facility] 09/23/2023 09:41:53 12/12/2023 text/html Patient comes in [...] disease. PFTs are unremarkable YECENIA GHOTRA MD [address] [place] [address], [phone], [facility] 12/12/2023 11:44:54 12/27/2023 text/html CARDIOVASCULAR HISTORY:# Coronary artery disease s/p PCI 2002 and CABG . 09/26/2002 (Dr Cruz) PCI of LAD and [...] subsequently been on warfarin managed by Dr. Robledo. 09/21/2023: Followup visit re: concerns about dyspneaa. CAD s/p PCI 2002 and CABG 2013b. History of PE June. [employer] dual-chamber pacemaker implant 05/11/2022 (Dr Brumfield)Former patient of Dr Court Cruz from [place], [place]. As previously discussed, Mr. Pemberton had [...] and CABG 2013b. History of PE June. [employer] dual-chamber pacemaker implant 05/11/2022 (Dr Brumfield)Former patient of Dr Cuort Cruz from [place], [place]. As previously discussed, Mr. Pemberton had [...] follow-up screening chest CT GABRIELE ROSENBERG MD [address] [place] [address], [phone], [facility] 12/27/2023 18:36:40 12/28/2023 text/html Patient comes in [...] which has remained stable. YECENIA GHOTRA MD [address] [place] [address], [phone], [facility] 12/28/2023 11:49:59 09/30/2024 text/html CARDIOVASCULAR HISTORY:# Coronary artery disease [...] subsequently been on warfarin managed by Dr. Robledo. 12/27/2023: 3 month recheckLabwork of 12/12/2023 was reviewed:CBC: NormalBMP: Creatinine 1.50, potassium 4.7 CT chest 12/22/2023:1. Mild distention/dilatation of the ascending thoracic aorta2. Punctate nodule right base. Suggest follow-up screening chest CT 09/30/2024: 6 month rechecka. CAD s/p PCI 2002 and CABG 2013b. History of PE June 2018c. [employer] dual-chamber pacemaker implant 05/11/2022 (Dr Brumfield)Former patient of Dr Court Cruz from [place], [place]. Since his last visit, he reports [...] with him.See scanned document for complete results.Device: [employer] dual-chamber pacemaker systemImplant: 05/10/2022Mode: DDDR 60Pacing: AP 14%, RVP 95%Events: ATR x1.No permanent programming changes were made to his device. GABRIELE ROSENBERG MD [address] [place], [address], [facility] 09/30/2024 20:28:17
--- OUTSIDE RECORDS SUMMARY | 2024-10-16 13:03 | XMS_ITS | Encounter Summary ---
Author Organization [employer] [facility] ([place], [place], [place], [place]) Address [address] [place] [address] Care Team Providers Care Beamer Hand Name Role Phone Unavailable Primary Care Provider Unavailabl e Encounter Details Date Type Department Care Team (Late st Contact Info) Description 06/28/[address] [facility] Family Medicine [address] [place] [address] ProviderAngelique MD [address] [place] [address] Social History Tobacco Use Types Packs/Day Years Used Date Smoking Tobacco: Never Assessed Sex and Gender Information Value Date Recorded Sex Assigned at Not on file Legal Sex Male 3:45 PM CDT Gender Identity Not on file Sexual Orientation Not on file documented as of this encounter Miscellaneous Notes * Cerner Conversion Note - Angelique Prajapati MD - 06/28/2018 8:54 AM CDT Patient: SESAR FU Age: 77 years Sex: Male : 1940 Associated Diagnoses: None Author: THU ARAGON MD Refering Physician: Dr. Narvaez Reason for Consult: Pulmonary Embolism Basic Information CC: shortness of breath with exertion, lower extremity swelling HPI: This is a 77-year-old male with a past medical history significant for bilateral lower extremity DVTs who presented to an [facility] for complaints of numbness in the lower extremities over the last 2 weeks. 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 On morning of presentation patient woke up with moderate edema and swelling of the right lower extremity and some mild discomfort. He went to the [facility] emergency department where he had a lower extremity venous duplex and a CT PE protocol. It was found he had a right lower extremity acute DVT as well as a reported bilateral pulmonary embolism. He was started on a heparin drip and transferred to [facility] for further evaluation and treatment. We've been asked to see him today for pulmonary embolism. Past Medical History: History of bilateral lower extremity DVTs CAD Hypertension Hyperlipidemia Prostate cancer Past surgical history: Left heart catheter with stents CABG Cholecystectomy Prostate cancer surgical intervention Family history: Diabetes Cancer CVA Social history: Patient is a nonsmoker. No drug or alcohol abuse history. Review of Systems Constitutional: Decreased activity, No fever. Eye: No recent visual problem. Ear/Nose/Mouth/Throat: No decreased hearing. Respiratory: Shortness of breath (with exertion), No cough, No sputum production, No wheezing. [...] of Breath Lipitor: 10 mg, Oral, Weekly MiraLax: 17 Gram, Oral, Daily, PRN: Constipation Pepcid: 20 mg, Oral, Q12H Tylenol: 650 mg, Oral, Q4H, PRN: Pain (Mild 1-3) Zofran: 4 mg, IV Push, Q4H, PRN: Nausea aspirin: 81 mg, Oral, Daily heparin injection 25,000 Units + NaCl 0.45% Premix Diluent 250 mL: Titrate, IntraVENous lisinopril: 10 mg, Oral, Daily morphine: 2 mg, IV Push, Q2H, PRN: Pain (Severe 7-10) Documented Medications Documented CeleBREX 200 mg oral capsule: 1 Cap, Oral, Daily, 60 Cap, 0 Refill(s) gabapentin 100 mg oral capsule: Cap, Oral, Daily, 0 Refill(s) lisinopril 10 mg oral tablet: Tab, Oral, Daily, 0 Refill(s) lovastatin 40 mg oral tablet: Tab, Oral, Weekly, 0 Refill(s), Medications (11) Active Scheduled: (4) aspirin EC 81 mg tab 81 mg 1 Tab, Oral, Daily atorvastatin 10 mg tab 10 mg 1 Tab, Oral, Weekly famotidine 20 mg tab 20 mg 1 [...] At risk for sleep apnea / IMO 10842824 / Confirmed Hx of temporal arteritis / SNOMED CT 227346654 / Confirmed, Active Problems (2) At risk for sleep apnea Hx of temporal arteritis Physical Examination VS/Measurements Vitals Signs (last 24 hrs) Last Charted Minimum Maximum Temp 99.4 (JUN 28 06:41) 99.4 (JUN 28 06:41) 99.4 (JUN 28 06:41) Mon HR 97 (JUN 28 06:41) 91 (JUN 28 00:00) 97 (JUN 28 06:41) Resp Rate 18 (JUN 28 06:41) 16 (JUN 28 00:00) 18 (JUN 28 06:41) SBP H 156 (JUN 28 06:41) 132 (JUN 28 00:00) H 156 (JUN 28 06:41) DBP H 104 (JUN 28 06:41) 79 (JUN 28 04:00) H 104 (JUN 28 06:41) MAP 116 (JUN 28 06:41) 94 (JUN 28 04:00) 116 (JUN 28 06:41) SpO2 94 (JUN 28 06:41) L 92 (JUN 28 04:00) 94 (JUN 28 06:41) Intake & Output Totals Last 24 Hours (7a-7a) Intake (0 Events) No intake events found in the last 24 hours. Output (1 Events) Urine Voided (Volume) (350 mL) Input Total: 0 mL Output Total: 350 mL Balance: -350 mL General: Alert and oriented, No acute [...] Normal range of motion. Integumentary: Warm, Dry, [place], Intact. Neurologic: Alert, Oriented, No focal deficits. [...] 91 (JUN 28) Ca 8.9 (JUN 28) . No Radiology Results Found Impression and [...] Hx previous BLE DVT 3. Temporal arteritis Giantr cell arteritis Start prednisone 40 mg daily; taper over a week to 10, to stay at 10 mg daily until sees us in clinic Plan: Supplemental O2 as needed Currently on Heparin gtt for anticoagulation;suggest to switch to oral Will send studies for hypercoagulable work up including Factor V, Antiphospholipid and cardiolipin. Protein C, S and antithrombin IIIshould not be tested while patient on anticoagulation; false positive results Will Check ESR, CRP to eval temporal arteritis disease activity Echocardiogram pending Patient will need a lifelong anticoagulation therapy due to second episode of DVT. He is at risk of DVT/PE due to his underlying Giant cell arteritis; Patient can be placed on lovenox or staright forward to po anticoagualtion such as Xa inhibitor. Heparine is not preferred anticoagualtion in stable and non surgical setting documented in this encounter Plan of Treatment Not on file documented as of this encounter Visit Diagnoses Not on filedocumented in this encounter
--- OUTSIDE RECORDS SUMMARY | 2024-10-16 13:03 | XMS_ITS | Clinical Summary ---
Author Organization [facility] Address [address] [place] [address] Care Team Providers Care Hose Finisher Name Role Phone Giovani Pendleton MD Primary Care Provider [phone] Dayne Flaherty MD Unavailable [phone] Allergies No known active allergies Medications cholecalciferol (Vitamin D3) 1.25 MG (54597 UT) capsule Vitamin D3 1 QD Active lisinopril 10 MG tablet Take 10 mg by mouth 1 (one) time each day. 11/15/19 21 Active lisinopril 10 MG tablet lisinopril 10 mg tablet Active nitroglycerin (Nitrostat) 0.4 MG SL tablet nitroglycerin 0.4 mg sublingual tablet DISSOLVE ONE TABLET UNDER THE TONGUE EVERY 5 MINUTES NEEDED FOR CHEST PAIN. DO NOT EXCEED A TOTAL OF 3 DOSES IN 15 MINUTES Active predniSONE (Deltasone) 20 MG tablet TAKE 1 & 1/2 (ONE & ONE-HALF) TABLETS BY MOUTH TWICE DAILY FOR 21 DAYS 09/11/19 22 Active omeprazole OTC (PriLOSEC OTC) 20 MG EC tablet omeprazole 20 mg tablet,delayed release TAKE 1 TABLET BY MOUTH ONCE DAILY Active traMADol (Ultram) 50 MG tablet tramadol 50 mg tablet take 1 or 2 tablets Q4H not to exceed 8 per day Active sucralfate (Carafate) 1 g tablet TAKE 1 TABLET BY MOUTH 4 TIMES DAILY BEFORE MEAL(S) AND AT BEDTIME 06/19/19 22 Active warfarin (Coumadin) 2.5 MG tablet Take 2.5 mg by mouth 1 (one) time each day. 07/25/19 22 Active warfarin (Coumadin) 2.5 MG tablet warfarin 2.5 mg tablet Active lisinopril 5 MG tablet Take 5 mg by mouth 1 (one) time each day. 08/27/19 22 Active enoxaparin (Lovenox) 30 MG/0.3ML solution prefilled syringeIndicati ons:Deep vein thrombosis (DVT) of proximal lower extremity, unspecified chronicity, unspecified laterality Inject one syringe subcutaneously every 12 hours on September 30, , , and with the last dose being the morning of the October 04. 2.7 mL 09/23/19 22 Active Active Problems No known active problems Social History Tobacco Use Types Packs/Day Years Used Date Smoking Tobacco: Never Smokeless Tobacco: Never Alcohol Use Standard Drinks/Week Comments Never 0 (1 standard drink = 0.6 oz pur e alcohol) Sex and Gender Information Value Date Recorded Sex Assigned at Not on file Legal Sex Male 7:31 PM EDT Gender Identity Not on file Sexual Orientation Not on file Last Filed Vital Signs Vital Sign Reading Time Taken Comments Blood Pressure 118/78 09/22/2021 11:12 AM EDT Pulse 91 09/22/2021 11:12 AM EDT Temperature - - Respiratory Rate - - Oxygen Saturation 97% 09/22/2021 11:12 AM EDT Inhaled Oxygen Concentration - - Weight 80.7 kg (178 lb) 09/22/2021 11:12 AM EDT Height - - Body Mass Index - - Plan of Treatment Health Maintenance Due Date Last Done Comments [facility]-Depression Screening 1940 [facility]-Medicare Annual Wellness (AWV) 1940 [facility]-Infant/Child/Adol SDOH Screenings 1940 [id number] Vaccine (#1) 1945 [facility]- SDOH Screenings 1958 [facility]-Adult SDOH Screenings 1958 [facility]-DTaP,Tdap,and Td Vaccines (1 - Tdap) 07/13/1959 [facility]-Zoster Vaccines (1 of 2) 07/13/1959 [facility]-RSV Vaccine: 60+ Years or (1 - 1-dose 75+ series) 07/13/2015 [facility]-Pneumococcal Vaccine: 50+ Years (2 of 2 - PPSV23) 05/23/2017 04/17/2017, 05/23/2016 [facility]-Influenza Vaccine (Season Ended) 2024 03/04/2019, 02/07/2018, 02/15/2017 HPV Vaccines Aged Out No longer eligi ble based on patient's age to complete this topic [facility]-HIB Vaccines Aged Out No longer e ligible based on patient's age to complete this topic [facility]-Hepatitis A Vaccines Aged Out No longer eligible based on patient's age to complete this topic [facility]-IPV Vaccines Aged Out No longer e ligible based on patient's age to complete this topic [facility]-Rotavirus Vaccines Aged Out No lo nger eligible based on patient's age to complete this topic Insurance [employer] Care Teams Hose Finisher Relationship Specialty Start Date End Date Giovani Pendleton MD [address] [facility] [address] [place] [address] PCP - General 09/10/21 Dayne Flaherty MD [address] [facility] [address] [place] [address] Consulting Physician Neurosurgery 09/22/21
--- OUTSIDE RECORDS SUMMARY | 2024-10-16 13:03 | XMS_ITS | Encounter Summary ---
Author Organization [employer] ([place], [place], [place], [place]) Address [address] [place] [address] Care Team Providers Care Livestock Nutritionist Name Role Phone Unavailable Primary Care Provider Unavailabl e Encounter Details Date Type Department Care Team (Late st Contact Info) Description 07/10/2018 Transcribed Document [facility] Family Medicine [facility] [place] [address] ProviderAngelique MD [address] [place] [address] [id number] Social History Tobacco Use Types Packs/Day Years Used Date Smoking Tobacco: Never Assessed Sex and Gender Information Value Date Recorded Sex Assigned at Not on file Legal Sex Male 3:45 PM CDT Gender Identity Not on file Sexual Orientation Not on file documented as of this encounter Miscellaneous Notes * Cerner Conversion Note - Historical ProviderMD - 07/10/2018 10:48 AM CDT Post Visit Phone Call Entered On: 07/10/2018 10:52 EDT Performed On: 07/10/2018 10:48 EDT by Brenda Ruiz Rn Post Visit Phone Call Post Visit Phone Call History : First call, Second call, Third call, Left message Contact Relationship to Patient : Spouse Emergency Room Visit Since DC : No Adequate Pain Control After Visit : Yes Symptoms of Fever : No Symptoms of Nausea or Vomiting : No Adequate Fluid Intake : Yes Food Intake, Post Visit : Fair Bowel/Bladder Concerns : No Mobility Progressing or Maintained as Expected : Yes Discharge Instructions Understood : Yes Follow-Up Actions : None Brenda Ruiz Rn - 07/10/2018 10:48 EDT documented in this encounter Plan of Treatment Not on file documented as of this encounter Visit Diagnoses Not on filedocumented in this encounter
[2024-10-16 14:20] LABS: PHA INR Fingerstick 2.1 (0.9-1.1)
== END 2024-10-16 15:49 ==
LOC: ACC 12:59
PROVIDERS: PCP Internal Medicine Adolescent Medicine; Visit Provider Internal Medicine Adolescent Medicine
DX: Z76.89 Persons encountering health services in other specified circumstances (principal); Z86.711 Personal history of pulmonary embolism
CPT/HCPCS: 85610; 99211; G0463

== ENCOUNTER 2024-11-08 18:35 | Emergency (ER) | payer MEDICARE, SELFPAY ==
[2024-11-08] VITALS (8 sets, daily range): BP systolic 132–158; BP diastolic 98–108; PULSE 67–107; RESP 16–18; TEMP -12.4–37; O2SAT 95–98; BMI 25.5
--- NOTE | 2024-11-08 18:56 | ECG_ITS ---
APPROVED REPORT Exam: Resting ECG HR:103 bpm ECG Measurements Heart Rate 103 AXES ND 277 P 36 QRSd 182 QRS -65 QT 441 T 91 QTc 501 Conclusion ELECTRONIC VENTRICULAR PACEMAKER ABNORMAL RHYTHM ECG Electronically signed by : MAYTE ARISA, 11/10/2024 07:28:13
--- OUTSIDE RECORDS SUMMARY | 2024-11-08 18:57 | XMS_ITS | Encounter Summary ---
Author Organization [employer] ([place], [place], [place], [place]) Address [address] [place] [address] Care Team Providers Care Configuration Analyst Name Role Phone Unavailable Primary Care Provider Unavailabl e Encounter Details Date Type Department Care Team (Late st Contact Info) Description 06/29/2018 Transcribed Document [facility] Family Medicine [facility] [place] [address] ProviderAngelique MD [address] [place] [address] [phone] Social History Tobacco Use Types Packs/Day Years [...] Male : 1940 Chief Complaint: transferred from [facility] with SOA, RLE swelling, DVT, bilat PE Subjective Had extensive discussion about anticoagulants once again and employment evaluator/case manager confirms that his insurance will not [...] Daily Lovenox, 90 mg= 0.9 mL, SubCutaneous, [id number] MiraLax, 17 Gram= 1 Packet, Oral, Daily, [...]
--- OUTSIDE RECORDS SUMMARY | 2024-11-08 18:57 | XMS_ITS | Encounter Summary ---
Author Organization [employer] ([place], [place], [place]) Address [address] [place] [address] Care Team Providers Care Hot Repairman Name Role Phone Unavailable Primary Care Provider Unavailabl e Encounter Details Date Type Department Care Team (Late st Contact Info) Description 06/29/2018 Transcribed Document [facility] [place] [facility] [address] ProviderAngelique MD [address] [place] [phone] Social History Tobacco Use Types Packs/Day Years [...] lower extremity DVTs who presented to an [facility] for complaints of numbness in the lower extremities over the last 2 weeks. 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 On morning of presentation patient woke up with moderate edema and swelling of the right lower extremity and some mild discomfort. He went to the [facility] emergency department where he had a lower extremity venous duplex and a CT PE protocol. It was found he had a right lower extremity acute DVT as well as a reported bilateral pulmonary embolism. He was started on a heparin drip and transferred to [facility] for further evaluation and treatment. We've [...] mg, Oral, Weekly Lovenox: 90 mg, SubCutaneous, [id number] MiraLax: 17 Gram, Oral, Daily, PRN: Constipation [...] mL inj 90 mg 0.9 mL, SubCutaneous, [id number] famotidine 20 mg tab 20 mg 1 [...] At risk for sleep apnea / IMO [id number] / Confirmed Hx of temporal arteritis / SNOMED CT [id number] / Confirmed, Active Problems (2) At risk [...] Normal range of motion. Integumentary: Warm, Dry, [place], Intact. Neurologic: Alert, Oriented, No focal deficits. [...]
--- OUTSIDE RECORDS SUMMARY | 2024-11-08 18:57 | XMS_ITS | Encounter Summary ---
Author Organization [employer] ([place]) Address [address] [place] [address] Care Team Providers Care Peripheral Edp Equipment Operator Name Role Phone Unavailable Primary Care Provider Unavailabl e Encounter Details Date Type Department Care Team (Late st Contact Info) Description 06/28/2018 Transcribed Document [facility] [place] Family Medicine [address] [place] [address] ProviderAngelique MD [address] [place], [place] [id number] Social History Tobacco Use Types Packs/Day Years [...] LINDA CRESPO PT - 06/28/2018 12:21 EDT documented in this encounter Plan of Treatment Not on file documented as of this encounter Visit Diagnoses Not on filedocumented in this encounter
--- OUTSIDE RECORDS SUMMARY | 2024-11-08 18:57 | XMS_ITS | Encounter Summary ---
Author Organization [employer] ([place]) Address [address] [place] [address] Care Team Providers Care Housekeeping Attendant Name Role Phone Unavailable Primary Care Provider Unavailabl e Encounter Details Date Type Department Care Team (Late st Contact Info) Description 06/27/2018 Transcribed Document [facility] [place] [facility] [place] [address] ProviderAngelique MD [address] [place] [address] [phone] Social History Tobacco Use Types Packs/Day Years [...] 07/02/2018 10:18 EDT Care Management Note : [facility] is not covered by [facility]. Spoke with Silva. She arranged with [facility] through [facility] Care Management Note Report : CYNTHIA FRANKLIN, Blue Prints Trimmer-Care Management - 06/29/18 10:19:32 pt is alert and oriented, he agrees that a nurse coming in and checking on him after his hospital stay would be helpful. he will be on Coumadin. pt and are very pleasant. will support POC and assess for any further DC needs. rj Documentation Status Complete : Yes TAVO JAMES RN - 06/29/2018 12:41 EDT documented in this encounter Plan of Treatment Not on file documented as of this encounter Visit Diagnoses Not on filedocumented in this encounter
--- OUTSIDE RECORDS SUMMARY | 2024-11-08 18:57 | XMS_ITS | Encounter Summary ---
Author Organization [employer] ([place]) Address [address] [place] [address] Care Team Providers Care Air Crew Supervisor Name Role Phone Unavailable Primary Care Provider Unavailabl e Encounter Details Date Type Department Care Team (Late st Contact Info) Description 06/30/2018 Transcribed Document [facility] [place] [address] [place] [address] ProviderAngelique MD [address] [place], [place] [phone] Social History Tobacco Use Types Packs/Day Years Used Date Smoking Tobacco: Never Assessed Sex and Gender Information Value Date Recorded Sex Assigned at Not on file Legal Sex Male 3:45 PM CDT Gender Identity Not on file Sexual Orientation Not on file documented as of this encounter Miscellaneous Notes * Cerner Conversion Note - Historical ProviderMD - 06/30/2018 2:00 AM CDT Flame Gouger Details Entered On: 06/30/2018 1:31 EDT Performed [...]
--- OUTSIDE RECORDS SUMMARY | 2024-11-08 18:57 | XMS_ITS | Encounter Summary ---
Author Organization [employer] ([place]) Address [address] [place] [address] Care Team Providers Care Quad Stayer Name Role Phone Unavailable Primary Care Provider Unavailabl e Encounter Details Date Type Department Care Team (Late st Contact Info) Description 06/29/2018 Transcribed Document [facility] [place] Family Medicine [address] [place] [address] ProviderAngelique MD [address] [place], [place] [phone] Social History Tobacco Use Types Packs/Day Years [...]
--- OUTSIDE RECORDS SUMMARY | 2024-11-08 18:57 | XMS_ITS | Encounter Summary ---
Author Organization [employer] ([place]) Address [address] [place] [address] Care Team Providers Care Expeller Worker Name Role Phone Unavailable Primary Care Provider Unavailabl e Encounter Details Date Type Department Care Team (Late st Contact Info) Description 06/27/2018 Transcribed Document [facility] [place] Family Medicine [address] [place] [address] ProviderAngelique MD [address] [place], [place] [phone] Social History Tobacco Use Types Packs/Day Years [...]
--- OUTSIDE RECORDS SUMMARY | 2024-11-08 18:57 | XMS_ITS | Encounter Summary ---
Author Organization [employer] ([place]) Address [address] [place] [address] Care Team Providers Care Web Programmer Name Role Phone Unavailable Primary Care Provider Unavailabl e Encounter Details Date Type Department Care Team (Late st Contact Info) Description 06/27/2018 Transcribed Document [facility] [place] Family Medicine [facility] [place] [address] ProviderAngelique MD [facility] [place], [place] 975221 Social History Tobacco Use Types Packs/Day Years [...] directive, Living will, Medical durable power of business attorney (proxy) Copy Advance Directive Verified/on Chart : [...] : daughter Chief Complaint : transferred from [facility] with SOA, RLE swelling, DVT, bilat PE Information Obtained From : Patient Primary Language : [place] Timorese Communication Barrier : None Lizzy Balbuena RN [...] Scale Risk Level : 25-45 Medium Risk Cadet Fall Interventions : Adequate lighting, Assistive devices [...] Source : Stated Height Entry Format : Charlton Height, Feet : 5 ft(Converted to: 152 cm, 60 Inch) Height, Inches : 8 Inch(Converted to: 0 ft 8 Inch, 20.32 cm) Clinical Height : 172.72 cm Weight Source : Bed scale Weight Entry Format : Charlton Clinical Dosing Weight : 89.55 kg Weight, Pounds : 197 lb Body Surface Area (BSA) : 2.03 m2 Body Mass Index : 30 kg/m2 (HI) Hamler Body Weight : 67 kg Lizzy Balbuena [...] RN - 06/27/2018 19:53 EDT Spiritual/Cultural Needs Christianity Preference : Mosque Lizzy Balbuena RN - 06/27/2018 19:53 EDT Valuables and Belongings Valuables and Belongings : Clothing, Personal devices Clothing : Common streetwear Clothing Disposition : With patient Personal Device Disposition : With patient Personal Devices : Dentures, lower, Dentures, partial plate, Glasses Lizzy Balbuena, TOMASZ - 06/27/2018 19:53 EDT Electronically signed by Ronny [facility] Conversion Plating Department Helper Cerner at 08/05/2022 1:33 PM CDT documented in this encounter Plan of Treatment Not on file documented as of this encounter Visit Diagnoses Not on filedocumented in this encounter
--- OUTSIDE RECORDS SUMMARY | 2024-11-08 18:57 | XMS_ITS | Encounter Summary ---
Author Organization [employer] ([place]) Address [address] [place] [address] Care Team Providers Care Software Business Analyst Name Role Phone Unavailable Primary Care Provider Unavailabl e Encounter Details Date Type Department Care Team (Late st Contact Info) Description 06/28/2018 Transcribed Document [facility] [place] [address] [place] [address] ProviderAngelique MD [address] [place], [place] [phone] Social History Tobacco Use Types Packs/Day Years [...] HOLLEY Pierre OTR/Kathia - 06/28/2018 11:22 EDT Electronically signed by Kimberly Jefferson Conversion Optical Laboratory Technician Cerner at 08/05/2022 1:07 PM CDT documented in this encounter Plan of Treatment Not on file documented as of this encounter Visit Diagnoses Not on filedocumented in this encounter
--- OUTSIDE RECORDS SUMMARY | 2024-11-08 18:57 | XMS_ITS | Encounter Summary ---
Author Organization [employer] ([place]) Address [address] [place] [address] Care Team Providers Care Performance Reporter Name Role Phone Unavailable Primary Care Provider Unavailabl e Encounter Details Date Type Department Care Team (Late st Contact Info) Description 06/29/2018 Transcribed Document [facility] [place] Medicine [facility] [place] [address] ProviderAngelique MD [address] [place] [address] [phone] Social History Tobacco Use Types Packs/Day Years [...] LINDA CRESPO PT - 06/29/2018 11:20 EDT Electronically signed by Kimberly Jefferson Conversion Librarian Special Collections Cerner at 08/05/2022 1:08 PM CDT documented in this encounter Plan of Treatment Not on file documented as of this encounter Visit Diagnoses Not on filedocumented in this encounter
--- OUTSIDE RECORDS SUMMARY | 2024-11-08 18:57 | XMS_ITS | Referral Summary ---
Author Organization [employer] ([place]) Address [address] [place] [address] Care Team Providers Care Digital Production Operator Name Role Phone Unavailable Primary Care [...]
--- OUTSIDE RECORDS SUMMARY | 2024-11-08 18:57 | XMS_ITS | Encounter Summary ---
Author Organization [employer] ([place]) Address [address] [place] [address] Care Team Providers Care Microsoft Net Developer Name Role Phone Unavailable Primary Care Provider Unavailabl e Encounter Details Date Type Department Care Team (Late st Contact Info) Description 06/27/2018 Transcribed Document [facility] [place] Medicine [facility] [place] [address] ProviderAngelique MD [address] [place] [address] [phone] Social History Tobacco Use Types Packs/Day Years [...]
--- OUTSIDE RECORDS SUMMARY | 2024-11-08 18:57 | XMS_ITS | Encounter Summary ---
Author Organization [employer] ([place]) Address [address] [place] [address] Care Team Providers Care Director Data Analytics Name Role Phone Unavailable Primary Care Provider Unavailabl e Encounter Details Date Type Department Care Team (Late st Contact Info) Description 06/27/2018 Transcribed Document [facility] [place] [facility] [place] [address] ProviderAngelique MD [address] [place] [address] [phone] Social History Tobacco Use Types Packs/Day Years [...] Assessment, OT Orientation : Oriented x 4 HOLLEY JACKSON ROSSI/Kathia - 06/29/2018 15:16 EDT Indication Assessment, OT [...] 1 HOLLEY JACKSONROSSI/Kathia - 06/29/2018 15:16 EDT documented in this encounter Plan of Treatment Not on file documented as of this encounter Visit Diagnoses Not on filedocumented in this encounter
--- OUTSIDE RECORDS SUMMARY | 2024-11-08 18:57 | XMS_ITS | Encounter Summary ---
Author Organization [employer] ([place]) Address [address] [place] [address] Care Team Providers Care Body Specialist Name Role Phone Unavailable Primary Care Provider Unavailabl e Encounter Details Date Type Department Care Team (Late st Contact Info) Description 06/29/2018 Transcribed Document [facility] [place] [address] [place] [address] ProviderAngelique MD [address] [place], [place] [phone] Social History Tobacco Use Types Packs/Day Years Used Date Smoking Tobacco: Never Assessed Sex and Gender Information Value Date Recorded Sex Assigned at Not on file Legal Sex Male 3:45 PM CDT Gender Identity Not on file Sexual Orientation Not on file documented as of this encounter Miscellaneous Notes * Cerner Conversion Note - Historical ProviderMD - 06/29/2018 2:00 AM CDT Brace Maker Details Entered On: 06/29/2018 5:35 EDT Performed [...] Lizzy Balbuena RN - 06/29/2018 5:35 EDT documented in this encounter Plan of Treatment Not on file documented as of this encounter Visit Diagnoses Not on filedocumented in this encounter
--- OUTSIDE RECORDS SUMMARY | 2024-11-08 18:57 | XMS_ITS | Encounter Summary ---
Author Organization [employer] ([place]) Address [address] [place] [address] Care Team Providers Care Machine Ceramic Coater Name Role Phone Unavailable Primary Care Provider Unavailabl e Encounter Details Date Type Department Care Team (Late st Contact Info) Description 06/29/2018 Transcribed Document [facility] [place] [address] ProviderAngelique MD [address] [place] [address] [phone] Social History Tobacco Use Types Packs/Day Years [...] Physician : Reynaldo Jauregui Durable Power of Child Life Assistant Name : No Emergency Contact #1 : [...] very pleasant, I thanked them for choosing [facility] and they seem content with the service. pt reports that he has had issues with Coumadin vs Elaquis before. Pts reports that if they lived in [facility] they would be able to get Part D with [employer] but because they live in [place] they can not. Pt is agreeable to [...] FRANKLIN Manager-Care Management - 06/29/2018 11:12 EDT documented in this encounter Plan of Treatment Not on file documented as of this encounter Visit Diagnoses Not on filedocumented in this encounter
--- OUTSIDE RECORDS SUMMARY | 2024-11-08 18:57 | XMS_ITS | Encounter Summary ---
Author Organization [employer] ([place]) Address [address] [place] [address] Care Team Providers Care Vice President Fixed Income Name Role Phone Unavailable Primary Care Provider Unavailabl e Encounter Details Date Type Department Care Team (Late st Contact Info) Description 06/27/2018 Transcribed Document [facility] [place] [facility] [place] [address] ProviderAngelique MD [address] [place] [address] [phone] Social History Tobacco Use Types Packs/Day Years [...]
--- OUTSIDE RECORDS SUMMARY | 2024-11-08 18:57 | XMS_ITS | Encounter Summary ---
Author Organization [employer] ([place]) Address [address] [place] [address] Care Team Providers Care Architect Intern Name Role Phone Unavailable Primary Care Provider Unavailabl e Encounter Details Date Type Department Care Team (Late st Contact Info) Description 06/30/2018 Transcribed Document [facility] [place] [address] ProviderAngelique MD [facility] [place], [place] 378191 Social History Tobacco Use Types Packs/Day Years [...] Male : 1940 Chief Complaint: transferred from [facility] with SOA, RLE swelling, DVT, [...] Daily Lovenox, 90 mg= 0.9 mL, SubCutaneous, [id number] MiraLax, 17 Gram= 1 Packet, Oral, Daily, [...] (Current Encounter/Past 24 Hours) PT 13.4 Second(s) [place] 06/30/2018 05:22 INR 1.2 [place] 06/30/2018 05:22 Creatinine Clearance (Current Encounter/Past 24 Hours) No Creatinine Clearance Results Found (Past 24 Hours) Electronically signed by Kimberly Jefferson Conversion Business Continuity Director Cerner at 08/05/2022 1:12 PM CDT documented in this encounter Plan of Treatment Not on file documented as of this encounter Visit Diagnoses Not on filedocumented in this encounter
--- OUTSIDE RECORDS SUMMARY | 2024-11-08 18:58 | XMS_ITS | Encounter Summary ---
Author Organization [employer] ([place]) Address [address] [place] [address] Care Team Providers Care Medical Specialist Name Role Phone Unavailable Primary Care Provider Unavailabl e Encounter Details Date Type Department Care Team (Late st Contact Info) Description 07/10/2018 Transcribed Document [facility] [place] [facility] [place] [address] ProviderAngelique MD [address] [place] [address] [phone] Social History Tobacco Use Types Packs/Day Years [...]
--- OUTSIDE RECORDS SUMMARY | 2024-11-08 18:58 | XMS_ITS | Encounter Summary ---
Author Organization [employer] ([place], [place], [place], [place]) Address [address] [place] [address] Care Team Providers Care Jewel Bearing Grinder Name Role Phone Unavailable Primary Care Provider Unavailabl e Encounter Details Date Type Department Care Team (Late st Contact Info) Description 07/01/2018 Transcribed Document [facility] [place] Family Medicine [facility] [place] [address] ProviderAngelique MD [address] [place] [address] Social History Tobacco Use Types Packs/Day Years Used Date Smoking Tobacco: Never Assessed Sex and Gender Information Value Date Recorded Sex Assigned at Not on file Legal Sex Male 3:45 PM CDT Gender Identity Not on file Sexual Orientation Not on file documented as of this encounter Miscellaneous Notes * Cerner Conversion Note - Angelique ProviderMD - 07/01/2018 1:24 PM CDT [address] [place] [address] Patient Copy Patient Information: Name: SESAR FU Current Date: 07/01/2018 13:24:38 : 1940 Patient Address: [address] [address] Patient Attending Physician: CATALINA MARIN MD-INT Primary [...] 03/22/2010 Document Revised: 09/08/2016 Document Reviewed: 07/29/2015 ElseHyprKey Interactive Patient Education ? [address] Deep Vein Thrombosis A deep vein [...] kale, broccoli, cabbage, anni greens, turnip greens, [place] sprouts, peas, cauliflower, seaweed, and parsley. ? Beef liver and pork liver. ? Green tea. ? Soybean oil. ??? Tell your health care provider about any and all medicines, vitamins, and supplements that you take, including aspirin and other zzws-vgb-gbzpqvm anti-inflammatory medicines. Be especially cautious with aspirin and anti-inflammatory medicines. Do not take those before you ask your health care provider if it is safe to do so. This is important because many medicines can interfere with warfarin and affect the PT and INR results. ??? Do notstart or stop taking any ltri-sfh-fqsfhgp or prescription medicine unless your health care [...] Avoid contact sports. General instructions ??? Take cxik-drc-rthnvmg and prescription medicines only as told by [...] 07/29/2015 Elsevier Interactive Patient Education ? [address] Medication Leaflets: aspirin (oral) ( pir [...] What is aspirin? Aspirin is a salicylate (fv-CGT-in-ate). It works by reducing substances in the [...] may report side effects to FDA at 8-359-WXC-3464. What other drugs will affect aspirin? Ask [...] drugs may affect aspirin, including prescription and vmti-sge-zzysfje medicines, vitamins, and herbal products. Not all [...] to ensure that the information provided by [employer]. ('Multum') is accurate, up-to-date, and complete, but no guarantee is made to that effect. Drug information contained herein may be time sensitive. Ullink information has been compiled for use by healthcare practitioners and consumers in the [place] and therefore Ullink does not warrant that uses outside of the [place] are appropriate, unless specifically indicated otherwise. LinkStorms drug information does not endorse drugs, diagnose patients or recommend therapy. LinkStorms drug information is an informational resource designed [...] effective or appropriate for any given patient. Ullink does not assume any responsibility for any aspect of healthcare administered with the aid of information Ullink provides. The information contained herein is not intended to cover all possible uses, directions, precautions, warnings, drug interactions, allergic reactions, or adverse effects. If you have questions about the drugs you are taking, check with your doctor, nurse or pharmacist. Copyright 3301-2305 [employer]. Version: 15.. Revision Date: 07/17/2017. warfarin (oral) [...] may report side effects to FDA at 2-275-CEB-9373. What other drugs will affect warfarin? Many drugs (including some nzhk-lma-lukeksp medicines and herbal products) can affect your [...] echinacea, garlic, ginkgo biloba, ginseng, goldenseal, or [place]'s wort. This list is not complete and many other drugs can interact with warfarin. This includes prescription and gfep-slm-kyfgwhm medicines, vitamins, and herbal products. Give a [...] to ensure that the information provided by [employer]. ('Multum') is accurate, up-to-date, and complete, but no guarantee is made to that effect. Drug information contained herein may be time sensitive. Ullink information has been compiled for use by healthcare practitioners and consumers in the [place] and therefore Ullink does not warrant that uses outside of the [place] are appropriate, unless specifically indicated otherwise. Ullink's drug information does not endorse drugs, diagnose patients or recommend therapy. LinkStorms drug information is an informational resource designed [...] effective or appropriate for any given patient. [facility] does not assume any responsibility for any aspect of healthcare administered with the aid of information [facility] provides. The information contained herein is not intended to cover all possible uses, directions, precautions, warnings, drug interactions, allergic reactions, or adverse effects. If you have questions about the drugs you are taking, check with your doctor, nurse or pharmacist. Copyright 3047-9870 [facility]. Version: 22.01. Revision Date: 12/29/2016. famotidine (fam [...] may report side effects to FDA at 8-035-IMU-9368. What other drugs will affect famotidine? Famotidine can make it harder for your body to absorb other medicines you take by mouth. Tell your doctor if you are taking: ? cefditoren; ?? dasatinib; ?? delavirdine; or ?? fosamprenavir. This list is not complete. Other drugs may affect famotidine, including prescription and mkre-rvp-hwyrwtc medicines, vitamins, and herbal products. Not all [...] to ensure that the information provided by Com[employer]. ('Multum') is accurate, up-to-date, and complete, but no guarantee is made to that effect. Drug information contained herein may be time sensitive. Ullink information has been compiled for use by healthcare practitioners and consumers in the [place] and therefore Ullink does not warrant that uses outside of the [place] are appropriate, unless specifically indicated otherwise. LinkStorms drug information does not endorse drugs, diagnose patients or recommend therapy. LinkStorms drug information is an informational resource designed [...] effective or appropriate for any given patient. Ullink does not assume any responsibility for any aspect of healthcare administered with the aid of information Ullink provides. The information contained herein is not intended to cover all possible uses, directions, precautions, warnings, drug interactions, allergic reactions, or adverse effects. If you have questions about the drugs you are taking, check with your doctor, nurse or pharmacist. Copyright 6007-7040 [employer]. Version: 15.02. Revision Date: 03/15/2018. CIGARETTE SMOKING: The facts are clear, cigarette smoking will shorten your life. Smoking can cause many illnesses along the way. As a healthcare provider, we recommend that you stop smoking. Assistance with quitting is available by contacting 3-568-WIFP-NOW. This is a free resource providing counseling, [...] Be sure to sign up for the Trek[employer] patient portal, which gives you 07/11 access to your medical information ??? including these discharge instructions ??? using your computer, smartphone, or tablet. Just go to N-Trig to get started. Questions? Call . [facility] would like to thank you for allowing us to assist you with your healthcare needs. TANK Arreguin WARREN B, (or customer contact representative) have received the above patient education materials/instructions and have verbalized understanding: Patient Signature _ Date/Time Patient Tree Fruit And Nut Crops Farmer Signature (if needed) Date/Time Clinician/Hospital Tree Fruit And Nut Crops Farmer Signature (if needed) Date/Time documented in this encounter Plan of Treatment Not on file documented as of this encounter Visit Diagnoses Not on filedocumented in this encounter
--- OUTSIDE RECORDS SUMMARY | 2024-11-08 18:58 | XMS_ITS | Encounter Summary ---
Author Organization [employer] ([place], [place], [place], [place]) Address [address] [place] [address] Care Team Providers Care Paste Mixer Liquid Name Role Phone Unavailable Primary Care Provider Unavailabl e Encounter Details Date Type Department Care Team (Late st Contact Info) Description 06/28/[address] [facility] Radiology [address] [place] [address] Jett Narvaez MD [address] [place] [address] [place] [address] Social History Tobacco Use Types Packs/Day Years [...] Jauregui Accepting physician Dr. Wells Transferring facility [facility] Chief complaint right leg swelling History of present illness Patient presents as a transfer from [facility]. He has been having some numbness [...] At risk for sleep apnea / IMO [id number] / Confirmed, Active Problems (1) At risk for sleep apnea Objective VS/Measurements No qualifying data available General: No acute distress. Eye: Normal conjunctiva. Neck: No jugular venous distention. Respiratory: Lungs are clear to auscultation, Respirations are non-labored, Breath sounds are equal. Cardiovascular: Regular rhythm, No gallop, S1+ S2 No S3 or S4 [place].. Gastrointestinal: Soft, Non-tender, Non-distended, Normal bowel sounds. [...]
--- OUTSIDE RECORDS SUMMARY | 2024-11-08 18:58 | XMS_ITS | Encounter Summary ---
Author Organization [employer] ([place], [place], [place], [place]) Address [address] [place] [address] Care Team Providers Care Transmission Design Engineer Name Role Phone Unavailable Primary Care Provider Unavailabl e Encounter Details Date Type Department Care Team (Late st Contact Info) Description 06/28/2018 Transcribed Document [facility] [place] [facility] [address] ProviderAngelique MD [address] [place] [phone] Social History Tobacco Use Types Packs/Day Years [...] lower extremity DVTs who presented to an [facility] for complaints of numbness in the lower extremities over the last 2 weeks. 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 On morning of presentation patient woke up with moderate edema and swelling of the right lower extremity and some mild discomfort. He went to the [facility] emergency department where he had a lower extremity venous duplex and a CT PE protocol. It was found he had a right lower extremity acute DVT as well as a reported bilateral pulmonary embolism. He was started on a heparin drip and transferred to [facility] for further evaluation and treatment. 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 Integumentary: Warm, Dry, [place], Intact. Neurologic: Alert, Oriented, No focal deficits. [...]
--- OUTSIDE RECORDS SUMMARY | 2024-11-08 18:58 | XMS_ITS | Clinical Summary ---
Author Organization [employer] ([place], [place], [place], [place]) Address [address] [place] [address] Care Team Providers Care Clinical Instructor Name Role Phone Unavailable Primary Care Provider [...]
--- OUTSIDE RECORDS SUMMARY | 2024-11-08 18:58 | XMS_ITS | Encounter Summary ---
Author Organization [employer] ([place], [place], [place], [place]) Address [address] [place] [address] Care Team Providers Care Application Lead Name Role Phone Unavailable Primary Care Provider Unavailabl e Encounter Details Date Type Department Care Team (Late st Contact Info) Description 06/30/2018 Transcribed Document [facility] [place] Family Medicine [address] [place] [address] ProviderAngelique MD [address] [place], [place] [phone] Social History Tobacco Use Types Packs/Day Years [...]
--- OUTSIDE RECORDS SUMMARY | 2024-11-08 18:58 | XMS_ITS | Encounter Summary ---
Author Organization [employer] ([place], [place], [place], [place]) Address [address] [place] [address] Care Team Providers Care Business Continuity Specialist Name Role Phone Unavailable Primary Care Provider Unavailabl e Encounter Details Date Type Department Care Team (Late st Contact Info) Description 07/01/2018 Transcribed Document [facility] [place] [facility] [place] [address] ProviderAngelique MD [address] [place] [address] [phone] Social History Tobacco Use Types Packs/Day Years [...] 07/01/2018 13:13 EDT Electronically signed by Ronny [facility] Conversion Developmental Behavioral Physician Cerner at 08/05/2022 1:33 PM CDT documented in this encounter Plan of Treatment Not on file documented as of this encounter Visit Diagnoses Not on filedocumented in this encounter
--- OUTSIDE RECORDS SUMMARY | 2024-11-08 18:58 | XMS_ITS | Encounter Summary ---
Author Organization [employer] ([place], [place], [place], [place]) Address [address] [place] [address] Care Team Providers Care Wax Blender Name Role Phone Unavailable Primary Care Provider Unavailabl e Encounter Details Date Type Department Care Team (Late st Contact Info) Description 07/01/2018 Transcribed Document [facility] [place] Family Medicine [facility] [place] [address] ProviderAngelique MD [address] [place] [phone] Social History Tobacco Use Types Packs/Day Years [...] Male : 1940 Associated Diagnoses: None Author: RHETT SETH MD Subjective Date of admission 06/27/[address] Jauregui Accepting physician Dr. Faroouqi Transferring facility [facility] Chief complaint right leg swelling History of present illness Patient presents as a transfer from [facility]. He has been having some numbness in [...] to no prescription coverage with his Medicare. 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 So the patient was loaded with warfarin [...] (Current Encounter/Past 24 Hours) PT 25.9 Second(s) CT 07/01/2018 04:[address] 07/01/2018 04:59 Creatinine Clearance (Current Encounter/Past 24 Hours) No Creatinine Clearance Results Found (Past 24 Hours) Blood Products No qualifying data available. Type of Study: TTE procedure: EC Echo Complete. Patient Status: Routine IP [facility]: Adequate visualization Indications:Coronary artery disease. Allergies [...] 06/28/2018 07:52 EDT Electronically signed by Ronny [facility] Conversion Reflector Driller And Deburrer Cerner at 08/05/2022 1:33 PM CDT documented in this encounter Plan of Treatment Not on file documented as of this encounter Visit Diagnoses Not on filedocumented in this encounter
--- OUTSIDE RECORDS SUMMARY | 2024-11-08 18:58 | XMS_ITS | Encounter Summary ---
Author Organization [employer] ([place], [place], [place], [place]) Address [address] [place] [address] Care Team Providers Care Blister Packaging Machine Operator Name Role Phone Unavailable Primary Care Provider Unavailabl e Encounter Details Date Type Department Care Team (Late st Contact Info) Description 07/01/2018 Transcribed Document [facility] [place] Family Medicine [facility] [place] [address] ProviderAngelique MD [address] [place] [address] [phone] Social History Tobacco Use Types Packs/Day Years [...] 03/22/2010 Document Revised: 09/08/2016 Document Reviewed: 07/29/2015 [employer] Interactive Patient Education ? 2017 [employer]. Deep Vein Thrombosis A deep vein [...] kale, broccoli, cabbage, anni greens, turnip greens, [place] sprouts, peas, cauliflower, seaweed, and parsley. ? Beef liver and pork liver. ? Green tea. ? Soybean oil. ??? Tell your health care provider about any and all medicines, vitamins, and supplements that you take, including aspirin and other yeel-bcw-johftdu anti-inflammatory medicines. Be especially cautious with aspirin and anti-inflammatory medicines. Do not take those before you ask your health care provider if it is safe to do so. This is important because many medicines can interfere with warfarin and affect the PT and INR results. ??? Do notstart or stop taking any gsod-pdo-dyaqdzv or prescription medicine unless your health care [...] Avoid contact sports. General instructions ??? Take ellu-vis-qnsucvy and prescription medicines only as told by [...] 07/29/2015 Elsevier Interactive Patient Education ? 2017 [employer]. documented in this encounter Plan of Treatment Not on file documented as of this encounter Visit Diagnoses Not on filedocumented in this encounter
--- OUTSIDE RECORDS SUMMARY | 2024-11-08 18:58 | XMS_ITS | Clinical Summary ---
Author Organization [facility] Address [address] [place] [address] Care Team Providers Care Corridor Redevelopment Manager Name Role Phone Giovani Pendleton MD Primary Care Provider [phone] Dayne Flaherty MD Unavailable [phone] Allergies No known active allergies Medications cholecalciferol (Vitamin D3) 1.25 MG (37496 UT) capsule Vitamin D3 1 QD Active [...] Health Maintenance Due Date Last Done Comments [facility]Depression Screening 1940 [facility]Medicare Annual Wellness (AWV) 1940 [facility]-Infant/Child/Adol SDOH Screenings 1940 [facility]-PEOLJ-90 Vaccine (#1) 1945 [facility]- SDOH Screenings 1958 [facility]-Adult SDOH Screenings 1958 [facility]-DTaP,Tdap,and Td Vaccines (1 - Tdap) 07/13/1959 [facility]-Zoster Vaccines (1 of 2) 07/13/1959 [facility]-RSV Vaccine: 60+ Years or (1 - 1-dose 75+ series) 07/13/2015 [facility]-Pneumococcal Vaccine: 50+ Years (2 of 2 - PPSV23) 05/23/2017 04/17/2017, 05/23/2016 [facility]-Influenza Vaccine (#1) 12/16/202403/04, 02/07/2018, 02/15/2017 HPV Vaccines Aged Out No [...] this topic Insurance [employer] Care Teams Corridor Redevelopment Manager Relationship Specialty Start Date End Date Giovani Pendleton MD [address] [facility] [address] [place] [address] PCP - General 09/10/21 Dayne Flaherty MD [address] [facility] [address] [place] [address] Consulting Physician Neurosurgery 09/22/21
--- OUTSIDE RECORDS SUMMARY | 2024-11-08 18:58 | XMS_ITS | Encounter Summary ---
Author Organization [employer] ([place], [place], [place], [place]) Address [address] [place] [address] Care Team Providers Care Command And Control Specialist Name Role Phone Unavailable Primary Care Provider Unavailabl e Encounter Details Date Type Department Care Team (Late st Contact Info) Description 06/28/2018 Transcribed Document [facility] [place] [facility] [place] [address] ProviderAngelique MD [address] [place] [phone] Social History Tobacco Use Types Packs/Day Years [...] Male : 1940 Chief Complaint: transferred from [facility] with [facility], RLE swelling, DVT, [...] he go to the Coumadin clinic in [place] 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, 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 Right leg DVT I82.401 Lovenox and then warfarin Orders: enoxaparin, 90 mg, SubCutaneous, Inj, [id number], Start 06/28/18 10:00:00 EDT [facility] [place] Medications Inpatient aspirin, 81 mg= 1 Tab, Oral, Daily Colace, 100 mg= 1 Cap, Oral, BID, PRN DuoNeb 0.5 mg-2.5 mg/3 mL inhalation solution, 3 mL, Nebulized Inhalation , Q6H, PRN Lipitor, 10 mg= 1 Tab, Oral, Weekly lisinopril, 10 mg= 1 Tab, Oral, Daily Lovenox, 90 mg= 0.9 mL, SubCutaneous, T26SOco MiraLax, 17 Gram= 1 Packet, Oral, Daily, [...] Anion Gap: 12 Calcium Level: 8.9 mg/dL Electronically signed by [place] Jefferson Conversion Employee Operations Examiner Cerner at 08/05/2022 1:21 PM CDT documented in this encounter Plan of Treatment Not on file documented as of this encounter Visit Diagnoses Not on filedocumented in this encounter
--- OUTSIDE RECORDS SUMMARY | 2024-11-08 18:58 | XMS_ITS | Encounter Summary ---
Author Organization [employer] ([place], [place], [place], [place]) Address [address] [place] [address] Care Team Providers Care Cook Tortilla Name Role Phone Unavailable Primary Care Provider Unavailabl e Encounter Details Date Type Department Care Team (Late st Contact Info) Description 07/04/2018 Transcribed Document [facility] [place] [address] [place] [address] ProviderAngelique MD [address], [place] [phone] Social History Tobacco Use Types Packs/Day Years [...] EDT Electronically signed by [place] Jefferson Conversion Field Applications Specialist Jc at 08/05/2022 1:12 PM CDT documented in this encounter Plan of Treatment Not on file documented as of this encounter Visit Diagnoses Not on filedocumented in this encounter
--- OUTSIDE RECORDS SUMMARY | 2024-11-08 18:58 | XMS_ITS | Encounter Summary ---
Author Organization [employer] ([place], [place], [place]) Address [address] [place] [address] Care Team Providers Care Network Systems Integrator Name Role Phone Unavailable Primary Care Provider Unavailabl e Encounter Details Date Type Department Care Team (Late st Contact Info) Description 07/09/2018 Transcribed Document [facility] [place] [address] [place] [address] ProviderAngelique MD [address] [place], [place] [phone] Social History Tobacco Use Types Packs/Day Years [...] Brenda Ruiz Rn - 07/09/2018 16:06 EDT documented in this encounter Plan of Treatment Not on file documented as of this encounter Visit Diagnoses Not on filedocumented in this encounter
--- OUTSIDE RECORDS SUMMARY | 2024-11-08 18:58 | XMS_ITS | Encounter Summary ---
Author Organization [employer] ([place], [place]) Address [address] [place] [address] Care Team Providers Care Papeterie Table Assembler Name Role Phone Unavailable Primary Care Provider Unavailabl e Encounter Details Date Type Department Care Team (Late st Contact Info) Description 07/01/2018 Transcribed Document [facility] [place] [facility] [place] [address] ProviderAngelique MD [address] [place] [address] Social History Tobacco Use Types Packs/Day Years [...] Corinna Najera RN - 07/01/2018 13:14 EDT Electronically signed by [place] Jefferson Conversion Glue Specialty Supervisor Cerner at 08/05/2022 1:08 PM CDT documented in this encounter Plan of Treatment Not on file documented as of this encounter Visit Diagnoses Not on filedocumented in this encounter
--- NOTE | 2024-11-08 19:03 | HMH.EDCP ---
Discharge Plan Disposition Patient Disposition: Home, Self-Care Condition: Good Prescriptions Prescriptions: New furosemide [Lasix] 40 mg tablet 40 mg PO DAILY Qty: 30 0RF No Action aspirin [Aspir-81] 81 mg tablet,delayed release (DR/EC) 81 mg PO 1600 warfarin 2.5 MG tablet 2.5 mg PO SUTUWETHSA@1600 warfarin 2.5 MG tablet 1.25 mg PO MOFR@1600 Referrals Follow up/Referrals: Silva Edwards APRN [Primary Care Provider, Medical] - See instructions Krunal Hannah MD [Staff Physician, Cardiology] - See instructions Activity Restrictions/Add. Instructions Additional Instructions/Restrictions: As we discussed I have sent Lasix into your [facility] pharmacy. You can pick it up and start it tomorrow morning. Please follow-up with cardiology and Dr. Brumfield's office at 9 AM on Monday. If you have any persistent new or worsening signs or symptoms please return to the ER. Clinical Impressions Clinical Impression: Bilateral pleural effusion Acute exacerbation of CHF (congestive heart failure) Qualifiers: Heart failure type: unspecified Qualified Code(s): I50.9 - Heart failure, unspecified Print Language Print Language: Maori Discharge ED Provider: Irvin Soria HPI <STAR Chris - Last Filed: 11/08/24 22:11> General Chief Complaint: Shortness of Breath/Dyspnea Stated Complaint: SOA,Fast heart rate Time Seen by Provider: 11/08/24 19:02 Mode of Arrival: Ambulatory Source of Information: Patient Description of Symptoms (Recalled from ER Triage Doc. by RN): Patient states that he was sent from [facility] for a possible blood clot- states he has been feeling short of breath since Monday11/05/24, and has been vomiting. Saw his PCP on 11/06/24 and they ordered tests, but he has not had them done. Patient is concerned that he has COVID, he is on warfarin and his INR is therapeutic. History of Present Illness HPI narrative: Patient presents for evaluation of dyspnea. Patient reports that he has had 5 days of shortness of breath. He reports that the shortness of breath has gotten progressive and is short of breath even at rest and with light exertion. 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 Medical History Syncope Prostate cancer Coronary artery disease due to lipid rich plaque Surgical History History of heart artery stent History of quadruple bypass S/P placement of cardiac pacemaker No significant past surgical history Family History Other Family history of cancer Family history of diabetes mellitus type II Family history of stroke Social History Smoking Status: Never smoker alcohol intake: never substance use type: denies use current occupational status: retired Travel in the last 8 weeks?: None household members: spouse housing: house lives independently: Yes marital status: education level: college caffeine: No special arielle needs: No agree to transfusion: No do you feel safe at home: Yes victim of physical abuse: No victim of emotional abuse: No victim of sexual abuse: No would you like helpful sources: No Have you lived/traveled outside US in past 30 days?: No Contact w/someone who lives/traveled outside US past 30 days?: No Exposure to someone with infectious disease in past 14 days?: No Do you have a fever (greater than 100.4 F or 38 C)?: No Have you tested positive for COVID-19?: No Exposed to someone with COVID-19 in past 14 days?: No Do you have a sore throat?: No Do you have a cough?: No Do you have any weakness?: No Do you have any diarrhea?: No Are you experiencing any unusual bleeding?: No Do you have any muscle aches/pain?: No Do you have any abdominal pain?: No Are you experiencing loss of taste or smell?: No Other Medical History Have you received the Flu Vaccine for this season: No Have you received the Pneumonia Vaccine: Yes <STAR Chris - Last Filed: 11/08/24 22:11> ROS Obtained: Yes Systems reviewed as appropriate & no additional complaints except as documented Physical Exam <STAR Chris - Last Filed: 11/08/24 22:11> General General appearance: alert and in no apparent distress Head Head exam: atraumatic and normal inspection Eye Eye exam: Present normal appearance, PERRL and EOMI ENT ENT exam: Present normal exam, normal oropharynx and mucous membranes moist Neck Neck exam: Present normal inspection, full ROM and trachea midline; Absent lymphadenopathy Chest Chest inspection: Present normal inspection and symmetric chest wall rise Respiratory Respiratory exam: Present normal lung sounds bilaterally; Absent accessory muscle use Cardiovascular Cardiovascular exam: Present regular rate, normal rhythm, normal heart sounds, +S1 and +S2 Abdominal Exam Abdominal exam: Present soft and normal bowel sounds; Absent tenderness, guarding or rebound Extremities Exam Extremities exam: Present normal inspection and full ROM Neurological Exam Neurological exam: Present alert, oriented X3 and CN II-XII intact Psychiatric Psychiatric exam: Present normal affect and normal mood Skin Skin exam: Present warm, dry and normal color Lymphatic Lymphatic Findings: no adenopathy HEART Score <STAR Chris - Last Filed: 11/08/24 22:11> HEART Score HEART Score assessment performed?: Yes History (anamnesis): Slightly suspicious ECG: Non-specific disturbance Age: >65 years Risk factors: Atherosclerosis history Troponin: </= normal limit HEART Score: 5 <Irvin Soria MD - Last Filed: 11/09/24 10:08> HEART Score HEART Score: 5 Critical Care <STAR Chris - Last Filed: 11/08/24 22:11> Critical Care Time Critical Care Time: No Medical Decision Making <STAR Chris - Last Filed: 11/08/24 22:11> Medical Records Medical records reviewed: Yes I reviewed the patient's medical records. James Inquiry Pt receiving controlled substance: No Vital Signs Vital Signs: 11/08/24 18:57 11/08/24 19:00 11/08/24 19:30 Temperature 98.6 F Temperature Source Oral Pulse Rate 102 H 99 H Pulse Rate [Right Brachial] 107 H Respiratory Rate 17 Blood Pressure 132/103 H 146/99 H Blood Pressure [Right Arm] 155/107 H Blood Pressure Mean Blood Pressure Mean [Right Arm] 123 Blood Pressure Source [Right Arm] Automatic Cuff Blood Pressure Position Blood Pressure Position [Right Arm] Sitting 02 Sat by Pulse Oximetry 95 96 97 Oxygen Delivery Method Room Air Room Air Room Air 11/08/24 20:00 11/08/24 21:00 11/08/24 22:00 Temperature Temperature Source Pulse Rate 95 H 67 68 Pulse Rate [Right Brachial] Respiratory Rate 18 16 Blood Pressure 150/108 H 158/106 H 148/98 H Blood Pressure [Right Arm] Blood Pressure Mean 119 112 115 Blood Pressure Mean [Right Arm] Blood Pressure Source [Right Arm] Blood Pressure Position Blood Pressure Position [Right Arm] 02 Sat by Pulse Oximetry 97 95 95 Oxygen Delivery Method 11/08/24 22:16 11/08/24 22:17 Temperature 9.6 F L 98.1 F Temperature Source Oral Pulse Rate 69 105 H Pulse Rate [Right Brachial] Respiratory Rate 16 16 Blood Pressure 148/98 H 148/98 H Blood Pressure [Right Arm] Blood Pressure Mean Blood Pressure Mean [Right Arm] Blood Pressure Source [Right Arm] Blood Pressure Position Supine Blood Pressure Position [Right Arm] 02 Sat by Pulse Oximetry Oxygen Delivery Method Room Air Room Air Lab Data Lab results reviewed: Yes I reviewed the patient's lab results. Labs: Lab Results 11/08/24 19:02: SARS-CoV-2 (PCR) Not detected, Influenza A Untype (PCR) Not detected, Influenza Type B (PCR) Not detected 11/08/24 19:39: WBC 8.4, RBC 4.14 L, Hgb 13.1 L, Hct 39.9 L, MCV 96.4 H, MCH 31.6 H, MCHC 32.8, RDW 14.5, Plt Count 146, MPV 12.6 H, Neut % (Auto) 69.3, Lymph % (Auto) 17.0, [place] % (Auto) 11.7 H, Eos % (Auto) 1.2, Baso % (Auto) 0.6, Neut # (Auto) 5.8, Lymph # (Auto) 1.4, [place] # (Auto) 1.0, Eos # (Auto) 0.1, Baso # (Auto) 0.1, PT 35.5 H, INR 3.51 H, Sodium 134 L, Potassium 4.6, Chloride 105, Carbon Dioxide 24, Anion Gap 9.6, BUN 18, Creatinine 1.60 H, Estimated Creat Clear 37, Estimated GFR 41 L, Est GFR ( Amer) 50 L, Glucose 126 H, Calcium 9.1, Magnesium 2.3, Total Bilirubin 0.8, AST 33, ALT 22, Alkaline Phosphatase 90, Troponin I 0.02, NT-Pro-B Natriuret Pep 8590 H, Total Protein 6.8, Albumin 4.0, Globulin 2.8, Albumin/Globulin Ratio 1.4 11/08/24 21:40: Troponin I 0.03 11/08/24 19:39 11/08/24 19:39 Response Orders (Tests/Meds): ED MEDICATIONS Discontinued Medications Generic Name Dose Route Start Last Admin Trade Name Freq PRN Reason Stop Dose Admin Furosemide 80 mg 11/08/24 20:52 11/08/24 20:56 Furosemide 40mg/4ml Vial IV 11/08/24 20:53 80 mg ONCE ONE Administration Iopamidol 70 ml 11/08/24 20:33 11/08/24 20:34 Iopamidol-370 (76%);100ml Bottle IV 11/08/24 20:34 70 ml ONCE ONE Administration Sodium Chloride 10 ml 11/08/24 20:33 11/08/24 20:34 Sodium Chloride 0.9% 10ml Syr (Rad Only) IV 12/08/24 20:32 10 ml NEEDED PRN Administration Maintain IV Site Sodium Chloride 40 ml 11/08/24 20:33 11/08/24 20:34 0.9 % Sodium Chloride 50 Ml Vial IV 11/08/24 20:34 40 ml ONCE ONE Administration ORDERS Category Date Time Status CT angio chest PE protocol Stat Cat Scan 11/08/24 19:05 Completed BNP [NT Pro Brain Natriuretic Pep.] Stat Lab 11/08/24 19:39 Completed CBC w/Auto Diff [Complete Blood Count Auto Diff] Stat Lab 11/08/24 19:39 Completed CMP [Comprehensive Metabolic Panel] Stat Lab 11/08/24 19:39 Completed INR [Prothrombin Time INR] Stat Lab 11/08/24 19:39 Completed Magnesium Stat Lab 11/08/24 19:39 Completed Rapid PCR Covid and Flu A/B Stat Lab 11/08/24 19:02 Completed Trop I [Troponin I] Stat Lab 11/08/24 19:39 Completed Troponin I Q3H Lab 11/08/24 21:40 Completed MDM Narrative Medical Decision Narrative: In summary patient is a 84-year-old gentleman who presents to the emergency department for evaluation of dyspnea. Patient is initially hypertensive with a blood pressure 155/107 tachycardic at 107 sinus tachycardia on the bedside monitor that appears to be a paced rhythm breathing 17 times minute satting at 95% on room air upon arrival, afebrile at 90.6. Physical exam is remarkable for clear breath sounds to the bases without adventitious sounds increased work of breathing or accessory muscle use, cardiac is S1 is 2 regular rate and rhythm without murmurs gallops rubs or thrills and no dependent edema noted, abdomen soft nontender no rebound or guarding no rigidity.. Differential diagnosis includes ACS versus CHF versus PE versus pneumonia etc. Initial workup will be conducted with hematologic labs CTA PE protocol twelve-lead EKG. Initial interventions considered including supplemental O2 however patient is a good pulse ox without respiratory distress so deferred for now. Will utilize continuous pulse oximetry and cardiac monitoring until workup complete. Initial workup reviewed by me and his hematologic labs significant for white count of 8.4 and H&H 13.1 and 39.9 respectively with an absolute neutrophil count of 5.8 INR is slightly supratherapeutic at 3.5 sodium is 134 creatinine is 1.6 initial troponin is 0.02 NT proBNP is 8590 COVID and flu are negative and my informal interpretation of his CTA PE protocol does not show any evidence of thrombus but shows right greater than left pleural effusions. Upon repeat evaluation still has no oxygen requirement. Patient was given a dose of 80 of Lasix IV push. Given this the patient was placed in observation status at 2000 hrs. Medical necessity for observational status is serial troponins. The patient was provided serial reevaluations continuous cardiac monitoring pulse oximetry while awaiting results. Second troponin is also normal. I have prescribed the patient daily Lasix and patient will follow-up with cardiology at 9 AM on Monday with strict return precautions. Total time in observation was 2 hours. <Irvin Soria MD - Last Filed: 11/09/24 10:08> Vital Signs Vital Signs: 11/08/24 18:57 11/08/24 19:00 11/08/24 19:30 Temperature 98.6 F Temperature Source Oral Pulse Rate 102 H 99 H Pulse Rate [Right Brachial] 107 H Respiratory Rate 17 Blood Pressure 132/103 H 146/99 H Blood Pressure [Right Arm] 155/107 H Blood Pressure Mean Blood Pressure Mean [Right Arm] 123 Blood Pressure Source [Right Arm] Automatic Cuff Blood Pressure Position Blood Pressure Position [Right Arm] Sitting 02 Sat by Pulse Oximetry 95 96 97 Oxygen Delivery Method Room Air Room Air Room Air 11/08/24 20:00 11/08/24 21:00 11/08/24 22:00 Temperature Temperature Source Pulse Rate 95 H 67 68 Pulse Rate [Right Brachial] Respiratory Rate 18 16 Blood Pressure 150/108 H 158/106 H 148/98 H Blood Pressure [Right Arm] Blood Pressure Mean 119 112 115 Blood Pressure Mean [Right Arm] Blood Pressure Source [Right Arm] Blood Pressure Position Blood Pressure Position [Right Arm] 02 Sat by Pulse Oximetry 97 95 95 Oxygen Delivery Method 11/08/24 22:16 11/08/24 22:17 Temperature 9.6 F L 98.1 F Temperature Source Oral Pulse Rate 69 105 H Pulse Rate [Right Brachial] Respiratory Rate 16 16 Blood Pressure 148/98 H 148/98 H Blood Pressure [Right Arm] Blood Pressure Mean Blood Pressure Mean [Right Arm] Blood Pressure Source [Right Arm] Blood Pressure Position Supine Blood Pressure Position [Right Arm] 02 Sat by Pulse Oximetry Oxygen Delivery Method Room Air Room Air Lab Data Labs: Lab Results 11/08/24 19:02: SARS-CoV-2 (PCR) Not detected, Influenza A Untype (PCR) Not detected, Influenza Type B (PCR) Not detected 11/08/24 19:39: WBC 8.4, RBC 4.14 L, Hgb 13.1 L, Hct 39.9 L, MCV 96.4 H, MCH 31.6 H, MCHC 32.8, RDW 14.5, Plt Count 146, MPV 12.6 H, Neut % (Auto) 69.3, Lymph % (Auto) 17.0, [place] % (Auto) 11.7 H, Eos % (Auto) 1.2, Baso % (Auto) 0.6, Neut # (Auto) 5.8, Lymph # (Auto) 1.4, [place] # (Auto) 1.0, Eos # (Auto) 0.1, Baso # (Auto) 0.1, PT 35.5 H, INR 3.51 H, Sodium 134 L, Potassium 4.6, Chloride 105, Carbon Dioxide 24, Anion Gap 9.6, BUN 18, Creatinine 1.60 H, Estimated Creat Clear 37, Estimated GFR 41 L, Est GFR ( Amer) 50 L, Glucose 126 H, Calcium 9.1, Magnesium 2.3, Total Bilirubin 0.8, AST 33, ALT 22, Alkaline Phosphatase 90, Troponin I 0.02, NT-Pro-B Natriuret Pep 8590 H, Total Protein 6.8, Albumin 4.0, Globulin 2.8, Albumin/Globulin Ratio 1.4 11/08/24 21:40: Troponin I 0.03 Response Orders (Tests/Meds): ED MEDICATIONS Discontinued Medications Generic Name Dose Route Start Last Admin Trade Name Freq PRN Reason Stop Dose Admin Furosemide 80 mg 11/08/24 20:52 11/08/24 20:56 Furosemide 40mg/4ml Vial IV 11/08/24 20:53 80 mg ONCE ONE Administration Iopamidol 70 ml 11/08/24 20:33 11/08/24 20:34 Iopamidol-370 (76%);100ml Bottle IV 11/08/24 20:34 70 ml ONCE ONE Administration Sodium Chloride 10 ml 11/08/24 20:33 11/08/24 20:34 Sodium Chloride 0.9% 10ml Syr (Rad Only) IV 12/08/24 20:32 10 ml NEEDED PRN Administration Maintain IV Site Sodium Chloride 40 ml 11/08/24 20:33 11/08/24 20:34 0.9 % Sodium Chloride 50 Ml Vial IV 11/08/24 20:34 40 ml ONCE ONE Administration ORDERS Category Date Time Status CT angio chest PE protocol Stat Cat Scan 11/08/24 19:05 Completed BNP [NT Pro Brain Natriuretic Pep.] Stat Lab 11/08/24 19:39 Completed CBC w/Auto Diff [Complete Blood Count Auto Diff] Stat Lab 11/08/24 19:39 Completed CMP [Comprehensive Metabolic Panel] Stat Lab 11/08/24 19:39 Completed INR [Prothrombin Time INR] Stat Lab 11/08/24 19:39 Completed Magnesium Stat Lab 11/08/24 19:39 Completed Rapid PCR Covid and Flu A/B Stat Lab 11/08/24 19:02 Completed Trop I [Troponin I] Stat Lab 11/08/24 19:39 Completed Troponin I Q3H Lab 11/08/24 21:40 Completed ECG Data Tracing #1: Attestation: I reviewed this ECG and interpreted as documented below: ECG Narrative: Sinus tachycardia. Ventricular paced rhythm but no STEMI based on Sgarbossa criteria. QTc prolonged at 501 MDM Narrative Medical Decision Narrative: In summary patient is a 84-year-old gentleman who presents to the emergency department for evaluation of dyspnea. Patient is initially hypertensive with a blood pressure 155/107 tachycardic at 107 sinus tachycardia on the bedside monitor that appears to be a paced rhythm breathing 17 times minute satting at 95% on room air upon arrival, afebrile at 98.6. Physical exam is remarkable for clear breath sounds to the bases without adventitious sounds increased work of breathing or accessory muscle use, cardiac is S1 is 2 regular rate and rhythm without murmurs gallops rubs or thrills and no dependent edema noted, abdomen soft nontender no rebound or guarding no rigidity.. Differential diagnosis includes ACS versus CHF versus PE versus pneumonia etc. Initial workup will be conducted with hematologic labs CTA PE protocol twelve-lead EKG. Initial interventions considered including supplemental O2 however patient is a good pulse ox without respiratory distress so deferred for now. Will utilize continuous pulse oximetry and cardiac monitoring until workup complete. Initial workup reviewed by me and his hematologic labs significant for white count of 8.4 and H&H 13.1 and 39.9 respectively with an absolute neutrophil count of 5.8 INR is slightly supratherapeutic at 3.5 sodium is 134 creatinine is 1.6 initial troponin is 0.02 NT proBNP is 8590 COVID and flu are negative and my informal interpretation of his CTA PE protocol does not show any evidence of thrombus but shows right greater than left pleural effusions. Upon repeat evaluation still has no oxygen requirement. Patient was given a dose of 80 of Lasix IV push. Given this the patient was placed in observation status at 2000 hrs. Medical necessity for observational status is serial troponins. The patient was provided serial reevaluations continuous cardiac monitoring pulse oximetry while awaiting results. Second troponin is also normal. I have prescribed the patient daily Lasix and patient will follow-up with cardiology at 9 AM on Monday with strict return precautions. Total time in observation was 2 hours. I was consulted by the SYD, and we discussed the complexity of the problems being addressed. I approve the treatment and management plan for this patient's care in the emergency department, thus performing a substantive portion of the medical decision making. Irvin Soria MD
--- NOTE | 2024-11-08 19:05 | CT_ITS ---
PROCEDURE INFORMATION: Exam: CTA Chest With Contrast Exam date and time: 11/08/2024 8:32 PM Age: 84 years old Clinical indication: Dyspnea; Additional info: 5 days of dyspnea TECHNIQUE: Imaging protocol: Computed tomographic angiography of the chest with contrast. Exam focused on the arteries. 3D rendering (Not supervised by radiologist): MIP and/or 3D reconstructed images were created by the technologist. Radiation optimization: All CT scans at this facility use at least one of these dose optimization techniques: automated exposure control; mA and/or kV adjustment per patient size (includes targeted exams where dose is matched to clinical indication); or iterative reconstruction. Contrast material: ISOUVE 370; Contrast volume: 70 ml; Contrast route: INTRAVENOUS (IV); COMPARISON: CT ANGIO CHEST PE PROTOCOL 05/19/2022 5:56 AM FINDINGS: Pulmonary arteries: No acute pulmonary emboli. Aorta: Atherosclerotic disease of the thoracic aorta, without aneurysm. Lungs: See Pleural spaces finding. Pleural spaces: Small bilateral pleural effusions, right larger than left, with associated atelectasis. Heart: Mild left ventricular chamber enlargement. Coronary arteries: Moderate three-vessel coronary atherosclerotic disease. Lymph nodes: Unremarkable. No enlarged lymph nodes. Gallbladder and biliary ducts: Gallbladder surgically absent. Bones/joints: Changes of prior sternotomy and CABG. Multilevel thoracic spine degenerative disc space narrowing and osteophyte formation. Dextroscoliosis of the thoracic spine. Soft tissues: Unremarkable. IMPRESSION: 1. No acute pulmonary emboli. 2. Small bilateral pleural effusions, right larger than left, with associated atelectasis.
[2024-11-08 19:13] LABS: Coronavirus 19, PCR Not Detected (NotDetected); Influenza A, PCR Not Detected (NotDetected); Influenza B, PCR Not Detected (NotDetected)
[2024-11-08 19:41] LABS: Hematocrit 39.9 % (42.0-52.0); Hemoglobin 13.1 g/dL (14.1-18.0); Immature Granulocytes % 0.2 %; Mean Corpuscular HGB Conc 32.8 g/dL (31.8-35.4); Mean Corpuscular Hemoglobin 31.6 pg (27.0-31.2); Mean Corpuscular Volume 96.4 fl (80-94); Nucleated Red Blood Cells % 0 %; Platelet Count 146 K/mm3 (142-424); Red Blood Count 4.14 M/mm3 (4.60-6.20); Red Cell Distribution Width-SD 50.9 fL; White Blood Count 8.4 K/mm3 (4.8-10.8)
[2024-11-08 19:52] LABS: INR 3.51 (0.9-1.1); Prothrombin Time 35.5 seconds (10.1-12.5)
[2024-11-08 20:04] LABS: Albumin Level 4.0 g/dl (3.5-5.0); Chloride 105 mmol/L (98-107); Potassium 4.6 mmoL/L (3.5-5.1); Sodium 134 mmol/L (136-145)
[2024-11-08 20:06] LABS: Anion Gap 9.6 mEq/L (5-15); Blood Urea Nitrogen 18 mg/dl (9-20); Carbon Dioxide 24 mmol/L (22.0-30.0); Creatinine Clearance Estimated 37 mL/min (50-200); Creatinine,Serum 1.60 mg/dl (0.66-1.25); Estimated Glomerular Filt Rate 41 ml/min (>60); GFR (African American) 50 ML/MIN (>60); Magnesium 2.3 mg/dl (1.6-2.3)
[2024-11-08 20:07] LABS: Alanine Aminotransferase 22 U/L (12-78); Albumin/Globulin Ratio 1.4 (1.1-1.8); Alkaline Phosphatase 90 U/L (38-126); Aspartate Amino Transferase 33 U/L (17-59); Bilirubin,Total 0.8 mg/dl (0.2-1.3); Calcium 9.1 mg/dl (8.4-10.2); Globulin 2.8 g/dL (1.3-3.2); Glucose 126 mg/dl (74-100); Total Protein,Serum 6.8 g/dl (6.3-8.2)
[2024-11-08 20:15] LABS: NT Pro Brain Natriuretic Pep. 8590 pg/mL (0-450)
[2024-11-08 20:18] LABS: Troponin I 0.02 ng/ml (0.00-0.034)
[2024-11-08] MEDS: IOPAMIDOL-370 (76%);100ML BOTTLE 70 ML IV (20:34)
[2024-11-08] MEDS: 0.9 % SODIUM CHLORIDE 50 ML VIAL 40 ML IV (20:34)
[2024-11-08] MEDS: SODIUM CHLORIDE 0.9% 10ML SYR (RAD ONLY) 10 ML IV (20:34)
[2024-11-08] MEDS: FUROSEMIDE 40MG/4ML VIAL 80 MG IV (20:56)
[2024-11-08 22:09] LABS: Troponin I 0.03 ng/ml (0.00-0.034)
== END 2024-11-08 22:18 | disposition home or self-care (01) ==
PROVIDERS: Physician Assistant; Emergency Provider Student in an Organized Health Care Education/Training Program; PCP Nurse Practitioner Family
DX: J90 Pleural effusion, not elsewhere classified (principal); R06.02 Shortness of breath; I11.0 Hypertensive heart disease with heart failure; I50.9 Heart failure, unspecified; R00.0 Tachycardia, unspecified
CPT/HCPCS: 71275; 80053; 83735; 83880; 84484; 85025; 85610; 87636; 93005; 96374; 99285; J1938; Q9967

== ENCOUNTER 2024-11-11 09:52 | Outpatient (CLI) | payer MEDICARE, SELFPAY ==
--- OUTSIDE RECORDS SUMMARY | 2024-11-11 09:58 | XMS_ITS | Encounter Summary ---
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 Name Role Phone Unavailable Primary Care Provider Unavailabl e Encounter Details Date Type Department Care Team (Late st Contact Info) Description 06/29/2018 Transcribed Document [facility] [place] [address] [place] [address] ProviderAngelique MD [address] [place], [place] [id number] Social History Tobacco Use Types Packs/Day Years Used Date Smoking Tobacco: Never Assessed Sex and Gender Information Value Date Recorded Sex Assigned at Not on file Legal Sex Male 3:45 PM CDT Gender Identity Not on file Sexual Orientation Not on file documented as of this encounter Miscellaneous Notes * Cerner Conversion Note - Historical ProviderMD - 06/29/2018 2:00 AM CDT 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
--- OUTSIDE RECORDS SUMMARY | 2024-11-11 09:58 | XMS_ITS | Encounter Summary ---
Author Organization [employer] ([place], [place], [place], [place]) Address [address] [place] [address] Care Team Providers Care Mechanical Handyman Name Role Phone Unavailable Primary Care Provider Unavailabl e Encounter Details Date Type Department Care Team (Late st Contact Info) Description 06/29/[address] [facility] [place] [address] [place] [address] ProviderAngelique MD [address] [place], [place] [id number] Social History Tobacco Use Types Packs/Day Years [...]
--- OUTSIDE RECORDS SUMMARY | 2024-11-11 09:58 | XMS_ITS | Referral Summary ---
Author Organization [employer] ([place], [place], [place], [place]) Address [address] [place] [address] Care Team Providers Care Expediter Name Role Phone Unavailable Primary Care Provider [...]
--- OUTSIDE RECORDS SUMMARY | 2024-11-11 09:58 | XMS_ITS | Encounter Summary ---
Author Organization [employer] ([place], [place], [place], [place]) Address [address] [place] [address] Care Team Providers Care Rn Outpatient Surgery Name Role Phone Unavailable Primary Care Provider Unavailabl e Encounter Details Date Type Department Care Team (Late st Contact Info) Description 06/29/2018 Transcribed Document [facility] [place] [facility] [place] [address] ProviderAngelique MD [address] [place] [id number] Social History Tobacco Use Types Packs/Day Years [...] Male : 1940 Chief Complaint: transferred from [facility] with SOA, RLE swelling, DVT, bilat PE Subjective Had extensive discussion about anticoagulants once again and human services case manager confirms that his insurance will [...] Daily Lovenox, 90 mg= 0.9 mL, SubCutaneous, [id number] MiraLax, 17 Gram= 1 Packet, Oral, Daily, [...] 07:42 Diagnostic Results No Radiology Results Found Electronically signed by Kimberly Jefferson Conversion Home Sales Service Professional Cerner at 08/05/2022 1:22 PM CDT documented in this encounter Plan of Treatment Not on file documented as of this encounter Visit Diagnoses Not on filedocumented in this encounter
--- OUTSIDE RECORDS SUMMARY | 2024-11-11 09:58 | XMS_ITS | Encounter Summary ---
Author Organization [employer] ([place], [place], [place], [place]) Address [address] [place] [address] Care Team Providers Care Division Plant Engineer Name Role Phone Unavailable Primary Care Provider Unavailabl e Encounter Details Date Type Department Care Team (Late st Contact Info) Description 06/27/2018 Transcribed Document [facility] [place] [facility] [place] [address] ProviderAngelique MD [address] [place] [id number] Social History Tobacco Use Types Packs/Day Years [...]
--- OUTSIDE RECORDS SUMMARY | 2024-11-11 09:58 | XMS_ITS | Encounter Summary ---
Author Organization [employer] ([place], [place], [place], [place]) Address [address] [place] [address] Care Team Providers Care Rolled Materials Worker Name Role Phone Unavailable Primary Care Provider Unavailabl e Encounter Details Date Type Department Care Team (Late st Contact Info) Description 06/30/2018 Transcribed Document [facility] [place] Family [place] [facility] [place] [address] ProviderAngelique MD [facility] [place], [place] [id number] Social History Tobacco Use Types Packs/Day Years Used Date Smoking Tobacco: Never Assessed Sex and Gender Information Value Date Recorded Sex Assigned at Not on file Legal Sex Male 3:45 PM CDT Gender Identity Not on file Sexual Orientation Not on file documented as of this encounter Miscellaneous Notes * Cerner Conversion Note - Historical ProviderMD - 06/30/2018 3:17 PM CDT Patient: SESAR PEMBERTON Age: 77 Years Sex: Male : [...] Daily Lovenox, 90 mg= 0.9 mL, SubCutaneous, [id number] MiraLax, 17 Gram= 1 Packet, Oral, Daily, [...] (Current Encounter/Past 24 Hours) PT 13.4 Second(s) [place] 06/30/2018 05:22 INR 1.2 [place] 06/30/2018 05:22 Creatinine Clearance (Current Encounter/Past 24 Hours) No Creatinine Clearance Results Found (Past 24 Hours) documented in this encounter Plan of Treatment Not on file documented as of this encounter Visit Diagnoses Not on filedocumented in this encounter
--- OUTSIDE RECORDS SUMMARY | 2024-11-11 09:58 | XMS_ITS | Encounter Summary ---
Author Organization [employer] ([place], [place], [place], [place]) Address [address] [place] [address] Care Team Providers Care Promotions Executive Producer Name Role Phone Unavailable Primary Care Provider Unavailabl e Encounter Details Date Type Department Care Team (Late st Contact Info) Description 06/27/[address] [facility] [place] [facility] [place] [address] ProviderAngelique MD [address] [place] [address] [phone] Social History Tobacco Use Types Packs/Day Years [...] the text rendition version of the form. Electronically signed by Kimberly Jefferson Conversion Biofuels Product Manager Cerner at 08/05/2022 1:14 PM CDT documented in this encounter Plan of Treatment Not on file documented as of this encounter Visit Diagnoses Not on filedocumented in this encounter
--- OUTSIDE RECORDS SUMMARY | 2024-11-11 09:58 | XMS_ITS | Encounter Summary ---
Author Organization [employer] ([place], [place], [place]) Address [address] [place] [address] Care Team Providers Care Recoverer Name Role Phone Unavailable Primary Care Provider Unavailabl e Encounter Details Date Type Department Care Team (Late st Contact Info) Description 06/30/2018 Transcribed Document [facility] [place] Family Medicine [address] [place] [address] ProviderAngelique MD [address] [place], [place] [id number] Social History Tobacco Use Types Packs/Day Years Used Date Smoking Tobacco: Never Assessed Sex and Gender Information Value Date Recorded Sex Assigned at Not on file Legal Sex Male 3:45 PM CDT Gender Identity Not on file Sexual Orientation Not on file documented as of this encounter Miscellaneous Notes * Cerner Conversion Note - Historical ProviderMD - 06/30/2018 2:00 AM CDT Configuration Management Analyst Details Entered On: 06/30/2018 1:31 EDT Performed [...]
--- OUTSIDE RECORDS SUMMARY | 2024-11-11 09:58 | XMS_ITS | Encounter Summary ---
Author Organization [employer] ([place], [place], [place], [place]) Address [address] [place] [address] Care Team Providers Care Addiction Medicine Physician Name Role Phone Unavailable Primary Care Provider Unavailabl e Encounter Details Date Type Department Care Team (Late st Contact Info) Description 06/29/2018 Transcribed Document [facility] [place] [facility] [place] [address] ProviderAngelique MD [address] [place] [address] [phone] Social History Tobacco Use Types Packs/Day Years [...] lower extremity DVTs who presented to an [facility] for complaints of numbness in the lower extremities over the last 2 weeks. 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 On morning of presentation patient woke up with moderate edema and swelling of the right lower extremity and some mild discomfort. He went to the [facility] emergency department where he had a lower extremity venous duplex and a CT PE protocol. It was found he had a right lower extremity acute DVT as well as a reported bilateral pulmonary embolism. He was started on a heparin drip and transferred to [facility] for further evaluation and treatment. 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 Integumentary: Warm, Dry, [place], Intact. Neurologic: Alert, Oriented, No focal deficits. [...]
--- OUTSIDE RECORDS SUMMARY | 2024-11-11 09:58 | XMS_ITS | Encounter Summary ---
Author Organization [employer] ([place], [place], [place], [place]) Address [address] [place] [address] Care Team Providers Care Care Clinician Name Role Phone Unavailable Primary Care Provider Unavailabl e Encounter Details Date Type Department Care Team (Late st Contact Info) Description 06/27/[address] [facility] [place] [address] ProviderAngelique MD [address] [place] [address] [phone] Social History Tobacco Use Types Packs/Day Years [...] 10:18 EDT Care Management Note : [facility] is not covered by [facility]. Spoke with Silva. She arranged with [facility] through [facility] Care Management Note Report : CYNTHIA FRANKLIN, Business Writer-Care Management - 06/29/18 10:19:32 pt is alert [...] 06/29/2018 12:41 EDT Electronically signed by Ronny, [facility] Conversion Shaper Hand Cerner at 08/05/2022 1:25 PM CDT documented in this encounter Plan of Treatment Not on file documented as of this encounter Visit Diagnoses Not on filedocumented in this encounter
--- OUTSIDE RECORDS SUMMARY | 2024-11-11 09:58 | XMS_ITS | Encounter Summary ---
Author Organization [employer] ([place]) Address [address] [place] [address] Care Team Providers Care Veterinary Attendant Name Role Phone Unavailable Primary Care Provider Unavailabl e Encounter Details Date Type Department Care Team (Late st Contact Info) Description 06/29/2018 Transcribed Document [facility] [place] [facility] [address] ProviderAngelique MD [address] [place] [address] [phone] Social History Tobacco Use Types Packs/Day Years [...] Physician : Reynaldo Jauregui Durable Power of Water Inspector Name : No Emergency Contact #1 : [...] very pleasant, I thanked them for choosing [facility] and they seem content with the service. pt reports that he has had issues with Coumadin vs Elaquis before. Pts reports that if they lived in [facility] they would be able to get Part D with [employer] but because they live in [place] they can not. Pt is agreeable to [...]
--- OUTSIDE RECORDS SUMMARY | 2024-11-11 09:58 | XMS_ITS | Encounter Summary ---
Author Organization [employer] ([place], [place], [place]) Address [address] [place] [address] Care Team Providers Care Wood Room Supervisor Name Role Phone Unavailable Primary Care Provider Unavailabl e Encounter Details Date Type Department Care Team (Late st Contact Info) Description 06/27/2018 Transcribed Document [facility] [place] [address] ProviderAngelique MD [address] [place] [address] [phone] Social History Tobacco Use Types Packs/Day Years [...] Home Equipment, Therapy : None HOLLEY JACKSON OTR/Kahtia - 06/29/2018 15:16 EDT Prior LOF Bathing, [...]
--- OUTSIDE RECORDS SUMMARY | 2024-11-11 09:58 | XMS_ITS | Encounter Summary ---
Author Organization [employer] ([place]) Address [address] [place] [address] Care Team Providers Care Press Operator Helper Name Role Phone Unavailable Primary Care Provider Unavailabl e Encounter Details Date Type Department Care Team (Late st Contact Info) Description 06/28/2018 Transcribed Document [facility] [place] [address] [place] [address] ProviderAngelique MD [address] [place], [place] [phone] Social History Tobacco Use Types Packs/Day Years [...] yet for RN Notification : RN HOLLEY Pierer OTR/Kathia - 06/28/2018 11:22 EDT documented in this encounter Plan of Treatment Not on file documented as of this encounter Visit Diagnoses Not on filedocumented in this encounter
--- OUTSIDE RECORDS SUMMARY | 2024-11-11 09:58 | XMS_ITS | Encounter Summary ---
Author Organization [employer] ([place], [place], [place]) Address [address] [place] [address] Care Team Providers Care Relay Tester Helper Name Role Phone Unavailable Primary Care Provider Unavailabl e Encounter Details Date Type Department Care Team (Late st Contact Info) Description 06/27/2018 Transcribed Document [facility] [place] Family Medicine [address] [place] [address] ProviderAngelique MD [address] [place], [place] [phone] Social History Tobacco Use Types Packs/Day Years [...]
--- OUTSIDE RECORDS SUMMARY | 2024-11-11 09:58 | XMS_ITS | Encounter Summary ---
Author Organization [employer] ([place], [place], [place], [place]) Address [address] [place] [address] Care Team Providers Care Edge Inker Name Role Phone Unavailable Primary Care Provider Unavailabl e Encounter Details Date Type Department Care Team (Late st Contact Info) Description 06/29/2018 Transcribed Document [facility] [place] [address] ProviderAngelique MD [address] [place] [address] [phone] Social History Tobacco Use Types Packs/Day Years [...]
--- OUTSIDE RECORDS SUMMARY | 2024-11-11 09:59 | XMS_ITS | Encounter Summary ---
Author Organization [employer] ([place], [place], [place], [place]) Address [address] [place] [address] Care Team Providers Care Staff Readiness Officer Name Role Phone Unavailable Primary Care Provider Unavailabl e Encounter Details Date Type Department Care Team (Late st Contact Info) Description 06/30/2018 Transcribed Document [facility] [place] Family Medicine [address] [place] [address] ProviderAngelique MD [address] [place], [place] [phone] Social History Tobacco Use Types Packs/Day Years [...] Alix Galarza, Rn-Resource - 06/30/2018 4:40 EDT Electronically signed by Kimberly Jefferson Conversion Fruit And Vegetable Parer Cerner at 08/05/2022 1:17 PM CDT documented in this encounter Plan of Treatment Not on file documented as of this encounter Visit Diagnoses Not on filedocumented in this encounter
--- OUTSIDE RECORDS SUMMARY | 2024-11-11 09:59 | XMS_ITS | Clinical Summary ---
Author Organization [employer] ([place], [place], [place], [place]) Address [address] [place] [address] Care Team Providers Care Claims Vice President Name Role Phone Unavailable Primary Care Provider [...]
--- OUTSIDE RECORDS SUMMARY | 2024-11-11 09:59 | XMS_ITS | Encounter Summary ---
Author Organization [employer] ([place], [place], [place], [place]) Address [address] [place] [address] Care Team Providers Care Hospital Administrative Assistant Name Role Phone Unavailable Primary Care Provider Unavailabl e Encounter Details Date Type Department Care Team (Late st Contact Info) Description 07/01/2018 Transcribed Document [facility] [place] [address] ProviderAngelique MD [address] [place] [phone] Social History Tobacco Use Types Packs/Day Years [...] EDT Electronically signed by Kimberly Jefferson Conversion Councillor [employer] Cerner at 08/05/2022 1:08 PM CDT documented in this encounter Plan of Treatment Not on file documented as of this encounter Visit Diagnoses Not on filedocumented in this encounter
--- OUTSIDE RECORDS SUMMARY | 2024-11-11 09:59 | XMS_ITS | Encounter Summary ---
Author Organization [employer] ([place], [place], [place], [place]) Address [address] [place] [address] Care Team Providers Care Lawn Sprinkler Installer Name Role Phone Unavailable Primary Care Provider Unavailabl e Encounter Details Date Type Department Care Team (Late st Contact Info) Description 07/01/2018 Transcribed Document [facility] [place] Family Medicine [facility] [place] [address] ProviderAngelique MD [address] [place] [address] [phone] Social History Tobacco Use Types Packs/Day Years [...] 03/22/2010 Document Revised: 09/08/2016 Document Reviewed: 07/29/2015 [employer] Interactive Patient Education ? 2017 [employer] Deep Vein Thrombosis A deep vein [...] kale, broccoli, cabbage, anni greens, turnip greens, [place] sprouts, peas, cauliflower, seaweed, and parsley. ? Beef liver and pork liver. ? Green tea. ? Soybean oil. ??? Tell your health care provider about any and all medicines, vitamins, and supplements that you take, including aspirin and other urog-yvk-tutttbm anti-inflammatory medicines. Be especially cautious with aspirin and anti-inflammatory medicines. Do not take those before you ask your health care provider if it is safe to do so. This is important because many medicines can interfere with warfarin and affect the PT and INR results. ??? Do notstart or stop taking any fxfh-zxg-fxvsilz or prescription medicine unless your health care [...] Avoid contact sports. General instructions ??? Take letz-afe-bmkitqo and prescription medicines only as told by [...] 07/29/2015 [employer] Interactive Patient Education ? 2017 [employer] documented in this encounter Plan of Treatment Not on file documented as of this encounter Visit Diagnoses Not on filedocumented in this encounter
--- OUTSIDE RECORDS SUMMARY | 2024-11-11 09:59 | XMS_ITS | Encounter Summary ---
Author Organization [employer] ([place], [place]) Address [address] [place] [address] Care Team Providers Care Individual Pension Adviser Name Role Phone Unavailable Primary Care Provider Unavailabl e Encounter Details Date Type Department Care Team (Late st Contact Info) Description 06/27/2018 Transcribed Document [facility] [place] [facility] [place] [address] ProviderAngelique MD [address] [place] [address] [phone] Social History Tobacco Use Types Packs/Day Years [...] directive, Living will, Medical durable power of commercial green building architect (proxy) Copy Advance Directive Verified/on Chart : [...] : daughter Chief Complaint : transferred from [facility] with SOA, RLE swelling, DVT, bilat PE Information Obtained From : Patient Primary Language : Libyan Communication Barrier : None Lizzy Balbuena RN [...] Scale Risk Level : 25-45 Medium Risk [place] Fall Interventions : Adequate lighting, Assistive devices [...] Source : Stated Height Entry Format : [place] Height, Feet : 5 ft(Converted to: 152 cm, 60 Inch) Height, Inches : 8 Inch(Converted to: 0 ft 8 Inch, 20.32 cm) Clinical Height : 172.72 cm Weight Source : Bed scale Weight Entry Format : [place] Clinical Dosing Weight : 89.55 kg Weight, Pounds : 197 lb Body Surface Area (BSA) : 2.03 m2 Body Mass Index : 30 kg/m2 (HI) [place] Body Weight : 67 kg Lizzy Balbuena [...] RN - 06/27/2018 19:53 EDT Spiritual/Cultural Needs Zoroastrianism Preference : Amish Lizzy Balbuena RN - 06/27/2018 19:53 EDT Valuables and Belongings Valuables and Belongings : Clothing, Personal devices Clothing : Common streetwear Clothing Disposition : With patient Personal Device Disposition : With patient Personal Devices : Dentures, lower, Dentures, partial plate, Glasses Lizzy Balbuena, TOMASZ - 06/27/2018 19:53 EDT Electronically signed by Ronny [facility] Conversion Director Learning Cerner at 08/05/2022 1:33 PM CDT documented in this encounter Plan of Treatment Not on file documented as of this encounter Visit Diagnoses Not on filedocumented in this encounter
--- OUTSIDE RECORDS SUMMARY | 2024-11-11 09:59 | XMS_ITS | Encounter Summary ---
Author Organization [employer] ([place], [place], [place]) Address [address] [place] [address] Care Team Providers Care Road Freight Firer Name Role Phone Unavailable Primary Care Provider Unavailabl e Encounter Details Date Type Department Care Team (Late st Contact Info) Description 06/28/2018 Transcribed Document [facility] [address] [place] [address] Jett Narvaez MD [address] [place] [address] [place] [address] Social History Tobacco Use Types Packs/Day Years [...] Jauregui Accepting physician Dr. Wells Transferring facility [facility] Chief complaint right leg swelling History of present illness Patient presents as a transfer from [facility]. He has been having some numbness [...] At risk for sleep apnea / IMO [id number] / Confirmed, Active Problems (1) At risk for sleep apnea Objective VS/Measurements No qualifying data available General: No acute distress. Eye: Normal conjunctiva. Neck: No jugular venous distention. Respiratory: Lungs are clear to auscultation, Respirations are non-labored, Breath sounds are equal. Cardiovascular: Regular rhythm, No gallop, S1+ S2 No S3 or S4 [place].. Gastrointestinal: Soft, Non-tender, Non-distended, Normal bowel sounds. [...]
--- OUTSIDE RECORDS SUMMARY | 2024-11-11 09:59 | XMS_ITS | Encounter Summary ---
Author Organization [employer] ([place], [place], [place], [place]) Address [address] [place] [address] Care Team Providers Care Political Director Name Role Phone Unavailable Primary Care Provider Unavailabl e Encounter Details Date Type Department Care Team (Late st Contact Info) Description 07/01/2018 Transcribed Document [facility] [place] Family Medicine [facility] [place] [address] ProviderAngelique MD [address] [place] [address] Social History Tobacco Use Types Packs/Day Years Used Date Smoking Tobacco: Never Assessed Sex and Gender Information Value Date Recorded Sex Assigned at Not on file Legal Sex Male 3:45 PM CDT Gender Identity Not on file Sexual Orientation Not on file documented as of this encounter Miscellaneous Notes * Cerner Conversion Note - Angelique ProviderMD - 07/01/2018 1:24 PM CDT [address] [place] [address] Patient Copy Patient Information: Name: SESAR FU Current Date: 07/01/2018 13:24:38 : 1940 Patient Address: [address] [address] Patient Attending Physician: CATALINA MARIN MD-INT Primary [...] 03/22/2010 Document Revised: 09/08/2016 Document Reviewed: 07/29/2015 ElseTu Closet Mi Closet Interactive Patient Education ? 2017 [employer]. Deep Vein Thrombosis A deep vein [...] kale, broccoli, cabbage, anni greens, turnip greens, [place] sprouts, peas, cauliflower, seaweed, and parsley. ? Beef liver and pork liver. ? Green tea. ? Soybean oil. ??? Tell your health care provider about any and all medicines, vitamins, and supplements that you take, including aspirin and other kkmp-zvf-vwyuuqx anti-inflammatory medicines. Be especially cautious with aspirin and anti-inflammatory medicines. Do not take those before you ask your health care provider if it is safe to do so. This is important because many medicines can interfere with warfarin and affect the PT and INR results. ??? Do notstart or stop taking any plmw-lqg-vsfygvb or prescription medicine unless your health care [...] Avoid contact sports. General instructions ??? Take jqgf-bhi-dpfmgeq and prescription medicines only as told by [...] 07/29/2015 Elsevier Interactive Patient Education ? 2017 [employer]. Medication Leaflets: aspirin (oral) ( pir [...] What is aspirin? Aspirin is a salicylate (ek-FME-ad-ate). It works by reducing substances in the [...] may report side effects to FDA at 1-358-ZIP-0920. What other drugs will affect aspirin? Ask [...] drugs may affect aspirin, including prescription and vuak-enm-kgvyyuv medicines, vitamins, and herbal products. Not all [...] to ensure that the information provided by [employer]. ('[employer]') is accurate, up-to-date, and complete, but no guarantee is made to that effect. Drug information contained herein may be time sensitive. [employer] information has been compiled for use by healthcare practitioners and consumers in the [place] and therefore [employer] does not warrant that uses outside of the [place] are appropriate, unless specifically indicated otherwise. [employer] drug information does not endorse drugs, diagnose patients or recommend therapy. [employer] drug information is an informational resource designed [...] effective or appropriate for any given patient. [employer] does not assume any responsibility for any aspect of healthcare administered with the aid of information [employer] provides. The information contained herein is not intended to cover all possible uses, directions, precautions, warnings, drug interactions, allergic reactions, or adverse effects. If you have questions about the drugs you are taking, check with your doctor, nurse or pharmacist. Copyright 1886-9302 [employer]. Version: 15.. Revision Date: 07/17/2017. warfarin (oral) [...] may report side effects to FDA at 2-539-IDF-1233. What other drugs will affect warfarin? Many drugs (including some mbkj-spm-bosnzgw medicines and herbal products) can affect your [...] echinacea, garlic, ginkgo biloba, ginseng, goldenseal, or Montreal's wort. This list is not complete and many other drugs can interact with warfarin. This includes prescription and sgee-vhz-wtaajua medicines, vitamins, and herbal products. Give a [...] to ensure that the information provided by [employer]. ('[employer]') is accurate, up-to-date, and complete, but no guarantee is made to that effect. Drug information contained herein may be time sensitive. [employer] information has been compiled for use by healthcare practitioners and consumers in the [place] and therefore [employer] does not warrant that uses outside of the [place] are appropriate, unless specifically indicated otherwise. [employer]'s drug information does not endorse drugs, diagnose patients or recommend therapy. [employer] drug information is an informational resource designed [...] effective or appropriate for any given patient. [facility] does not assume any responsibility for any aspect of healthcare administered with the aid of information [facility] provides. The information contained herein is not intended to cover all possible uses, directions, precautions, warnings, drug interactions, allergic reactions, or adverse effects. If you have questions about the drugs you are taking, check with your doctor, nurse or pharmacist. Copyright 7777-6820 [facility]. Version: 22.01. Revision Date: 12/29/2016. famotidine (fam [...] may report side effects to FDA at 3-971-FKH-0225. What other drugs will affect famotidine? Famotidine can make it harder for your body to absorb other medicines you take by mouth. Tell your doctor if you are taking: ? cefditoren; ?? dasatinib; ?? delavirdine; or ?? fosamprenavir. This list is not complete. Other drugs may affect famotidine, including prescription and qniy-dfp-xwkrfts medicines, vitamins, and herbal products. Not all [...] to ensure that the information provided by [employer]. ('[employer]') is accurate, up-to-date, and complete, but no guarantee is made to that effect. Drug information contained herein may be time sensitive. [employer] information has been compiled for use by healthcare practitioners and consumers in the [place] and therefore [employer] does not warrant that uses outside of the [place] are appropriate, unless specifically indicated otherwise. [employer] drug information does not endorse drugs, diagnose patients or recommend therapy. [employer] drug information is an informational resource designed [...] effective or appropriate for any given patient. [employer] does not assume any responsibility for any aspect of healthcare administered with the aid of information [employer] provides. The information contained herein is not intended to cover all possible uses, directions, precautions, warnings, drug interactions, allergic reactions, or adverse effects. If you have questions about the drugs you are taking, check with your doctor, nurse or pharmacist. Copyright 8185-9366 [employer]. Version: 15.02. Revision Date: 03/15/2018. CIGARETTE SMOKING: The facts are clear, cigarette smoking will shorten your life. Smoking can cause many illnesses along the way. As a healthcare provider, we recommend that you stop smoking. Assistance with quitting is available by contacting 9-342-DRTI-NOW. This is a free resource providing counseling, [...] Be sure to sign up for the [employer] patient portal, which gives you 07/11 access to your medical information ??? including these discharge instructions ??? using your computer, smartphone, or tablet. Just go to Intuit to get started. Questions? Call . [facility] would like to thank you for allowing us to assist you with your healthcare needs. TANK Arreguin WARREN B, (or associate sales representative) have received the above patient education materials/instructions and have verbalized understanding: Patient Signature _ Date/Time Patient Sheet Metal Lay Out Worker Signature (if needed) Date/Time Clinician/Hospital Sheet Metal Lay Out Worker Signature (if needed) Date/Time Electronically signed by [facility] Conversion Parts Sales Advisor Jc at 08/05/2022 1:31 PM CDT documented in this encounter Plan of Treatment Not on file documented as of this encounter Visit Diagnoses Not on filedocumented in this encounter
--- OUTSIDE RECORDS SUMMARY | 2024-11-11 09:59 | XMS_ITS | Encounter Summary ---
Author Organization [employer] ([place], [place], [place], [place]) Address [address] [place] [address] Care Team Providers Care Natural Gas Field Processing Supervisor Name Role Phone Unavailable Primary Care Provider Unavailabl e Encounter Details Date Type Department Care Team (Late st Contact Info) Description 07/10/2018 Transcribed Document [facility] [place] Family Medicine [facility] [place] [address] ProviderAngelique MD [address] [place] [address] [phone] Social History Tobacco Use Types Packs/Day Years [...]
--- OUTSIDE RECORDS SUMMARY | 2024-11-11 09:59 | XMS_ITS | Encounter Summary ---
Author Organization [employer] ([place], [place], [place], [place]) Address [address] [place] [address] Care Team Providers Care Halal Meat Packer Name Role Phone Unavailable Primary Care Provider Unavailabl e Encounter Details Date Type Department Care Team (Late st Contact Info) Description 07/09/2018 Transcribed Document [facility] [place] Family Medicine [address] [place] [address] ProviderAngelique MD [address] [place], [place] [id number] Social History Tobacco Use Types Packs/Day Years [...] EDT Electronically signed by Kimberly Jefferson Conversion Cashiers Supervisor Cerjeannine at 08/05/2022 1:24 PM CDT documented in this encounter Plan of Treatment Not on file documented as of this encounter Visit Diagnoses Not on filedocumented in this encounter
--- OUTSIDE RECORDS SUMMARY | 2024-11-11 09:59 | XMS_ITS | Encounter Summary ---
Author Organization [employer] ([place], [place], [place], [place]) Address [address] [place] [address] Care Team Providers Care Physician Relations Representative Name Role Phone Unavailable Primary Care Provider Unavailabl e Encounter Details Date Type Department Care Team (Late st Contact Info) Description 06/28/2018 Transcribed Document [facility] [place] [facility] [place] [address] ProviderAngelique MD [address] [place] [address] [id number] Social History Tobacco Use Types Packs/Day Years [...] Male : 1940 Chief Complaint: transferred from [facility] with SOA, RLE swelling, DVT, [...] he go to the Coumadin clinic in [place] 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, 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 Right leg DVT I82.401 Lovenox and then warfarin Orders: enoxaparin, 90 mg, SubCutaneous, Inj, [id number], Start 06/28/18 10:00:00 EDT [facility] Nursing Order Medications Inpatient aspirin, 81 mg= 1 Tab, Oral, Daily Colace, 100 mg= 1 Cap, Oral, BID, PRN DuoNeb 0.5 mg-2.5 mg/3 mL inhalation solution, 3 mL, Nebulized Inhalation , Q6H, PRN Lipitor, 10 mg= 1 Tab, Oral, Weekly lisinopril, 10 mg= 1 Tab, Oral, Daily Lovenox, 90 mg= 0.9 mL, SubCutaneous, [id number] MiraLax, 17 Gram= 1 Packet, Oral, Daily, [...] mg/dL Electronically signed by Kimberly Jefferson Conversion Information Technology Internship Cerner at 08/05/2022 1:21 PM CDT documented in this encounter Plan of Treatment Not on file documented as of this encounter Visit Diagnoses Not on filedocumented in this encounter
--- OUTSIDE RECORDS SUMMARY | 2024-11-11 09:59 | XMS_ITS | Encounter Summary ---
Author Organization [employer] ([place], [place], [place], [place]) Address [address] [place] [address] Care Team Providers Care Analytical Clerk Name Role Phone Unavailable Primary Care Provider Unavailabl e Encounter Details Date Type Department Care Team (Late st Contact Info) Description 06/28/2018 Transcribed Document [facility] [place] [address] [place] [address] ProviderAngelique MD [address] [place] [phone] Social History Tobacco Use Types Packs/Day Years [...] lower extremity DVTs who presented to an [facility] for complaints of numbness in the lower extremities over the last 2 weeks. 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 On morning of presentation patient woke up with moderate edema and swelling of the right lower extremity and some mild discomfort. He went to the [facility] emergency department where he had a lower extremity venous duplex and a CT PE protocol. It was found he had a right lower extremity acute DVT as well as a reported bilateral pulmonary embolism. He was started on a heparin drip and transferred to [facility] for further evaluation and treatment. 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 Integumentary: Warm, Dry, [place], Intact. Neurologic: Alert, Oriented, No focal deficits. [...]
--- OUTSIDE RECORDS SUMMARY | 2024-11-11 09:59 | XMS_ITS | Clinical Summary ---
Author Organization [facility] Address [address] [place] [address] Care Team Providers Care System Operator Name Role Phone Giovani Penldeton MD Primary Care Provider [phone] Dayne Flaherty MD Unavailable Allergies No known active allergies Medications cholecalciferol (Vitamin D3) 1.25 MG (83127 UT) capsule Vitamin D3 1 QD Active [...] Health Maintenance Due Date Last Done Comments [facility]-Depression Screening 1940 [facility]-Medicare Annual Wellness (AWV) 1940 [facility]-Infant/Child/Adol SDOH Screenings 1940 [id number] Vaccine (#1) 1945 [facility]- SDOH Screenings 1958 [...] this topic Insurance HUMAN MEDICARE Care Teams System Operator Relationship Specialty Start Date End Date Giovani Pendleton MD [address] [facility] [address] [place] [address] PCP - General 09/10/21 Dayne Flaherty MD [address] [facility] [address] [place] [address] Consulting Physician Neurosurgery 09/22/21
--- OUTSIDE RECORDS SUMMARY | 2024-11-11 09:59 | XMS_ITS | Encounter Summary ---
Author Organization [employer] ([place], [place], [place], [place]) Address [address] [place] [address] Care Team Providers Care Top Installer Name Role Phone Unavailable Primary Care Provider Unavailabl e Encounter Details Date Type Department Care Team (Late st Contact Info) Description 07/04/2018 Transcribed Document [facility] [place] Family Medicine [address] [place] [address] ProviderAngelique MD [address] [place], [place] [phone] Social History Tobacco Use Types Packs/Day Years [...] Brenda Ruiz Rn - 07/04/2018 14:52 EDT documented in this encounter Plan of Treatment Not on file documented as of this encounter Visit Diagnoses Not on filedocumented in this encounter
--- OUTSIDE RECORDS SUMMARY | 2024-11-11 09:59 | XMS_ITS | Encounter Summary ---
Author Organization [employer] ([place], [place], [place], [place]) Address [address] [place] [address] Care Team Providers Care Marketing Strategy Analyst Name Role Phone Unavailable Primary Care Provider Unavailabl e Encounter Details Date Type Department Care Team (Late st Contact Info) Description 06/28/2018 Transcribed Document [facility] [place] Family Medicine [address] [place] [address] ProviderAngelique MD [address] [place], [place] [phone] Social History Tobacco Use Types Packs/Day Years [...]
--- OUTSIDE RECORDS SUMMARY | 2024-11-11 09:59 | XMS_ITS | Encounter Summary ---
Author Organization [employer] ([place], [place], [place], [place]) Address [address] [place] [address] Care Team Providers Care Special Machine Operator Name Role Phone Unavailable Primary Care Provider Unavailabl e Encounter Details Date Type Department Care Team (Late st Contact Info) Description 07/01/2018 Transcribed Document [facility] [place] [facility] [place] [address] ProviderAngelique MD [address] [place] [address] [phone] Social History Tobacco Use Types Packs/Day Years [...] Jauregui Accepting physician Dr. Faroouqi Transferring facility [facility] Chief complaint right leg swelling History of present illness Patient presents as a transfer from [facility]. He has been having some numbness [...] to no prescription coverage with his Medicare. salary manager stated that his Medicare insurance would prohibit use of special discount from the [place]. So the patient was loaded with warfarin [...] (Current Encounter/Past 24 Hours) PT 25.9 Second(s) CO 07/01/2018 04:59 INR 2.4 CO 07/01/2018 04:59 Creatinine Clearance (Current Encounter/Past 24 Hours) No Creatinine Clearance Results Found (Past 24 Hours) Blood Products No qualifying data available. Type of Study: TTE procedure: EC Echo Complete. Patient Status: Routine IP [facility]: Adequate visualization Indications:Coronary artery disease. Allergies [...] 06/28/2018 07:52 EDT Electronically signed by Ronny [facility] Conversion Bale Sewer Cerner at 08/05/2022 1:33 PM CDT documented in this encounter Plan of Treatment Not on file documented as of this encounter Visit Diagnoses Not on filedocumented in this encounter
--- OUTSIDE RECORDS SUMMARY | 2024-11-11 09:59 | XMS_ITS | Encounter Summary ---
Author Organization [employer] ([place], [place], [place], [place]) Address [address] [place] [address] Care Team Providers Care Cylinder Inspector And Tester Name Role Phone Unavailable Primary Care Provider Unavailabl e Encounter Details Date Type Department Care Team (Late st Contact Info) Description 07/01/2018 Transcribed Document [facility] [place] [address] ProviderAngelique MD [address] [place] [address] [phone] Social History Tobacco Use Types Packs/Day Years [...] 07/01/2018 13:13 EDT Electronically signed by Ronny [facility] Conversion Manager Reading Cerner at 08/05/2022 1:33 PM CDT documented in this encounter Plan of Treatment Not on file documented as of this encounter Visit Diagnoses Not on filedocumented in this encounter
--- NOTE | 2024-11-11 10:02 | XR_ITS ---
FINAL REPORT CLINICAL HISTORY: SOB COMPARISON: April 2022. FINDINGS: AP and lateral views of the chest were obtained. There is no prior exam for comparison. The cardiac and mediastinal silhouettes are within normal limits. There are small bilateral pleural effusions. There is no acute infiltrate. There is no pneumothorax. No osseous abnormality is identified. The patient is status post median sternotomy. There has been no change in the left-sided pacemaker. IMPRESSION: Small bilateral pleural effusions. Reviewed, Interpreted and Dictated by Caitlin Reis MD Transcribed by STAR Jackson Authenticated and . [facility]
[2024-11-11 10:39] LABS: Anion Gap 9.9 mEq/L (5-15); Blood Urea Nitrogen 15 mg/dl (9-20); Calcium 9.3 mg/dl (8.4-10.2); Carbon Dioxide 31 mmol/L (22.0-30.0); Chloride 101 mmol/L (98-107); Creatinine,Serum 1.70 mg/dl (0.66-1.25); Estimated Glomerular Filt Rate 39 ml/min (>60); GFR (African American) 47 ML/MIN (>60); Glucose 107 mg/dl (74-100); Potassium 3.9 mmoL/L (3.5-5.1); Sodium 138 mmol/L (136-145)
[2024-11-11 10:49] LABS: NT Pro Brain Natriuretic Pep. 4960 pg/mL (0-450)
== END 2024-11-11 23:59 | disposition home or self-care (01) ==
LOC: LAB 09:52
PROVIDERS: PCP Nurse Practitioner Family; Visit Provider Physician Assistant
DX: I25.810 Atherosclerosis of coronary artery bypass graft(s) without angina pectoris (principal); Z95.1 Presence of aortocoronary bypass graft; R94.31 Abnormal electrocardiogram [ECG] [EKG]; I26.02 Saddle embolus of pulmonary artery with acute cor pulmonale; Z79.01 Long term (current) use of anticoagulants; R06.02 Shortness of breath
CPT/HCPCS: 36415; 71046; 80048; 83880

== ENCOUNTER 2024-11-21 12:33 | Observation (INO) | payer MEDICARE, SELFPAY ==
--- OUTSIDE RECORDS SUMMARY | 2024-11-21 10:58 | XMS_ITS | Clinical Summary ---
Author Organization [facility] Address [address] [place] [address] Care Team Providers Care Duplicating Machine Mechanic Name Role Phone Giovani Pendleton MD Primary Care Provider [phone] Dayne Flaherty MD Unavailable [phone] Allergies No known active allergies Medications cholecalciferol (Vitamin D3) 1.25 MG (40612 UT) capsule Vitamin D3 1 QD Active [...] Health Maintenance Due Date Last Done Comments [facility]-Depression Screening 1940 [facility]-Medicare Annual Wellness (AWV) 1940 [facility]-Infant/Child/Adol SDOH Screenings 1940 [id number] Vaccine (#1) 1945 [facility]- SDOH Screenings 1958 [...] this topic Insurance HUMAN MEDICARE Care Teams Duplicating Machine Mechanic Relationship Specialty Start Date End Date Giovani Pendleton MD [address] [facility] [address] [place] [address] PCP - General 09/10/21 Dayne Flaherty MD [address] [facility] [address] [place] [address] Consulting Physician Neurosurgery 09/22/21
--- NOTE | 2024-11-21 11:15 | CA_ITS ---
APPROVED REPORT EXAM: Comprehensive 2D, Doppler, and color-flow Echocardiogram Roving Frame Tender: Ana Maria Patterson RT(R) Ht: 5 ft 6 in Wt: 174lbs BSA: 1.88 BP: 141/81 mmHg Indications: Shortness of breath, pacemaker, hx prostate cancer, pleural effusions, hx CABG 2D Dimensions Left Atrium 2.90 cm M: 3.0 - 4.0 EF AP4 11.60 % LVOT 2.05 cm (M/F) 1.5-2.5 GL Strain -1.1 % M-Mode Dimensions RVDd 2.38 cm (0.9-2.6) LVDd 7.25 cm (3.5-5.7) Ao Diam 2.81 cm (2.0-3.7) LVDs 5.81 cm (3.5-5.7) IVSd 0.72 cm (0.6-1.1) PWd 0.72 cm (0.6-1.1) EF (Teich) 39.50% FS 19.90% EDV (Teich) 276.40 mL ESV (Teich) 167.20 mL Left Ventricle The left ventricle is mildly dilated. Left ventricular systolic function is severely reduced. There is normal left ventricular wall thickness. There is severe global hypokinesis. The septal and anteroseptal LV og are akinetic. Diastolic function is indeterminate. LVEF is 10% Right Ventricle The right ventricle is normal size. The right ventricular systolic function is normal. Atria The left atrium is mildly dilated. The right atrium size is normal. There is no color Doppler evidence of interatrial shunt. Aortic Valve The aortic valve opens well. There is no hemodynamically significant aortic valvular stenosis. Trace aortic regurgitation is present. Mitral Valve The mitral valve is normal in structure. No evidence of mitral valve stenosis. Mild mitral regurgitation is present. Tricuspid Valve The tricuspid valve leaflets are thin and pliable. Trace tricuspid regurgitation. There is insufficient TR jet to estimate RVSP. Pulmonic Valve The pulmonary valve is grossly normal in structure. Trace pulmonic valve regurgitation is present. Great Vessels The aortic root is normal in size. IVC is normal in size and collapses >50% with inspiration. Pericardium There is no pericardial effusion. Other Information Study Quality: Fair Conclusion Mild LV dilation with severe reduction in LV systolic function (LVEF 10%). The septal and anteroseptal LV og are akinetic. Mild LA dilation. Mild MR. Electronically signed by : Ya Hannah MD 11/22/2024 09:06:03
[2024-11-21 12:45] VITALS: PULSE 80
--- NOTE | 2024-11-21 12:45 | XR_ITS ---
FINAL REPORT CLINICAL HISTORY: HFrEF/ SOB COMPARISON: 11/11/2024 FINDINGS: The heart size is mildly enlarged. Sternotomy wires are present. A left-sided pacer is in place. Film was obtained in lordotic positioning. There is no focal infiltrate or edema. There are no pleural effusions. There is no pneumothorax. There is no osseous abnormality. IMPRESSION: No acute cardiopulmonary process Reviewed, Interpreted and Dictated by Jeff Ratliff MD Transcribed by Corinna Galarza Authenticated and [facility]
[2024-11-21 12:51] VITALS: BP 128/60; PULSE 83; RESP 16; TEMP 36.6; O2SAT 99; BMI 24.7
--- NOTE | 2024-11-21 12:52 | HMH.PHAINT1 ---
Pharmacy Intervention Comments: MEDICATION RECONCILIATION COMPLETED ON PATIENT USING EXTERNAL FILL HISTORY FROM PHARMACY AND LIST FROM CARDIOLOGY OFFICE. -DON BARROSO, ANYAD
--- NOTE | 2024-11-21 12:57 | P.HP_ITS ---
<Statement entered by Giovani Pendleton MD - 11/21/24 16:33> Rounded on patient after nurse practitioner. Personally examined and interviewed patient. Agree with exam findings and care plan as documented. History of Present Illness *Admission Date: 11/21/24 *Reason for visit:: HFrEF *History of present illness: Mr. Pemberton is a 84-year-old male with a primary medical history of congestive heart failure, bypass x 4, PE, DVT, LHC with stents, CAD, and ventricular p acemaker. He presented to the cardiology office today for a follow-up due to increasing shortness of breath. He originally presented to the emergency department on 11/08/2024 with complaints of shortness of breath for the last 4 to 5 days. Workup was done and he was found to have a proBNP of 8590 at that time. Other labs were unremarkable, negative troponin, negative COVID and flu, no leukocytosis or anemia noted. At that time he was given IV Lasix and sent home with a prescription of Lasix and a follow-up with cardiology on that following Monday. He followed up on 11/11/2024 in the [facility] cardiology office and was started on Entresto twice daily, outpatient echo and Lisa Myoview were ordered, patient to return in 2 weeks for a follow-up appointment. Today he presented for his follow-up appointment and echo, luminary report from echocardiogram shows EF of approximately 10%. Hospital medicine was contacted by the cardiology clinic for inpatient management, I agre ed to accept the patient for further medical management. [facility] Disclaimer: The information contained in this section may have been updated after the patient was seen, as this information can be updated by other users. Medical History Shortness of breath Syncope Prostate cancer Coronary artery disease due to lipid rich plaque Surgical History History of heart artery stent History of quadruple bypass S/P placement of cardiac pacemaker No significant past surgical history Family History Other Family history of cancer Family history of diabetes mellitus type II Family history of stroke Social History Smoking Status: Never smoker alcohol intake: never substance use type: denies use current occupational status: retired Travel in the last 8 weeks?: None household members: spouse housing: house lives independently: Yes marital status: education level: college caffeine: No special arielle needs: No agree to transfusion: No do you feel safe at home: Yes victim of physical abuse: No victim of emotional abuse: No victim of sexual abuse: No would you like helpful sources: No Have you lived/traveled outside [place] in past 30 days?: No Contact w/someone who lives/traveled outside US past 30 days?: No Exposure to someone with infectious disease in past 14 days?: No Do you have a fever (greater than 100.4 F or 38 C)?: No Have you tested positive for COVID-19?: No Exposed to someone with COVID-19 in past 14 days?: No Do you have a sore throat?: No Do you have a cough?: No Do you have any weakness?: No Do you have any diarrhea?: No Are you experiencing any unusual bleeding?: No Do you have any muscle aches/pain?: No Do you have any abdominal pain?: No Are you experiencing loss of taste or smell?: No Other Medical History Have you received the Flu Vaccine for this season: No Have you received the Pneumonia Vaccine: Yes Review of Systems Review of Systems Review of systems:: pertinent systems reviewed and negative unless documented below Constitutional Constitutional: Reports lethargy and Denies night sweats Eyes Eyes: Denies change in vision *Cardiovascular Cardiovascular: Denies chest pain, Reports dyspnea on exertion, Denies edema, Denies leg edema, Reports lightheadedness, Denies orthopnea and Denies pedal edema *Respiratory Respiratory: Denies cough, Reports dyspnea on exertion and Denies wheezing *Gastrointestinal Gastrointestinal: Denies abdominal pain and Denies change in bowel habits Allergic/Immunologic Allergic/Immunologic: Denies wheezing Meds Home Medications and Allergies Home Medications ?Medication ?Instructions ?Recorded ?Confirmed ?Type aspirin 81 mg tablet,delayed 81 mg PO 159909/07/17 History release (Aspir-) warfarin 2.5 mg tablet 1.25 mg PO MOFR@159911/21/24 History warfarin 2.5 mg tablet 2.5 mg PO SUTUWETHSA@159911/21/24 History furosemide 40 mg tablet (Lasix) 40 mg PO DAILY #30 tab s 11/11/24 11/21/24 Rx sacubitril 24 mg-valsartan 26 mg 1 tab PO BID #60 tabs 11/11/24 11/21/24 Rx tablet (Entresto) New Prescriptions to Start Prescriptions: Allergies Allergy/AdvReac Type Severity Reaction Status Date / Time Pencihc-MRT-NgH Reductase AdvReac Severe Verified 11/21/24 11:49 Inhibitor Exam Constitutional Constitutional: no acute distress, average body habitus and combative *Routine HEENT Exam Head: Present normocephalic Eye: Present EOMI ENT: Present mucous membranes moist *Routine Neck Exam Neck: Present supple and full ROM *Routine Respiratory Exam Respiratory: Present CTA bilaterally, able to speak in complete sentences and symmetric chest movement; Absent wheezes or crackles *Routine Cardiovascular Exam Cardiovascular: Present RRR; Absent murmur *Routine Abdominal Exam Abdominal: Present soft and normoactive bowel sounds; Absent tenderness *Routine Rectal Exam Rectal:: deferred *Routine Genitalia Exam Genitalia:: deferred *Routine Extremities Exam Extremities: Absent edema or full ROM *Routine Skin Exam Skin: Present intact and dry; Absent rash *Routine Neurological Exam Neurological: Present alert, oriented X3, vision grossly intact, hearing grossly intact and normal speech Assessment and Plan *Assessment and plan (1) Acute heart failure with reduced ejection fraction (HFrEF): Status: Acute Category: Medical Code(s): I50.21 - Acute systolic (congestive) heart failure (2) Shortness of breath: Status: Acute Category: Medical Code(s): R06.02 - Shortness of breath Plan Mr. Pemberton is a 84-year-old male with a primary medical history of congestive heart failure, bypass x 4, PE, DVT, LHC with stents, CAD, and ventricular pacemaker. He presented to the cardiology office today for a follow-up due to increasing shortness of breath. He originally presented to the emergency department on 11/08/2024 with complaints of shortness of breath for the last 4 to 5 days. Workup was done and he was found to have a proBNP of 8590 at that time. Other labs were unremarkable, negative troponin, negative COVID and flu, no leukocytosis or anemia noted. At that time he was given IV Lasix and sent home with a prescription of Lasix and a follow-up with cardiology on that following Monday. He followed up on 11/11/2024 in the [facility] cardiol ogy office and was started on Entresto twice daily, outpatient echo and Lisa Myoview were ordered, patient to return in 2 weeks for a follow-up appointment. Today he presented for his follow-up appointment and echo, preliminary report from echocardiogram shows EF of approximately 10%. Hospital medicine was contacted by the cardiology clinic for inpatient management, I agreed to accept the patient for further medical management. Plan of care is as follows: #HFrEF #Shortness of breath ? Upon evaluation today in the cardiology office patient was found to have a estimated EF of 10% with complaints of shortness of breath, dizziness, fatigue. The office contacted hospital medicine for admission for further HFrEF workup, potential heart cath and pacemaker device upgrade. Patient appears to be stable on room air O2 saturation 98%, normotensive blood pressure 128/60, pulse 83. Supplemental O2 ordered as needed for saturation greater than 90%. ? Patient does deny chest pain, abdominal pain, nausea, vomiting. He was able to ambulate up to his inpatient room. is at bedside. ? CBC, CMP, troponin, magnesium, BNP, PT/INR, lipid panel ordered. No notable anemia, hemoglobin 15.1; electrolytes stable, kidney function at baseline creatinine 1.5. ? Chest x-ray personally interpreted by myself shows no acute findings, no pleural effusions. Pacemaker in place. History of CABG. ? Patient does have known history of PE, DVT, CABG. was recently started on Lasix 40 mg daily and Entresto twice daily. He has taken warfarin aspirin 81 mg. Currently holding medications pending cardiology recommendation. ? Continuous cardiac telemetry ordered. EKG performed today shows ventricular paced with a rate of 95. ? Patient PT/INR in acceptable range for cardiac procedure, PT 18.8, INR 1.77. ? Cardiology consulted for further recommendations. Full code VTE?warfarin Ambulate as tolerated Cardiac diet, n.p.o. at midnight
[2024-11-21 14:04] LABS: Hematocrit 47.4 % (42.0-52.0); Hemoglobin 15.1 g/dL (14.1-18.0); Immature Granulocytes % 0.1 %; Mean Corpuscular HGB Conc 31.9 g/dL (31.8-35.4); Mean Corpuscular Hemoglobin 31.0 pg (27.0-31.2); Mean Corpuscular Volume 97.3 fl (80-94); Nucleated Red Blood Cells % 0 %; Platelet Count 191 K/mm3 (142-424); Red Blood Count 4.87 M/mm3 (4.60-6.20); Red Cell Distribution Width-SD 49.1 fL; White Blood Count 7.3 K/mm3 (4.8-10.8)
[2024-11-21 14:12] LABS: INR 1.77 (0.9-1.1); Prothrombin Time 18.8 seconds (10.1-12.5)
[2024-11-21 14:13] LABS: Alanine Aminotransferase 14 U/L (12-78); Albumin Level 4.2 g/dl (3.5-5.0); Albumin/Globulin Ratio 1.5 (1.1-1.8); Alkaline Phosphatase 96 U/L (38-126); Anion Gap 10.9 mEq/L (5-15); Aspartate Amino Transferase 29 U/L (17-59); Bilirubin,Total 0.6 mg/dl (0.2-1.3); Blood Urea Nitrogen 18 mg/dl (9-20); Calcium 9.6 mg/dl (8.4-10.2); Carbon Dioxide 28 mmol/L (22.0-30.0); Chloride 105 mmol/L (98-107); Creatinine Clearance Estimated 38 mL/min (50-200); Creatinine,Serum 1.50 mg/dl (0.66-1.25); Estimated Glomerular Filt Rate 45 ml/min (>60); GFR (African American) 54 ML/MIN (>60); Globulin 2.8 g/dL (1.3-3.2); Glucose 113 mg/dl (74-100); Magnesium 2.4 mg/dl (1.6-2.3); Potassium 4.9 mmoL/L (3.5-5.1); Sodium 139 mmol/L (136-145); Total Protein,Serum 7.0 g/dl (6.3-8.2)
[2024-11-21 14:24] LABS: NT Pro Brain Natriuretic Pep. 1780 pg/mL (0-450)
[2024-11-21 14:33] LABS: Troponin I < 0.01 ng/ml (0.00-0.034)
[2024-11-21 16:00] VITALS: BP 118/69; PULSE 89; RESP 16; TEMP 36.8; O2SAT 98
--- NOTE | 2024-11-21 18:18 | PC.NURSE ---
patient is a/ox4 and remains on room air tolerating well. patient ambulates to the bathroom independently. tolerating cardiac diet, will be NPO at midnight. patient has had no complaints this shift. currently resting with eyes shut, RR even and unlabored. call light within reach.
[2024-11-21 19:48] VITALS: BP 115/75; PULSE 83; RESP 16; TEMP 36.8; O2SAT 97; O2SAT 98
[2024-11-21 20:00] VITALS: PULSE 80
[2024-11-21] MEDS: SACUBITRIL/VALSARTAN 24-26MG TABLET 1 EACH PO (20:12)
[2024-11-22] VITALS (13 sets, daily range): BP systolic 112–133; BP diastolic 71–81; PULSE 74–100; RESP 14–18; TEMP 36.2–37; O2SAT 94–99; BMI 25.4
[2024-11-22 06:18] LABS: Hematocrit 44.4 % (42.0-52.0); Hemoglobin 14.6 g/dL (14.1-18.0); Immature Granulocytes % 0 %; Mean Corpuscular HGB Conc 32.9 g/dL (31.8-35.4); Mean Corpuscular Hemoglobin 31.3 pg (27.0-31.2); Mean Corpuscular Volume 95.3 fl (80-94); Nucleated Red Blood Cells % 0 %; Platelet Count 177 K/mm3 (142-424); Red Blood Count 4.66 M/mm3 (4.60-6.20); Red Cell Distribution Width-SD 47.8 fL; White Blood Count 6.7 K/mm3 (4.8-10.8)
[2024-11-22 06:29] LABS: Albumin Level 4.0 g/dl (3.5-5.0); Chloride 103 mmol/L (98-107); Potassium 3.9 mmoL/L (3.5-5.1); Sodium 139 mmol/L (136-145)
[2024-11-22 06:30] LABS: INR 1.71 (0.9-1.1); Prothrombin Time 18.2 seconds (10.1-12.5)
[2024-11-22 06:32] LABS: Alanine Aminotransferase 12 U/L (12-78); Albumin/Globulin Ratio 1.4 (1.1-1.8); Alkaline Phosphatase 88 U/L (38-126); Anion Gap 12.9 mEq/L (5-15); Aspartate Amino Transferase 27 U/L (17-59); Bilirubin,Total 0.6 mg/dl (0.2-1.3); Blood Urea Nitrogen 21 mg/dl (9-20); Calcium 9.0 mg/dl (8.4-10.2); Carbon Dioxide 27 mmol/L (22.0-30.0); Cholesterol 181 mg/dl (140-200); Creatinine Clearance Estimated 42 mL/min (50-200); Creatinine,Serum 1.40 mg/dl (0.66-1.25); Estimated Glomerular Filt Rate 48 ml/min (>60); GFR (African American) 58 ML/MIN (>60); Globulin 2.8 g/dL (1.3-3.2); Glucose 98 mg/dl (74-100); Total Protein,Serum 6.8 g/dl (6.3-8.2); Triglycerides 149 mg/dl (30-150)
[2024-11-22 06:33] LABS: HDL Cholesterol 38 mg/dl (40-60)
--- NOTE | 2024-11-22 07:17 | EXP.ACUTE.PN ---
Subjective *Date: 11/22/24 *Time: 12:06 Interval history: Did well overnight. Stable on room air. Slept poorly due to interruptions but otherwise no issues. Denies chest pain. Shortness of breath stable. Able to lay relatively flat to sleep. No nausea or vomiting. Medical Exam Vital signs and Labs for Last 24 Hours: Vital Signs Temp Pulse Pulse Resp BP Pulse Ox O2 Del Method 11/22/24 06:58 Room Air 11/22/24 04:54 Room Air 11/22/24 04:00 97.6 F 74 16 123/71 99 Room Air 11/22/24 04:00 75 11/22/24 02:53 Room Air 11/22/24 01:00 Room Air 11/22/24 00:00 80 11/22/24 00:00 97.9 F 79 16 112/75 96 Room Air 11/21/24 22:54 Room Air 11/21/24 21:00 Room Air 11/21/24 20:00 80 11/21/24 19:48 98.3 F 83 16 115/75 97 Room Air 11/21/24 19:48 83 98 Room Air 11/21/24 18:44 Room Air 11/21/24 17:00 Room Air 11/21/24 16:00 98.3 F 89 16 118/69 98 Room Air 11/21/24 15:00 Room Air 11/21/24 13:00 Room Air 11/21/24 12:51 97.9 F 83 16 128/60 99 Room Air 11/21/24 12:45 80 11/21/24 12:35 Room Air Intake and Output 11/21/24 11/21/24 11/22/24 15:59 23:59 07:59 Intake Total 270 / 630 360 / 360 Output Total 0 / 0 Balance 270 / 630 360 / 360 Intake: Intake, Oral Amount 270 / 630 360 / 360 Output: Output, Urine Amount 0 / 0 Other: Number of Unmeasured Voids 1 Weight 73.992 kg 75.977 kg Patient Weight 11/22/24 23:59 Weight 75.977 kg Laboratory Results - last 24 hr 11/21/24 13:53: WBC 7.3, RBC 4.87, Hgb 15.1, Hct 47.4, MCV 97.3 H, MCH 31.0, MCHC 31.9, RDW 13.6, Plt Count 191, MPV 11.7 H, Neut % (Auto) 61.4, Lymph % (Auto) 24.9, Wayne % (Auto) 9.9 H, Eos % (Auto) 2.9, Baso % (Auto) 0.8, Neut # (Auto) 4.5, Lymph # (Auto) 1.8, Wayne # (Auto) 0.7, Eos # (Auto) 0.2, Baso # (Auto) 0.1, PT 18.8 H, INR 1.77 H, Sodium 139, Potassium 4.9, Chloride 105, Carbon Dioxide 28, Anion Gap 10.9, BUN 18, Creatinine 1.50 H, Estimated Creat Clear 38, Estimated GFR 45 L, Est GFR ( Amer) 54 L, Glucose 113 H, Calcium 9.6, Magnesium 2.4 H, Total Bilirubin 0.6, AST 29, ALT 14, Alkaline Phosphatase 96, Troponin I < 0.01, NT-Pro-B Natriuret Pep 1780 H, Total Protein 7.0, Albumin 4.2, Globulin 2.8, Albumin/Globulin Ratio 1.5 11/22/24 05:45: WBC 6.7, RBC 4.66, Hgb 14.6, Hct 44.4, MCV 95.3 H, MCH 31.3 H, MCHC 32.9, RDW 13.6, Plt Count 177, MPV 11.5 H, Neut % (Auto) 55.4, Lymph % (Auto) 29.4, Wayne % (Auto) 10.7 H, Eos % (Auto) 3.9, Baso % (Auto) 0.6, Neut # (Auto) 3.7, Lymph # (Auto) 2.0, Wayne # (Auto) 0.7, Eos # (Auto) 0.3, Baso # (Auto) 0.0, PT 18.2 H, INR 1.71 H, Sodium 139, Potassium 3.9 D, Chloride 103, Carbon Dioxide 27, Anion Gap 12.9, BUN 21 H, Creatinine 1.40 H, Estimated Creat Clear 42, Estimated GFR 48 L, Est GFR ( Amer) 58 L, Glucose 98, Calcium 9.0, Total Bilirubin 0.6, AST 27, ALT 12, Alkaline Phosphatase 88, Total Protein 6.8, Albumin 4.0, Globulin 2.8, Albumin/Globulin Ratio 1.4, Triglycerides 149, Cholesterol 181, LDL Cholesterol Direct 89.54 L, VLDL Cholesterol 30, HDL Cholesterol 38 L, Cholesterol/HDL Ratio 4.8 H I & O for Labs for Last 24 Hours: Intake & Output 11/19/24 11/20/24 11/21/24 11/22/24 23:59 23:59 23:59 23:59 Intake Total 270 / 630 360 / 360 Output Total 0 / 0 Balance 270 / 630 360 / 360 Weight 73.992 kg 75.977 kg Constitutional: Present no acute distress, average body habitus and cooperative Head: Present atraumatic and normocephalic ENT: Present normal exam Respiratory: Present normal respiratory effort; Absent rhonchi, wheezes or crackles Cardiac: Present Reg Rate and Rhythm Comment:: Left chest with tender pocket of new pacemaker placement. No significant bleeding. Bandage clean dry and intact GI: Present soft and normal bowel sounds; Absent distention or tenderness Extremities: Present normal inspection and full ROM; Absent edema Skin: Present intact; Absent erythema Neuro: Present Grossly Intact, alert, awake, oriented x 3 and moves all extremities Assessment and Plan *Assessment and plan (1) Acute heart failure with reduced ejection fraction (HFrEF): Status: Acute Category: Medical Code(s): I50.21 - Acute systolic (congestive) heart failure (2) Shortness of breath: Status: Acute Category: Medical Code(s): R06.02 - Shortness of breath (3) Chronic anticoagulation: Status: Chronic Category: Medical Code(s): Z79.01 - keno terminal operator (current) use of anticoagulants (4) History of pulmonary embolism: Status: Chronic Category: Medical Code(s): Z86.711 - Personal history of pulmonary embolism (5) Hx of CABG: Status: Chronic Category: Surgical Code(s): Z95.1 - Presence of aortocoronary bypass graft (6) Anticoagulated on warfarin: Status: Chronic Category: Medical Code(s): Z79.01 - keno terminal operator (current) use of anticoagulants Plan Mr. Pemberton is a 84-year-old male with a primary medical history of congestive heart failure, bypass x 4, PE, DVT, LHC with stents, CAD, and ventricular pacemaker. He presented to the cardiology office today for a follow-up due to increasing shortness of breath. He originally presented to the emergency department on 11/08/2024 with complaints of shortness of breath for the last 4 to 5 days. Workup was done and he was found to have a proBNP of 8590 at that time. Other labs were unremarkable, negative troponin, negative COVID and flu, no leukocytosis or anemia noted. At that time he was given IV Lasix and sent home with a prescription of Lasix and a follow-up with cardiology on that following Monday. He followed up on 11/11/2024 in the [facility] cardiology office and was started on Entresto twice daily, outpatient echo and Lisa Myoview were ordered, patient to return in 2 weeks for a follow-up appointment. Today he presented for his follow-up appointment and echo, preliminary report from echocardiogram shows EF of approximately 10%. Hospital medicine was contacted by the cardiology clinic for inpatient management, I agreed to accept the patient for further medical management. Plan of care is as follows: #HFrEF, severely reduced EF of 10%, high risk for arrhythmia #Shortness of breath ? Given his high risk of abnormal heart rhythm, severe heart failure with EF of 10%, decision made to exchange his current pacemaker for cardiac resynchronization therapy with AICD. Taken to Stone Crusher Operator this morning to exchange device. Tolerated procedure well. Will monitor overnight due to risk for bleeding into pacer pocket and to monitor heart rhythm on telemetry. -Resume warfarin per home regimen. Needs close monitoring with INR ordered for the morning. Goal INR 2-3. INR this morning at 1.7. - Echo obtained yesterday with formal read showing mild LV dilation and severe reduction in LV function, 10%, septal and anteroseptal LV og are akinetic. - Per my review of patient's telemetry from overnight, no significant arrhythmia or V. tach appreciated. Had V-paced rhythm throughout the night ? White count 6.7, hemoglobin 14.6. INR 1.7. Kidney function stable with BUN 21, creatinine 1.7. Potassium 3.9. Repeat CBC, CMP, magnesium ordered for the morning. - Resume warfarin 2.5 mg daily, first dose this afternoon ? Patient does have known history of PE, DVT, CABG. was recently started on Lasix 40 mg daily and Entresto twice daily. Resume Entresto twice daily today ? Continuous cardiac telemetry ordered. Full code VTE?warfarin Ambulate as tolerated Cardiac diet, n.p.o. at midnight MDM: [place]: High, chronic illness poses threat to life given his worsening EF at 10%, need for device exchange, risk for terminal arrhythmia Data: High, ordered CBC, CMP, INR. Independent interpretation of overnight telemetry strips. Discussion of management with cardiology. Risk: High, parenteral controlled substances for pain control, IV morphine.
[2024-11-22] MEDS: LIDOCAINE 1% W/EPI 1:100,000 20ML VIAL 20 ML SQ (08:14)
[2024-11-22] MEDS: 0.9 % SODIUM CHLORIDE 1000ML 1,000 ML 25 ML IV (08:30)
--- NOTE | 2024-11-22 09:00 | IR_ITS ---
APPROVED REPORT Patient Location: Inpatient Provider Network Manager: Quang Jalloh RT (R) PROCEDURES 1. Pocket Revision 2. Placement of right ventricular sensing pacing and shocking lead in the right ventricular apex. 3. Placement of left ventricular sensing pacing lead via the coronary sinus. 4. Permanent cardiac resynchronization therapy with ICD implantation/biventricular pacemaker. 5. Capping of chronic right ventricular pacing lead. INDICATION Systolic Congestive Heart Failure, ejection <10%, [place] Heart Assoication Class 3 Congestive Heart Failure, Pacemaker induced cardiomyopathy, Systolic Heart Failure Informed consent was obtained prior to the procedure. COMPLICATIONS None Estimated Blood Loss: Less than 10 mls TECHNIQUE 1% lidocaine with epinephrine used to anesthetize the left anterior aspect of the chest. Scalpel was used to make the initial cutaneous incision and to dissect down into the fascia. The generator was removed from the existing pocket. Digital manipulation was required along with intermittent usage of scalpel in order to revise the pocket. The leads were removed from the old generator. The patient was then placed in Trendelenburg position and the subclavian vein was accessed 2 times via the Selinger technique. A 9.5 Yoruba sheath was placed under fluoroscopic guidance into the subclavian vein. The dilator was removed from the sheath. Under fluoroscopic guidance the coronary sinus was cannulated and confirmed with an injection of contrast. An 0.014 wire was then placed distally in the inferior posterior segment of the left ventricle via the coronary sinus and the left ventricular lead was advanced. After achieving excellent thresholds and interrogation numbers the sheath was then peeled away and the lead was then secured into place using silk suture. A 8 Yoruba sheath was placed under fluoroscopic guidance into the subclavian vein. The dilator was removed from the sheath. Using fluoroscopic guidance, the ventricular lead was placed into the right ventricular apex, screwed and secured into place. Electronic interrogation proved acceptable thresholds and voltage within the lead. Using 3-0 silk, the ventricular lead was then secured into place and sheath peeled away. Ancef was used to flush the pocket and the 3 leads were attached to the CAREER DEVELOPMENT ENGINEER-D generator. The generator was then secured into place by heavy silk suture. Chronic right ventricular pacing lead was capped and secured with 3-0 silk. Monocryl was used to close the subcutaneous layers while vinod were used to close the subcutaneous layers while vinod were used to close the cutaneous layer. A pressure dressing was placed and the patient was transferred to the postop holding area in stable condition for postoperative care. INTERROGATION Explanted Generator Model number: L311 Explanted Generator Serial number: [id number] Implanted Generator Model number: [id number] Implanted Generator Serial number: [id number] Atrial lead model number: 7841 Atrial lead serial number: [id number] P-wave: 3mV Impedance: 480 ohms Threshold: 1.0v @ 0.5ms Right Ventricular lead model number: [id number] Right Ventricular lead serial number: [id number] R-wave: >12mV Impedance: 0 ohms Threshold: 0.75v @ 0.5 High Voltage: 50 ohms Left Ventricular lead model number: [id number] Left Ventricular lead serial number: [id number] Threshold: 1.5V @ 0.5ms Mode: DDD Base/Max Track:60 ppm / 130 ppm No diaphragmatic stimulation at 10 volts. IMPRESSION 1. Successful Pocket Revision 2. Successful Placement of right ventricular sensing pacing and shocking lead in the right ventricular apex. 3. Successful Placement of left ventricular sensing pacing lead via the coronary sinus. 4. Successful Permanent cardiac resynchronization therapy with ICD implantation/biventricular pacemaker. 5. Successful Capping of chronic right ventricular pacing lead. PLAN 1. Post op wound care Electronically signed by : Kevin Brumfield MD 11/22/2024 13:52:56
--- NOTE | 2024-11-22 09:27 | XR_ITS ---
FINAL REPORT CLINICAL HISTORY: post pacemaker COMPARISON: 11/21/2024 FINDINGS: The heart size is mildly enlarged. Sternotomy wires are present. There is a left-sided pacer with overlying skin vinod. There is no focal infiltrate or edema. There are no pleural effusions. There is no pneumothorax. There is no osseous abnormality. IMPRESSION: Left-sided pacer in place. Reviewed, Interpreted and Dictated by Jeff Ratliff MD Transcribed by Corinna Galarza Authenticated and [facility]
[2024-11-22] MEDS: IOPAMIDOL-370 (76%);100ML BOTTLE 30 ML IV (09:46)
--- NOTE | 2024-11-22 09:55 | EXP.CARD.PN ---
Subjective Subjective Date: 11/22/24 Time: 09:30 Interval history: Device upgrade today without complication. Pt still drowsy from sedation. Exam Data for Last 24 hours Vital signs and Labs for Last 24 Hours: Temp Pulse Resp BP Pulse Ox O2 Del Method 97.6 F 74 16 123/71 99 Room Air 11/22/24 04:00 11/22/24 04:00 11/22/24 04:00 11/22/24 04:00 11/22/24 04:00 11/22/24 06:58 Laboratory Results - last 24 hr 11/21/24 13:53: WBC 7.3, RBC 4.87, Hgb 15.1, Hct 47.4, MCV 97.3 H, MCH 31.0, MCHC 31.9, RDW 13.6, Plt Count 191, MPV 11.7 H, Neut % (Auto) 61.4, Lymph % (Auto) 24.9, [place] % (Auto) 9.9 H, Eos % (Auto) 2.9, Baso % (Auto) 0.8, Neut # (Auto) 4.5, Lymph # (Auto) 1.8, [place] # (Auto) 0.7, Eos # (Auto) 0.2, Baso # (Auto) 0.1, PT 18.8 H, INR 1.77 H, Sodium 139, Potassium 4.9, Chloride 105, Carbon Dioxide 28, Anion Gap 10.9, BUN 18, Creatinine 1.50 H, Estimated Creat Clear 38, Estimated GFR 45 L, Est GFR ( Amer) 54 L, Glucose 113 H, Calcium 9.6, Magnesium 2.4 H, Total Bilirubin 0.6, AST 29, ALT 14, Alkaline Phosphatase 96, Troponin I < 0.01, NT-Pro-B Natriuret Pep 1780 H, Total Protein 7.0, Albumin 4.2, Globulin 2.8, Albumin/Globulin Ratio 1.5 11/22/24 05:45: WBC 6.7, RBC 4.66, Hgb 14.6, Hct 44.4, MCV 95.3 H, MCH 31.3 H, MCHC 32.9, RDW 13.6, Plt Count 177, MPV 11.5 H, Neut % (Auto) 55.4, Lymph % (Auto) 29.4, [place] % (Auto) 10.7 H, Eos % (Auto) 3.9, Baso % (Auto) 0.6, Neut # (Auto) 3.7, Lymph # (Auto) 2.0, [place] # (Auto) 0.7, Eos # (Auto) 0.3, Baso # (Auto) 0.0, PT 18.2 H, INR 1.71 H, Sodium 139, Potassium 3.9 D, Chloride 103, Carbon Dioxide 27, Anion Gap 12.9, BUN 21 H, Creatinine 1.40 H, Estimated Creat Clear 42, Estimated GFR 48 L, Est GFR ( Amer) 58 L, Glucose 98, Calcium 9.0, Total Bilirubin 0.6, AST 27, ALT 12, Alkaline Phosphatase 88, Total Protein 6.8, Albumin 4.0, Globulin 2.8, Albumin/Globulin Ratio 1.4, Triglycerides 149, Cholesterol 181, LDL Cholesterol Direct 89.54 L, VLDL Cholesterol 30, HDL Cholesterol 38 L, Cholesterol/HDL Ratio 4.8 H I & O for Last 24 hours: Intake & Output 11/19/24 11/20/24 11/21/24 11/22/24 23:59 23:59 23:59 23:59 Intake Total 270 / 630 360 / 360 Output Total 0 / 0 Balance 270 / 630 360 / 360 Weight 163 lb 2 oz 167 lb 8 oz Constitutional Constitutional: no acute distress and cooperative *Routine HEENT Exam Eye: Present PERRL *Routine Respiratory Exam Respiratory: Present CTA bilaterally; Absent accessory muscle use, wheezes or crackles *Routine Cardiovascular Exam Cardiovascular: Present RRR, Normal S1 and Normal S2; Absent murmur, gallop or rubs Comments: device noted left chest, bandage in place *Routine Abdominal Exam Abdominal: Present soft; Absent tenderness *Routine Extremities Exam Extremities: Present pulses intact; Absent cyanosis or edema *Routine Skin Exam Skin: Present intact; Absent erythema or wounds *Routine Neurological Exam Neurological: Present alert and oriented X3 Routine Psychiatric Exam Psychiatric: Present cooperative Progress Note: A&P Assessment and plan (1) Acute heart failure with reduced ejection fraction (HFrEF): Status: Acute (2) Shortness of breath: Status: Acute (3) Hx of CABG: Status: Acute (4) CAD (coronary atherosclerotic disease): Status: Acute
--- NOTE | 2024-11-22 09:59 | P.CONCA_ITS ---
History of Present Illness History of Present Illness Consult date: 11/22/24 Consult reason: known to you Chief complaint: PRABHAKAR History of present illness: 84-year-old white male established patient of our office with history of CAD status post CABG in 2012. 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 He has been following with cardiology in [place] and has not seen us for 2 years. Recently presented to the emergency room with shortness of breath and lower extremity edema with a proBNP of nearly 9000. Patient symptomatically improved with Lasix and was discharged home and sent to our office for follow- up. I saw him there on November 11 and he had been breathing much better. Pacemaker interrogation in the office that day indicated V pacing 99%. 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 Patient presented for echo yesterday and map colorer called our office with critical results. Echo reviewed and prelim shows severely dilated LV with ejection fraction 10%. Patient was added on to clinic and attested that he has had continuing ongoing severe shortness of breath and weakness although has remained euvolemic. Discussed admission for upgrading to BiV ICD/CONTINUOUS IMPROVEMENT SPECIALIST-D. Also discussed repeat ischemic workup in the near future. Patient agreeable and was admitted last night and had successful upgrade this morning with excellent capture/outcome. I am seeing patient post procedure this morning and he is still groggy from procedure but oriented and participating in visit. I reviewed GDMT with him/family. He does not have Prescription Drug coverage insurance which is an issue for him but they are planning on obtaining. Reports severe myalgia with statin and does not want to try resuming. [facility] Disclaimer: The information contained in this section may have been updated after the patient was seen, as this information can be updated by other users. Medical History Shortness of breath Syncope Prostate cancer Coronary artery disease due to lipid rich plaque Surgical History History of heart artery stent History of quadruple bypass S/P placement of cardiac pacemaker Family History Other Family history of cancer Family history of diabetes mellitus type II Family history of stroke Social History Smoking Status: Never smoker alcohol intake: never substance use type: denies use current occupational status: retired Travel in the last 8 weeks?: None household members: spouse housing: house lives independently: Yes marital status: education level: college caffeine: No special arielle needs: No agree to transfusion: No do you feel safe at home: Yes victim of physical abuse: No victim of emotional abuse: No victim of sexual abuse: No would you like helpful sources: No Review of Systems Constitutional Constitutional: Denies fatigue and Denies weakness Eyes Eyes: Denies loss of vision ENT Ears, Nose, Mouth, and Throat: Denies hearing loss and Denies vertigo *Cardiovascular Cardiovascular: Denies chest pain, Denies dyspnea and Denies syncope *Respiratory Respiratory: Denies cough and Denies dyspnea *Gastrointestinal Gastrointestinal: Denies change in stool character, Denies nausea and Denies vomiting *Genitourinary Genitourinary: Denies difficulty urinating *Musculoskeletal Musculoskeletal: Denies muscle weakness Integumentary/Breasts Skin/Breast: Denies changing lesions *Neurologic Neurologic: Denies loss of vision, Denies syncope, Denies vertigo and Denies weakness Endocrine Endocrine: Denies fatigue Exam Data for Last 24 hours Vital signs and Labs for Last 24 Hours: Temp Pulse Resp BP Pulse Ox O2 Del Method 97.6 F 74 16 123/71 99 Room Air 11/22/24 04:00 11/22/24 04:00 11/22/24 04:00 11/22/24 04:00 11/22/24 04:00 11/22/24 06:58 Laboratory Results - last 24 hr 11/21/24 13:53: WBC 7.3, RBC 4.87, Hgb 15.1, Hct 47.4, MCV 97.3 H, MCH 31.0, MCHC 31.9, RDW 13.6, Plt Count 191, MPV 11.7 H, Neut % (Auto) 61.4, Lymph % (Auto) 24.9, [place] % (Auto) 9.9 H, Eos % (Auto) 2.9, Baso % (Auto) 0.8, Neut # (Auto) 4.5, Lymph # (Auto) 1.8, [place] # (Auto) 0.7, Eos # (Auto) 0.2, Baso # (Auto) 0.1, PT 18.8 H, INR 1.77 H, Sodium 139, Potassium 4.9, Chloride 105, Carbon Dioxide 28, Anion Gap 10.9, BUN 18, Creatinine 1.50 H, Estimated Creat Clear 38, Estimated GFR 45 L, Est GFR ( Amer) 54 L, Glucose 113 H, Calcium 9.6, Magnesium 2.4 H, Total Bilirubin 0.6, AST 29, ALT 14, Alkaline Phosphatase 96, Troponin I < 0.01, NT-Pro-B Natriuret Pep 1780 H, Total Protein 7.0, Albumin 4.2, Globulin 2.8, Albumin/Globulin Ratio 1.5 11/22/24 05:45: WBC 6.7, RBC 4.66, Hgb 14.6, Hct 44.4, MCV 95.3 H, MCH 31.3 H, MCHC 32.9, RDW 13.6, Plt Count 177, MPV 11.5 H, Neut % (Auto) 55.4, Lymph % (Auto) 29.4, [place] % (Auto) 10.7 H, Eos % (Auto) 3.9, Baso % (Auto) 0.6, Neut # (Auto) 3.7, Lymph # (Auto) 2.0, [place] # (Auto) 0.7, Eos # (Auto) 0.3, Baso # (Auto) 0.0, PT 18.2 H, INR 1.71 H, Sodium 139, Potassium 3.9 D, Chloride 103, Carbon Dioxide 27, Anion Gap 12.9, BUN 21 H, Creatinine 1.40 H, Estimated Creat Clear 42, Estimated GFR 48 L, Est GFR ( Amer) 58 L, Glucose 98, Calcium 9.0, Total Bilirubin 0.6, AST 27, ALT 12, Alkaline Phosphatase 88, Total Protein 6.8, Albumin 4.0, Globulin 2.8, Albumin/Globulin Ratio 1.4, Triglycerides 149, Cholesterol 181, LDL Cholesterol Direct 89.54 L, VLDL Cholesterol 30, HDL Cholesterol 38 L, Cholesterol/HDL Ratio 4.8 H I & O for Last 24 hours: Intake & Output 11/19/24 11/20/24 11/21/2408/25 23:59 23:59 23:59 23:59 Intake Total 270 / 630 360 / 360 Output Total 0 / 0 Balance 270 / 630 360 / 360 Weight 163 lb 2 oz 167 lb 8 oz Constitutional Constitutional: no acute distress and cooperative *Routine HEENT Exam Eye: Present PERRL *Routine Respiratory Exam Respiratory: Present CTA bilaterally; Absent accessory muscle use, wheezes or crackles *Routine Cardiovascular Exam Cardiovascular: Present RRR, Normal S1 and Normal S2; Absent murmur, gallop or rubs Comments: ICD site left chest bandaged and normal on inspection and palpation *Routine Abdominal Exam Abdominal: Present soft; Absent tenderness *Routine Extremities Exam Extremities: Present pulses intact; Absent cyanosis or edema *Routine Skin Exam Skin: Present intact; Absent erythema or wounds *Routine Neurological Exam Neurological: Present alert and oriented X3 Routine Psychiatric Exam Psychiatric: Present cooperative Meds Home Medications and Allergies Home Medications ?Medication ?Instructions ?Recorded ?Confirmed ?Type aspirin 81 mg tablet,delayed 81 mg PO 159909/07/17 History release (Aspir-) warfarin 2.5 mg tablet 1.25 mg PO MOFR@159911/21/24 History warfarin 2.5 mg tablet 2.5 mg PO SUTUWETHSA@159911/21/24 History furosemide 40 mg tablet (Lasix) 40 mg PO DAILY #30 tab s 11/11/24 11/21/24 Rx sacubitril 24 mg-valsartan 26 mg 1 tab PO BID #60 tabs 11/11/24 11/21/24 Rx tablet (Entresto) New Prescriptions to Start Prescriptions: Allergies Allergy/AdvReac Type Severity Reaction Status Date / Time [id number] Reductase AdvReac Severe Verified 11/21/24 11:49 Inhibitor Assessment and Plan *Assessment and plan (1) Acute heart failure with reduced ejection fraction (HFrEF): Status: Acute Category: Medical Code(s): I50.21 - Acute systolic (congestive) heart failure (2) Hx of CABG: Status: Acute Category: Surgical Code(s): Z95.1 - Presence of aortocoronary bypass graft (3) CAD (coronary atherosclerotic disease): Status: Acute Qualifiers: Coronary Disease-Associated Artery/Lesion type: bypass graft [place] vs. transplanted heart: [place] heart Associated angina: without angina Qualified Code(s): I25.810 - Atherosclerosis of coronary artery bypass graft(s) without angina pectoris Category: Medical Code(s): I25.10 - Atherosclerotic heart disease of [place] coronary artery without angina pectoris (4) PMR (polymyalgia rheumatica): Status: Chronic Category: Medical Code(s): M35.3 - Polymyalgia rheumatica (5) History of DVT (deep vein thrombosis): Status: Acute Category: Medical Code(s): Z86.718 - Personal history of other venous thrombosis and embolism (6) History of pulmonary embolism: Status: Acute Category: Medical Code(s): Z86.711 - Personal history of pulmonary embolism Plan Acute HFrEF, pacemaker induced cardiomyopathy - 11/08/24 - presented to ER with NYHA = 4 elevated ProBNP and vol overload - 11/11 - seen in office and download showing 99% RV pacing, started Entresto for presumed PICM - 11/21 - pt presented for OP ECHO which showed severely dilated LV with EF 10% - admitted for device upgrade - 11/22 - successful upgrade to CONTINUOUS IMPROVEMENT SPECIALIST-D - Continue efforts at GDMT: Continue Entresto, Add Coreg 3.125mg BID, add Farxiga 10mg daily hold Aldactone due to cost, use Lasix PRN. *Pt does not have Rx drug coverage. Will need to provide samples and fill out pt assistance. I have strongly recommended they had Rx drug coverage. 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
[2024-11-22] MEDS: WARFARIN 2MG TABLET 2 MG PO (10:45)
[2024-11-22] MEDS: FUROSEMIDE 40 MG TABLET PO (10:45)
[2024-11-22] MEDS: SACUBITRIL/VALSARTAN 24-26MG TABLET 1 EACH PO ×2 (10:45→20:23)
--- NOTE | 2024-11-22 11:02 | EXP.ANES.CKL ---
[facility] Disclaimer: The information contained in this section may have been updated after the patient was seen, as this information can be updated by other users. Medical History Shortness of breath Syncope Prostate cancer Coronary artery disease due to lipid rich plaque Surgical History History of heart artery stent History of quadruple bypass S/P placement of cardiac pacemaker Family History Other Family history of cancer Family history of diabetes mellitus type II Family history of stroke Social History Smoking Status: Never smoker alcohol intake: never substance use type: denies use current occupational status: retired Travel in the last 8 weeks?: None household members: spouse housing: house lives independently: Yes marital status: education level: college caffeine: No special arielle needs: No agree to transfusion: No do you feel safe at home: Yes victim of physical abuse: No victim of emotional abuse: No victim of sexual abuse: No would you like helpful sources: No [facility] Anesthesia Checklist Patient Identification Patient Identification: Arm Band Structural Data Admitted From: Inpatient Planned Operative Procedure/s: PACEMAKER UPGRADE Consent for Planned Operative Procedure(s) Verified: Yes Verified Documents: Surgical Consent, History and Physical and Cardiac Clearance NPO Status Verified Time NPO: 00:00 Additional verifications Patient : No Anesthesia Reactions: No Hx Blood Transfusions: No Blood Transfusion Reaction: No Cephalosporin Allergy: No Previous Colonoscopy: Yes Airway Assessment Mallampati Score:: Class II C-Spine Mobility Assessed: Yes TMJ Mobility Assessed: Yes Dentition: Edentulous Neurological Assessment Level of Consciousness: Awake, Appropriate and Follows Commands Hx Seizures: No Numbness or tingling in extremities: No Anesthesia Plan Anesthesia Risk discussed: Yes ASA Class: III Anesthesia Type: MAC Preoperative Comments Pre-Operative Comments: EF 10%. CABGE, Advance age. Stents
[2024-11-22] MEDS: DAPAGLIFLOZIN PROPANEDIOL 10 MG TABLET PO (11:30)
[2024-11-22] MEDS: ASPIRIN EC 81MG TABLET 81 MG PO (16:03)
[2024-11-23] VITALS (7 sets, daily range): BP systolic 97–114; BP diastolic 52–70; PULSE 68–90; RESP 12–22; TEMP 36.4–37.2; O2SAT 92–98; BMI 24.6
[2024-11-23] MEDS: OXYCODONE 5MG W/APAP 325MG TABLET 1 EACH PO (01:16)
--- NOTE | 2024-11-23 06:27 | PC.NURSE ---
Pt. is alert and orientated x 4. Pt. is on toom air. Pt. has been resting quietly in bed. c/o some pain to the left upper chest and neck. Pt. got medicated x 1 for pain. Dressing over pacemaker incision clean, dry, intact. Pt. in paced rhythm. Plan to be discharged home today. . Personal items and call yao in reach. Bed in low and locked position. Safety measures in place.
[2024-11-23 07:22] LABS: Hematocrit 43.4 % (42.0-52.0); Hemoglobin 13.8 g/dL (14.1-18.0); Immature Granulocytes % 0.3 %; Mean Corpuscular HGB Conc 31.8 g/dL (31.8-35.4); Mean Corpuscular Hemoglobin 30.3 pg (27.0-31.2); Mean Corpuscular Volume 95.2 fl (80-94); Nucleated Red Blood Cells % 0 %; Platelet Count 167 K/mm3 (142-424); Red Blood Count 4.56 M/mm3 (4.60-6.20); Red Cell Distribution Width-SD 48.1 fL; White Blood Count 9.0 K/mm3 (4.8-10.8)
[2024-11-23 07:34] LABS: Albumin Level 3.9 g/dl (3.5-5.0); Chloride 101 mmol/L (98-107); Potassium 3.9 mmoL/L (3.5-5.1); Sodium 133 mmol/L (136-145)
[2024-11-23 07:36] LABS: Blood Urea Nitrogen 19 mg/dl (9-20); Creatinine Clearance Estimated 44 mL/min (50-200); Creatinine,Serum 1.30 mg/dl (0.66-1.25); Estimated Glomerular Filt Rate 53 ml/min (>60); GFR (African American) 64 ML/MIN (>60); INR 1.54 (0.9-1.1); Prothrombin Time 16.6 seconds (10.1-12.5)
[2024-11-23 07:37] LABS: Alanine Aminotransferase 11 U/L (12-78); Albumin/Globulin Ratio 1.3 (1.1-1.8); Anion Gap 8.9 mEq/L (5-15); Aspartate Amino Transferase 30 U/L (17-59); Calcium 8.7 mg/dl (8.4-10.2); Carbon Dioxide 27 mmol/L (22.0-30.0); Globulin 2.9 g/dL (1.3-3.2); Glucose 112 mg/dl (74-100); Total Protein,Serum 6.8 g/dl (6.3-8.2)
[2024-11-23 08:13] LABS: Alkaline Phosphatase 87 U/L (38-126); Bilirubin,Total 0.7 mg/dl (0.2-1.3)
[2024-11-23] MEDS: SACUBITRIL/VALSARTAN 24-26MG TABLET 1 EACH PO ×2 (08:48→20:13)
[2024-11-23] MEDS: DAPAGLIFLOZIN PROPANEDIOL 10 MG TABLET PO (08:48)
[2024-11-23] MEDS: FUROSEMIDE 40 MG TABLET PO (08:48)
--- NOTE | 2024-11-23 10:55 | PC.NURSE ---
Patient was brought up to unit via wheelchair at 1051 due to emesis prior to discharge.
--- NOTE | 2024-11-23 11:05 | PC.NURSE ---
Patient was brought back up to unit after discharge due to confusion and paleness upon getting up out of wheelchair [id number]
[2024-11-23 11:06] LABS: POC Glucose,Bedside 120 (70-110)
--- NOTE | 2024-11-23 11:08 | PC.NURSE ---
Pt. complaint of feeling dizzy on the ride down to his vehicle for d/c. Called charge and brought back to the floor to check his vitals. . also called. Vitals BP: 129/49 P:73 96% on RA, T:98.5 oral, checked fsbg of 120. Pt. and family states he gets this way when he starts new meds.
--- NOTE | 2024-11-23 11:15 | PC.NURSE ---
. okay to wait for possible placement of an iv.
--- NOTE | 2024-11-23 16:54 | PC.NURSE ---
. asked for no interruptions for the patient between 10pm and 6am.
[2024-11-23] MEDS: ASPIRIN EC 81MG TABLET 81 MG PO (16:59)
--- NOTE | 2024-11-23 17:00 | P.PN_ITS ---
Subjective *Date: 11/23/24 *Time: 17:00 Interval history: Patient feeling much better today. On room air. Blood pressure was acceptable this morning but soft. Plan was to discharge home. Had near syncopal event when getting in the car. Decided to pause discharge and reevaluate overnight. Will discontinue carvedilol. Vitals stable by the time he got back to the floor. Remains on room air. States he is just fatigued. No nausea or vomiting. Tolerating good p.o. intake. Medical Exam Vital signs and Labs for Last 24 Hours: Vital Signs Temp Pulse Pulse Resp BP Pulse Ox O2 Del Method 11/23/24 16:00 97.6 F 68 20 112/70 97 Room Air 11/23/24 15:00 Room Air 11/23/24 13:05 Room Air 11/23/24 12:00 70 11/23/24 12:00 98.3 F 72 22 113/68 96 Room Air 11/23/24 11:00 Room Air 11/23/24 09:00 Room Air 11/23/24 08:00 92 L Room Air 11/23/24 08:00 80 11/23/24 08:00 98.2 F 79 18 114/66 92 L Room Air 11/23/24 06:48 Room Air 11/23/24 05:00 Room Air 11/23/24 04:00 97.7 F 76 12 106/70 L 94 L Room Air 11/23/24 04:00 80 11/23/24 03:00 Room Air 11/23/24 01:00 Room Air 11/23/24 00:00 90 11/23/24 00:00 98.7 F 86 12 108/68 L 95 Room Air 11/22/24 23:00 Room Air 11/22/24 21:00 Room Air 11/22/24 20:00 80 11/22/24 20:00 14 94 L Room Air 11/22/24 19:38 97.2 F L 95 H 14 121/71 94 L Room Air 11/22/24 18:30 Room Air Intake and Output 11/23/24 11/23/24 11/23/24 07:59 15:59 23:59 Intake Total 120 / 960 840 / 960 Output Total 175 / 175 0 / 175 Balance -55 / 785 840 / 785 Intake: Intake, Oral Amount 120 / 960 840 / 960 Output: Output, Urine Amount 175 / 175 0 / 175 Other: Number of Unmeasured Voids 0 1 Weight 73.709 kg Patient Weight 11/23/24 23:59 Weight 73.709 kg Laboratory Results - last 24 hr 11/23/24 06:52: WBC 9.0 D, RBC 4.56 L, Hgb 13.8 L, Hct 43.4, MCV 95.2 H, MCH 30.3, MCHC 31.8, RDW 13.8, Plt Count 167, MPV 11.7 H, Neut % (Auto) 68.9, Lymph % (Auto) 18.0, [place] % (Auto) 10.5 H, Eos % (Auto) 1.9, Baso % (Auto) 0.4, Neut # (Auto) 6.2, Lymph # (Auto) 1.6, [place] # (Auto) 1.0, Eos # (Auto) 0.2, Baso # (Auto) 0.0, PT 16.6 H, INR 1.54 H, Sodium 133 L, Potassium 3.9, Chloride 101, Carbon Dioxide 27, Anion Gap 8.9, BUN 19, Creatinine 1.30 H, Estimated Creat Clear 44, Estimated GFR 53 L, Est GFR ( Amer) 64, Glucose 112 H, Calcium 8.7, Total Bilirubin 0.7, AST 30, ALT 11 L, Alkaline Phosphatase 87, Total Protein 6.8, Albumin 3.9, Globulin 2.9, Albumin/Globulin Ratio 1.3 11/23/24 10:58: POC Glucose 120 H I & O for Labs for Last 24 Hours: Intake & Output 11/20/24 11/21/24 11/22/24 11/23/24 23:59 23:59 23:59 23:59 Intake Total 270 / 630 1440 / 1560 960 / 960 Output Total 0 / 0 175 / 175 Balance 270 / 630 1440 / 1560 785 / 785 Weight 73.992 kg 75.977 kg 73.709 kg Constitutional: Present no acute distress, average body habitus and cooperative Head: Present atraumatic and normocephalic ENT: Present normal exam Respiratory: Present normal respiratory effort; Absent rhonchi, wheezes or crackles Cardiac: Present Reg Rate and Rhythm Comment:: Left chest with tender pocket of new pacemaker placement. No significant bleeding. Bandage clean dry and intact GI: Present soft and normal bowel sounds; Absent distention or tenderness Extremities: Present normal inspection and full ROM; Absent edema Skin: Present intact; Absent erythema Neuro: Present Grossly Intact, alert, awake, oriented x 3 and moves all extremities Assessment and Plan *Assessment and plan (1) Acute heart failure with reduced ejection fraction (HFrEF): Status: Acute Category: Medical Code(s): I50.21 - Acute systolic (congestive) heart failure (2) Shortness of breath: Status: Acute Category: Medical Code(s): R06.02 - Shortness of breath (3) Chronic anticoagulation: Status: Chronic Category: Medical Code(s): Z79.01 - [facility] (current) use of anticoagulants (4) History of pulmonary embolism: Status: Chronic Category: Medical Code(s): Z86.711 - Personal history of pulmonary embolism (5) Hx of CABG: Status: Chronic Category: Surgical Code(s): Z95.1 - Presence of aortocoronary bypass graft (6) Anticoagulated on warfarin: Status: Chronic Category: Medical Code(s): Z79.01 - [facility] (current) use of anticoagulants Plan Mr. Pemberton is a 84-year-old male with a primary medical history of congestive heart failure, bypass x 4, PE, DVT, LHC with stents, CAD, and ventricular pacemaker. He presented to the cardiology office today for a follow-up due to increasing shortness of breath. He originally presented to the emergency department on 11/08/2024 with complaints of shortness of breath for the last 4 to 5 days. Workup was done and he was found to have a proBNP of 8590 at that time. Other labs were unremarkable, negative troponin, negative COVID and flu, no l eukocytosis or anemia noted. At that time he was given IV Lasix and sent home with a prescription of Lasix and a follow-up with cardiology on that following Monday. He followed up on 11/11/2024 in the [facility] cardiology office and was started on Entresto twice daily, outpatient echo and Lisa Myoview were ordered, patient to return in 2 weeks for a follow-up appointment. On day of admission presented for follow-up with echo obtained showing EF 10%. Admitted for further management and exchange of pacemaker due to findings consistent with pacemaker induced cardiomyopathy. Tolerated exchange well on 11/22. Plan was to discharge home today but he was still dizzy and weak. Will monitor overnight. Continues to require inpatient monitoring on telemetry. Further adjustments to medications today. Anticipate discharge in the next 24 to 48 hours. Problems addressed as follows: #HFrEF, severely reduced EF of 10%, high risk for arrhythmia #Shortness of breath # Pacemaker induced cardiomyopathy ? Given his high risk of abnormal heart rhythm, severe heart failure with EF of 10%, decision made to exchange his current pacemaker for cardiac resync hronization therapy with AICD. Taken to [employer] on 11/22 for device exchange. Tolerated well. Continue to monitor on telemetry - Goal INR 2-3. INR remains subtherapeutic at 1.5. Continue warfarin 2.5 mg daily - Echo obtained day of admission, formal read showing mild LV dilation and severe reduction in LV function, 10%, septal and anteroseptal LV og are akinetic. -White count 9, hemoglobin 13.8. Kidney function normal with BUN 19, creatinine 1.3. Potassium 3.9. - Repeat CBC, CMP, magnesium ordered for the morning. ? Patient does have known history of PE, DVT, CABG. was recently started on Lasix 40 mg daily and Entresto twice daily. Continue Entresto 24/26 mg twice daily. Hold carvedilol and Farxiga due to soft blood pressure and dizziness today leading to his not getting discharged. Full code VTE?warfarin Ambulate as tolerated Cardiac diet, n.p.o. at midnight
--- NOTE | 2024-11-23 18:02 | PC.NURSE ---
pt is A&Ox4. pt had new pacemaker put in yesterday. he was to be discharged today and tom took him down and when they got to the car he just zoned out for a minute so we brought him back to the floor and are keeping him overnight. he believes it has to do with new medications that he started. other than that he has no other needs at this time. call light is within reach. is at bedside. Dr Pendleton asked that no one disturbs him between 10pm and 6am to see how his heart does without interruptions.
--- NOTE | 2024-11-23 22:29 | PC.NURSE ---
at 2229 called Norman ACOSTA in regards to b/p dropping tonight. 97/52 map of 68. Will monitor Pt if there are any chages will call Norman ACOSTA. SHELLY LUCIANO RN
[2024-11-24] VITALS: PULSE 70
[2024-11-24 04:00] VITALS: PULSE 70
--- NOTE | 2024-11-24 05:11 | PC.NURSE ---
PT was resting in the bed watching TV. His stayed with him in the room. Pt was alert and oriented X4 no C/O pain or discomfort. had orderes written for the Patient to not be disturbed from 10 pm till 6 am. Reported to Norman ACOSTA that his B/p was trending down suarez. Anabel LUCIANO RN
[2024-11-24 06:00] VITALS: BP 123/77; PULSE 85; RESP 16; TEMP 36.6; O2SAT 99; BMI 25.2
[2024-11-24 06:31] LABS: Hematocrit 42.4 % (42.0-52.0); Hemoglobin 14.0 g/dL (14.1-18.0); Immature Granulocytes % 0.3 %; Mean Corpuscular HGB Conc 33.0 g/dL (31.8-35.4); Mean Corpuscular Hemoglobin 32.0 pg (27.0-31.2); Mean Corpuscular Volume 96.8 fl (80-94); Nucleated Red Blood Cells % 0 %; Platelet Count 150 K/mm3 (142-424); Red Blood Count 4.38 M/mm3 (4.60-6.20); Red Cell Distribution Width-SD 49.2 fL; White Blood Count 10.4 K/mm3 (4.8-10.8)
[2024-11-24 06:38] LABS: Albumin Level 4.2 g/dl (3.5-5.0); Chloride 99 mmol/L (98-107); Potassium 4.5 mmoL/L (3.5-5.1); Sodium 133 mmol/L (136-145)
[2024-11-24 06:40] LABS: Magnesium 2.8 mg/dl (1.6-2.3)
[2024-11-24 06:41] LABS: Alanine Aminotransferase 13 U/L (12-78); Albumin/Globulin Ratio 1.4 (1.1-1.8); Alkaline Phosphatase 82 U/L (38-126); Anion Gap 9.5 mEq/L (5-15); Aspartate Amino Transferase 32 U/L (17-59); Bilirubin,Total 0.8 mg/dl (0.2-1.3); Blood Urea Nitrogen 21 mg/dl (9-20); Calcium 8.9 mg/dl (8.4-10.2); Carbon Dioxide 29 mmol/L (22.0-30.0); Creatinine Clearance Estimated 38 mL/min (50-200); Creatinine,Serum 1.50 mg/dl (0.66-1.25); Estimated Glomerular Filt Rate 45 ml/min (>60); GFR (African American) 54 ML/MIN (>60); Globulin 2.9 g/dL (1.3-3.2); Glucose 108 mg/dl (74-100); Total Protein,Serum 7.1 g/dl (6.3-8.2)
--- NOTE | 2024-11-24 07:16 | EXP.DC.SUM ---
General Admission date:: 11/21/24 Discharge date: 11/24/24 HPI HPI HPI: Mr. Pemberton is a 84-year-old male with a primary medical history of congestive heart failure, bypass x 4, PE, DVT, LHC with stents, CAD, and ventricular pacemaker. He presented to the cardiology office today for a follow-up due to increasing shortness of breath. He originally presented to the emergency department on 11/08/2024 with complaints of shortness of breath for the last 4 to 5 days. Workup was done and he was found to have a proBNP of 8590 at that time. Other labs were unremarkable, negative troponin, negative COVID and flu, no leukocytosis or anemia noted. At that time he was given IV Lasix and sent home with a prescription of Lasix and a follow-up with cardiology on that following Monday. He followed up on 11/11/2024 in the [facility] cardiology office and was started on Entresto twice daily, outpatient echo and Lisa Myoview were ordered, patient to return in 2 weeks for a follow-up appointment. Today he presented for his follow-up appointment and echo, luminary report from echocardiogram shows EF of approximately 10%. Hospital medicine was contacted by the cardiology clinic for inpatient management, I agreed to accept the patient for further medical management. Hospital Course Hospital Course Hospital Course: Mr. Pemberton is a 84-year-old male with a primary medical history of congestive heart failure, bypass x 4, PE, DVT, LHC with stents, CAD, and ventricular pacemaker. He presented to the cardiology office today for a follow-up due to increasing shortness of breath. He originally presented to the emergency department on 11/08/2024 with complaints of shortness of breath for the last 4 to 5 days. Workup was done and he was found to have a proBNP of 8590 at that time. Other labs were unremarkable, negative troponin, negative COVID and flu, no leukocytosis or anemia noted. At that time he was given IV Lasix and sent home with a prescription of Lasix and a follow-up with cardiology on that following Monday. He followed up on 11/11/2024 in the [facility] cardiology office and was started on Entresto twice daily, outpatient echo and Lisa Myoview were ordered, patient to return in 2 weeks for a follow-up appointment. On day of admission presented for follow-up with echo obtained showing EF 10%. Admitted for further management and exchange of pacemaker due to findings consistent with pacemaker induced cardiomyopathy. Tolerated exchange of his pacemaker well on 11/22. Plan was to discharge home on 11/23 but he had an episode of feeling dizzy. Monitored an additional 24 hours with adjustments to his medications. Feeling better by morning. Will hold beta-blockade and SGLT2 at this time. Close follow-up with cardiology this week for further adjustments as an outpatient. Problems addressed as follows: #HFrEF, severely reduced EF of 10%, high risk for arrhythmia #Shortness of breath # Pacemaker induced cardiomyopathy ? Given his high risk of abnormal heart rhythm, severe heart failure with EF of 10%, decision made to exchange his current pacemaker for cardiac resynchronization therapy with AICD. Taken to [employer] on 11/22 for device exchange. Tolerated well. Monitored on telemetry for 48 hours after procedure. Patient was resumed on Lasix and Entresto 24/26 mg twice daily. Attempted to start Farxiga and carvedilol at dose of 3.125 mg twice daily. Had an episode of feeling dizzy however and so carvedilol was held at this time. Close follow-up with cardiology early this week for further management. Echo was obtained on day of admission with formal read showing mild LV dilation and severe reduction in LV function. EF 10%. Septal and anteroseptal LV og are akinetic. 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 - Patient is on warfarin for chronic PEs. Goal INR 2.3. INR subtherapeutic during admission. Continue warfarin dosed per home regimen. Follow-up with Coumadin clinic Monday after discharge. INR at day of discharge was 1.5. Total time spent on discharge 32 minutes in counseling, documentation, chart review, and direct care with patient. Exam Data for Last 24 hours Vital signs and Labs for Last 24 Hours: Temp Pulse Resp BP Pulse Ox O2 Del Method 97.7 F 76 12 106/70 L 94 L Room Air 11/23/24 04:00 11/23/24 04:00 11/23/24 04:00 11/23/24 04:00 11/23/24 04:00 11/23/24 06:48 Laboratory Results - last 24 hr 11/22/24 05:45: LDL Cholesterol Direct 89.54 L I & O for Last 24 hours: Intake & Output 11/20/24 11/21/24 11/22/24 11/23/24 23:59 23:59 23:59 23:59 Intake Total 270 / 630 1440 / 1560 120 / 120 Output Total 0 / 0 175 / 175 Balance 270 / 630 1440 / 1560 -55 / -55 Weight 73.992 kg 75.977 kg 73.709 kg Constitutional Constitutional: no acute distress, average body habitus and cooperative *Routine HEENT Exam Head: Present normocephalic Eye: Present EOMI and PERRL ENT: Present mucous membranes moist *Routine Neck Exam Neck: Present supple; Absent lymphadenopathy Routine Chest/Breast/Axilla Exam Chest wall: Present pacemaker (Pocket minimally tender, no significant ecchymosis or erythema. Bandage clean dry and intact) *Routine Respiratory Exam Respiratory: Present CTA bilaterally; Absent rhonchi, wheezes or crackles *Routine Cardiovascular Exam Cardiovascular: Present RRR *Routine Abdominal Exam Abdominal: Present soft and normoactive bowel sounds; Absent tenderness *Routine Rectal Exam Patient deferred: visual exam *Routine Exam Patient deferred: penile exam *Routine Extremities Exam Extremities: Absent cyanosis, clubbing or edema *Routine Skin Exam Skin: Present intact and warm; Absent rash *Routine Neurological Exam Neurological: Present alert, oriented X3 and moving all extremities; Absent altered mental status Results Data Completed and Pending Labs on day of discharge: Labs from last 24 hours 11/22/24 05:45 LDL Cholesterol Direct 89.54 L DS: Diagnosis Discharge Diagnosis (1) Acute heart failure with reduced ejection fraction (HFrEF): Status: Acute Code(s): I50.21 - Acute systolic (congestive) heart failure (2) Shortness of breath: Status: Acute Code(s): R06.02 - Shortness of breath (3) Chronic anticoagulation: Status: Chronic Code(s): Z79.01 - superintendent terminal (current) use of anticoagulants (4) History of pulmonary embolism: Status: Chronic Code(s): Z86.711 - Personal history of pulmonary embolism (5) Hx of CABG: Status: Chronic Code(s): Z95.1 - Presence of aortocoronary bypass graft (6) Anticoagulated on warfarin: Status: Chronic Code(s): Z79.01 - care home (current) use of anticoagulants Meds Home Medications and Allergies Home Medications ?Medication ?Instructions ?Recorded ?Confirmed ?Type aspirin 81 mg tablet,delayed 81 mg PO 1600 09/07/17 11/21/24 History release (Aspir-) warfarin 2.5 mg tablet 1.25 mg PO MOFR@1600 07/18/18 11/21/24 History warfarin 2.5 mg tablet 2.5 mg PO SUTUWETHSA@1600 07/18/18 11/21/24 History furosemide 40 mg tablet (Lasix) 40 mg PO DAILY #30 tabs 11/11/24 11/21/24 Rx sacubitril 24 mg-valsartan 26 mg 1 tab PO BID #60 tabs 11/11/24 11/21/24 Rx tablet (Entresto) carvedilol 3.125 mg tablet 3.125 mg PO BID 30 days #60 tabs 11/23/24 Rx dapagliflozin propanediol 10 mg 10 mg PO DAILY 30 days #30 tabs 11/23/24 Rx tablet (Farxiga) oxycodone-acetaminophen 5 mg-325 1 tab PO Q6HP PRN Moderate Pain 11/23/24 Rx mg tablet (4-6) 3 days #11 tabs New Prescriptions to Start Prescriptions: carvedilol Giovani Pendleton dapagliflozin propanediol [Farxiga] Giovani Pendleton oxycodone-acetaminophen Giovani Pendleton Allergies Allergy/AdvReac Type Severity Reaction Status Date / Time [id number]-[id number] Reductase AdvReac Severe Verified 11/21/24 11:49 Inhibitor Discharge Plan Disposition Patient Disposition: Home, Self-Care Condition: Fair Follow up Plan Follow up with: Phan Franklin PA [Physician Hand [facility], Cardiology] - 11/25/24 10:00 am Prescriptions/Medication Reconciliation: New carvedilol 3.125 mg Tablet 3.125 mg PO BID 30 Days Qty: 60 0RF dapagliflozin propanediol [Farxiga] 10 mg Tablet 10 mg PO DAILY 30 Days Qty: 30 0RF oxycodone-acetaminophen 5-325 mg Tablet 1 tab PO Q6HP PRN (Reason: Moderate Pain (4-6)) 3 Days Qty: 11 0RF Continued aspirin [Aspir-81] 81 mg tablet,delayed release (DR/EC) 81 mg PO 1600 furosemide [Lasix] 40 mg tablet 40 mg PO DAILY Qty: 30 3RF Entresto 24-26 mg tablet 1 tab PO BID Qty: 60 5RF warfarin 2.5 MG tablet 2.5 mg PO SUTUWETHSA@1600 warfarin 2.5 MG tablet 1.25 mg PO MOFR@1600 Problem Reconciliation Problems Reviewed?: Yes Patient Discharge Instructions ACTIVITY: Continue current activity DIET: continue same diet Patient Instructions: DI for Heart Failure, DI for Automatic Cardioverter/Defibrillator Implantation, DI for Surgical Site Infection, Coumadin Vitamin K/ Diet, Stop Light Heart Failure Print Language: Romanian Providers Primary Care Provider: Silva Edwards Admit Provider: Giovani Pendleton Attending Provider: Giovani Pendleton
[2024-11-24 08:00] VITALS: BP 108/63; PULSE 83; PULSE 86; RESP 20; TEMP 37; O2SAT 97
[2024-11-24 08:30] VITALS: O2SAT 97
[2024-11-24] MEDS: SACUBITRIL/VALSARTAN 24-26MG TABLET 1 EACH PO (08:47)
[2024-11-24] MEDS: FUROSEMIDE 40 MG TABLET PO (08:47)
[2024-11-24 10:47] LABS: INR 1.46 (0.9-1.1); Prothrombin Time 15.8 seconds (10.1-12.5)
--- NOTE | 2024-11-25 10:39 | SW/DCPLANNER ---
Spoke with patient's on the phone. Patient's stated that patient is doing well. Patient's stated that he is aware of his upcoming appointment and that they were there now. Patient's stated that they were not able to sweet pickled fruit maker his medicine due to the cost and that they dont have prescription coverage. I asked the patient if they have tried to apply for medicaid and she stated no. I took the packet down to cardiology where the patient had an appointment and gave it to them with Shweta's name. Patient's stated that she has no concerns or questions at this time. Bam Rangel
== END 2024-11-24 10:44 | disposition home or self-care (01) ==
LOC: 2ND 12:33
PROVIDERS: Internal Medicine; Admitting Provider Internal Medicine Adolescent Medicine; PCP Nurse Practitioner Family; Visit Provider Internal Medicine Adolescent Medicine
PROC: 0JH609Z Insertion of Cardiac Resynchronization Defibrillator Pulse Generator into Chest Subcutaneous Tissue and Fascia, Open Approach (ICD-10-PCS; CPT 33249; principal; 2024-11-22 07:30)
PROC: 0JWT0PZ Revision of Cardiac Rhythm Related Device in Trunk Subcutaneous Tissue and Fascia, Open Approach (ICD-10-PCS; CPT 33223; 2024-11-22 07:30)
DX: Z45.02 Encounter for adjustment and management of automatic implantable cardiac defibrillator (principal); I50.21 Acute systolic (congestive) heart failure; I25.810 Atherosclerosis of coronary artery bypass graft(s) without angina pectoris; Z95.1 Presence of aortocoronary bypass graft; R94.31 Abnormal electrocardiogram [ECG] [EKG]; I26.02 Saddle embolus of pulmonary artery with acute cor pulmonale; I11.0 Hypertensive heart disease with heart failure; Z79.01 Long term (current) use of anticoagulants; R06.02 Shortness of breath; Z86.711 Personal history of pulmonary embolism; M35.3 Polymyalgia rheumatica; Z86.718 Personal history of other venous thrombosis and embolism; Z88.8 Allergy status to other drugs, medicaments and biological substances; Z79.899 Other long term (current) drug therapy
CPT/HCPCS: 33225; 33264; 36415; 71045; 80053; 80061; 82962; 83735; 83880; 84484; 85025; 85610; 93306; C1769; C1882; C1895; C1900; G0378; J2003; J2004; J2250; J3010; J7030; Q9967

== ENCOUNTER 2024-11-27 12:53 | Outpatient (CLI) | payer MEDICARE, SELFPAY ==
--- OUTSIDE RECORDS SUMMARY | 2024-11-27 12:55 | XMS_ITS | Encounter Summary ---
Author Organization [employer] ([place], [place], [place], [place]) Address [address] [place] [address] Care Team Providers Care Investment Underwriter Name Role Phone Unavailable Primary Care Provider Unavailabl e Encounter Details Date Type Department Care Team (Late st Contact Info) Description 06/29/2018 Transcribed Document [facility] [place] [facility] [place] [address] ProviderAngelique MD [address] [place] [address] [phone] Social History Tobacco Use Types Packs/Day Years [...] Male : 1940 Chief Complaint: transferred from [facility] with SOA, RLE swelling, DVT, bilat PE Subjective Had extensive discussion about anticoagulants once again and disease case manager rn confirms that his insurance will not cover [...] Daily Lovenox, 90 mg= 0.9 mL, SubCutaneous, [id number] MiraLax, 17 Gram= 1 Packet, Oral, Daily, [...]
--- OUTSIDE RECORDS SUMMARY | 2024-11-27 12:55 | XMS_ITS | Encounter Summary ---
Author Organization [employer] ([place], [place], [place]) Address [address] [place] [address] Care Team Providers Care Conveyor Maintenance Mechanic Name Role Phone Unavailable Primary Care Provider Unavailabl e Encounter Details Date Type Department Care Team (Late st Contact Info) Description 06/30/2018 Transcribed Document [facility] [place] [facility] [place] [address] ProviderAngelique MD [facility] [place], [place] 104881 Social History Tobacco Use Types Packs/Day Years [...] Male : 1940 Chief Complaint: transferred from [facility] with SOA, RLE swelling, DVT, [...] Daily Lovenox, 90 mg= 0.9 mL, SubCutaneous, [id number] MiraLax, 17 Gram= 1 Packet, Oral, Daily, [...] (Current Encounter/Past 24 Hours) PT 13.4 Second(s) CT 06/30/2018 05:[address] 06/30/2018 05:22 Creatinine Clearance (Current Encounter/Past 24 Hours) No Creatinine Clearance Results Found (Past 24 Hours) Electronically signed by Kimberly Jefferson Conversion Director Security Risk Management Cerner at 08/05/2022 1:12 PM CDT documented in this encounter Plan of Treatment Not on file documented as of this encounter Visit Diagnoses Not on filedocumented in this encounter
--- OUTSIDE RECORDS SUMMARY | 2024-11-27 12:55 | XMS_ITS | Encounter Summary ---
Author Organization [employer] ([place], [place], [place]) Address [address] [place] [address] Care Team Providers Care Supervisor Of Instruction Name Role Phone Unavailable Primary Care Provider Unavailabl e Encounter Details Date Type Department Care Team (Late st Contact Info) Description 06/30/2018 Transcribed Document [facility] [place] Family Medicine [address] [place] [address] ProviderAngelique MD [address] [place], [place] 107881 Social History Tobacco Use Types Packs/Day Years Used Date Smoking Tobacco: Never Assessed Sex and Gender Information Value Date Recorded Sex Assigned at Not on file Legal Sex Male 3:45 PM CDT Gender Identity Not on file Sexual Orientation Not on file documented as of this encounter Miscellaneous Notes * Cerner Conversion Note - Historical ProviderMD - 06/30/2018 2:00 AM CDT Control Center Operator Details Entered On: 06/30/2018 1:31 EDT Performed [...]
--- OUTSIDE RECORDS SUMMARY | 2024-11-27 12:56 | XMS_ITS | Encounter Summary ---
Author Organization [employer] ([place], [place], [place]) Address [address] [place] [address] Care Team Providers Care Continuous Improvement Black Belt Name Role Phone Unavailable Primary Care Provider Unavailabl e Encounter Details Date Type Department Care Team (Late st Contact Info) Description 06/28/2018 Transcribed Document [facility] [place] [address] [place] [address] ProviderAngelique MD [address] [place] [phone] Social History Tobacco Use Types Packs/Day Years [...] lower extremity DVTs who presented to an [facility] for complaints of numbness in the lower extremities over the last 2 weeks. 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 On morning of presentation patient woke up with moderate edema and swelling of the right lower extremity and some mild discomfort. He went to the [facility] emergency department where he had a lower extremity venous duplex and a CT PE protocol. It was found he had a right lower extremity acute DVT as well as a reported bilateral pulmonary embolism. He was started on a heparin drip and transferred to [facility] for further evaluation and treatment. 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 Integumentary: Warm, Dry, [place], Intact. Neurologic: Alert, Oriented, No focal deficits. [...]
--- OUTSIDE RECORDS SUMMARY | 2024-11-27 12:56 | XMS_ITS | Clinical Summary ---
Author Organization [facility] Address [address] [place] [address] Care Team Providers Care Sheet Rock Applier Name Role Phone Giovani Pendleton MD Primary Care Provider [phone] Dayne Flaherty MD Unavailable [phone] Allergies No known active allergies Medications cholecalciferol (Vitamin D3) 1.25 MG (61955 UT) capsule Vitamin D3 1 QD Active [...] Health Maintenance Due Date Last Done Comments [facility]-Depression Screening 1940 [facility]-Medicare Annual Wellness (AWV) 1940 [facility]-/Child/Adol SDOH Screenings 1940 [id number] Vaccine (#1) 1945 [facility]- SDOH Screenings 1958 [...] this topic Insurance [employer] Care Teams Sheet Rock Applier Relationship Specialty Start Date End Date Giovani Pendleton MD [address] [facility] [address] [place] [address] PCP - General 09/10/21 Dayne Flaherty MD [address] [facility] [address] [place] [address] Consulting Physician Neurosurgery 09/22/21
--- OUTSIDE RECORDS SUMMARY | 2024-11-27 12:56 | XMS_ITS | Encounter Summary ---
Author Organization [employer] ([place], [place]) Address [address] [place] [address] Care Team Providers Care Ultrasound Spec Name Role Phone Unavailable Primary Care Provider Unavailabl e Encounter Details Date Type Department Care Team (Late st Contact Info) Description 07/04/2018 Transcribed Document [facility] [place] Family Medicine [address] [place] [address] ProviderAngelique MD [address] [place], [place] [phone] Social History Tobacco Use Types Packs/Day Years [...]
--- OUTSIDE RECORDS SUMMARY | 2024-11-27 12:56 | XMS_ITS | Encounter Summary ---
Author Organization [employer] ([place]) Address [address] [place] [address] Care Team Providers Care Grain Elevator Motor Starter Name Role Phone Unavailable Primary Care Provider Unavailabl e Encounter Details Date Type Department Care Team (Late st Contact Info) Description 06/29/2018 Transcribed Document [facility] [place] [address] [place] [address] ProviderAngelique MD [address] [place], [place] 456181 Social History Tobacco Use Types Packs/Day Years Used Date Smoking Tobacco: Never Assessed Sex and Gender Information Value Date Recorded Sex Assigned at Not on file Legal Sex Male 3:45 PM CDT Gender Identity Not on file Sexual Orientation Not on file documented as of this encounter Miscellaneous Notes * Cerner Conversion Note - Historical ProviderMD - 06/29/2018 2:00 AM CDT Cigarette Roller Details Entered On: 06/29/2018 5:35 EDT Performed [...]
--- OUTSIDE RECORDS SUMMARY | 2024-11-27 12:56 | XMS_ITS | Encounter Summary ---
Author Organization [employer] ([place], [place], [place]) Address [address] [place] [address] Care Team Providers Care Document Management Specialist Name Role Phone Unavailable Primary Care Provider Unavailabl e Encounter Details Date Type Department Care Team (Late st Contact Info) Description 07/09/2018 Transcribed Document [facility] [place] [address] [place] [address] ProviderAngelique MD [address] [place], [place] [phone] Social History Tobacco Use Types Packs/Day Years [...]
--- OUTSIDE RECORDS SUMMARY | 2024-11-27 12:56 | XMS_ITS | Encounter Summary ---
Author Organization [employer] ([place]) Address [address] [place] [address] Care Team Providers Care Cuff Presser Name Role Phone Unavailable Primary Care Provider Unavailabl e Encounter Details Date Type Department Care Team (Late st Contact Info) Description 06/29/2018 Transcribed Document [facility] [place] [facility] [place] [address] ProviderAngelique MD [address] [place] [address] [phone] Social History Tobacco Use Types Packs/Day Years [...] Physician : Reynaldo Jauregui Durable Power of Cage Unloader Name : No Emergency Contact #1 : [...] very pleasant, I thanked them for choosing [facility] and they seem content with the service. pt reports that he has had issues with Coumadin vs Elaquis before. Pts reports that if they lived in [facility] they would be able to get Part D with [employer] but because they live in [place] they can not. Pt is agreeable to [...]
--- OUTSIDE RECORDS SUMMARY | 2024-11-27 12:56 | XMS_ITS | Encounter Summary ---
Author Organization [employer] ([place]) Address [address] [place] [address] Care Team Providers Care Pipe Fitter Marine Name Role Phone Unavailable Primary Care Provider Unavailabl e Encounter Details Date Type Department Care Team (Late st Contact Info) Description 06/27/2018 Transcribed Document [facility] [place] [address] ProviderAngelique MD [address] [place] [phone] Social History Tobacco Use Types Packs/Day Years [...]
--- OUTSIDE RECORDS SUMMARY | 2024-11-27 12:56 | XMS_ITS | Clinical Summary ---
Author Organization [employer] ([place], [place], [place], [place]) Address [address] [place] [address] Care Team Providers Care Multiple Drum Sander Helper Name Role Phone Unavailable Primary Care [...]
--- OUTSIDE RECORDS SUMMARY | 2024-11-27 12:56 | XMS_ITS | Encounter Summary ---
Author Organization [employer] ([place]) Address [address] [place] [address] Care Team Providers Care Knitter Helper Name Role Phone Unavailable Primary Care Provider Unavailabl e Encounter Details Date Type Department Care Team (Late st Contact Info) Description 06/27/2018 Transcribed Document [facility] [place] [facility] [place] [address] ProviderAngelique MD [address] [place] [address] [phone] Social History Tobacco Use Types Packs/Day Years [...] Pain scale Pain Score Pre-Intervention : 0 LIDNA CRESPO PT - 06/29/2018 11:14 EDT Image [...]
--- OUTSIDE RECORDS SUMMARY | 2024-11-27 12:56 | XMS_ITS | Encounter Summary ---
Author Organization [employer] ([place]) Address [address] [place] [address] Care Team Providers Care Philosophy Specialist Name Role Phone Unavailable Primary Care Provider Unavailabl e Encounter Details Date Type Department Care Team (Late st Contact Info) Description 06/27/2018 Transcribed Document [facility] [place] [facility] [place] [address] ProviderAngelique MD [address] [place] [address] [phone] Social History Tobacco Use Types Packs/Day [...] to Supine : Rehab Complete independence HOLLEY JAKCSON ROSSI/Kathia - 06/29/2018 15:16 EDT Cognition Assessment, [...]
--- OUTSIDE RECORDS SUMMARY | 2024-11-27 12:56 | XMS_ITS | Encounter Summary ---
Author Organization [employer] ([place]) Address [address] [place] [address] Care Team Providers Care Code Enforcement Supervisor Name Role Phone Unavailable Primary Care Provider Unavailabl e Encounter Details Date Type Department Care Team (Late st Contact Info) Description 07/01/2018 Transcribed Document [facility] [place] [facility] [place] [address] ProviderAngelique MD [address] [place] [address] [phone] Social History Tobacco Use Types Packs/Day Years [...] Jauregui Accepting physician Dr. Faroouqi Transferring facility [facility] Chief complaint right leg swelling History of present illness Patient presents as a transfer from [facility]. He has been having some [...] to no prescription coverage with his Medicare. manager print stated that his Medicare insurance would prohibit use of special discount from the [employer]. So the patient was loaded with warfarin [...] (Current Encounter/Past 24 Hours) PT 25.9 Second(s) DC 07/01/2018 04:59 INR 2.4 DC 07/01/2018 04:59 Creatinine Clearance (Current Encounter/Past 24 Hours) No Creatinine Clearance Results Found (Past 24 Hours) Blood Products No qualifying data available. Type of Study: TTE procedure: EC Echo Complete. Patient Status: Routine IP [facility] Adequate visualization Indications:Coronary artery disease. Allergies [...] 07:52 EDT Electronically signed by Ronny [facility] Conversion Downstairs Maid Cerner at 08/05/2022 1:33 PM CDT documented in this encounter Plan of Treatment Not on file documented as of this encounter Visit Diagnoses Not on filedocumented in this encounter
--- OUTSIDE RECORDS SUMMARY | 2024-11-27 12:56 | XMS_ITS | Encounter Summary ---
Author Organization [employer] ([place], [place], [place], [place]) Address [address] [place] [address] Care Team Providers Care First Assistant Manager Name Role Phone Unavailable Primary Care Provider Unavailabl e Encounter Details Date Type Department Care Team (Late st Contact Info) Description 06/28/2018 Transcribed Document [facility] Radiology [address] [place] [address] Jett Narvaez MD [address] [place] [address] [place] [address] Social History Tobacco Use Types Packs/Day Years [...] Jauregui Accepting physician Dr. Wells Transferring facility [facility] Chief complaint right leg swelling History of present illness Patient presents as a transfer from [facility]. He has been having some numbness [...] At risk for sleep apnea / IMO [id number] / Confirmed, Active Problems (1) At risk for sleep apnea Objective VS/Measurements No qualifying data available General: No acute distress. Eye: Normal conjunctiva. Neck: No jugular venous distention. Respiratory: Lungs are clear to auscultation, Respirations are non-labored, Breath sounds are equal. Cardiovascular: Regular rhythm, No gallop, S1+ S2 No S3 or S4 [place].. Gastrointestinal: Soft, Non-tender, Non-distended, Normal bowel sounds. [...]
--- OUTSIDE RECORDS SUMMARY | 2024-11-27 12:56 | XMS_ITS | Encounter Summary ---
Author Organization [employer] ([place], [place], [place], [place]) Address [address] [place] [address] Care Team Providers Care Network Engineering Advisor Name Role Phone Unavailable Primary Care Provider Unavailabl e Encounter Details Date Type Department Care Team (Late st Contact Info) Description 07/10/2018 Transcribed Document [facility] [place] [facility] [address] ProviderAngelique MD [address] [place] [address] [phone] Social History Tobacco Use Types Packs/Day Years [...] Brenda Ruiz Rn - 07/10/2018 10:48 EDT Electronically signed by Kimberly Jefferson Conversion Garbage Collector Driver Cerner at 08/05/2022 1:19 PM CDT documented in this encounter Plan of Treatment Not on file documented as of this encounter Visit Diagnoses Not on filedocumented in this encounter
--- OUTSIDE RECORDS SUMMARY | 2024-11-27 12:56 | XMS_ITS | Encounter Summary ---
Author Organization [employer] ([place], [place], [place], [place]) Address [address] [place] [address] Care Team Providers Care Motor Block Mechanic Name Role Phone Unavailable Primary Care Provider Unavailabl e Encounter Details Date Type Department Care Team (Late st Contact Info) Description 06/29/2018 Transcribed Document [facility] [place] [facility] [place] [address] ProviderAngelique MD [address] [place] [address] [phone] Social History Tobacco Use Types Packs/Day Years [...] EDT Electronically signed by Kimberly Jefferson Conversion Principal Administrative Clerk Cerner at 08/05/2022 1:08 PM CDT documented in this encounter Plan of Treatment Not on file documented as of this encounter Visit Diagnoses Not on filedocumented in this encounter
--- OUTSIDE RECORDS SUMMARY | 2024-11-27 12:56 | XMS_ITS | Encounter Summary ---
Author Organization [employer] ([place], [place], [place]) Address [address] [place] [address] Care Team Providers Care Management Manager Name Role Phone Unavailable Primary Care Provider Unavailabl e Encounter Details Date Type Department Care Team (Late st Contact Info) Description 07/01/2018 Transcribed Document [facility] [place] [facility] [place] [address] ProviderAngelique MD [address] [place] [address] [phone] Social History Tobacco Use Types Packs/Day Years [...] 07/01/2018 13:13 EDT Electronically signed by Ronny [facility] Conversion Pelletising Extruder Operator Cerner at 08/05/2022 1:33 PM CDT documented in this encounter Plan of Treatment Not on file documented as of this encounter Visit Diagnoses Not on filedocumented in this encounter
--- OUTSIDE RECORDS SUMMARY | 2024-11-27 12:56 | XMS_ITS | Encounter Summary ---
Author Organization [employer] ([place], [place], [place], [place]) Address [address] [place] [address] Care Team Providers Care Revenue Liaison Name Role Phone Unavailable Primary Care Provider Unavailabl e Encounter Details Date Type Department Care Team (Late st Contact Info) Description 07/01/2018 Transcribed Document [facility] [place] [facility] [place] [address] ProviderAngelique MD [address] [place] [address] Social History Tobacco Use Types Packs/Day Years Used Date Smoking Tobacco: Never Assessed Sex and Gender Information Value Date Recorded Sex Assigned at Not on file Legal Sex Male 3:45 PM CDT Gender Identity Not on file Sexual Orientation Not on file documented as of this encounter Miscellaneous Notes * Cerner Conversion Note - Angelique ProviderMD - 07/01/2018 1:24 PM CDT [address] [place] [address] Patient Copy Patient Information: Name: SESAR FU Current Date: 07/01/2018 13:24:38 : 1940 Patient Address: [address] [address] Patient Attending Physician: CATALINA MARIN MD-INT Primary [...] 03/22/2010 Document Revised: 09/08/2016 Document Reviewed: 07/29/2015 ElseSi[employer]ortex Interactive Patient Education ? 2017 [employer] Deep Vein Thrombosis A deep vein [...] kale, broccoli, cabbage, anni greens, turnip greens, [place] sprouts, peas, cauliflower, seaweed, and parsley. ? Beef liver and pork liver. ? Green tea. ? Soybean oil. ??? Tell your health care provider about any and all medicines, vitamins, and supplements that you take, including aspirin and other bseh-vzs-nmiclsl anti-inflammatory medicines. Be especially cautious with aspirin and anti-inflammatory medicines. Do not take those before you ask your health care provider if it is safe to do so. This is important because many medicines can interfere with warfarin and affect the PT and INR results. ??? Do notstart or stop taking any lqpp-moq-jewcntn or prescription medicine unless your health care [...] Avoid contact sports. General instructions ??? Take fsoc-uvo-zduyslh and prescription medicines only as told by [...] 07/29/2015 Elsevier Interactive Patient Education ? 2017 [employer] Medication Leaflets: aspirin (oral) ( pir [...] What is aspirin? Aspirin is a salicylate (nb-PGF-tb-ate). It works by reducing substances in the [...] may report side effects to FDA at 2-412-LXS-9211. What other drugs will affect aspirin? Ask [...] drugs may affect aspirin, including prescription and cesn-trm-obczemy medicines, vitamins, and herbal products. Not all [...] to ensure that the information provided by [employer]. ('Mult[employer]') is accurate, up-to-date, and complete, but no guarantee is made to that effect. Drug information contained herein may be time sensitive. [employer] information has been compiled for use by healthcare practitioners and consumers in the [place] and therefore [employer] does not warrant that uses outside of the [place] are appropriate, unless specifically indicated otherwise. [employer] drug information does not endorse drugs, diagnose patients or recommend therapy. [employer] drug information is an informational resource designed [...] effective or appropriate for any given patient. [employer] does not assume any responsibility for any aspect of healthcare administered with the aid of information [employer] provides. The information contained herein is not intended to cover all possible uses, directions, precautions, warnings, drug interactions, allergic reactions, or adverse effects. If you have questions about the drugs you are taking, check with your doctor, nurse or pharmacist. Copyright 3750-1908 [employer]. Version: 15.. Revision Date: 07/17/2017. warfarin (oral) [...] may report side effects to FDA at 3-862-PVU-4816. What other drugs will affect warfarin? Many drugs (including some ufbs-lvw-ihvebwr medicines and herbal products) can affect your [...] echinacea, garlic, ginkgo biloba, ginseng, goldenseal, or [place]'s wort. This list is not complete and many other drugs can interact with warfarin. This includes prescription and cdbb-ejw-ccrtjtk medicines, vitamins, and herbal products. Give a [...] to ensure that the information provided by [employer]. ('[employer]um') is accurate, up-to-date, and complete, but no guarantee is made to that effect. Drug information contained herein may be time sensitive. [employer] information has been compiled for use by healthcare practitioners and consumers in the [place] and therefore [employer] does not warrant that uses outside of the [place] are appropriate, unless specifically indicated otherwise. [employer]'s drug information does not endorse drugs, diagnose patients or recommend therapy. [employer] drug information is an informational resource designed [...] appropriate for any given patient. [facility] does not assume any responsibility for any aspect of healthcare administered with the aid of information [facility] provides. The information contained herein is not intended to cover all possible uses, directions, precautions, warnings, drug interactions, allergic reactions, or adverse effects. If you have questions about the drugs you are taking, check with your doctor, nurse or pharmacist. Copyright 4620-8520 [facility]. Version: 22.01. Revision Date: 12/29/2016. famotidine (fam [...] may report side effects to FDA at 9-109-QCW-2902. What other drugs will affect famotidine? Famotidine can make it harder for your body to absorb other medicines you take by mouth. Tell your doctor if you are taking: ? cefditoren; ?? dasatinib; ?? delavirdine; or ?? fosamprenavir. This list is not complete. Other drugs may affect famotidine, including prescription and ruhp-rrl-hwmzris medicines, vitamins, and herbal products. Not all [...] to ensure that the information provided by [employer]. ('[employer]') is accurate, up-to-date, and complete, but no guarantee is made to that effect. Drug information contained herein may be time sensitive. [employer] information has been compiled for use by healthcare practitioners and consumers in the [place] and therefore [employer] does not warrant that uses outside of the [place] are appropriate, unless specifically indicated otherwise. [employer] drug information does not endorse drugs, diagnose patients or recommend therapy. [employer] drug information is an informational resource designed [...] effective or appropriate for any given patient. [employer] does not assume any responsibility for any aspect of healthcare administered with the aid of information [employer] provides. The information contained herein is not intended to cover all possible uses, directions, precautions, warnings, drug interactions, allergic reactions, or adverse effects. If you have questions about the drugs you are taking, check with your doctor, nurse or pharmacist. Copyright 0765-3735 [employer]. Version: 15.02. Revision Date: 03/15/2018. CIGARETTE SMOKING: The facts are clear, cigarette smoking will shorten your life. Smoking can cause many illnesses along the way. As a healthcare provider, we recommend that you stop smoking. Assistance with quitting is available by contacting 3-851-KEIZ-NOW. This is a free resource providing counseling, [...] Be sure to sign up for the [place] 100e patient portal, which gives you 07/11 access to your medical information ??? including these discharge instructions ??? using your computer, smartphone, or tablet. Just go to [employer] to get started. Questions? Call . [facility] would like to thank you for allowing us to assist you with your healthcare needs. TANK Arreguin WARREN B, (or district sales representative) have received the above patient education materials/instructions and have verbalized understanding: Patient Signature _ Date/Time Patient Asphalt Distributor Tender Signature (if needed) Date/Time Clinician/Hospital Asphalt Distributor Tender Signature (if needed) Date/Time Electronically signed by Ronny [facility] Conversion Body And Frame Man Jc at 08/05/2022 1:31 PM CDT documented in this encounter Plan of Treatment Not on file documented as of this encounter Visit Diagnoses Not on filedocumented in this encounter
--- OUTSIDE RECORDS SUMMARY | 2024-11-27 12:56 | XMS_ITS | Encounter Summary ---
Author Organization [employer] ([place], [place], [place], [place]) Address [address] [place] [address] Care Team Providers Care Molder Helper Name Role Phone Unavailable Primary Care Provider Unavailabl e Encounter Details Date Type Department Care Team (Late st Contact Info) Description 06/28/2018 Transcribed Document [facility] [place] [facility] [place] [address] ProviderAngelique MD [address] [place] [address] [phone] Social History Tobacco Use Types Packs/Day Years [...] Male : 1940 Chief Complaint: transferred from [facility] with SOA, RLE swelling, DVT, bilat PE [...] he go to the Coumadin clinic in [place] 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, 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 Right leg DVT I82.401 Lovenox and then warfarin Orders: enoxaparin, 90 mg, SubCutaneous, Inj, [id number], Start 06/28/18 10:00:00 EDT [facility] Nursing Order Medications Inpatient aspirin, 81 mg= 1 Tab, Oral, Daily Colace, 100 mg= 1 Cap, Oral, BID, PRN DuoNeb 0.5 mg-2.5 mg/3 mL inhalation solution, 3 mL, Nebulized Inhalation , Q6H, PRN Lipitor, 10 mg= 1 Tab, Oral, Weekly lisinopril, 10 mg= 1 Tab, Oral, Daily Lovenox, 90 mg= 0.9 mL, SubCutaneous, [id number] MiraLax, 17 Gram= 1 Packet, Oral, Daily, [...]
--- OUTSIDE RECORDS SUMMARY | 2024-11-27 12:56 | XMS_ITS | Referral Summary ---
Author Organization [employer] ([place], [place], [place], [place]) Address [address] [place] [address] Care Team Providers Care Taper/Finisher Name Role Phone Unavailable Primary Care Provider [...]
--- OUTSIDE RECORDS SUMMARY | 2024-11-27 12:56 | XMS_ITS | Encounter Summary ---
Author Organization [employer] ([place], [place], [place], [place]) Address [address] [place] [address] Care Team Providers Care Manager Car Name Role Phone Unavailable Primary Care Provider Unavailabl e Encounter Details Date Type Department Care Team (Late st Contact Info) Description 06/30/2018 Transcribed Document [facility] [place] [address] [place] [address] ProviderAngelique MD [address] [place], [place] [phone] Social History Tobacco Use Types Packs/Day Years [...]
--- OUTSIDE RECORDS SUMMARY | 2024-11-27 12:56 | XMS_ITS | Encounter Summary ---
Author Organization [employer] ([place], [place], [place], [place]) Address [address] [place] [address] Care Team Providers Care Bevel Mill Operator Name Role Phone Unavailable Primary Care Provider Unavailabl e Encounter Details Date Type Department Care Team (Late st Contact Info) Description 06/27/2018 Transcribed Document [facility] [place] [facility] [place] [address] ProviderAngelique MD [address] [place] [address] [phone] Social History Tobacco Use Types Packs/Day Years [...] directive, Living will, Medical durable power of corporate associate attorney (proxy) Copy Advance Directive Verified/on Chart [...] : daughter Chief Complaint : transferred from [facility] with SOA, RLE swelling, DVT, bilat PE Information Obtained From : Patient Primary Language : Kyrgyz Communication Barrier : None Lizzy Balbuena RN [...] Scale Risk Level : 25-45 Medium Risk [place] Fall Interventions : Adequate lighting, Assistive devices [...] Source : Stated Height Entry Format : [place] Height, Feet : 5 ft(Converted to: 152 cm, 60 Inch) Height, Inches : 8 Inch(Converted to: 0 ft 8 Inch, 20.32 cm) Clinical Height : 172.72 cm Weight Source : Bed scale Weight Entry Format : [place] Clinical Dosing Weight : 89.55 kg Weight, Pounds : 197 lb Body Surface Area (BSA) : 2.03 m2 Body Mass Index : 30 kg/m2 (HI) [place] Body Weight : 67 kg Lizzy Balbuena [...] RN - 06/27/2018 19:53 EDT Spiritual/Cultural Needs Bahai Preference : Adventism Lizzy Balbuena RN - 06/27/2018 19:53 EDT Valuables and Belongings Valuables and Belongings : Clothing, Personal devices Clothing : Common streetwear Clothing Disposition : With patient Personal Device Disposition : With patient Personal Devices : Dentures, lower, Dentures, partial plate, Glasses Lizzy Balbuena, TOMASZ - 06/27/2018 19:53 EDT Electronically signed by Ronny [facility] Conversion Beta Tester Cerner at 08/05/2022 1:33 PM CDT documented in this encounter Plan of Treatment Not on file documented as of this encounter Visit Diagnoses Not on filedocumented in this encounter
--- OUTSIDE RECORDS SUMMARY | 2024-11-27 12:56 | XMS_ITS | Encounter Summary ---
Author Organization [employer] ([place], [place], [place], [place]) Address [address] [place] [address] Care Team Providers Care Cottonseed Meat Presser Name Role Phone Unavailable Primary Care Provider Unavailabl e Encounter Details Date Type Department Care Team (Late st Contact Info) Description 07/01/2018 Transcribed Document [facility] [place] Medicine [facility] [place] [address] ProviderAngelique MD [address] [place] [phone] Social History Tobacco Use Types Packs/Day Years [...] EDT Electronically signed by Kimberly Jefferson Conversion Door To Door Salesperson Cerner at 08/05/2022 1:08 PM CDT documented in this encounter Plan of Treatment Not on file documented as of this encounter Visit Diagnoses Not on filedocumented in this encounter
--- OUTSIDE RECORDS SUMMARY | 2024-11-27 12:56 | XMS_ITS | Encounter Summary ---
Author Organization [employer] ([place], [place], [place], [place]) Address [address] [place] [address] Care Team Providers Care Esl Teacher Name Role Phone Unavailable Primary Care Provider Unavailabl e Encounter Details Date Type Department Care Team (Late st Contact Info) Description 06/29/2018 Transcribed Document [facility] [place] [facility] [place] [address] ProviderAngelique MD [address] [place] [address] [phone] Social History Tobacco Use Types Packs/Day Years [...] lower extremity DVTs who presented to an [facility] for complaints of numbness in the lower extremities over the last 2 weeks. 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 On morning of presentation patient woke up with moderate edema and swelling of the right lower extremity and some mild discomfort. He went to the [facility] emergency department where he had a lower extremity venous duplex and a CT PE protocol. It was found he had a right lower extremity acute DVT as well as a reported bilateral pulmonary embolism. He was started on a heparin drip and transferred to [facility] for further evaluation and treatment. 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 Integumentary: Warm, Dry, [place], Intact. Neurologic: Alert, Oriented, No focal deficits. [...]
--- OUTSIDE RECORDS SUMMARY | 2024-11-27 12:56 | XMS_ITS | Encounter Summary ---
Author Organization [employer] ([place], [place], [place], [place]) Address [address] [place] [address] Care Team Providers Care Quality Control Lab Tech Name Role Phone Unavailable Primary Care Provider Unavailabl e Encounter Details Date Type Department Care Team (Late st Contact Info) Description 06/28/2018 Transcribed Document [facility] [place] Family Medicine [address] [place] [address] ProviderAngelique MD [address] [place], [place] [phone] Social History Tobacco Use Types Packs/Day Years [...]
--- OUTSIDE RECORDS SUMMARY | 2024-11-27 12:56 | XMS_ITS | Encounter Summary ---
Author Organization [employer] ([place], [place], [place]) Address [address] [place] [address] Care Team Providers Care Director Special Education Name Role Phone Unavailable Primary Care Provider Unavailabl e Encounter Details Date Type Department Care Team (Late st Contact Info) Description 06/27/2018 Transcribed Document [facility] [place] [facility] [place] [address] ProviderAngelique MD [address] [place] [address] [phone] Social History Tobacco Use Types Packs/Day Years [...] 07/02/2018 10:18 EDT Care Management Note : [facility]. Spoke with Silva. She arranged with [facility] through [facility] Care Management Note Report : CYNTHIA FRANKLIN, Bluing Oven Tender-Care Management - 06/29/18 10:19:32 pt is alert [...] 06/29/2018 12:41 EDT Electronically signed by Ronny, [facility] Conversion Relay Shop Supervisor Cerner at 08/05/2022 1:25 PM CDT documented in this encounter Plan of Treatment Not on file documented as of this encounter Visit Diagnoses Not on filedocumented in this encounter
--- OUTSIDE RECORDS SUMMARY | 2024-11-27 12:56 | XMS_ITS | Encounter Summary ---
Author Organization [employer] ([place], [place], [place], [place]) Address [address] [place] [address] Care Team Providers Care Armature Varnisher Name Role Phone Unavailable Primary Care Provider Unavailabl e Encounter Details Date Type Department Care Team (Late st Contact Info) Description 06/28/2018 Transcribed Document [facility] [place] Family Medicine [address] [place] [address] ProviderAngelique MD [address] [place], [place] [phone] Social History Tobacco Use Types Packs/Day Years [...] EDT Electronically signed by Kimberly Jefferson Conversion Machine Tool Technician Instructor Cerner at 08/05/2022 1:15 PM CDT documented in this encounter Plan of Treatment Not on file documented as of this encounter Visit Diagnoses Not on filedocumented in this encounter
--- OUTSIDE RECORDS SUMMARY | 2024-11-27 12:56 | XMS_ITS | Encounter Summary ---
Author Organization [employer] ([place], [place], [place], [place]) Address [address] [place] [address] Care Team Providers Care Web Development Intern Name Role Phone Unavailable Primary Care Provider Unavailabl e Encounter Details Date Type Department Care Team (Late st Contact Info) Description 07/01/2018 Transcribed Document [facility] [place] [facility] [place] [address] ProviderAngelique MD [address] [place] [address] [phone] Social History Tobacco Use Types Packs/Day Years [...] 03/22/2010 Document Revised: 09/08/2016 Document Reviewed: 07/29/2015 Opbeat Interactive Patient Education ? 2017 [employer] Inc. Deep Vein Thrombosis A deep vein [...] kale, broccoli, cabbage, anni greens, turnip greens, [place] sprouts, peas, cauliflower, seaweed, and parsley. ? Beef liver and pork liver. ? Green tea. ? Soybean oil. ??? Tell your health care provider about any and all medicines, vitamins, and supplements that you take, including aspirin and other kgry-njd-ebwfafo anti-inflammatory medicines. Be especially cautious with aspirin and anti-inflammatory medicines. Do not take those before you ask your health care provider if it is safe to do so. This is important because many medicines can interfere with warfarin and affect the PT and INR results. ??? Do notstart or stop taking any eotx-ogg-uuqrrsx or prescription medicine unless your health care [...] Avoid contact sports. General instructions ??? Take atkf-gdg-jqfcvoa and prescription medicines only as told by [...] 07/29/2015 Elsevier Interactive Patient Education ? 2017 Op[employer] Inc. documented in this encounter Plan of Treatment Not on file documented as of this encounter Visit Diagnoses Not on filedocumented in this encounter
--- OUTSIDE RECORDS SUMMARY | 2024-11-27 12:56 | XMS_ITS | Encounter Summary ---
Author Organization [employer] ([place], [place], [place]) Address [address] [place] [address] Care Team Providers Care Zipper Setter Name Role Phone Unavailable Primary Care Provider Unavailabl e Encounter Details Date Type Department Care Team (Late st Contact Info) Description 06/29/2018 Transcribed Document [facility] [place] [address] [place] [address] ProviderAngelique MD [address] [place], [place] 564311 Social History Tobacco Use Types Packs/Day Years [...]
--- OUTSIDE RECORDS SUMMARY | 2024-11-27 12:56 | XMS_ITS | Encounter Summary ---
Author Organization [employer] ([place], [place], [place]) Address [address] [place] [address] Care Team Providers Care Cement Rubber Name Role Phone Unavailable Primary Care Provider Unavailabl e Encounter Details Date Type Department Care Team (Late st Contact Info) Description 06/27/2018 Transcribed Document [facility] [place] Family Medicine [address] [place] [address] ProviderAngelique MD [address] [place], [place] 544991 Social History Tobacco Use Types Packs/Day Years [...]
[2024-11-27 14:19] LABS: PHA INR Fingerstick 2.7 (0.9-1.1)
== END 2024-11-27 14:20 ==
LOC: ACC 12:54
PROVIDERS: PCP Nurse Practitioner Family; Visit Provider Internal Medicine Adolescent Medicine
DX: Z04.89 Encounter for examination and observation for other specified reasons (principal); Z86.711 Personal history of pulmonary embolism
CPT/HCPCS: 85610; 99211; G0463

== ENCOUNTER 2024-12-09 08:30 | Day surgery (SDC) | payer MEDICARE, SELFPAY ==
[2024-12-09] VITALS (16 sets, daily range): BP systolic 112–154; BP diastolic 63–87; PULSE 65–80; RESP 14–20; O2SAT 91–97; BMI 26.9
--- NOTE | 2024-12-09 07:12 | IR_ITS ---
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 COMPLICATIONS NONE Estimated Blood Loss: LESS THAN 10 ML TECHNIQUE One percent lidocaine used to anesthetize the right groin. The right femoral artery was accessed via the Seldinger technique and a 5 Telugu sheath was placed in the right femoral artery. A JL 4, JR4 catheter were used to perform left heart catheterization, left ventriculogram selective coronary angiography as well as selective engagement of the 2 vein grafts and the left internal mammary artery. At the end of the procedure the patient was transferred to the postop holding area in stable condition for sheath removal. ANGIOGRAPHIC RESULTS The left main artery Ostially occluded The right coronary artery Ostially occluded The LAW ventriculogram reveals Dilated ejection fraction 20% The left ventricular end-diastolic pressure 10 mmHg CARBONE to LAD widely patent Saphenous to first diagonal artery has a eccentric mid vessel 40 to 50% stenosis. It anastomosis onto the first diagonal artery and then skips to an obtuse marginal artery. The skip limb of the saphenous vein graft has an mid vessel 30 to 40% lesion which appears to be a venous valve Saphenous to posterior descending artery widely patent IMPRESSION Patent coronary grafts as described above Dilated ventricle with reduced ejection fraction which is improved since placement of CAR CARDER-D Pacemaker cardiomyopathy PLAN 1. Continue with GDMT for systolic heart failure 2. Continue with CAR CARDER-D 3. Medical management for coronary artery disease Electronically signed by : Kevin Brumfield MD 12/09/2024 13:58:14
[2024-12-09 09:04] LABS: Hematocrit 43.7 % (42.0-52.0); Hemoglobin 14.3 g/dL (14.1-18.0); Immature Granulocytes % 0.3 %; Mean Corpuscular HGB Conc 32.7 g/dL (31.8-35.4); Mean Corpuscular Hemoglobin 31.6 pg (27.0-31.2); Mean Corpuscular Volume 96.7 fl (80-94); Nucleated Red Blood Cells % 0 %; Platelet Count 176 K/mm3 (142-424); Red Blood Count 4.52 M/mm3 (4.60-6.20); Red Cell Distribution Width-SD 45.6 fL; White Blood Count 7.2 K/mm3 (4.8-10.8)
[2024-12-09 09:13] LABS: Chloride 102 mmol/L (98-107); Potassium 4.2 mmoL/L (3.5-5.1); Sodium 141 mmol/L (136-145)
[2024-12-09 09:16] LABS: Anion Gap 14.2 mEq/L (5-15); Blood Urea Nitrogen 16 mg/dl (9-20); Carbon Dioxide 29 mmol/L (22.0-30.0); Creatinine Clearance Estimated 42 mL/min (50-200); Creatinine,Serum 1.40 mg/dl (0.66-1.25); Estimated Glomerular Filt Rate 48 ml/min (>60); GFR (African American) 58 ML/MIN (>60)
[2024-12-09 09:17] LABS: Calcium 9.3 mg/dl (8.4-10.2); Glucose 96 mg/dl (74-100)
[2024-12-09 09:18] LABS: INR 1.20 (0.9-1.1); Prothrombin Time 13.1 seconds (10.1-12.5)
[2024-12-09] MEDS: HEPARIN 1,000 UNITS/500ML NS (CATH LAB) 3000 UNIT IV (11:48)
[2024-12-09] MEDS: 0.9 % SODIUM CHLORIDE 500 ML 25 ML IV (11:49)
[2024-12-09] MEDS: LIDOCAINE 1% 10ML MDV 10 ML IJ (11:49)
[2024-12-09] MEDS: MIDAZOLAM HCL 1MG/ML 5ML VIAL 1 MG IV (11:49)
[2024-12-09] MEDS: FENTANYL 100MCG/2ML VIAL 50 MCG IV (11:49)
--- NOTE | 2024-12-09 12:45 | SUR.PHASEII ---
MD went to update pt on what he found during heart cath and family was not present in waiting room. Family stopped me in the hallway to see if pt was done, educated family the doctor will come speak with them soon that she is seeing patients in the office at this time.
--- NOTE | 2024-12-09 13:35 | SUR.PHASEII ---
Family at bedside
[2024-12-09] MEDS: IOPAMIDOL-370 (76%);100ML BOTTLE 40 ML IV (14:04)
== END 2024-12-09 15:03 | disposition home or self-care (01) ==
PROVIDERS: PCP Nurse Practitioner Family; Visit Provider Internal Medicine
PROC: 4A023N7 Measurement of Cardiac Sampling and Pressure, Left Heart, Percutaneous Approach (ICD-10-PCS; CPT 93452; principal; 2024-12-09 07:45)
DX: I42.9 Cardiomyopathy, unspecified (principal); I50.21 Acute systolic (congestive) heart failure; I25.810 Atherosclerosis of coronary artery bypass graft(s) without angina pectoris; Z95.1 Presence of aortocoronary bypass graft; R94.31 Abnormal electrocardiogram [ECG] [EKG]; I26.02 Saddle embolus of pulmonary artery with acute cor pulmonale; M35.3 Polymyalgia rheumatica; Z95.810 Presence of automatic (implantable) cardiac defibrillator; Z95.5 Presence of coronary angioplasty implant and graft; Z79.01 Long term (current) use of anticoagulants; Z79.82 Long term (current) use of aspirin; Z79.84 Long term (current) use of oral hypoglycemic drugs; Z79.899 Other long term (current) drug therapy; Z88.8 Allergy status to other drugs, medicaments and biological substances; Z82.3 Family history of stroke
CPT/HCPCS: 80048; 85025; 85610; 93459; 99152; C1725; C1769; C1894; J1200; J1644; J2003; J3010; J7040; Q9967

== ENCOUNTER 2024-12-25 12:53 | Outpatient (CLI) | payer MEDICARE, SELFPAY ==
--- OUTSIDE RECORDS SUMMARY | 2024-12-25 12:57 | XMS_ITS | Clinical Summary ---
Author Organization [facility] Address [address] [place] [address] Care Team Providers Care Cab Station Attendant Name Role Phone Giovani Pendleton MD Primary Care Provider Dayne Flaherty MD Unavailable [phone] Allergies No known active allergies Medications cholecalciferol (Vitamin D3) 1.25 MG (43616 UT) capsule Vitamin D3 1 QD Active [...] Health Maintenance Due Date Last Done Comments COUNTS INCLUDE 234 BEDS AT THE [facility]-Depression Screening 1940 COUNTS INCLUDE 234 BEDS AT THE [facility]-Medicare Annual Wellness (AWV) 1940 [facility]-Infant/Child/Adol SDOH Screenings 1940 [id number] Vaccine (#1) 1945 [facility]- SDOH Screenings 1958 [...] this topic Insurance H[employer]ICARE Care Teams Cab Station Attendant Relationship Specialty Start Date End Date Giovani Pendleton MD [address] [facility] [address] [place] [address] PCP - General 09/10/21 Dayne Flaherty MD [address] [facility] [address] [place] [address] Consulting Physician Neurosurgery 09/22/21
[2024-12-25 13:23] LABS: PHA INR Fingerstick 2.2 (0.9-1.1)
== END 2024-12-25 14:06 ==
LOC: ACC 12:53
PROVIDERS: PCP Internal Medicine Adolescent Medicine; Visit Provider Internal Medicine Adolescent Medicine
DX: Z79.01 Long term (current) use of anticoagulants (principal)
CPT/HCPCS: 85610; 99211; G0463

== ENCOUNTER 2024-12-30 13:24 | Outpatient (CLI) | payer MEDICARE, SELFPAY ==
--- OUTSIDE RECORDS SUMMARY | 2024-12-30 13:26 | XMS_ITS | Encounter Summary ---
Author Organization [employer] ([place], [place], [place]) Address [address] [place] [address] Care Team Providers Care Transcript Clerk Name Role Phone Unavailable Primary Care Provider Unavailabl e Encounter Details Date Type Department Care Team (Late st Contact Info) Description 06/29/2018 Transcribed Document [facility] [place] [address] [place] [address] ProviderAngelique MD [address] [place], [place] [address]121 Social History Tobacco Use Types Packs/Day Years Used Date Smoking Tobacco: Never Assessed Sex and Gender Information Value Date Recorded Sex Assigned at Not on file Legal Sex Male 3:45 PM CDT Gender Identity Not on file Sexual Orientation Not on file documented as of this encounter Miscellaneous Notes * [employer] Conversion Note - Historical ProviderMD - 06/29/2018 2:00 AM CDT Clinical Studies Specialist Details Entered On: 06/29/2018 5:35 EDT Performed [...]
--- OUTSIDE RECORDS SUMMARY | 2024-12-30 13:26 | XMS_ITS | Encounter Summary ---
Author Organization [employer] ([place], [place], [place]) Address [address] [place] [address] Care Team Providers Care Finance Analyst Name Role Phone Unavailable Primary Care Provider Unavailabl e Encounter Details Date Type Department Care Team (Late st Contact Info) Description 06/27/[address] [facility] [place] [facility] [place] [address] ProviderAngelique MD [address] [place] [phone] Social History Tobacco Use Types Packs/Day Years [...]
--- OUTSIDE RECORDS SUMMARY | 2024-12-30 13:26 | XMS_ITS | Encounter Summary ---
Author Organization [email or web address] ([place]) Address [address] [place] [address] Care Team Providers Care Software Lead Name Role Phone Unavailable Primary Care Provider Unavailabl e Encounter Details Date Type Department Care Team (Late st Contact Info) Description 06/29/2018 Transcribed Document [facility] [place] Family Medicine [address] [place] [address] ProviderAngelique MD [address] [place], [place] [phone] Social History Tobacco Use Types Packs/Day Years [...]
--- OUTSIDE RECORDS SUMMARY | 2024-12-30 13:26 | XMS_ITS | Encounter Summary ---
Author Organization [email or web address] ([place]) Address [address] [place] [address] Care Team Providers Care Head Orthopedic Team Physician Name Role Phone Unavailable Primary Care Provider Unavailabl e Encounter Details Date Type Department Care Team (Late st Contact Info) Description 06/29/2018 Transcribed Document [facility] [place] Medicine [facility] [place] [address] ProviderAngelique MD [address] [place] [address] [phone] Social History Tobacco Use Types Packs/Day Years [...] lower extremity DVTs who presented to an [facility] for complaints of numbness in the lower extremities over the last 2 weeks. 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 On morning of presentation patient woke up with moderate edema and swelling of the right lower extremity and some mild discomfort. He went to the [facility] emergency department where he had a lower extremity venous duplex and a CT PE protocol. It was found he had a right lower extremity acute DVT as well as a reported bilateral pulmonary embolism. He was started on a heparin drip and transferred to [facility] for further evaluation and treatment. 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 Integumentary: Warm, Dry, [place], Intact. Neurologic: Alert, Oriented, No focal deficits. [...]
--- OUTSIDE RECORDS SUMMARY | 2024-12-30 13:26 | XMS_ITS | Encounter Summary ---
Author Organization [employer] ([place]) Address [address] [place] [address] Care Team Providers Care Contract Modeler Name Role Phone Unavailable Primary Care Provider Unavailabl e Encounter Details Date Type Department Care Team (Late st Contact Info) Description 06/27/2018 Transcribed Document [facility] [place] [address] ProviderAngelique MD [address] [place] [address] [phone] Social History Tobacco Use Types Packs/Day Years [...] 07/02/2018 10:18 EDT Care Management Note : [facility] is not covered by [facility]. Spoke with Silva. She arranged with [facility] through [facility] Care Management Note Report : CYNTHIA FRANKLIN, Post Doctoral Fellow-Care Management - 06/29/18 10:19:32 pt is alert [...] 06/29/2018 12:41 EDT Electronically signed by Ronny, [facility] Conversion Picker Cerner at 08/05/2022 1:25 PM CDT documented in this encounter Plan of Treatment Not on file documented as of this encounter Visit Diagnoses Not on filedocumented in this encounter
--- OUTSIDE RECORDS SUMMARY | 2024-12-30 13:26 | XMS_ITS | Encounter Summary ---
Author Organization [employer] ([place], [place], [place]) Address [address] [place] [address] Care Team Providers Care Chainstitch Pants Outseamer Name Role Phone Unavailable Primary Care Provider Unavailabl e Encounter Details Date Type Department Care Team (Late st Contact Info) Description 06/29/2018 Transcribed Document [facility] [place] [facility] [place] [address] ProviderAngelique MD [address] [place] [address] [phone] Social History Tobacco Use Types Packs/Day Years [...] Physician : Reynaldo Jauregui Durable Power of Senior Estimator Name : No Emergency Contact #1 : [...] very pleasant, I thanked them for choosing [facility] and they seem content with the service. pt reports that he has had issues with Coumadin vs Elaquis before. Pts reports that if they lived in [facility] they would be able to get Part D with [employer] but because they live in [place] they can not. Pt is agreeable to [...]
--- OUTSIDE RECORDS SUMMARY | 2024-12-30 13:26 | XMS_ITS | Encounter Summary ---
Author Organization [employer] ([place]) Address [address] [place] [address] Care Team Providers Care Fun House Operator Name Role Phone Unavailable Primary Care Provider Unavailabl e Encounter Details Date Type Department Care Team (Late st Contact Info) Description 06/30/2018 Transcribed Document [place] [facility] [place] [address] ProviderAngelique MD [facility] [place], [place] [phone] Social History Tobacco Use Types Packs/Day Years [...] Male : 1940 Chief Complaint: transferred from [facility] with SOA, RLE swelling, DVT, bilat [...] Daily Lovenox, 90 mg= 0.9 mL, SubCutaneous, [id number] MiraLax, 17 Gram= 1 Packet, Oral, Daily, [...] (Current Encounter/Past 24 Hours) PT 13.4 Second(s) ID 06/30/2018 05:22 INR 1.2 ID 06/30/2018 05:22 Creatinine Clearance (Current Encounter/Past 24 Hours) No Creatinine Clearance Results Found (Past 24 Hours) documented in this encounter Plan of Treatment Not on file documented as of this encounter Visit Diagnoses Not on filedocumented in this encounter
--- OUTSIDE RECORDS SUMMARY | 2024-12-30 13:26 | XMS_ITS | Encounter Summary ---
Author Organization [employer] ([place]) Address [address] [place] [address] Care Team Providers Care Outreach Director Name Role Phone Unavailable Primary Care Provider Unavailabl e Encounter Details Date Type Department Care Team (Late st Contact Info) Description 06/27/2018 Transcribed Document [facility] [place] [facility] [place] [address] ProviderAngelique MD [address] [place] [address] [phone] Social History Tobacco Use Types Packs/Day Years [...] Assessment Pain Scale Used : 0-10 Scale lAix Galarza Rn-Resource - 06/30/2018 1:31 EDT Pain [...]
--- OUTSIDE RECORDS SUMMARY | 2024-12-30 13:26 | XMS_ITS | Encounter Summary ---
Author Organization [employer] ([place]) Address [address] [place] [address] Care Team Providers Care Data Coder Operator Name Role Phone Unavailable Primary Care Provider Unavailabl e Encounter Details Date Type Department Care Team (Late st Contact Info) Description 06/30/2018 Transcribed Document [facility] [place] [address] [place] [address] ProviderAngelique MD [address] [place], [place] [phone] Social History Tobacco Use Types Packs/Day Years Used Date Smoking Tobacco: Never Assessed Sex and Gender Information Value Date Recorded Sex Assigned at Not on file Legal Sex Male 3:45 PM CDT Gender Identity Not on file Sexual Orientation Not on file documented as of this encounter Miscellaneous Notes * [employer] Conversion Note - Historical ProviderMD - 06/30/2018 2:00 AM CDT Second Baker Details Entered On: 06/30/2018 1:31 EDT Performed [...]
--- OUTSIDE RECORDS SUMMARY | 2024-12-30 13:26 | XMS_ITS | Encounter Summary ---
Author Organization [employer] ([place]) Address [address] [place] [address] Care Team Providers Care Machine Load Clerk Name Role Phone Unavailable Primary Care Provider Unavailabl e Encounter Details Date Type Department Care Team (Late st Contact Info) Description 06/29/2018 Transcribed Document [facility] [place] [facility] Medicine [facility] [place] [address] ProviderAngelique MD [address] [place] [address] [phone] Social History Tobacco Use Types Packs/Day Years [...] Male : 1940 Chief Complaint: transferred from [facility] with SOA, RLE swelling, DVT, bilat PE Subjective Had extensive discussion about anticoagulants once again and trimming caser confirms that his insurance will not cover [...] Daily Lovenox, 90 mg= 0.9 mL, SubCutaneous, [id number] MiraLax, 17 Gram= 1 Packet, Oral, Daily, [...]
--- OUTSIDE RECORDS SUMMARY | 2024-12-30 13:26 | XMS_ITS | Encounter Summary ---
Author Organization [employer] ([place]) Address [address] [place] [address] Care Team Providers Care Dean For Student Affairs Name Role Phone Unavailable Primary Care Provider Unavailabl e Encounter Details Date Type Department Care Team (Late st Contact Info) Description 06/29/2018 Transcribed Document [facility] [place] Family Medicine [facility] [place] [address] ProviderAngelique MD [address] [place] [phone] Social History Tobacco Use Types Packs/Day Years [...]
--- OUTSIDE RECORDS SUMMARY | 2024-12-30 13:26 | XMS_ITS | Referral Summary ---
Author Organization [employer] ([place]) Address [address] [place] [address] Care Team Providers Care Psychologist Engineering Name Role Phone Unavailable Primary Care Provider [...]
--- OUTSIDE RECORDS SUMMARY | 2024-12-30 13:27 | XMS_ITS | Encounter Summary ---
Author Organization [employer] ([place], [place], [place], [place]) Address [address] [place] [address] Care Team Providers Care Machine Brush Maker Name Role Phone Unavailable Primary Care Provider Unavailabl e Encounter Details Date Type Department Care Team (Late st Contact Info) Description 07/01/2018 Transcribed Document [facility] [place] [facility] [place] [address] ProviderAngelique MD [address] [place] [address] Social History Tobacco Use Types Packs/Day Years Used Date Smoking Tobacco: Never Assessed Sex and Gender Information Value Date Recorded Sex Assigned at Not on file Legal Sex Male 3:45 PM CDT Gender Identity Not on file Sexual Orientation Not on file documented as of this encounter Miscellaneous Notes * Cerner Conversion Note - Angelique ProviderMD - 07/01/2018 1:24 PM CDT [address] [place] [address] Patient Copy Patient Information: Name: SESAR FU Current Date: 07/01/2018 13:24:38 : 1940 Patient Address: [address] [address] Patient Attending Physician: CATALINA MARIN MD-INT Primary [...] 03/22/2010 Document Revised: 09/08/2016 Document Reviewed: 07/29/2015 ElseOpenPortal Interactive Patient Education ? 2017 [employer] Deep Vein Thrombosis A deep vein [...] kale, broccoli, cabbage, anni greens, turnip greens, [place] sprouts, peas, cauliflower, seaweed, and parsley. ? Beef liver and pork liver. ? Green tea. ? Soybean oil. ??? Tell your health care provider about any and all medicines, vitamins, and supplements that you take, including aspirin and other xgeu-dew-nkjvooy anti-inflammatory medicines. Be especially cautious with aspirin and anti-inflammatory medicines. Do not take those before you ask your health care provider if it is safe to do so. This is important because many medicines can interfere with warfarin and affect the PT and INR results. ??? Do notstart or stop taking any iyah-cpa-yqgtowf or prescription medicine unless your health care [...] Avoid contact sports. General instructions ??? Take jbec-gbk-ufsdtym and prescription medicines only as told by [...] 07/29/2015 Elsevier Interactive Patient Education ? 2017 [employer] Medication Leaflets: aspirin (oral) ( pir [...] What is aspirin? Aspirin is a salicylate (dd-DLD-wm-ate). It works by reducing substances in the [...] may report side effects to FDA at 4-024-SER-3216. What other drugs will affect aspirin? Ask [...] drugs may affect aspirin, including prescription and qawp-dat-jlyesls medicines, vitamins, and herbal products. Not all [...] to ensure that the information provided by [employer]. ('[employer]') is accurate, up-to-date, and complete, but no guarantee is made to that effect. Drug information contained herein may be time sensitive. [employer] information has been compiled for use by healthcare practitioners and consumers in the [place] and therefore [employer] does not warrant that uses outside of the [place] are appropriate, unless specifically indicated otherwise. [employer] drug information does not endorse drugs, diagnose patients or recommend therapy. [employer] drug information is an informational resource designed [...] effective or appropriate for any given patient. [employer] does not assume any responsibility for any aspect of healthcare administered with the aid of information [employer] provides. The information contained herein is not intended to cover all possible uses, directions, precautions, warnings, drug interactions, allergic reactions, or adverse effects. If you have questions about the drugs you are taking, check with your doctor, nurse or pharmacist. Copyright 7854-8929 [employer]. Version: 15.. Revision Date: 07/17/2017. warfarin (oral) [...] may report side effects to FDA at 7-188-WDN-8544. What other drugs will affect warfarin? Many drugs (including some wsgd-yyx-jhwhsbb medicines and herbal products) can affect your [...] echinacea, garlic, ginkgo biloba, ginseng, goldenseal, or Trego's wort. This list is not complete and many other drugs can interact with warfarin. This includes prescription and nafb-mde-yndzqhd medicines, vitamins, and herbal products. Give a [...] to ensure that the information provided by [employer]. ('[employer]') is accurate, up-to-date, and complete, but no guarantee is made to that effect. Drug information contained herein may be time sensitive. [employer] information has been compiled for use by healthcare practitioners and consumers in the [place] and therefore [employer] does not warrant that uses outside of the [place] are appropriate, unless specifically indicated otherwise. [employer]'s drug information does not endorse drugs, diagnose patients or recommend therapy. [employer] drug information is an informational resource designed [...] effective or appropriate for any given patient. [facility] does not assume any responsibility for any aspect of healthcare administered with the aid of information [facility] provides. The information contained herein is not intended to cover all possible uses, directions, precautions, warnings, drug interactions, allergic reactions, or adverse effects. If you have questions about the drugs you are taking, check with your doctor, nurse or pharmacist. Copyright 9603-3037 [facility]. Version: 22.01. Revision Date: 12/29/2016. famotidine (fam [...] may report side effects to FDA at 4-810-ACB-3634. What other drugs will affect famotidine? Famotidine can make it harder for your body to absorb other medicines you take by mouth. Tell your doctor if you are taking: ? cefditoren; ?? dasatinib; ?? delavirdine; or ?? fosamprenavir. This list is not complete. Other drugs may affect famotidine, including prescription and sjrt-rsr-koijlsx medicines, vitamins, and herbal products. Not all [...] to ensure that the information provided by [employer]. ('[employer]') is accurate, up-to-date, and complete, but no guarantee is made to that effect. Drug information contained herein may be time sensitive. [employer] information has been compiled for use by healthcare practitioners and consumers in the [place] and therefore [employer] does not warrant that uses outside of the [place] are appropriate, unless specifically indicated otherwise. [employer] drug information does not endorse drugs, diagnose patients or recommend therapy. [employer] drug information is an informational resource designed [...] effective or appropriate for any given patient. [employer] does not assume any responsibility for any aspect of healthcare administered with the aid of information [employer] provides. The information contained herein is not intended to cover all possible uses, directions, precautions, warnings, drug interactions, allergic reactions, or adverse effects. If you have questions about the drugs you are taking, check with your doctor, nurse or pharmacist. Copyright 1682-5327 [employer]. Version: 15.02. Revision Date: 03/15/2018. CIGARETTE SMOKING: The facts are clear, cigarette smoking will shorten your life. Smoking can cause many illnesses along the way. As a healthcare provider, we recommend that you stop smoking. Assistance with quitting is available by contacting 5-378-QKOV-NOW. This is a free resource providing counseling, [...] Be sure to sign up for the PayNearMe patient portal, which gives you 07/11 access to your medical information ??? including these discharge instructions ??? using your computer, smartphone, or tablet. Just go to [employer] to get started. Questions? Call . [facility] would like to thank you for allowing us to assist you with your healthcare needs. TANK Arreguin WARREN B, (or help desk representative) have received the above patient education materials/instructions and have verbalized understanding: Patient Signature _ Date/Time Patient Lapping Machine Tender Signature (if needed) Date/Time Clinician/Hospital Lapping Machine Tender Signature (if needed) Date/Time Electronically signed by Ronny [facility] Conversion Dry Wall Installer Jc at 08/05/2022 1:31 PM CDT documented in this encounter Plan of Treatment Not on file documented as of this encounter Visit Diagnoses Not on filedocumented in this encounter
--- OUTSIDE RECORDS SUMMARY | 2024-12-30 13:27 | XMS_ITS | Encounter Summary ---
Author Organization [employer] ([place], [place], [place], [place]) Address [address] [place] [address] Care Team Providers Care Shellfish Harvester Name Role Phone Unavailable Primary Care Provider Unavailabl e Encounter Details Date Type Department Care Team (Late st Contact Info) Description 06/28/2018 Transcribed Document [facility] [place] [address] [place] [address] ProviderAngelique MD [address] [place], [place] [address] Social History Tobacco Use Types Packs/Day Years [...]
--- OUTSIDE RECORDS SUMMARY | 2024-12-30 13:27 | XMS_ITS | Encounter Summary ---
Author Organization [employer] ([place], [place], [place], [place]) Address [address] [place] [address] Care Team Providers Care Physical Education Teacher Name Role Phone Unavailable Primary Care Provider Unavailabl e Encounter Details Date Type Department Care Team (Late st Contact Info) Description 07/01/2018 Transcribed Document [facility] [place] [facility] [place] [address] ProviderAngelique MD [address] [place] [address] Social History Tobacco Use Types Packs/Day Years [...]
--- OUTSIDE RECORDS SUMMARY | 2024-12-30 13:27 | XMS_ITS | Encounter Summary ---
Author Organization [employer] ([place], [place], [place], [place]) Address [address] [place] [address] Care Team Providers Care Floor Layer Apprentice Name Role Phone Unavailable Primary Care Provider Unavailabl e Encounter Details Date Type Department Care Team (Late st Contact Info) Description 06/28/2018 Transcribed Document [facility] [place] [address] [place] [address] ProviderAngelique MD [address] [place] [address] Social History Tobacco Use Types Packs/Day Years [...] lower extremity DVTs who presented to an [facility] for complaints of numbness in the lower extremities over the last 2 weeks. 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 On morning of presentation patient woke up with moderate edema and swelling of the right lower extremity and some mild discomfort. He went to the [facility] emergency department where he had a lower extremity venous duplex and a CT PE protocol. It was found he had a right lower extremity acute DVT as well as a reported bilateral pulmonary embolism. He was started on a heparin drip and transferred to [facility] for further evaluation and treatment. 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 Integumentary: Warm, Dry, [place], Intact. Neurologic: Alert, Oriented, No focal deficits. [...] anticoagualtion in stable and non surgical setting Electronically signed by Kimberly Jefferson Conversion Assistant Child Care Teacher Cerner at 08/05/2022 1:07 PM CDT documented in this encounter Plan of Treatment Not on file documented as of this encounter Visit Diagnoses Not on filedocumented in this encounter
--- OUTSIDE RECORDS SUMMARY | 2024-12-30 13:27 | XMS_ITS | Encounter Summary ---
Author Organization [employer] ([place], [place], [place], [place]) Address [address] [place] [address] Care Team Providers Care Dredge Pipeman Name Role Phone Unavailable Primary Care Provider Unavailabl e Encounter Details Date Type Department Care Team (Late st Contact Info) Description 06/28/2018 Transcribed Document [facility] Radiology [address] [place] [address] Jett Narvaez MD [address] [place] [address] [place] [address] Social History Tobacco Use Types Packs/Day Years [...] Jauregui Accepting physician Dr. Wells Transferring facility [facility] Chief complaint right leg swelling History of present illness Patient presents as a transfer from [facility]. He has been having some [...] At risk for sleep apnea / IMO [id number] / Confirmed, Active Problems (1) At risk for sleep apnea Objective VS/Measurements No qualifying data available General: No acute distress. Eye: Normal conjunctiva. Neck: No jugular venous distention. Respiratory: Lungs are clear to auscultation, Respirations are non-labored, Breath sounds are equal. Cardiovascular: Regular rhythm, No gallop, S1+ S2 No S3 or S4 [place].. Gastrointestinal: Soft, Non-tender, Non-distended, Normal bowel sounds. [...]
--- OUTSIDE RECORDS SUMMARY | 2024-12-30 13:27 | XMS_ITS | Encounter Summary ---
Author Organization [employer] ([place], [place], [place], [place]) Address [address] [place] [address] Care Team Providers Care Blackjack Pit Boss Name Role Phone Unavailable Primary Care Provider Unavailabl e Encounter Details Date Type Department Care Team (Late st Contact Info) Description 07/04/2018 Transcribed Document [facility] [place] [address] [place] [address] ProviderAngelique MD [address] [place], [place] [phone] Social History Tobacco Use Types Packs/Day Years [...]
--- OUTSIDE RECORDS SUMMARY | 2024-12-30 13:27 | XMS_ITS | Encounter Summary ---
Author Organization [facility] ([place], [place], [place], [place]) Address [address] [place] [address] Care Team Providers Care Senior Laboratory Technician Name Role Phone Unavailable Primary Care Provider Unavailabl e Encounter Details Date Type Department Care Team (Late st Contact Info) Description 07/10/2018 Transcribed Document [facility] [place] [facility] [place] [address] ProviderAngelique MD [address] [place] [phone] Social History Tobacco Use Types Packs/Day Years [...] EDT Electronically signed by Kimberly Jefferson Conversion Account Services Specialist Cerner at 08/05/2022 1:19 PM CDT documented in this encounter Plan of Treatment Not on file documented as of this encounter Visit Diagnoses Not on filedocumented in this encounter
--- OUTSIDE RECORDS SUMMARY | 2024-12-30 13:27 | XMS_ITS | Clinical Summary ---
Author Organization [employer] ([place], [place], [place], [place]) Address [address] [place] [address] Care Team Providers Care Welding Machine Operator Electro Gas Name Role Phone Unavailable Primary Care Provider [...]
--- OUTSIDE RECORDS SUMMARY | 2024-12-30 13:27 | XMS_ITS | Encounter Summary ---
Author Organization [employer] ([place], [place], [place], [place]) Address [address] [place] [address] Care Team Providers Care Director Of Market Research Name Role Phone Unavailable Primary Care Provider Unavailabl e Encounter Details Date Type Department Care Team (Late st Contact Info) Description 06/27/2018 Transcribed Document [facility] [place] [address] [place] [address] ProviderAngelique MD [address] [place], [place] [id number] Social History Tobacco Use Types Packs/Day Years [...]
--- OUTSIDE RECORDS SUMMARY | 2024-12-30 13:27 | XMS_ITS | Encounter Summary ---
Author Organization [employer] ([place], [place], [place], [place]) Address [address] [place] [address] Care Team Providers Care Creative Technologist Name Role Phone Unavailable Primary Care Provider Unavailabl e Encounter Details Date Type Department Care Team (Late st Contact Info) Description 07/01/2018 Transcribed Document [facility] [place] [facility] [place] [address] ProviderAngelique MD [address] [place] [phone] Social History Tobacco Use Types Packs/Day Years [...] Jauregui Accepting physician Dr. Faroouqi Transferring facility [facility] Chief complaint right leg swelling History of present illness Patient presents as a transfer from [facility]. He has been having some numbness in [...] to no prescription coverage with his Medicare. unclaimed property manager stated that his Medicare insurance would prohibit use of special discount from the [employer]. So the patient was loaded with warfarin [...] (Current Encounter/Past 24 Hours) PT 25.9 Second(s) MA 07/01/2018 04:59 INR 2.4 MA 07/01/2018 04:59 Creatinine Clearance (Current Encounter/Past 24 Hours) No Creatinine Clearance Results Found (Past 24 Hours) Blood Products No qualifying data available. Type of Study: TTE procedure: EC Echo Complete. Patient Status: Routine IP [facility] Quality: Adequate visualization Indications:Coronary artery disease. Allergies [...] 06/28/2018 07:52 EDT Electronically signed by Ronny [facility] Conversion Site Coordinator Cerner at 08/05/2022 1:33 PM CDT documented in this encounter Plan of Treatment Not on file documented as of this encounter Visit Diagnoses Not on filedocumented in this encounter
--- OUTSIDE RECORDS SUMMARY | 2024-12-30 13:27 | XMS_ITS | Encounter Summary ---
Author Organization [employer] ([place], [place], [place], [place]) Address [address] [place] [address] Care Team Providers Care Chief Of Anesthesiology Name Role Phone Unavailable Primary Care Provider Unavailabl e Encounter Details Date Type Department Care Team (Late st Contact Info) Description 06/27/2018 Transcribed Document [facility] [place] [facility] [place] [address] ProviderAngelique MD [address] [place] [phone] Social History Tobacco Use Types Packs/Day Years [...] LINDA CRESPO PT - 06/29/2018 11:14 EDT Electronically signed by Kimberly Jefferson Conversion Transportation Supervisor Cerner at 08/05/2022 1:12 PM CDT documented in this encounter Plan of Treatment Not on file documented as of this encounter Visit Diagnoses Not on filedocumented in this encounter
--- OUTSIDE RECORDS SUMMARY | 2024-12-30 13:27 | XMS_ITS | Encounter Summary ---
Author Organization [employer] ([place], [place], [place], [place]) Address [address] [place] [address] Care Team Providers Care Ironer Hand Name Role Phone Unavailable Primary Care Provider Unavailabl e Encounter Details Date Type Department Care Team (Late st Contact Info) Description 07/01/2018 Transcribed Document [facility] [place] [facility] [place] [facility] [place] [address] ProviderAngelique MD [address] [place] [id number] Social History Tobacco Use Types Packs/Day Years [...] Corinna Najera RN - 07/01/2018 13:13 EDT documented in this encounter Plan of Treatment Not on file documented as of this encounter Visit Diagnoses Not on filedocumented in this encounter
--- OUTSIDE RECORDS SUMMARY | 2024-12-30 13:27 | XMS_ITS | Encounter Summary ---
Author Organization [employer] ([place], [place], [place], [place]) Address [address] [place] [address] Care Team Providers Care Ski Lift Mechanic Name Role Phone Unavailable Primary Care Provider Unavailabl e Encounter Details Date Type Department Care Team (Late st Contact Info) Description 07/01/2018 Transcribed Document [facility] [place] [facility] [place] [address] ProviderAngelique MD [address] [place] [phone] Social History Tobacco Use Types Packs/Day Years [...] 03/22/2010 Document Revised: 09/08/2016 Document Reviewed: 07/29/2015 [employer] Interactive Patient Education ? 2017 [employer] Deep Vein Thrombosis A deep vein [...] kale, broccoli, cabbage, anni greens, turnip greens, [place] sprouts, peas, cauliflower, seaweed, and parsley. ? Beef liver and pork liver. ? Green tea. ? Soybean oil. ??? Tell your health care provider about any and all medicines, vitamins, and supplements that you take, including aspirin and other uyki-mpq-yyrrccf anti-inflammatory medicines. Be especially cautious with aspirin and anti-inflammatory medicines. Do not take those before you ask your health care provider if it is safe to do so. This is important because many medicines can interfere with warfarin and affect the PT and INR results. ??? Do notstart or stop taking any cshj-rwh-hzsvcqn or prescription medicine unless your health care [...] Avoid contact sports. General instructions ??? Take mqxt-kgm-nkgfvft and prescription medicines only as told by [...] 07/29/2015 Elsevier Interactive Patient Education ? 2017 [employer] documented in this encounter Plan of Treatment Not on file documented as of this encounter Visit Diagnoses Not on filedocumented in this encounter
--- OUTSIDE RECORDS SUMMARY | 2024-12-30 13:27 | XMS_ITS | Clinical Summary ---
Author Organization [facility] Address [address] [place] [address] Care Team Providers Care Roll Examiner Name Role Phone Giovani Pendleton MD Primary Care Provider [phone] Dayne Flaherty MD Unavailable [phone] Allergies No known active allergies Medications cholecalciferol (Vitamin D3) 1.25 MG (76522 UT) capsule Vitamin D3 1 QD Active [...] Health Maintenance Due Date Last Done Comments [facility]-Dep[facility] Screening 1940 [facility]-Medicare Annual Wellness (AWV) 1940 [facility]-Infant/Child/Adol SDOH Screenings 1940 [id number] Vaccine (#1) 1945 [facility]- SDOH Screenings 1958 [facility]-Adult SDOH Screenings 1958 [facility]-DTaP,Tdap,and Td Vaccines (1 - Tdap) 07/13/1959 [facility]-Zoster Vaccines (1 of 2) 07/13/1959 [facility]-RSV Vaccine: 60+ Years or (1 - 1-dose 75+ series) 07/13/2015 [facility]-Pneumococcal Vaccine: 50+ Years (2 of 2 - PCV20 or PCV21) 05/23/2017 04/17/2017, 05/23/2016 [facility]-Influenza Vaccine (#1) 12/16/202403/04, [...] this topic Insurance H[employer]IC[employer] Care Teams Roll Examiner Relationship Specialty Start Date End Date Giovani Pendleton MD [address] [facility] [address] [place] [address] PCP - General 09/10/21 Dayne Flaherty MD [address] [place] [address] Consulting Physician Neurosurgery 09/22/21
--- OUTSIDE RECORDS SUMMARY | 2024-12-30 13:27 | XMS_ITS | Encounter Summary ---
Author Organization [employer] ([place], [place], [place], [place]) Address [address] [place] [address] Care Team Providers Care Rubber Factory Worker Name Role Phone Unavailable Primary Care Provider Unavailabl e Encounter Details Date Type Department Care Team (Late st Contact Info) Description 06/28/2018 Transcribed Document [facility] [place] [address] [place] [address] ProviderAngelique MD [address] [place], [place] [address] Social History Tobacco Use Types Packs/Day Years [...]
--- OUTSIDE RECORDS SUMMARY | 2024-12-30 13:27 | XMS_ITS | Encounter Summary ---
Author Organization [employer] ([place], [place], [place], [place]) Address [address] [place] [address] Care Team Providers Care Trouble Locater Name Role Phone Unavailable Primary Care Provider Unavailabl e Encounter Details Date Type Department Care Team (Late st Contact Info) Description 06/28/2018 Transcribed Document [facility] [place] [facility] [place] [address] ProviderAngelique MD [address] [place] [phone] Social History Tobacco Use Types Packs/Day Years [...] he go to the Coumadin clinic in [place] 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, 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 Right leg DVT I82.401 Lovenox and then warfarin Orders: enoxaparin, 90 mg, SubCutaneous, Inj, [id number], Start 06/28/18 10:00:00 EDT [facility] [place] Medic[place] Inpatient aspirin, 81 mg= 1 Tab, Oral, Daily Colace, 100 mg= 1 Cap, Oral, BID, PRN DuoNeb 0.5 mg-2.5 mg/3 mL inhalation solution, 3 mL, Nebulized Inhalation , Q6H, PRN Lipitor, 10 mg= 1 Tab, Oral, Weekly lisinopril, 10 mg= 1 Tab, Oral, Daily Lovenox, 90 mg= 0.9 mL, SubCutaneous, [id number] MiraLax, 17 Gram= 1 Packet, Oral, Daily, [...]
--- OUTSIDE RECORDS SUMMARY | 2024-12-30 13:27 | XMS_ITS | Encounter Summary ---
Author Organization [employer] ([place], [place], [place], [place]) Address [address] [place] [address] Care Team Providers Care Appliance Service Supervisor Name Role Phone Unavailable Primary Care Provider Unavailabl e Encounter Details Date Type Department Care Team (Late st Contact Info) Description 06/30/2018 Transcribed Document [facility] [place] [address] [place] [address] ProviderAngelique MD [address] [place], [place] [id number] Social History Tobacco Use Types Packs/Day Years [...]
--- OUTSIDE RECORDS SUMMARY | 2024-12-30 13:27 | XMS_ITS | Encounter Summary ---
Author Organization [employer] ([place], [place], [place]) Address [address] [place] [address] Care Team Providers Care Supervisor Asbestos Removal Name Role Phone Unavailable Primary Care Provider Unavailabl e Encounter Details Date Type Department Care Team (Late st Contact Info) Description 06/27/2018 Transcribed Document [facility] [place] [facility] [place] [address] ProviderAngelique MD [facility] [place], [place] [address] Social History Tobacco Use Types Packs/Day Years [...] directive, Living will, Medical durable power of personal injury attorney (proxy) Copy Advance Directive Verified/on Chart [...] : daughter Chief Complaint : transferred from [facility] with SOA, RLE swelling, DVT, bilat PE Information Obtained From : Patient Primary Language : Citizen [place] Communication Barrier : None Lizzy Balbuena RN [...] Scale Risk Level : 25-45 Medium Risk [place] Fall Interventions : Adequate lighting, Assistive devices [...] Source : Stated Height Entry Format : [place] Height, Feet : 5 ft(Converted to: 152 cm, 60 Inch) Height, Inches : 8 Inch(Converted to: 0 ft 8 Inch, 20.32 cm) Clinical Height : 172.72 cm Weight Source : Bed scale Weight Entry Format : [place] Clinical Dosing Weight : 89.55 kg Weight, Pounds : 197 lb Body Surface Area (BSA) : 2.03 m2 Body Mass Index : 30 kg/m2 (HI) [place] Body Weight : 67 kg Lizzy Balbuena [...] RN - 06/27/2018 19:53 EDT Spiritual/Cultural Needs Latter-Day Preference : Gnosticist Lizzy Balbuena RN - 06/27/2018 19:53 EDT Valuables and Belongings Valuables and Belongings : Clothing, Personal devices Clothing : Common streetwear Clothing Disposition : With patient Personal Device Disposition : With patient Personal Devices : Dentures, lower, Dentures, partial plate, Glasses Lizzy Balbuena, TOMASZ - 06/27/2018 19:53 EDT Electronically signed by Ronny [facility] Conversion Mva Reactor Operator Cerner at 08/05/2022 1:33 PM CDT documented in this encounter Plan of Treatment Not on file documented as of this encounter Visit Diagnoses Not on filedocumented in this encounter
--- OUTSIDE RECORDS SUMMARY | 2024-12-30 13:27 | XMS_ITS | Encounter Summary ---
Author Organization [employer] ([place], [place], [place], [place]) Address [address] [place] [address] Care Team Providers Care District Or District Office Director Name Role Phone Unavailable Primary Care Provider Unavailabl e Encounter Details Date Type Department Care Team (Late st Contact Info) Description 07/09/[address] [facility] [place] Medicine [address] [place] [address] ProviderAngelique MD [address] [place], [place] [phone] Social History Tobacco Use Types Packs/Day Years [...] EDT Electronically signed by Kimberly Jefferson Conversion Investment Associate Cerjeannine at 08/05/2022 1:24 PM CDT documented in this encounter Plan of Treatment Not on file documented as of this encounter Visit Diagnoses Not on filedocumented in this encounter
--- NOTE | 2024-12-30 13:45 | CA_ITS ---
APPROVED REPORT EXAM: Limited 2D Echocardiogram Loan Associate: Ana Maria Patterson RT(R) Ht: 5 ft 6 in Wt: 169lbs BSA: 1.86 BP: 112/69 mmHg Indications: HFrEF, CAD, recent echo with reduced EF. 2D Dimensions LVEF (Taylor's) 34.90 % M: 52 - 72 LV Volume 131.90 mL M: 62 - 150 LV Volume Index 70.9 mL/m2 M: 34 - 74 EF AP4 30.00 % EF AP2 42.1 % EF BP 34.9 % GL Strain -9.2 % M-Mode Dimensions RVDd 2.40 cm (0.9-2.6) LVDd 5.97 cm (3.5-5.7) LVDs 5.21 cm (3.5-5.7) IVSd 0.72 cm (0.6-1.1) PWd 0.68 cm (0.6-1.1) EF (Teich) 26.90% FS 12.70% EDV (Teich) 177.90 mL ESV (Teich) 130.10 mL LV Diastology E Decel Time 213 (160-240 msec) E/A Ratio 0.6 Mitral Valve MV E Max Anthony. 56.0 (40-130 cm/s) MV A Velocity 97.0 (40-130 cm/s) E/A Ratio 0.58 MV PHT 62.0 ms Other Information Study Quality: Fair Conclusion This is a limited TTE to evaluate for LV systolic function. Limited windows are obtained. The left ventricle is normal in size. There is increased LV wall thickness. The septum is asynchonous. There is severe global hypokinesis present. There is akinesis of the distal and apical LV og. There is severe reduction in LV systolic function. LVEF is 15-20%. In the LV apical region, there is a suspected echodensity present that is suspicious for apical LV thrombus. Compared to prior study from 11/21/2024, there is slight improvement in the LV systolic function at the LV base, but the LV global systolic function remains severely reduced. Further evaluation of the LV apical echodensity is recommended with limited TTE + ultrasound enhancing agent. Electronically signed by : Ya Hannah MD 12/30/2024 15:44:52
== END 2024-12-30 23:59 | disposition home or self-care (01) ==
LOC: RT 13:24
PROVIDERS: PCP Nurse Practitioner Family; Visit Provider Physician Assistant
DX: I50.21 Acute systolic (congestive) heart failure (principal); I25.10 Atherosclerotic heart disease of native coronary artery without angina pectoris; R93.1 Abnormal findings on diagnostic imaging of heart and coronary circulation
CPT/HCPCS: 93308

== ENCOUNTER 2025-01-14 12:51 | Outpatient (CLI) | payer MEDICARE, SELFPAY ==
--- OUTSIDE RECORDS SUMMARY | 2025-01-14 12:53 | XMS_ITS | Clinical Summary ---
Author Organization [facility] Address [address] [place] [address] Care Team Providers Care Data Compiler Name Role Phone Giovani Pendleton MD Primary Care Provider [phone] Dayne Flaherty MD Unavailable Allergies No known active allergies Medications cholecalciferol (Vitamin D3) 1.25 MG (28349 UT) capsule Vitamin D3 1 QD Active [...] Wellness (AWV) 1940 UK-Infant/Child/Adol SDOH Screenings 1940 NID-[id number]-01 Vaccine (#1) 1945 UKY- SDOH Screenings 1958 [...] this topic Insurance HUMAN MEDICARE Care Teams Data Compiler Relationship Specialty Start Date End Date Giovani Pendleton MD [address] [facility] [address] [place] [address] PCP - General 09/10/21 Dayne Flaherty MD [address] [place] [address] Consulting Physician Neurosurgery 09/22/21
--- NOTE | 2025-01-14 13:00 | CA_ITS ---
APPROVED REPORT EXAM: Limited 2D Echocardiogram with contrast Household Appliance Mechanic: Ana Maria Patterson RT(R) Ht: 5 ft 6 in Wt: 164lbs BSA: 1.84 BP: 112/69 mmHg Indications: CAD, ordered as a limtied with Definity to assess LV apical echodensity seen on TTE 12/30/24 2D Dimensions EF AP4 22.70 % GL Strain -7.9 % LV Diastology E Decel Time 153 (160-240 msec) E/A Ratio 0.5 MED E' 6.0 (>= 7 cm/sec) E'/MED E' Ratio 8.78 (<= 14) LAT E' 4.6 (>= 10 cm/sec) E/LAT E' Ratio 11.46 (<= 14) Mitral Valve MV E Max Anthony. 53.0 (40-130 cm/s) MV A Velocity 102.0 (40-130 cm/s) E/A Ratio 0.52 MV Decel. Time 153 (160-240 ms) Other Information Study Quality: Fair Conclusion This is a limited TTE to evaluate for LV systolic function and evaluate for suspected LV apical echodensity. Limited windows are obtained. Ultrasound enhancing agent is administered. The left ventricle is normal in size. There is normal LV thickness. There is a severe global hypokinesis present. The LV distal and apical og are akinetic. LVEF is 15-20%. Administration of ultrasound enhancing agent demonstrates no evidence of LV apical thrombus or echodensities. Electronically signed by : Ya Hannah MD 01/15/2025 12:47:45
[2025-01-14] MEDS: DEFINITY US ECHO CONTRAST 2ML INJ 2 MG IV (13:25)
== END 2025-01-14 23:59 | disposition home or self-care (01) ==
LOC: RT 12:52
PROVIDERS: PCP Nurse Practitioner Family; Visit Provider Physician Assistant
DX: I50.21 Acute systolic (congestive) heart failure (principal); R94.31 Abnormal electrocardiogram [ECG] [EKG]; R93.1 Abnormal findings on diagnostic imaging of heart and coronary circulation; I25.10 Atherosclerotic heart disease of native coronary artery without angina pectoris; I26.99 Other pulmonary embolism without acute cor pulmonale; Z95.810 Presence of automatic (implantable) cardiac defibrillator; Z95.1 Presence of aortocoronary bypass graft
CPT/HCPCS: 93308; Q9957

== ENCOUNTER 2025-02-05 12:53 | Outpatient (CLI) | payer MEDICARE, SELFPAY ==
--- OUTSIDE RECORDS SUMMARY | 2025-02-05 13:42 | XMS_ITS | Encounter Summary ---
Author Organization [employer] ([place], [place], [place], [place]) Address [address] [place] [address] Care Team Providers Care Compensation Associate Name Role Phone Unavailable Primary Care Provider Unavailabl e Encounter Details Date Type Department Care Team (Late st Contact Info) Description 06/30/2018 Transcribed Document [facility] [place] [address] [place] [address] ProviderAngelique MD [address] [place], [place] [phone] Social History Tobacco Use Types Packs/Day Years Used Date Smoking Tobacco: Never Assessed Sex and Gender Information Value Date Recorded Sex Assigned at Not on file Legal Sex Male 3:45 PM CDT Gender Identity Not on file Sexual Orientation Not on file documented as of this encounter Miscellaneous Notes * Cerner Conversion Note - Historical ProviderMD - 06/30/2018 2:00 AM CDT Byproducts Pump Operator Details Entered On: 06/30/2018 1:31 EDT [...]
--- OUTSIDE RECORDS SUMMARY | 2025-02-05 13:42 | XMS_ITS | Encounter Summary ---
Author Organization [employer] ([place], [place], [place], [place]) Address [address] [place] [address] Care Team Providers Care Body Maker Machine Setter Name Role Phone Unavailable Primary Care Provider Unavailabl e Encounter Details Date Type Department Care Team (Late st Contact Info) Description 06/27/2018 Transcribed Document [facility] [place] Medicine [facility] [address] ProviderAngelique MD [address] [place] [phone] Social History Tobacco Use Types Packs/Day Years [...]
--- OUTSIDE RECORDS SUMMARY | 2025-02-05 13:42 | XMS_ITS | Encounter Summary ---
Author Organization [email or web address] ([place], [place], [place], [place]) Address [address] [place] [address] Care Team Providers Care Shot Bagger Name Role Phone Unavailable Primary Care Provider Unavailabl e Encounter Details Date Type Department Care Team (Late st Contact Info) Description 06/29/2018 Transcribed Document [facility] [place] [address] [place] [address] ProviderAngelique MD [address] [place], [place] [address] Social History Tobacco Use Types Packs/Day Years Used Date Smoking Tobacco: Never Assessed Sex and Gender Information Value Date Recorded Sex Assigned at Not on file Legal Sex Male 3:45 PM CDT Gender Identity Not on file Sexual Orientation Not on file documented as of this encounter Miscellaneous Notes * Cerner Conversion Note - Historical ProviderMD - 06/29/2018 2:00 AM CDT Milliner Helper Details Entered On: 06/29/2018 5:35 EDT Performed [...] EDT Electronically signed by Kimberly Jefferson Conversion Electrical Products Sales Engineer Jc at 08/05/2022 1:06 PM CDT documented in this encounter Plan of Treatment Not on file documented as of this encounter Visit Diagnoses Not on filedocumented in this encounter
--- OUTSIDE RECORDS SUMMARY | 2025-02-05 13:42 | XMS_ITS | Encounter Summary ---
Author Organization [employer] ([place], [place]) Address [address] [place] [address] Care Team Providers Care Grain Mill Worker Name Role Phone Unavailable Primary Care Provider Unavailabl e Encounter Details Date Type Department Care Team (Late st Contact Info) Description 06/30/2018 Transcribed Document [facility] [place] [facility] [place] [address] ProviderAngelique MD [facility] [place], [place] [address] Social History Tobacco Use Types Packs/Day Years [...] Male : 1940 Chief Complaint: transferred from [facility] with SOA, RLE swelling, DVT, [...] Daily Lovenox, 90 mg= 0.9 mL, SubCutaneous, [id number] MiraLax, 17 Gram= 1 Packet, Oral, Daily, [...] (Current Encounter/Past 24 Hours) PT 13.4 Second(s) AL 06/30/2018 05:22 INR 1.2 AL 06/30/2018 05:22 Creatinine Clearance (Current Encounter/Past 24 Hours) No Creatinine Clearance Results Found (Past 24 Hours) documented in this encounter Plan of Treatment Not on file documented as of this encounter Visit Diagnoses Not on filedocumented in this encounter
--- OUTSIDE RECORDS SUMMARY | 2025-02-05 13:42 | XMS_ITS | Encounter Summary ---
Author Organization [employer] ([place]) Address [address] [place] [address] Care Team Providers Care Big Machine Consultant Name Role Phone Unavailable Primary Care Provider Unavailabl e Encounter Details Date Type Department Care Team (Late st Contact Info) Description 06/29/2018 Transcribed Document [facility] [place] [address] [place] [address] ProviderAngelique MD [address] [place], [place] [phone] Social History Tobacco Use Types Packs/Day Years [...]
--- OUTSIDE RECORDS SUMMARY | 2025-02-05 13:42 | XMS_ITS | Encounter Summary ---
Author Organization [employer] ([place]) Address [address] [place] [address] Care Team Providers Care Care Asst Name Role Phone Unavailable Primary Care Provider Unavailabl e Encounter Details Date Type Department Care Team (Late st Contact Info) Description 06/27/2018 Transcribed Document [facility] [place] Medicine [facility] [address] ProviderAngelique MD [address] [place] [phone] Social History Tobacco Use Types Packs/Day Years [...]
--- OUTSIDE RECORDS SUMMARY | 2025-02-05 13:42 | XMS_ITS | Encounter Summary ---
Author Organization [employer] ([place], [place], [place]) Address [address] [place] [address] Care Team Providers Care Clerk Guide Name Role Phone Unavailable Primary Care Provider Unavailabl e Encounter Details Date Type Department Care Team (Late st Contact Info) Description 06/27/2018 Transcribed Document [facility] [place] [facility] [place] [address] ProviderAngelique MD [facility] [place], [place] [phone] Social History Tobacco Use Types Packs/Day Years [...] directive, Living will, Medical durable power of assistant county attorney (proxy) Copy Advance Directive Verified/on Chart [...] : daughter Chief Complaint : transferred from [facility] with SOA, RLE swelling, DVT, bilat PE Information Obtained From : Patient Primary Language : Latvian Communication Barrier : None Lizzy Balbuena RN [...] Scale Risk Level : 25-45 Medium Risk [place] Fall Interventions : Adequate lighting, Assistive devices [...] Source : Stated Height Entry Format : [employer] Height, Feet : 5 ft(Converted to: 152 cm, 60 Inch) Height, Inches : 8 Inch(Converted to: 0 ft 8 Inch, 20.32 cm) Clinical Height : 172.72 cm Weight Source : Bed scale Weight Entry Format : [employer] Clinical Dosing Weight : 89.55 kg Weight, Pounds : 197 lb Body Surface Area (BSA) : 2.03 m2 Body Mass Index : 30 kg/m2 (HI) [place] Body Weight : 67 kg Lizzy Balbuena [...] RN - 06/27/2018 19:53 EDT Spiritual/Cultural Needs Jewish Preference : Jainism iLzzy Balbuena RN - 06/27/2018 19:53 EDT Valuables and Belongings Valuables and Belongings : Clothing, Personal devices Clothing : Common streetwear Clothing Disposition : With patient Personal Device Disposition : With patient Personal Devices : Dentures, lower, Dentures, partial plate, Glasses Lizzy Balbuena, TOMASZ - 06/27/2018 19:53 EDT documented in this encounter Plan of Treatment Not on file documented as of this encounter Visit Diagnoses Not on filedocumented in this encounter
--- OUTSIDE RECORDS SUMMARY | 2025-02-05 13:42 | XMS_ITS | Encounter Summary ---
Author Organization [employer] ([place], [place], [place]) Address [address] [place] [address] Care Team Providers Care Quality Assurance Representative Name Role Phone Unavailable Primary Care Provider Unavailabl e Encounter Details Date Type Department Care Team (Late st Contact Info) Description 06/29/2018 Transcribed Document [facility] [place] [facility] [place] [address] ProviderAngelique MD [address] [place] [phone] Social History Tobacco Use Types Packs/Day Years [...] 1940 Chief Complaint: transferred from [facility] with SOA, RLE swelling, DVT, bilat PE Subjective Had extensive discussion about anticoagulants once again and dependency case manager confirms that his insurance will [...] Daily Lovenox, 90 mg= 0.9 mL, SubCutaneous, [id number] MiraLax, 17 Gram= 1 Packet, Oral, Daily, [...]
--- OUTSIDE RECORDS SUMMARY | 2025-02-05 13:42 | XMS_ITS | Encounter Summary ---
Author Organization [employer] ([place]) Address [address] [place] [address] Care Team Providers Care Medical Record Transcriber Name Role Phone Unavailable Primary Care Provider Unavailabl e Encounter Details Date Type Department Care Team (Late st Contact Info) Description 06/28/2018 Transcribed Document [facility] [place] [address] [place] [address] ProviderAngelique MD [address] [place], [place] [address] Social History Tobacco Use Types Packs/Day Years [...] EDT Electronically signed by Kimberly Jefferson Conversion Data Communications Software Consultant Cerner at 08/05/2022 1:07 PM CDT documented in this encounter Plan of Treatment Not on file documented as of this encounter Visit Diagnoses Not on filedocumented in this encounter
--- OUTSIDE RECORDS SUMMARY | 2025-02-05 13:42 | XMS_ITS | Encounter Summary ---
Author Organization [employer] ([place], [place]) Address [address] [place] [address] Care Team Providers Care Siding Installer Name Role Phone Unavailable Primary Care Provider Unavailabl e Encounter Details Date Type Department Care Team (Late st Contact Info) Description 06/27/2018 Transcribed Document [facility] [place] [facility] [place] [address] ProviderAngelique MD [address] [place] [phone] Social History Tobacco Use Types Packs/Day Years [...] OT Orientation : Oriented x 4 HOLLEY JAKCSON ROSSI/Kathia - 06/29/2018 15:16 EDT Indication Assessment, [...]
--- OUTSIDE RECORDS SUMMARY | 2025-02-05 13:42 | XMS_ITS | Encounter Summary ---
Author Organization [employer] ([place]) Address [address] [place] [address] Care Team Providers Care Straw Hat Washer Operator Name Role Phone Unavailable Primary Care Provider Unavailabl e Encounter Details Date Type Department Care Team (Late st Contact Info) Description 06/27/2018 Transcribed Document [facility] [place] Family [place] [address] [place] [address] ProviderAngelique MD [address] [place], [place] [address]491 Social History Tobacco Use Types Packs/Day Years [...]
--- OUTSIDE RECORDS SUMMARY | 2025-02-05 13:42 | XMS_ITS | Encounter Summary ---
Author Organization [employer] ([place]) Address [address] [place] [address] Care Team Providers Care Customer Support Advisor Name Role Phone Unavailable Primary Care Provider Unavailabl e Encounter Details Date Type Department Care Team (Late st Contact Info) Description 06/29/[address] [facility] [place] [facility] [place] [address] ProviderAngelique MD [address] [place] [id number] Social History Tobacco Use Types Packs/Day Years [...]
--- OUTSIDE RECORDS SUMMARY | 2025-02-05 13:42 | XMS_ITS | Encounter Summary ---
Author Organization [employer] ([place], [place], [place]) Address [address] [place] [address] Care Team Providers Care Jelly Maker Name Role Phone Unavailable Primary Care Provider Unavailabl e Encounter Details Date Type Department Care Team (Late st Contact Info) Description 06/28/2018 Transcribed Document [facility] [place] [address] [place] [address] ProviderAngelique MD [address] [place], [place] [address] Social History Tobacco Use Types Packs/Day Years [...] EDT Performed On: 06/28/2018 12:21 EDT by LINAD CRESPO PT Attempt to Treat Unable to Treat Due To : Patient on hold Inability to Treat Comment : RN request to hold due to acute PE and DVT and questionable therapeutic yet; will check 06/29 for PTx eval and tx; LINDA CRESPO PT - 06/28/2018 12:21 EDT Electronically signed by Kimberly Jefferson Conversion Inspector Semiconductor Wafer Cerner at 08/05/2022 1:15 PM CDT documented in this encounter Plan of Treatment Not on file documented as of this encounter Visit Diagnoses Not on filedocumented in this encounter
--- OUTSIDE RECORDS SUMMARY | 2025-02-05 13:42 | XMS_ITS | Encounter Summary ---
Author Organization [facility] ([place]) Address [address] [place] [address] Care Team Providers Care Insulation Board Coater Operator Name Role Phone Unavailable Primary Care Provider Unavailabl e Encounter Details Date Type Department Care Team (Late st Contact Info) Description 06/29/2018 Transcribed Document [facility] [place] [address] ProviderAngelique MD [address] [place] [phone] Social History Tobacco Use Types Packs/Day Years [...] Physician : Reynaldo Jauregui Durable Power of Switching Clerk Name : No Emergency Contact #1 : [...] very pleasant, I thanked them for choosing [facility] and they seem content with the service. pt reports that he has had issues with Coumadin vs Elaquis before. Pts reports that if they lived in [facility] they would be able to get Part D with [employer] but because they live in [place] they can not. Pt is agreeable to [...] EDT Electronically signed by Kimberly Jefferson Conversion K [employer] Professional Cerner at 08/05/2022 1:21 PM CDT documented in this encounter Plan of Treatment Not on file documented as of this encounter Visit Diagnoses Not on filedocumented in this encounter
--- OUTSIDE RECORDS SUMMARY | 2025-02-05 13:42 | XMS_ITS | Referral Summary ---
Author Organization [employer] ([place]) Address [address] [place] [address] Care Team Providers Care Leather Production Machine Operator Name Role Phone Unavailable Primary [...]
--- OUTSIDE RECORDS SUMMARY | 2025-02-05 13:42 | XMS_ITS | Encounter Summary ---
Author Organization [employer] ([place]) Address [address] [place] [address] Care Team Providers Care Planetarium Technician Name Role Phone Unavailable Primary Care Provider Unavailabl e Encounter Details Date Type Department Care Team (Late st Contact Info) Description 06/29/[address] [facility] [place] [facility] [place] [address] ProviderAngelique MD [address] [place] [phone] Social History Tobacco Use Types Packs/Day Years [...] lower extremity DVTs who presented to an [facility] for complaints of numbness in the lower extremities over the last 2 weeks. 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 On morning of presentation patient woke up with moderate edema and swelling of the right lower extremity and some mild discomfort. He went to the [facility] emergency department where he had a lower extremity venous duplex and a CT PE protocol. It was found he had a right lower extremity acute DVT as well as a reported bilateral pulmonary embolism. He was started on a heparin drip and transferred to [facility] for further evaluation and treatment. 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 Integumentary: Warm, Dry, [place], Intact. Neurologic: Alert, Oriented, No focal deficits. [...]
--- OUTSIDE RECORDS SUMMARY | 2025-02-05 13:42 | XMS_ITS | Encounter Summary ---
Author Organization [employer] ([place], [place], [place], [place]) Address [address] [place] [address] Care Team Providers Care Range Conservationist Name Role Phone Unavailable Primary Care Provider Unavailabl e Encounter Details Date Type Department Care Team (Late st Contact Info) Description 06/27/2018 Transcribed Document [facility] [place] Family [place] [facility] [place] [address] ProviderAneglique MD [address] [place] [address] [phone] Social History Tobacco Use Types Packs/Day Years [...] 07/02/2018 10:18 EDT Care Management Note : [facility] is not covered by [facility]. Spoke with [place]. She arranged with [facility] through [facility] Care Management Note Report : CYNTHIA FRANKLIN, Rigging Engineer-Care Management - 06/29/18 10:19:32 pt is alert [...] 06/29/2018 12:41 EDT Electronically signed by Ronny, [facility] Conversion Livestock Judging Coach Cerner at 08/05/2022 1:25 PM CDT documented in this encounter Plan of Treatment Not on file documented as of this encounter Visit Diagnoses Not on filedocumented in this encounter
--- OUTSIDE RECORDS SUMMARY | 2025-02-05 13:43 | XMS_ITS | Encounter Summary ---
Author Organization [employer] ([place], [place], [place]) Address [address] [place] [address] Care Team Providers Care Shoe Planner Name Role Phone Unavailable Primary Care Provider Unavailabl e Encounter Details Date Type Department Care Team (Late st Contact Info) Description 07/01/2018 Transcribed Document [facility] [place] [facility] [place] [address] ProviderAngelique MD [address] [place] [address] [phone] Social History Tobacco Use Types Packs/Day Years [...] 07/01/2018 13:13 EDT Electronically signed by Ronny [facility] Conversion Machine Binding Folder Cerner at 08/05/2022 1:33 PM CDT documented in this encounter Plan of Treatment Not on file documented as of this encounter Visit Diagnoses Not on filedocumented in this encounter
--- OUTSIDE RECORDS SUMMARY | 2025-02-05 13:43 | XMS_ITS | Clinical Summary ---
Author Organization [employer] ([place], [place], [place]) Address [address] [place] [address] Care Team Providers Care Compliance Director Name Role Phone Unavailable Primary Care [...]
--- OUTSIDE RECORDS SUMMARY | 2025-02-05 13:43 | XMS_ITS | Encounter Summary ---
Author Organization [employer] ([place], [place], [place]) Address [address] [place] [address] Care Team Providers Care First Sampler Name Role Phone Unavailable Primary Care Provider Unavailabl e Encounter Details Date Type Department Care Team (Late st Contact Info) Description 07/09/2018 Transcribed Document [facility] [place] Family Medicine [address] [place] [address] ProviderAngelique MD [address] [place], [place] [phone] Social History Tobacco Use Types Packs/Day Years [...]
--- OUTSIDE RECORDS SUMMARY | 2025-02-05 13:43 | XMS_ITS | Encounter Summary ---
Author Organization [employer] ([place], [place]) Address [address] [place] [address] Care Team Providers Care Lead Injection Mold Technician Name Role Phone Unavailable Primary Care Provider Unavailabl e Encounter Details Date Type Department Care Team (Late st Contact Info) Description 06/30/2018 Transcribed Document [facility] [place] [address] [place] [address] ProviderAngelique MD [address] [place], [place] [phone] Social History Tobacco Use Types Packs/Day Years [...]
--- OUTSIDE RECORDS SUMMARY | 2025-02-05 13:43 | XMS_ITS | Encounter Summary ---
Author Organization [employer] ([place], [place], [place]) Address [address] [place] [address] Care Team Providers Care Double Reamer Operator Name Role Phone Unavailable Primary Care Provider Unavailabl e Encounter Details Date Type Department Care Team (Late st Contact Info) Description 06/28/2018 Transcribed Document [facility] [place] Medicine [address] [place] [address] ProviderAngelique MD [address] [place] [address] Social History Tobacco Use Types Packs/Day Years [...] on a heparin drip and transferred to [facility] for further evaluation and treatment. We've been [...] At risk for sleep apnea / IMO [id number] / Confirmed Hx of temporal arteritis / SNOMED CT 256994351 / Confirmed, Active Problems (2) At risk [...] Normal range of motion. Integumentary: Warm, Dry, [place], Intact. Neurologic: Alert, Oriented, No focal deficits. [...] setting Electronically signed by Kimberly Jefferson Conversion Access Services Assistant Cerner at 08/05/2022 1:07 PM CDT documented in this encounter Plan of Treatment Not on file documented as of this encounter Visit Diagnoses Not on filedocumented in this encounter
--- OUTSIDE RECORDS SUMMARY | 2025-02-05 13:43 | XMS_ITS | Encounter Summary ---
Author Organization [employer] ([place], [place]) Address [address] [place] [address] Care Team Providers Care Overlock Collar Setter Name Role Phone Unavailable Primary Care Provider Unavailabl e Encounter Details Date Type Department Care Team (Late st Contact Info) Description 07/10/2018 Transcribed Document [facility] [place] Family Medicine [facility] [place] [address] ProviderAngelique MD [address] [place] [address] [phone] Social History Tobacco Use Types Packs/Day Years [...] EDT Electronically signed by Kimberly Jefferson Conversion Community Support Worker Cerner at 08/05/2022 1:19 PM CDT documented in this encounter Plan of Treatment Not on file documented as of this encounter Visit Diagnoses Not on filedocumented in this encounter
--- OUTSIDE RECORDS SUMMARY | 2025-02-05 13:43 | XMS_ITS | Encounter Summary ---
Author Organization [employer] ([place], [place]) Address [address] [place] [address] Care Team Providers Care Camp Attendant Name Role Phone Unavailable Primary Care Provider Unavailabl e Encounter Details Date Type Department Care Team (Late st Contact Info) Description 07/01/2018 Transcribed Document [facility] [place] [facility] [place] [address] ProviderAngelique MD [address] [place] [address] [phone] Social History Tobacco Use Types Packs/Day Years [...] : 1940 Associated Diagnoses: None Author: RHETT STEH MD Subjective Date of admission 06/27/[address] Jauregui Accepting physician Dr. Faroouqi Transferring facility [facility] Chief complaint right leg swelling History of present illness Patient presents as a transfer from [facility]. He has been having some numbness [...] to no prescription coverage with his Medicare. city maintenance manager stated that his Medicare insurance would prohibit use of special discount from the [employer]. So the patient was loaded with warfarin [...] (Current Encounter/Past 24 Hours) PT 25.9 Second(s) [place] 07/01/2018 04:59 INR 2.4 [place] 07/01/2018 04:59 Creatinine Clearance (Current Encounter/Past 24 Hours) No Creatinine Clearance Results Found (Past 24 Hours) Blood Products No qualifying data available. Type of Study: TTE procedure: EC Echo Complete. Patient Status: Routine IP [facility] Quality: Adequate visualization Indications:Coronary artery disease. Allergies [...] 06/28/2018 07:52 EDT Electronically signed by Ronny [facility] Conversion Tractor Trailer Technician Cerner at 08/05/2022 1:33 PM CDT documented in this encounter Plan of Treatment Not on file documented as of this encounter Visit Diagnoses Not on filedocumented in this encounter
--- OUTSIDE RECORDS SUMMARY | 2025-02-05 13:43 | XMS_ITS | Encounter Summary ---
Author Organization [employer] ([place], [place], [place], [place]) Address [address] [place] [address] Care Team Providers Care Government Affairs Fellow Name Role Phone Unavailable Primary Care Provider Unavailabl e Encounter Details Date Type Department Care Team (Late st Contact Info) Description 07/04/2018 Transcribed Document [facility] [place] [address] [place] [address] ProviderAngelique MD [address] [place], [place] [phone] Social History Tobacco Use Types Packs/Day Years [...]
--- OUTSIDE RECORDS SUMMARY | 2025-02-05 13:43 | XMS_ITS | Encounter Summary ---
Author Organization [employer] ([place], [place], [place], [place]) Address [address] [place] [address] Care Team Providers Care Automatic Fancy Machine Operator Name Role Phone Unavailable Primary Care Provider Unavailabl e Encounter Details Date Type Department Care Team (Late st Contact Info) Description 07/01/2018 Transcribed Document [facility] [place] [facility] [place] [address] ProviderAngelique MD [address] [place] [address] Social History Tobacco Use Types Packs/Day Years Used Date Smoking Tobacco: Never Assessed Sex and Gender Information Value Date Recorded Sex Assigned at Not on file Legal Sex Male 3:45 PM CDT Gender Identity Not on file Sexual Orientation Not on file documented as of this encounter Miscellaneous Notes * Cerner Conversion Note - Angelique ProviderMD - 07/01/2018 1:24 PM CDT [address] [place] [address] Patient Copy Patient Information: Name: SESAR FU Current Date: 07/01/2018 13:24:38 : 1940 Patient Address: [address] [address] Patient Attending Physician: CATALINA MARIN MD-INT Primary [...] 03/22/2010 Document Revised: 09/08/2016 Document Reviewed: 07/29/2015 [employer]ir[employer] Interactive Patient Education ? 2017 [employer].com. Inc. Deep Vein Thrombosis A deep vein [...] kale, broccoli, cabbage, anni greens, turnip greens, [place] sprouts, peas, cauliflower, seaweed, and parsley. ? Beef liver and pork liver. ? Green tea. ? Soybean oil. ??? Tell your health care provider about any and all medicines, vitamins, and supplements that you take, including aspirin and other godm-tcd-fnawzjm anti-inflammatory medicines. Be especially cautious with aspirin and anti-inflammatory medicines. Do not take those before you ask your health care provider if it is safe to do so. This is important because many medicines can interfere with warfarin and affect the PT and INR results. ??? Do notstart or stop taking any uwxg-agz-lipkuzx or prescription medicine unless your health care [...] Avoid contact sports. General instructions ??? Take rivz-nrw-adyqbdk and prescription medicines only as told by [...] 07/29/2015 Elsevier Interactive Patient Education ? 2017 [employer].com. Inc. Medication Leaflets: aspirin (oral) ( pir [...] What is aspirin? Aspirin is a salicylate (zi-TSD-rl-ate). It works by reducing substances in the [...] may report side effects to FDA at 3-696-XKI-9501. What other drugs will affect aspirin? Ask [...] drugs may affect aspirin, including prescription and ayte-xjb-hizxhof medicines, vitamins, and herbal products. Not all [...] to ensure that the information provided by [employer]. ('[employer]') is accurate, up-to-date, and complete, but no guarantee is made to that effect. Drug information contained herein may be time sensitive. [employer] information has been compiled for use by healthcare practitioners and consumers in the [place] and therefore [employer] does not warrant that uses outside of the [place] are appropriate, unless specifically indicated otherwise. [employer] drug information does not endorse drugs, diagnose patients or recommend therapy. [employer] drug information is an informational resource designed [...] effective or appropriate for any given patient. [employer] does not assume any responsibility for any aspect of healthcare administered with the aid of information [employer] provides. The information contained herein is not intended to cover all possible uses, directions, precautions, warnings, drug interactions, allergic reactions, or adverse effects. If you have questions about the drugs you are taking, check with your doctor, nurse or pharmacist. Copyright 6115-7855 [employer]. Version: 15.. Revision Date: 07/17/2017. warfarin (oral) [...] may report side effects to FDA at 0-093-SJT-5229. What other drugs will affect warfarin? Many drugs (including some ykpz-bcu-ihbedjm medicines and herbal products) can affect your [...] echinacea, garlic, ginkgo biloba, ginseng, goldenseal, or [place]'s wort. This list is not complete and many other drugs can interact with warfarin. This includes prescription and fvxv-yxb-ojaqfdw medicines, vitamins, and herbal products. Give a [...] to ensure that the information provided by [employer]. ('Multum') is accurate, up-to-date, and complete, but no guarantee is made to that effect. Drug information contained herein may be time sensitive. [employer] information has been compiled for use by healthcare practitioners and consumers in the [place] and therefore [employer] does not warrant that uses outside of the [place] are appropriate, unless specifically indicated otherwise. [employer]'s drug information does not endorse drugs, diagnose patients or recommend therapy. [employer]s drug information is an informational resource designed [...] effective or appropriate for any given patient. [facility] does not assume any responsibility for any aspect of healthcare administered with the aid of information [facility] provides. The information contained herein is not intended to cover all possible uses, directions, precautions, warnings, drug interactions, allergic reactions, or adverse effects. If you have questions about the drugs you are taking, check with your doctor, nurse or pharmacist. Copyright 7904-6923 [facility]. Version: 22.01. Revision Date: 12/29/2016. famotidine (fam [...] may report side effects to FDA at 7-030-FDA-0764. What other drugs will affect famotidine? Famotidine can make it harder for your body to absorb other medicines you take by mouth. Tell your doctor if you are taking: ? cefditoren; ?? dasatinib; ?? delavirdine; or ?? fosamprenavir. This list is not complete. Other drugs may affect famotidine, including prescription and inra-lem-zwbrrff medicines, vitamins, and herbal products. Not all [...] to ensure that the information provided by [employer]. ('Multum') is accurate, up-to-date, and complete, but no guarantee is made to that effect. Drug information contained herein may be time sensitive. [employer] information has been compiled for use by healthcare practitioners and consumers in the [place] and therefore [employer] does not warrant that uses outside of the [place] are appropriate, unless specifically indicated otherwise. [employer]s drug information does not endorse drugs, diagnose patients or recommend therapy. [employer]s drug information is an informational resource designed [...] effective or appropriate for any given patient. [employer] does not assume any responsibility for any aspect of healthcare administered with the aid of information [employer] provides. The information contained herein is not intended to cover all possible uses, directions, precautions, warnings, drug interactions, allergic reactions, or adverse effects. If you have questions about the drugs you are taking, check with your doctor, nurse or pharmacist. Copyright 9817-2641 [employer]. Version: 15.02. Revision Date: 03/15/2018. CIGARETTE SMOKING: The facts are clear, cigarette smoking will shorten your life. Smoking can cause many illnesses along the way. As a healthcare provider, we recommend that you stop smoking. Assistance with quitting is available by contacting 9-766-JFYB-NOW. This is a free resource providing counseling, [...] Be sure to sign up for the [employer] patient portal, which gives you 07/11 access to your medical information ??? including these discharge instructions ??? using your computer, smartphone, or tablet. Just go to [employer] to get started. Questions? Call . [facility] would like to thank you for allowing us to assist you with your healthcare needs. TANK Arreguin WARREN B, (or customer field representative) have received the above patient education materials/instructions and have verbalized understanding: Patient Signature _ Date/Time Patient Brand Sales Manager Signature (if needed) Date/Time Clinician/Hospital Brand Sales Manager Signature (if needed) Date/Time Electronically signed by Ronny [facility] Conversion Transit Operator Jc at 08/05/2022 1:31 PM CDT documented in this encounter Plan of Treatment Not on file documented as of this encounter Visit Diagnoses Not on filedocumented in this encounter
--- OUTSIDE RECORDS SUMMARY | 2025-02-05 13:44 | XMS_ITS | Clinical Summary ---
Author Organization [facility] Address [address] [place] [address] Care Team Providers Care Resource Coordinator Name Role Phone Giovani Pendleton MD Primary Care Provider Dayne Flaherty MD Unavailable [phone] Allergies No known active allergies Medications cholecalciferol (Vitamin D3) 1.25 MG (18302 UT) capsule Vitamin D3 1 QD Active [...] Health Maintenance Due Date Last Done Comments [facility]-Depression Screening 1940 [facility]-Medicare Annual Wellness (AWV) 1940 [facility]-/Child/Adol SDOH Screenings 1940 [id number] Vaccine (#1) 1945 [facility]- SDOH Screenings 1958 [...] this topic Insurance HUMAN MEDICARE Care Teams Resource Coordinator Relationship Specialty Start Date End Date Giovani Pendleton MD [address] [facility] [address] [place] [address] PCP - General 09/10/21 Dayne Flaherty MD [address] [place] [address] Consulting Physician Neurosurgery 09/22/21
--- OUTSIDE RECORDS SUMMARY | 2025-02-05 13:44 | XMS_ITS | Encounter Summary ---
Author Organization [employer] ([place], [place], [place], [place]) Address [address] [place] [address] Care Team Providers Care Raspberry Checker Name Role Phone Unavailable Primary Care Provider Unavailabl e Encounter Details Date Type Department Care Team (Late st Contact Info) Description 06/28/2018 Transcribed Document [facility] Radiology [address] [place] [address] Jett Narvaez MD [address] [place] [address] [place] [address] Social History Tobacco Use Types Packs/Day Years [...] Jauregui Accepting physician Dr. Wells Transferring facility [facility] Chief complaint right leg swelling History of present illness Patient presents as a transfer from [facility]. He has been having some [...] At risk for sleep apnea / IMO [id number] / Confirmed, Active Problems (1) At risk for sleep apnea Objective VS/Measurements No qualifying data available General: No acute distress. Eye: Normal conjunctiva. Neck: No jugular venous distention. Respiratory: Lungs are clear to auscultation, Respirations are non-labored, Breath sounds are equal. Cardiovascular: Regular rhythm, No gallop, S1+ S2 No S3 or S4 [place].. Gastrointestinal: Soft, Non-tender, Non-distended, Normal bowel sounds. [...]
--- OUTSIDE RECORDS SUMMARY | 2025-02-05 13:44 | XMS_ITS | Encounter Summary ---
Author Organization [employer] ([place], [place], [place], [place]) Address [address] [place] [address] Care Team Providers Care Drafter (Cad) Electronic Name Role Phone Unavailable Primary Care Provider Unavailabl e Encounter Details Date Type Department Care Team (Late st Contact Info) Description 07/01/2018 Transcribed Document [facility] [place] [facility] [place] [address] ProviderAngelique MD [address] [place] [address] Social History Tobacco Use Types Packs/Day Years [...] EDT Electronically signed by Kimberly Jefferson Conversion Lean [employer] Senior Specialist Cerner at 08/05/2022 1:08 PM CDT documented in this encounter Plan of Treatment Not on file documented as of this encounter Visit Diagnoses Not on filedocumented in this encounter
--- OUTSIDE RECORDS SUMMARY | 2025-02-05 13:44 | XMS_ITS | Encounter Summary ---
Author Organization [employer] ([place], [place], [place], [place]) Address [address] [place] [address] Care Team Providers Care Air Bag Curer Name Role Phone Unavailable Primary Care Provider Unavailabl e Encounter Details Date Type Department Care Team (Late st Contact Info) Description 06/28/2018 Transcribed Document [facility] [place] [facility] [place] [address] ProviderAngelique MD [address] [place] [phone] Social History Tobacco Use Types Packs/Day Years [...] Male : 1940 Chief Complaint: transferred from [facility] with SOA, RLE swelling, DVT, [...] he go to the Coumadin clinic in [place] 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, 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
--- OUTSIDE RECORDS SUMMARY | 2025-02-05 13:44 | XMS_ITS | Encounter Summary ---
Author Organization [employer] ([place], [place], [place], [place]) Address [address] [place] [address] Care Team Providers Care Nutrition Services Worker Name Role Phone Unavailable Primary Care Provider Unavailabl e Encounter Details Date Type Department Care Team (Late st Contact Info) Description 07/01/2018 Transcribed Document [facility] [place] [facility] [place] [address] ProviderAngelique MD [address] [place] [address] [phone] Social History Tobacco Use Types Packs/Day Years [...] 03/22/2010 Document Revised: 09/08/2016 Document Reviewed: 07/29/2015 [employer] Interactive Patient Education ? 2017 [employer]. Deep Vein Thrombosis A deep vein [...] kale, broccoli, cabbage, anni greens, turnip greens, [place] sprouts, peas, cauliflower, seaweed, and parsley. ? Beef liver and pork liver. ? Green tea. ? Soybean oil. ??? Tell your health care provider about any and all medicines, vitamins, and supplements that you take, including aspirin and other yfvz-txz-znqozsw anti-inflammatory medicines. Be especially cautious with aspirin and anti-inflammatory medicines. Do not take those before you ask your health care provider if it is safe to do so. This is important because many medicines can interfere with warfarin and affect the PT and INR results. ??? Do notstart or stop taking any qpik-bjq-hyuaiur or prescription medicine unless your health care [...] Avoid contact sports. General instructions ??? Take wyxp-lxb-xzqtvda and prescription medicines only as told by [...] 07/29/2015 Elsevier Interactive Patient Education ? 2017 [employer] documented in this encounter Plan of Treatment Not on file documented as of this encounter Visit Diagnoses Not on filedocumented in this encounter
[2025-02-05 14:10] LABS: PHA INR Fingerstick 3.2 (0.9-1.1)
== END 2025-02-05 14:13 ==
LOC: ACC 12:54
PROVIDERS: PCP Internal Medicine Adolescent Medicine; Visit Provider Internal Medicine Adolescent Medicine
DX: Z79.01 Long term (current) use of anticoagulants (principal)
CPT/HCPCS: 85610; 99211; G0463

== ENCOUNTER 2025-03-05 12:57 | Outpatient (CLI) | payer MEDICARE, SELFPAY ==
[2025-03-05 13:31] LABS: PHA INR Fingerstick 2.4 (0.9-1.1)
--- OUTSIDE RECORDS SUMMARY | 2025-03-05 13:48 | XMS_ITS | Encounter Summary ---
Author Organization [employer] ([place], [place], [place], [place], [place]) Address [address] [place] [address] Care Team Providers Care Grocery Store Associate Name Role Phone Unavailable Primary Care Provider Unavailabl e Encounter Details Date Type Department Care Team (Late st Contact Info) Description 06/30/2018 Transcribed Document [facility] [place] Medicine [facility] [place] [address] ProviderAngelique MD [address] [place] [address] [phone] Social History Tobacco Use Types Packs/Day Years [...] Daily Lovenox, 90 mg= 0.9 mL, SubCutaneous, [id number] MiraLax, 17 Gram= 1 Packet, Oral, Daily, [...]
--- OUTSIDE RECORDS SUMMARY | 2025-03-05 13:48 | XMS_ITS | Encounter Summary ---
Author Organization [employer] ([place], [place], [place], [place], [place]) Address [address] [place] [address] Care Team Providers Care Minister Of Religion Name Role Phone Unavailable Primary Care Provider Unavailabl e Encounter Details Date Type Department Care Team (Late st Contact Info) Description 06/29/2018 Transcribed Document [facility] [place] [facility] [place] [address] ProviderAngelique MD [address] [place] [phone] Social History Tobacco Use Types Packs/Day Years [...]
--- OUTSIDE RECORDS SUMMARY | 2025-03-05 13:48 | XMS_ITS | Encounter Summary ---
Author Organization [employer] ([place], [place], [place], [place], [place]) Address [address] [place] [address] Care Team Providers Care Corncob Pipes Assembler Name Role Phone Unavailable Primary Care Provider Unavailabl e Encounter Details Date Type Department Care Team (Late st Contact Info) Description 06/29/2018 Transcribed Document [facility] [place] [facility] [address] ProviderAngelique MD [address] [place] [phone] Social History Tobacco Use Types Packs/Day Years Used Date Smoking Tobacco: Never Assessed Sex and Gender Information Value Date Recorded Sex Assigned at Not on file Legal Sex Male 3:45 PM CDT Gender Identity Not on file Sexual Orientation Not on file documented as of this encounter Miscellaneous Notes * [employer]ner Conversion Note - Angelique Prajapati MD - 06/29/2018 1:46 PM CDT Patient: SESAR FU Age: 77 years Sex: Male : 1940 Associated Diagnoses: None Author: THU ARAGON MD Refering Physician: Dr. Narvaez Reason for Consult: Pulmonary Embolism Basic Information CC: shortness of breath with exertion, lower extremity swelling HPI: This is a 77-year-old male with a past medical history significant for bilateral lower extremity DVTs who presented to an [facility] for complaints of numbness in the lower extremities over the last 2 weeks. 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 On morning of presentation patient woke up with moderate edema and swelling of the right lower extremity and some mild discomfort. He went to the [facility] emergency department where he had a lower extremity venous duplex and a CT PE protocol. It was found he had a right lower extremity acute DVT as well as a reported bilateral pulmonary embolism. He was started on a heparin drip and transferred to [facility] for further evaluation and treatment. We've [...] mg, Oral, Weekly Lovenox: 90 mg, SubCutaneous, [id number] MiraLax: 17 Gram, Oral, Daily, PRN: Constipation [...] mL inj 90 mg 0.9 mL, SubCutaneous, [id number] famotidine 20 mg tab 20 mg 1 [...] At risk for sleep apnea / IMO [id number] / Confirmed Hx of temporal arteritis / SNOMED CT 866040012 / Confirmed, Active Problems (2) At risk for sleep apnea Hx of temporal arteritis Physical Examination VS/Measurements Vitals Signs (last 24 hrs) Last Charted Minimum Maximum Temp 98.7 (JUN 29 11:15) 97.9 (JUN 29 08:40) H 100 (JUN 28 18:30) Mon HR 104 (JUN 29 11:15) 96 (JUN 29 06:22) 104 (JUN 29 11:15) Resp Rate 18 (JUN 29:15) 18 (JUN 29 00:30) 20 (JUN 28 18:30) SBP L 86 (JUN 29 11:15) L 86 (JUN 29 11:15) 122 (JUN 29 00:30) DBP L 51 (JUN 29:15) L 51 (JUN 29:15) 89 (JUN 29 00:30) MAP 62 (JUN [...] Normal range of motion. Integumentary: Warm, Dry, Adel, Intact. Neurologic: Alert, Oriented, No focal deficits. [...] Please call for any questions or concerns Electronically signed by Kimberly Jefferson Conversion Health Information Assistant Yener at 08/05/2022 1:14 PM CDT documented in this encounter Plan of Treatment Not on file documented as of this encounter Visit Diagnoses Not on filedocumented in this encounter
--- OUTSIDE RECORDS SUMMARY | 2025-03-05 13:48 | XMS_ITS | Encounter Summary ---
Author Organization [employer] ([place], [place], [place], [place], [place]) Address [address] [place] [address] Care Team Providers Care Packing Line Worker Name Role Phone Unavailable Primary Care Provider Unavailabl e Encounter Details Date Type Department Care Team (Late st Contact Info) Description 06/30/2018 Transcribed Document [facility] [place] [facility] [place] [address] ProviderAngelique MD [address] [place] [address] [phone] Social History Tobacco Use Types Packs/Day Years Used Date Smoking Tobacco: Never Assessed Sex and Gender Information Value Date Recorded Sex Assigned at Not on file Legal Sex Male 3:45 PM CDT Gender Identity Not on file Sexual Orientation Not on file documented as of this encounter Miscellaneous Notes * Cerner Conversion Note - Historical ProviderMD - 06/30/2018 2:00 AM CDT Liquor Rectifier Details Entered On: 06/30/2018 1:31 EDT Performed [...]
--- OUTSIDE RECORDS SUMMARY | 2025-03-05 13:48 | XMS_ITS | Encounter Summary ---
Author Organization [employer] ([place], [place], [place], [place], [place]) Address [address] [place] [address] Care Team Providers Care Hay Buckler Name Role Phone Unavailable Primary Care Provider Unavailabl e Encounter Details Date Type Department Care Team (Late st Contact Info) Description 06/29/2018 Transcribed Document [facility] [place] [facility] [place] [address] ProviderAngelique MD [address] [place] [address] [phone] Social History Tobacco Use Types Packs/Day Years Used Date Smoking Tobacco: Never Assessed Sex and Gender Information Value Date Recorded Sex Assigned at Not on file Legal Sex Male 3:45 PM CDT Gender Identity Not on file Sexual Orientation Not on file documented as of this encounter Miscellaneous Notes * Cerner Conversion Note - Angelique ProviderMD - 06/29/2018 10:15 AM CDT Care [...] Physician : Reynaldo Jauregui Durable Power of Spot Welder Line Name : No Emergency Contact #1 : [...] very pleasant, I thanked them for choosing [facility] and they seem content with the service. pt reports that he has had issues with Coumadin vs Elaquis before. Pts reports that if they lived in [facility] they would be able to get Part D with [employer] but because they live in [place] they can not. Pt is agreeable to [...] EDT Electronically signed by Kimberly Jefferson Conversion Accounting Systems Analyst Cerner at 08/05/2022 1:21 PM CDT documented in this encounter Plan of Treatment Not on file documented as of this encounter Visit Diagnoses Not on filedocumented in this encounter
--- OUTSIDE RECORDS SUMMARY | 2025-03-05 13:48 | XMS_ITS | Encounter Summary ---
Author Organization [employer] ([place], [place], [place], [place], [place]) Address [address] [place] [address] Care Team Providers Care Leader Tier Name Role Phone Unavailable Primary Care Provider Unavailabl e Encounter Details Date Type Department Care Team (Late st Contact Info) Description 06/29/2018 Transcribed Document [facility] [place] [facility] [place] [address] ProviderAngelique MD [address] [place] [address] [phone] Social History Tobacco Use Types Packs/Day Years Used Date Smoking Tobacco: Never Assessed Sex and Gender Information Value Date Recorded Sex Assigned at Not on file Legal Sex Male 3:45 PM CDT Gender Identity Not on file Sexual Orientation Not on file documented as of this encounter Miscellaneous Notes * Cerner Conversion Note - Angelique ProviderMD - 06/29/2018 10:35 PM CDT Patient: WILLY PEMBERTON Age: 77 Years Sex: Male : 1940 Chief Complaint: transferred from [facility] with SOA, RLE swelling, DVT, bilat PE Subjective Had extensive discussion about anticoagulants once again and residential case manager confirms that his insurance will [...] Daily Lovenox, 90 mg= 0.9 mL, SubCutaneous, [id number] MiraLax, 17 Gram= 1 Packet, Oral, Daily, [...]
--- OUTSIDE RECORDS SUMMARY | 2025-03-05 13:48 | XMS_ITS | Encounter Summary ---
Author Organization [employer] ([place], [place], [place], [place], [place]) Address [address] [place] [address] Care Team Providers Care Training And Development Head Name Role Phone Unavailable Primary Care Provider Unavailabl e Encounter Details Date Type Department Care Team (Late st Contact Info) Description 06/29/2018 Transcribed Document [facility] [place] [facility] [place] [address] ProviderAngelique MD [address] [place] [address] [phone] Social History Tobacco Use Types Packs/Day Years Used Date Smoking Tobacco: Never Assessed Sex and Gender Information Value Date Recorded Sex Assigned at Not on file Legal Sex Male 3:45 PM CDT Gender Identity Not on file Sexual Orientation Not on file documented as of this encounter Miscellaneous Notes * Cerner Conversion Note - Angelique ProviderMD - 06/29/2018 5:00 AM CDT Chart Check - Review Order Profile Entered On: 06/29/2018 5:38 EDT Performed On: 06/29/2018 5:00 EDT by Lizzy Balbuena, RN Chart Check Chart Reviewed Date and Time : 06/29/2018 5:38 EDT Powerplans Initiated/Discontinued as Appropriate : Yes All Active Orders Reviewed : Yes Lizzy Balbuena, TOMASZ - 06/29/2018 5:37 EDT documented in this encounter Plan of Treatment Not on file documented as of this encounter Visit Diagnoses Not on filedocumented in this encounter
--- OUTSIDE RECORDS SUMMARY | 2025-03-05 13:49 | XMS_ITS | Referral Summary ---
Author Organization [employer] ([place], [place], [place], [place], [place]) Address [address] [place] [address] Care Team Providers Care Shipping Helper Name Role Phone Unavailable Primary Care [...]
--- OUTSIDE RECORDS SUMMARY | 2025-03-05 13:49 | XMS_ITS | Encounter Summary ---
Author Organization [employer] ([place], [place], [place], [place], [place]) Address [address] [place] [address] Care Team Providers Care Putty Glazer Name Role Phone Unavailable Primary Care Provider Unavailabl e Encounter Details Date Type Department Care Team (Late st Contact Info) Description 06/27/[address] [facility] [place] [facility] [place] [address] ProviderAngelique MD [address] [place] [address] [phone] Social History Tobacco Use Types Packs/Day Years Used Date Smoking Tobacco: Never Assessed Sex and Gender Information Value Date Recorded Sex Assigned at Not on file Legal Sex Male 3:45 PM CDT Gender Identity Not on file Sexual Orientation Not on file documented as of this encounter Miscellaneous Notes * Cerner Conversion Note - Angelique ProviderMD - 06/27/2018 8:09 PM CDT Care Management Assessment/Plan Entered On: 06/29/2018 12:42 EDT Performed On: 06/29/2018 12:41 EDT by TAVO JAMES RN Care Management Note Anticipated Discharge Date : 07/02/2018 10:18 EDT Care Management Note : [facility] is not covered by [facility]. Spoke with Silva. She arranged with [facility] through [facility] Care Management Note Report : CYNTHIA FRANKLIN, Supervisor Customer Services-Care Management - 06/29/18 10:19:32 pt is alert [...] EDT Electronically signed by Ronny, [facility] Conversion Lens Cutter Cerner at 08/05/2022 1:25 PM CDT documented in this encounter Plan of Treatment Not on file documented as of this encounter Visit Diagnoses Not on filedocumented in this encounter
--- OUTSIDE RECORDS SUMMARY | 2025-03-05 13:49 | XMS_ITS | Encounter Summary ---
Author Organization [employer] ([place], [place], [place], [place], [place]) Address [address] [place] [address] Care Team Providers Care Supervisor Grain And Yeast Plants Name Role Phone Unavailable Primary Care Provider Unavailabl e Encounter Details Date Type Department Care Team (Late st Contact Info) Description 06/27/2018 Transcribed Document [facility] [place] [facility] [address] ProviderAngelique MD [address] [place] [address] [phone] Social History Tobacco Use Types Packs/Day Years Used Date Smoking Tobacco: Never Assessed Sex and Gender Information Value Date Recorded Sex Assigned at Not on file Legal Sex Male 3:45 PM CDT Gender Identity Not on file Sexual Orientation Not on file documented as of this encounter Miscellaneous Notes * [employer]ner Conversion Note - Angelique ProviderMD - 06/27/2018 11:02 PM CDT Evaluation, [...] - 06/29/2018 15:16 EDT Electronically signed by Kimberly Jefferson Conversion Director Of Partner Marketing Cerner at 08/05/2022 1:27 PM CDT documented in this encounter Plan of Treatment Not on file documented as of this encounter Visit Diagnoses Not on filedocumented in this encounter
--- OUTSIDE RECORDS SUMMARY | 2025-03-05 13:49 | XMS_ITS | Encounter Summary ---
Author Organization [employer] ([place], [place], [place], [place], [place]) Address [address] [place] [address] Care Team Providers Care Infant Toddler Lead Teacher Name Role Phone Unavailable Primary Care Provider Unavailabl e Encounter Details Date Type Department Care Team (Late st Contact Info) Description 06/27/2018 Transcribed Document [facility] [place] [facility] [place] [address] ProviderAngelique MD [address] [place] [address] [phone] Social History Tobacco Use Types Packs/Day Years [...]
--- OUTSIDE RECORDS SUMMARY | 2025-03-05 13:49 | XMS_ITS | Encounter Summary ---
Author Organization [employer] ([place], [place], [place], [place], [place]) Address [address] [place] [address] Care Team Providers Care Concrete Worker Name Role Phone Unavailable Primary Care Provider Unavailabl e Encounter Details Date Type Department Care Team (Late st Contact Info) Description 06/29/2018 Transcribed Document [facility] [place] [address] ProviderAngelique MD [address] [place] [address] [phone] Social History Tobacco Use Types Packs/Day Years Used Date Smoking Tobacco: Never Assessed Sex and Gender Information Value Date Recorded Sex Assigned at Not on file Legal Sex Male 3:45 PM CDT Gender Identity Not on file Sexual Orientation Not on file documented as of this encounter Miscellaneous Notes * [employer]ner Conversion Note - Historical ProviderMD - 06/29/2018 2:00 AM CDT Roofer Apprentice Details Entered On: 06/29/2018 5:35 EDT Performed On: 06/29/2018 2:00 EDT by Lizzy Balbuena RN Order Details Isolation Precautions Order Detail : Standard Precautions Order Detail : N/A IV Order Detail : 1 Oxygen Order Detail : 0 Nurse Collect Order Detail : 0 Lift/Transfer : Minimal Central Line Order Detail : No Room Service : Appropriate Arterial Line : No Lizzy Balbuena RN - 06/29/2018 5:35 EDT Electronically signed by Kimberly Jefferson Conversion Design Engineer Products Cerner at 08/05/2022 1:06 PM CDT documented in this encounter Plan of Treatment Not on file documented as of this encounter Visit Diagnoses Not on filedocumented in this encounter
--- OUTSIDE RECORDS SUMMARY | 2025-03-05 13:49 | XMS_ITS | Encounter Summary ---
Author Organization [employer] ([place], [place], [place], [place], [place]) Address [address] [place] [address] Care Team Providers Care Concrete Gun Operator Name Role Phone Unavailable Primary Care Provider Unavailabl e Encounter Details Date Type Department Care Team (Late st Contact Info) Description 06/28/2018 Transcribed Document [facility] [place] [facility] [place] [address] ProviderAngelique MD [address] [place] [address] [phone] Social History Tobacco Use Types Packs/Day Years [...]
--- OUTSIDE RECORDS SUMMARY | 2025-03-05 13:49 | XMS_ITS | Encounter Summary ---
Author Organization [employer] ([place], [place], [place], [place], [place]) Address [address] [place] [address] Care Team Providers Care Plaster Caster Name Role Phone Unavailable Primary Care Provider Unavailabl e Encounter Details Date Type Department Care Team (Late st Contact Info) Description 06/27/2018 Transcribed Document [facility] [place] [facility] [place] [address] ProviderAngelique MD [address] [place] [phone] Social History Tobacco Use Types Packs/Day Years Used Date Smoking Tobacco: Never Assessed Sex and Gender Information Value Date Recorded Sex Assigned at Not on file Legal Sex Male 3:45 PM CDT Gender Identity Not on file Sexual Orientation Not on file documented as of this encounter Miscellaneous Notes * [employer] Conversion Note - Angelique ProviderMD - 06/27/2018 7:46 PM CDT Admission History, Adult Entered On: 06/27/2018 20:09 EDT Performed On: 06/27/2018 19:46 EDT by Lizzy Balbuena RN Advance Directive Patient has Advance Directive *Q : Yes, Advance Directive not with the patient Advance Directive Type : CPR directive, Living will, Medical durable power of veterinary parasitologist (proxy) Copy Advance Directive Verified/on Chart : [...] : daughter Chief Complaint : transferred from [facility] with SOA, RLE swelling, DVT, bilat PE Information Obtained From : Patient Primary Language : Citizen Of [place] Communication Barrier : None Lizzy Balbuena RN [...] Scale Risk Level : 25-45 Medium Risk Maple Fall Interventions : Adequate lighting, Assistive devices [...] Updated: 06/27/2018 20:00:56 EDT by Lizzy Balbuena, TOMASZ) Substance Abuse: Drug Use Hx: No. (Last Updated: 06/27/2018 20:00:56 EDT by Lizzy Balbuena, RN) Height and Weight, Clinical Dosing Height Source : Stated Height Entry Format : [place] Height, Feet : 5 ft(Converted to: 152 cm, 60 Inch) Height, Inches : 8 Inch(Converted to: 0 ft 8 Inch, 20.32 cm) Clinical Height : 172.72 cm Weight Source : Bed scale Weight Entry Format : [place] Clinical Dosing Weight : 89.55 kg Weight, Pounds : 197 lb Body Surface Area (BSA) : 2.03 m2 Body Mass Index : 30 kg/m2 (HI) [place] Body Weight : 67 kg Lizzy Balbuena [...] RN - 06/27/2018 19:53 EDT Spiritual/Cultural Needs Islam Preference : Jehovah'S Witness Lizzy Balbuena RN - 06/27/2018 19:53 EDT Valuables and Belongings Valuables and Belongings : Clothing, Personal devices Clothing : Common streetwear Clothing Disposition : With patient Personal Device Disposition : With patient Personal Devices : Dentures, lower, Dentures, partial plate, Glasses Lizzy Balbuena RN - 06/27/2018 19:53 EDT documented in this encounter Plan of Treatment Not on file documented as of this encounter Visit Diagnoses Not on filedocumented in this encounter
--- OUTSIDE RECORDS SUMMARY | 2025-03-05 13:49 | XMS_ITS | Data Portability ---
Author Organization [facility] [place] [facility]E CLOSED Address [address] [place] [address] Care Team Providers Care Bioinformatics Assistant Name Role Phone NINI ROBLEDO Primary Care Provider Assessment Encounter Date Assessment Date Assessment LastModified by Organization Details LastModified Time 12/27/2023 12/27/2023 Impression: 1. Dyspnea on exertion: Undiagnosed new problem, appears stable 2. Coronary artery disease s/p PCI 2002 and CABG 2012: Chronic problem, stable without angina. SPECT 05/28/2019: Normal perfusion, EF 65% No evidence of ischemia per SPECT 09/22/2023 3. 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 Hypertension: [...] RTC: 6 months, or sooner if needed. [email or web address] Not available 12/27/2023 18:34:46 09/30/2024 09/30/2024 Impression: 1. Dyspnea on exertion: Recent problem, appears stable 2. Coronary artery disease s/p PCI 2002 and CABG 2012: Chronic problem, stable without angina. SPECT 05/28/2019: Normal perfusion, EF 65% No evidence of ischemia per SPECT 09/22/2023 3. 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 Procedures pacemaker programmi ng, dual lead (PROC) 2024 025 [facility], [address], [place], [address], 10/01/2024 08:38:03 Surgeries None recorded. Imaging CT, chest, w/o contrast 2023 024 [facility], [address] [place], [address], 12/22/2023 14:42:31 Medication Orders None recorded. Patient TargetsNo targets recorded. Patient InstructionsNo instructions recorded. Reason for Referral None Reported. Results Created Date Observation Date Name Description Value Unit Range Abnormal Flag Note LastModifiedBy Organization Detail LastModifiedTime 12/12/19 24 12/12/2023 BASIC METAB OLIC PANEL glucose 104 mg/dL 74-100 high Not Available [facility] [address] [place] [address], [address], 12/12/2023 13:26:38 12/12/19 24 12/12/2023 BASIC METAB OLIC PANEL blood urea nitrogen 14 mg/dL 6-20 normal Not Available [facility] [address] [place] [address], [address], 12/12/2023 13:26:38 12/12/19 24 12/12/2023 BASIC METAB OLIC PANEL creatinine 1.50 mg/dL 0.70-1 .28 high Not Available [facility] [address] [place] [address], [address], 12/12/2023 13:26:38 12/12/19 24 12/12/2023 BASIC METAB OLIC PANEL BUN/creatini ne ratio 9 (calc ) 10-20 low Not Available [facility] [address] [place] [address], [address], 12/12/2023 13:26:38 12/12/19 24 12/12/2023 BASIC METAB OLIC PANEL sodium 141 mmol/ L 136-14 5 normal Not Available [facility] [address] [place] [address], [address], 12/12/2023 13:26:38 12/12/19 24 12/12/2023 BASIC METAB OLIC PANEL potassium 4.7 mmol/ L 3.4-5. 0 normal Not Available [facility] [address] [place] [address], [address], 12/12/2023 13:26:38 12/12/19 24 12/12/2023 BASIC METAB OLIC PANEL chloride 105 mmol/ L 98-107 normal Not Available [facility] [address] [place] [address], [address], 12/12/2023 13:26:38 12/12/19 24 12/12/2023 BASIC METAB OLIC PANEL carbon dioxide 25 mmol/ L 22-31 normal Not Available [facility] [address] [place] [address], [address], 12/12/2023 13:26:38 12/12/19 24 12/12/2023 BASIC METAB OLIC PANEL anion gap 11 (calc ) 7-25 normal Not Available [facility] [address] [place] [address], [address], 12/12/2023 13:26:38 12/12/19 24 12/12/2023 BASIC METAB OLIC PANEL calcium 9.2 mg/dL 8.6-10 .2 normal Not Available [facility] [address] [place] [address], [address], 12/12/2023 13:26:38 12/12/19 24 12/12/2023 BASIC METAB OLIC PANEL GFR 46 >= 60 abnormal NOT E New calcu latio n for GFR (CKD- EPI 2020) is formu lated witho ut race adjus tment facto rs at the recom menda tion of the Natio s[facility] y [facility] ation and Amaminata Gonzaleze ty of Nephr ology . This calcu latio n has not been valid ated in pregn ant women . For pedia tric patie nts refer to https ://marcos cook.bert chavarria.o carli/imer roy s/KDO QI/gf r_cal culat orPed Not Available [facility] [address] [place] [address], [address], 12/12/2023 13:26:38 12/12/19 24 12/12/2023 COMPL ETE BLOOD COUNT white blood cells 7.5 10*3/ uL 3.8-10 .8 normal Not Available [facility] [address] [place] [address], [address], 12/12/2023 13:42:15 12/12/19 24 12/12/2023 COMPL ETE BLOOD COUNT red blood cells 4.72 10*6/ uL 4.20-5 .80 normal Not Available [facility] [address] [place] [address], [address], 12/12/2023 13:42:15 12/12/19 24 12/12/2023 COMPL ETE BLOOD COUNT hemoglobin 14.4 g/dL 14.0-1 8.0 normal Not Available [facility] [address] [place] [address], [address], 12/12/2023 13:42:15 12/12/19 24 12/12/2023 COMPL ETE BLOOD COUNT hematocrit 44.6 % 40.0-5 2.0 normal Not Available [facility] [address] [place] [address], [address], 12/12/2023 13:42:15 12/12/19 24 12/12/2023 COMPL ETE BLOOD COUNT MCV 95 fL 80-100 normal Not Available [facility] [address] [place] [address], [address], 12/12/2023 13:42:15 12/12/19 24 12/12/2023 COMPL ETE BLOOD COUNT MCH 31 pg 26-35 normal Not Available [facility] [address] [place] [address], [address], 12/12/2023 13:42:15 12/12/19 24 12/12/2023 COMPL ETE BLOOD COUNT MCHC 32 g/dL 32-36 normal Not Available [facility] [address] [place] [address], [address], 12/12/2023 13:42:15 12/12/19 24 12/12/2023 COMPL ETE BLOOD COUNT RDW 13.7 % 11.0-1 5.0 normal Not Available [facility] [address] [place] [address], [address], 12/12/2023 13:42:15 12/12/19 24 12/12/2023 COMPL ETE BLOOD COUNT MPV 9.9 fL 6.2-10 .5 normal Not Available [facility] [address] [place] [address], [address], 12/12/2023 13:42:15 12/12/19 24 12/12/2023 COMPL ETE BLOOD COUNT platelet count 186 10*3/ uL 150-40 0 normal Not Available [facility] [address] [place] [address], [address], 12/12/2023 13:42:15 12/12/19 24 12/12/2023 COMPL ETE BLOOD COUNT neutrophil,a bsolute 4.3 10*3/ uL 1.6-8. 4 normal Not Available [facility] [address] [place] [address], [address], 12/12/2023 13:42:15 12/12/19 24 12/12/2023 COMPL ETE BLOOD COUNT lymphocyte,a bsolute 2.2 10*3/ uL 0.4-5. 1 normal Not Available [facility] [address] [place] [address], [address], 12/12/2023 13:42:15 12/12/19 24 12/12/2023 COMPL ETE BLOOD COUNT monocyte,abs olute 0.8 10*3/ uL 0.0-1. 2 normal Not Available [facility] [address] [place] [address], [address], 12/12/2023 13:42:15 12/12/19 24 12/12/2023 COMPL ETE BLOOD COUNT eosinophil,a bsolute 0.2 10*3/ uL 0.0-0. 8 normal Not Available [facility] [address] [place] [address], [address], 12/12/2023 13:42:15 12/12/19 24 12/12/2023 COMPL ETE BLOOD COUNT basophil,abs olute 0.0 10*3/ uL 0.0-0. 3 normal Not Available [facility] [address] [place] [address], [address], 12/12/2023 13:42:15 12/12/19 24 12/12/2023 COMPL ETE BLOOD COUNT % neutrophils 57.2 % 42.0-7 8.0 normal Not Available [facility] [address] [place] [address], [address], 12/12/2023 13:42:15 12/12/19 24 12/12/2023 COMPL ETE BLOOD COUNT % lymphocytes 28.8 % 11.0-4 7.0 normal Not Available [facility] [address] [place] [address], [address], 12/12/2023 13:42:15 12/12/19 24 12/12/2023 COMPL ETE BLOOD COUNT % monocytes 10.2 % 0.0-11 .0 normal Not Available [facility] [address] [place] [address], [address], 12/12/2023 13:42:15 12/12/19 24 12/12/2023 COMPL ETE BLOOD COUNT % eosinophils 3.2 % 0.0-7. 0 normal Not Available [facility] [address] [place] [address], [address], 12/12/2023 13:42:15 12/12/19 24 12/12/2023 COMPL ETE BLOOD COUNT % basophils 0.6 % 0.0-3. 0 normal Not Available [facility] [address] [place] [address], [address], 12/12/2023 13:42:15 12/12/19 24 12/12/2023 COMPL ETE BLOOD COUNT nucleated red cells 0.1 % 0.0-0. 9 normal Not Available [facility] [address] [place], [address], 12/12/2023 13:42:15 12/12/19 24 12/12/2023 COMPL ETE BLOOD COUNT nucleated RBCs, absolute 0.01 10*3/ uL not estab. normal Not Available [facility] [address] [place] [address], [address], 12/12/2023 13:42:15 08/29/19 24 08/26/2023 remot e devic e inter rogat ion (PROC ) No observ ation record ed. [email or web address] Not Available 2023 19:20:54 09/22/19 24 09/22/2023 US, doppl er echoc ardio gram, w/ color flow No observ ation record ed. [email or web address] [place] [address] Rad[address], [place], [address], 09/22/2023 16:58:13 11/07/19 24 11/06/2023 remot e devic e inter rogat ion (PROC ) No observ ation record ed. [email or web address] Not Available 2023 04:40:23 12/12/19 24 12/12/2023 XR, chest , 2 view [facility] [address] [facility] [address], [address] [facility] [place] [address] Patinga t Name: SESAR Mosqueda Nelli moseley : [address]41 Nelli moseley Orderi ng [...] Court Marie MD on 024 12:06 PM [email or web address] [facility] Pulmonary [address] [place], [address], 12/13/2023 10:51:00 12/22/19 24 12/22/2023 CT, chest , w/o contr ast Izzy [facility] [address] [place] [address] Patinga t Name: SESAR moseley : 941 Patinga t Orderi ng Provid er: YECENIA NGUYEN [...] medias tinal lympha denopa thy. SVC, pulmon jhon arteri es, pulmon john veins and their [...] Marie MD on 12/22/19 1:54 PM mazin [facility] [address] [place] [address] Dr, [place], [address], 12/22/2023 15:01:36 02/05/20 24 02/05/2024 remot e [...] record ed. [email or web address] Not Available 2024 10:29:09 11/05/19 25 11/04/2024 remot e devic e inter rogat ion (PROC ) No observ ation record ed. [email or web address] Not Available 2024 14:18:28 Result Notes Documentation Provider Name and Address Organization Details Recorded Time Xr, Chest, 2 View : [facility] [address] [facility], [facility] [address] [place] [address] Patient Name: SESAR PEMBERTON Patient : 1940 [...] changes. Interpreted By: Court Marie MD NIA GHOTRA MD [address] [place], [address], [facility] 12/13/2023 10:51:00 Ct, Chest, W/o Contrast : [facility] [address] [place] [address] Patient Name: SESAR PEMBERTON Patient : 1940 [...] By: Court Marie MD NIA GHOTRA MD [facility] [place], [address], [facility] 12/22/2023 15:01:36 Problems Name Problem SNOMED Code Status Onset Date Resolution Date Notes Provider Name and Address Organization Details Recorded Time Coronary arteriosc lerosis in [place] artery 19170066959 07 Active 2015 From [employer]ated Load;Prov ider: Court Cruz;Stat us: Active Not Available [facility] 6 04:41:35 Hyperlipi demia 43637278 Active 2015 From Automated Load;Prov ider: Court Cruz;Stat us: Active Not Available [facility] 6 04:41:35 Right bundle branch block 03023348 Active 2015 From Automated Load;Prov ider: Court Cruz;Stat us: Active Not Available [facility] 7 02:22:11 Headache 44269767 Active 2018 [facility] 9 14:32:33 Low back pain 059624330 Active 2019 [facility] 0 14:25:55 Dyspnea 372780043 Active 2023 Salena Galdamez [facility] 4 15:10:55 Problem Notes None recorded. Procedures Surgical History Date Name Laterality Status Provider Name and Address Organization Details Recorded Time 12/12/19 24 Airway Resistance completed [facility] 12/12/2023 11:23:15 12/12/19 24 Diffusion Capacity completed [facility] 12/12/2023 11:23:10 12/12/19 24 Lung Volumes, Plethysmography completed [facility] 12/12/2023 11:23:12 12/12/19 24 Spirometry completed [facility] 12/12/2023 11:23:07 12/12/19 24 Pulmonary Function Testing completed YECENIA GREEN MD [address] [place] [address], [address], [facility] 12/12/2023 11:28:29 09/22/19 24 Stress Test - Nuclear Lexiscan completed GABRIELE ROSENBERG MD [address] [place] [address], [address], [facility] 09/22/2023 16:55:31 10/28/19 23 EKG completed Alyssia Ruiz [facility] 10/27/2022 10:32:39 05/28/19 20 Stress Test - Nuclear Lexiscan completed COURT CRUZ MD [address] [place] [address], [address], [facility] 05/28/2019 14:08:27 05/14/19 20 Electromyography (EMG) with Nerve Conduction Study (NCV) [facility] 05/14/2019 13:44:50 04/03/20 17 Stress Test - Nuclear completed COURT CRUZ MD [address] [place] [address], [address], [facility] 04/03/2017 16:02:00 09/07/19 17 Electromyography (EMG) with Nerve Conduction Study (NCV) completed Yessenia (Citlali) [facility] 09/06/2016 13:52:06 04/26/19 13 Cardiac Surgery completed Clare Uriarte [facility] 03/11/2019 14:51:26 09/22/19 02 Cardiac Catheterization completed Clare Orre [facility] 03/11/2019 14:51:26 CABG completed Zia Olea [facility] 09/01/2016 13:56:37 Prostate Surgery completed Zia [facility] 09/01/2016 13:56:45 Cholecystectomy completed Daniela Beavers [facility] 03/07/2017 09:03:25 Imaging Results None recorded. Procedure Notes None recorded. 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 . USE WITH CAUTI ON>. [facility] 0 08:25:31 443636 Product containin g 3-hydroxy -3-methyl glutaryl- coenzyme A reductase inhibitor (product) medicatio n myalgias (muscle pain) Not available Not available 03/11/20162008 79125 009 SNOMED React ion: MYALG IA; INTOL ERANT OF MEDIC INE>> Jen mc null, [facility] 0 08:25:49 Medications Name Sig [...] Body mass index (BMI) Body weight Systolic And Diastolic Provider Name and Address Organization Details Last Updated DateTime 4 172.72 cm 99 % 99 % 93 /min 26.7 kg/m2 38051.4 6 g 132/78 mm[Hg] Jessi Morganitez [facility] 4 14:47:11 Date Recorded Body height Body mass index (BMI) Body weight Oxygen saturation Oxygen saturation in Arterial blood by Pulse oximetry Heart rate Systolic And Diastolic Provider Name and Address Organization Details Last Updated DateTime 5 165.1 cm 28.7 kg/m2 50349.6 1 g 95 % 95 % 89 /min 128/70 mm[Hg] Jonathan Bush [facility] 5 11:23:44 Date Recorded Body height Body mass index (BMI) Body weight Heart rate Oxygen saturation Oxygen saturation in Arterial blood by Pulse oximetry Systolic And Diastolic Provider Name and Address Organization Details Last Updated DateTime 4 165.1 cm 32.1 kg/m2 45182.3 3 g 97 /min 97 % 97 % 142/82 mm[Hg] Soraida Dixon [facility] 4 10:50:14 Date Recorded Body height Oxygen saturation Oxygen saturation in Arterial blood by Pulse oximetry Heart rate Body mass index (BMI) Body weight Systolic And Diastolic Provider Name and Address Organization Details Last Updated DateTime 4 165.1 cm 97 % 97 % 70 /min 30.1 kg/m2 28725.2 2 g 126/80 mm[Hg] Jessi Colunga [facility] 4 14:07:52 Date Recorded Body height Body mass index (BMI) Body weight Heart rate Oxygen saturation Oxygen saturation in Arterial blood by Pulse oximetry Systolic And Diastolic Provider Name and Address Organization Details Last Updated DateTime 4 165.1 cm 29.6 kg/m2 42617.4 4 g 59 /min 96 % 96 % 133/83 mm[Hg] Kellen Ochoa [facility] 4 11:36:00 Social History Question Answer Notes LastModified by [email or web address] Details LastModified Time Tobacco Smoking Status Never [facility] 09/01/2016 13:56:04 What Is Your Level Of Caffeine Consumption? None [email or web address] Information not available 09/01/2016 How Much Tobacco Do You Chew? None Information not available 03/11/2019 Which Illicit Or Recreational Drugs Have You Used? None Information not available 03/11/2019 Education 4 Year College [email or web address] Information not available 09/01/2016 Live Alone Or With Others? With Others Information not available 03/11/2019 Marital Status [email or web address] Informatio n not available 09/01/2016 What Was The Date Of Your Most Recent Tobacco Screening? 09/30/2024 [email or web address] Information not available 09/30/2024 What Is Your Relationship Status? [email or web address] Information not available 10/27/2022 How Much Tobacco Do You Smoke? No [email or web address] Information not available 09/01/2016 Have You Recently Traveled Abroad? No [email or web address] Information not available 10/27/2022 Sex: Male Functional Status Question Answer Note LastModified by navigaya Details LastModified Time What is your level of alcohol consumption? None [email or web address] Information not available 09/01/2016 Do you or have you ever used smokeless tobacco? Never used smokeless tobacco Information not available 03/11/2019 What is your occupation? [employer] [email or web address] Information not available 09/01/2016 Do you or have you ever used e-cigarettes or vape? Never used electronic cigarettes Information not available 03/11/2019 Mental Status None recorded. Family History Relationship Description Onset Age of this Age Resolved Age Notes LastModified by Organization Details LastModified Time Father Hypertensive disorder [email or web address] Not available 2016 13:55:25 Father Family history of stroke Not available 2018 14:50:51 Father Family history of malignant neoplasm Not available 2018 14:50:51 Father Diabetes mellitus [email or web address] Not available 2016 13:55:50 Mother Hypertensive disorder [email or web address] Not available 2016 13:55:25 Mother Family history of malignant neoplasm Not available 2018 14:50:51 Unspecified Relation Heart disease Not available 2018 14:50:51 Medical History Condition Response Coronary Artery Disease Y Atrial Fibrillation N Thyroid Disease N Heart Arrhythmia N COPD N Lung Disease N Peripheral Arterial Disease N Pacemaker Y Nervous Illness N Edema N Vascular Disease N Anxiety Disorder N Hiatal hernia N Blood Clot Y Acid Reflux (GERD) Y Cancer Y Stroke N History of Blood Thinners Y Blood Thinners Y Shortness of Breath Y High Cholesterol N Arrhythmia N Headaches Y Endocrine Disorder N Heart Problems N Heart Conditions N Implanted Cardiac Device Y Black Lung N Thyroid Problems N Chest Pain N Heart Attack (AR) N Ulcers N Diabetes N Rheumatic Fever N Cardiomyopathy N Bleeding Disorder N Heart Murmur N Tuberculosis N AIDS/HIV N Congestive Heart Failure (CHF) N Hyperlipidemia Y Asthma N Cardiac Disease Y Peripheral Vascular Disease N Reflux/GERD Y Jaundice N Sleep Apnea N GERD/Reflux Y Warfarin Management N Heart Disease N Restless leg syndrome N Hypertension N Immunizations Vaccine Type Date Status Note Provider Nam e and Address Organization Details Recorded Time Influenza, split virus, quadrivalent, preservative 7 [facility] 03/07/2017 14:33:04 Influenza, split virus, quadrivalent, preservative 9 completed Clare Chapito [facility] 03/11/2019 14:45:47 pneumococcal, unspecified formulation 8 completed Clare Uriarte [facility] 03/11/2019 14:46:12 Past Encounters Encounter ID Performer Location Encounter Start Date Encounter Closed Date Diagnosis/Indication Diagnosis SNOMED-CT Code Diagnosis ICD10 Code Diagnosis IMO Codes Diagnosis Note [id number] ANGIE CAMARENA MD NEUROLOGY [facility] [address] [place] [address] 09/01/2016 13:48:24 09/01/2016 15:18:09 Neuropathy 972749161 G62.9 Idiopathic peripheral neuropathy 16577411 G60.9 Paresthesia 39952448 R20 .2 History of giant cell arteritis 3762732441 23590 Z86.79 [id number] ANGIE CAMARENA MD NEUROLOGY [facility] [address] [place] [address] 09/06/2016 13:25:19 09/09/2016 12:40:58 [address]hesia [address]409 R20.[id number] CRUZ MD CARDIOLOG Y [address] [place] [address] 03/07/2017 13:43:30 03/07/2017 15:48:21 Coronary arteriosclerosis in [place] artery 8176472776 107 I25.10 Medication changes, as well as [...] call for any change in status. Hyperlipidemia 96686428 E78.5 Managed by PCP. Right bund le branch block [id number] I45.0 Atypical chest pain 1025 98461 R07.89 The patient's symptoms are unlikely to be cardiac. He was previously evaluated with a stress test in 2013 for atypical chest pain. The patient is however, feel that his symptoms are similar to what he experience d prior to his bypass surgery therefore we will arrange a Gabriele protocol stress Myoview study since he feels he's able to walk on a treadmill. [id number] COURT CRUZ MD HEART STATION [place] [address] [place] [address] 04/03/2017 12:08:37 04/04/2017 08:46:10 [id number] ANGIE CAMARENA MD NEUROLOGY [place] [facility] [address] [place] [address] 03/11/2019 14:29:45 03/11/2019 15:28:31 Low back pain 434572064 M54.5 Neuropathy 426999258 G62 [id number] CRUZ MD CARDIOLOG Y [place] [address] [place], [place] [address] 04/22/2019 11:41:49 04/22/2019 12:16:48 Coronary arteriosclerosis in [place] artery 7798037970 107 I25.10 Medication changes, as well as [...] call for any change in status. Hyperlipidemia 49865870 E78.5 Managed by PCP. Right bund le branch block [id number] I45.0 [id number] ANGIE CAMARENA MD NEUROLOGY [place] [facility] [address] [place] [address] 1 05/14/2019 13:05:23 05/14/2019 15:11:19 Paresthesia 12945872 R20.2 [id number] ANGIE CAMARENA MD NEUROLOGY [place] [facility] [address] [place] [address] 05/14/2019 13:51:24 05/14/2019 15:52:05 Low back pain 751631372 M54.[id number] CRUZ MD CARDIOLOG Y [address] [place] [address] 05/20/2019 11:46:54 05/20/2019 14:03:14 Coronary arteriosclerosis in [place] artery 6456205213 107 I25.118 Electrocar diogram shows right bundle branch block. No acute changes. I've ordered some baseline laboratory studies and will renew his nitroglyce rin prescripti on. He will have a Lexiscan stress test scheduled with follow-up in 2 weeks. Hyperlipidemia 88005605 E78.5 Managed by PCP. Right bund le branch block [id number] I45.0 Chronic right bundle branch block. [id number] COURT CRUZ MD [facility] [place] [address] [place], [place] [address] 05/28/2019 07:37:16 05/29/2019 08:24:[id number] CRUZ MD CARDIOLOG Y [address] [place] [address] 5 06/06/2019 13:48:48 06/06/2019 14:38:58 Coronary arteriosclerosis in [place] artery [id number] 107 I25.118 Electrocar diogram shows right bundle branch block. No acute changes. 05/28/19: LexiNGXT: NML, EF 65%. Patient reassured. No further testing advise at this time. Hyperlipidemia 15171593 E78.5 Managed by PCP. Right bund le branch block 09196277 I45.0 Chronic right bundle branch block. [id number] ANGIE CAMARENA MD NEUROLOGY SB CLOSED [address] [place] [address] 06/12/2019 14:23:47 06/12/2019 15:31:40 Low back pain 404134484 M54.5 [id number] COURT CRUZ MD CARDIOLOG Y [address] [place] [address] 01/06/2020 13:28:15 01/06/2020 15:45:42 Coronary arteriosclerosis in [place] artery [id number] 107 I25.118 Electrocar diogram shows right bundle branch block. No acute changes. 05/28/19: LexiNGXT: NML, EF 65%. Patient reassured. No further testing advise at this time. Hyperlipidemia 19839477 E78.5 Managed by PCP. Right bund le branch block 64319835 I45.0 Chronic right bundle branch block. [id number] GABRIELE ROSENBERG MD CARDIOLOG Y [address] [place] HERNANDEZ,[address] [place], [place] [address] 01/27/2021 10:48:59 01/27/2021 11:18:23 Coronary arteriosclerosis in [place] artery 8573750771 107 I25.118 History of PCI 09/26/2002 (Dr [...] Nitro for PRN usageRTC 1 year Hyperlipidemia 78805432 E78.5 Managed by PCP. Right bund le branch block 70277237 I45.0 Chronic right bundle branch block. No specific management required History of pulmonary embolus 317675661 Z86.711 On chronic Warfarin managed by PCP History of coronary artery bypass grafting 552091306 Z95.1 04/2012: 3v CABG Chronic ki dney disease stage 3B 069219436 N18.32 [id number] GABRIELE ROSENBERG MD CARDIOLOG Y [address] [place] HERNANDEZ,[address] [place] [address] 10/27/2022 10:14:28 10/27/2022 11:19:35 Coronary arteriosclerosis in [place] artery 0225092134 107 I25.118 History of PCI 09/26/2002 (Dr Cruz):P CI of the LAD with 2.5 x 13 Cypher stentPCI of diagonal with 2.5 x 13 Cypher stent Coronary angiograph y 05/09/2012 showed severe three vessel disease and he underwent CABGLexisc an SPECT 05/28/2019: Normal perfusion, EF 65% History of coronary artery bypass grafting 545491247 Z95.1 04/2012: 3v CABG Hyperlipidemia 34608385 E78.5 Right bund le branch block 60626524 I45.0 History of pulmonary embolus 204008174 Z86.711 On chronic Warfarin managed by PCP Chronic ki dney disease stage 3B 223391053 N18.32 Cardiac pa cemaker in situ 897883716 Z95.0 [id number] GABRIELE ROSENBERG MD CARDIOLOG Y [address] [place] [address] 08/10/2023 13:52:20 08/10/2023 15:17:20 Coronary arteriosclerosis in [place] artery 5819131500 107 I25.118 History of PCI 09/26/2002 (Dr Cruz):P CI of the LAD with 2.5 x 13 Cypher stentPCI of diagonal with 2.5 x 13 Cypher stent Coronary angiograph y 05/09/2012 showed severe three vessel disease and he underwent CABGLexisc an SPECT 05/28/2019: Normal perfusion, EF 65% History of coronary artery bypass grafting 370878654 Z95.1 04/2012: 3v CABG Hyperlipidemia 32387066 E78.5 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 History of coronary artery bypass grafting 139332838 Z95.1 04/2012: 3v CABG Hyperlipidemia 51595733 E78.5 Right bund le branch block 48459683 I45.0 History of pulmonary embolus 974837238 Z86.711 On chronic Warfarin managed by PCP Chronic bryn malikey disease stage 3B 039590221 N18.32 Cardiac pa lynette in situ 351159876 Z95.0 Dyspnea on exertion 6084 5006 R06.09 [id number] GABRIELE ROSENBERG MD HEART STATION [address] ,[address] [place] [address] 09/22/2023 12:28:12 09/25/2023 13:13:10 [id number] YECENIA DANIELS-KIERA ESQUIVEL MD PULMONARY [address] [facility], [address] [place] [address] 12/12/2023 10:18:55 12/12/2023 12:30:34 Dyspnea 711649183 R06.00 New onset exertional dyspnea without any [...] his CT images been obtained. Coronary arteriosclerosis 35952198 I25.10 [id number] GABRIELE ROSENBERG MD CARDIOLOG Y [address] ,[address] [place] [address] 12/27/2023 13:21:44 12/27/2023 15:05:57 Coronary arteriosclerosis in [place] artery 8163575849 107 I25.118 History of PCI 09/26/2002 (Dr [...] abnormal. History of coronary artery bypass grafting 533975154 Z95.1 04/2012: 3v CABG Hyperlipidemia 22492309 E78.5 Right bund le branch block 93866341 I45.0 History of pulmonary embolus 094133406 Z86.711 On chronic Warfarin managed by PCP Chronic ki dney disease stage 3B 408110396 N18.32 Cardiac pa cemaker in situ 560479204 Z95.0 Dyspnea on exertion 6084 5006 R06.09 [id number] YECENIA DANIELS-KIERA ESQUIVEL MD PULMONARY [address] [facility], [address] [place] [address] 12/28/2023 10:57:04 12/28/2023 11:58:18 Dyspnea 420104248 R06.00 Exertional dyspnea without any other upper [...] as-needed basis Multiple n odules of lung 201349261 R91.[address] (<6 mm) noncalcifi ed pulmonary nodules in this patient without any previous history of tobacco exposure nor environmen tiffany exposures, and overall low risk for a primary pulmonary neoplastic process. No indication for further imaging studies as per current Fleischner 's criteria [id number] GABRIELE ROSENBERG MD CARDIOLOG Y EAST [address] [place] [address] ,[address] [place] [address] 09/30/2024 10:49:25 09/30/2024 13:53:08 Coronary arteriosclerosis in [place] artery 7527042068 107 I25.118 History of PCI 09/26/2002 (Dr [...] abnormal. History of coronary artery bypass grafting 368553929 Z95.1 04/2012: 3v CABG Hyperlipidemia 11880750 E78.5 Right bund le branch block 17223677 I45.0 History of pulmonary embolus 879423204 Z86.711 On chronic Warfarin managed by PCP Luz Maria clemente dney disease stage 3B 959473823 N18.32 Cardiac pa cemaker in situ 650249505 Z95.0 Device: [employer] dual-chamb er pacemaker systemImpl ant: 05/10/2022M ode: DDDR 60 Dyspnea on exertion 6084 5006 R06.09 Health Concerns Section Related Observation LastModified by Organization Detai ls LastModified Time None Recorded Concern Status LastModified by Organization Details LastModified Time None Recorded Advance Directives Directive None Recorded Payers Insurance Date Sequence Insurance Name Policy Number Policy Araiza Covered Member ID Araiza Member ID Guarantor Name 03/02/2025 1 [employer] (MEDICARE REPLACEMENT/A DVANTAGE - PPO) Sesar Pemberton [id number] Sesar Pemberton 08/21/2020 PAYMENT PLAN Sesar Pemberton Notes Date Note Type Note Provider Name and Address Organization Details Recorded Time 09/22/2023 text/html ROS as noted in the HPI CARDIOVASCULAR HISTORY:# Coronary artery disease s/p PCI [...] and CABG 2013b. History of PE June. [employer] dual-chamber pacemaker implant 05/11/2022 (Dr Brumfield)Former patient of Dr Court Cruz from [place], [place]. As noted in his patient case, [...] and CABG 2013b. History of PE June. [employer] dual-chamber pacemaker implant 05/11/2022 (Dr Brumfield)Former patient of Dr Court Cruz from [place], [place]. As previously discussed, Mr. Pemberton had [...] now around 90% RVP. GABRIELE ROSENBERG MD [address] [place] [address], [phone], [facility] 09/23/2023 09:41:53 12/12/2023 text/html ROS as noted in the HPI Patient comes in for evaluation of exertional [...] disease. PFTs are unremarkable YECENIA GHOTRA MD [address] [place] [address], [phone], [facility] 12/12/2023 11:44:54 12/27/2023 text/html ROS as noted in the [facility] CARDIOVASCULAR HISTORY:# Coronary artery disease s/p PCI [...] and CABG 2013b. History of PE June. [employer] dual-chamber pacemaker implant 05/11/2022 (Dr Brumfield)Former patient of Dr Court Cruz from [place], [place]. As previously discussed, Mr. Pemberton had [...] and CABG 2013b. History of PE June. [employer] dual-chamber pacemaker implant 05/11/2022 (Dr Brumfield)Former patient of Dr Court Cruz from [place], [place]. As previously discussed, Mr. Pemberton had [...] follow-up screening chest CT GABRIELE ROSENBERG MD [address] [place] [address], [phone], [facility] 12/27/2023 18:36:40 12/28/2023 text/html ROS as noted in the HPI Patient comes in for follow-up of exertional [...] which has remained stable. YECENIA GHOTRA MD [address] [place] [address], [phone], [facility] 12/28/2023 11:49:59 09/30/2024 text/html ROS as noted in the [facility] CARDIOVASCULAR HISTORY:# Coronary artery disease s/p PCI [...] CABG 2013b. History of PE June 2018c. [employer] dual-chamber pacemaker implant 05/11/2022 (Dr Brumfield)Former patient of Dr Court Cruz from [place], [place]. Since his last visit, he reports [...] with him.See scanned document for complete results.Device: [employer] dual-chamber pacemaker systemImplant: 05/10/2022Mode: DDDR 60Pacing: AP 14%, RVP 95%Events: ATR x1.No permanent programming changes were made to his device. GABRIELE ROSENBERG MD [address] [place], [address], [facility] 09/30/2024 20:28:17
--- OUTSIDE RECORDS SUMMARY | 2025-03-05 13:49 | XMS_ITS | Encounter Summary ---
Author Organization [facility] ([place], [place], [place], [place], [place]) Address [address] [place] [address] Care Team Providers Care Baked And Graphite Inspector Name Role Phone Unavailable Primary Care Provider Unavailabl e Encounter Details Date Type Department Care Team (Late st Contact Info) Description 06/27/2018 Transcribed Document [facility] [place] Family Medicine [facility] [place] [address] ProviderAngelique MD [address] [place] [address] [phone] Social History Tobacco Use Types Packs/Day Years [...] : None Persons Providing Information : Patient LINDA CRESPO, PT - 06/29/2018 11:14 EDT Prior Level [...]
--- OUTSIDE RECORDS SUMMARY | 2025-03-05 13:49 | XMS_ITS | Encounter Summary ---
Author Organization [employer] ([place], [place], [place], [place], [place]) Address [address] [place] [address] Care Team Providers Care Faucet Polisher Name Role Phone Unavailable Primary Care Provider Unavailabl e Encounter Details Date Type Department Care Team (Late st Contact Info) Description 06/28/2018 Transcribed Document [facility] Family [place] [address] ProviderAngelique MD [address] [place] [address] [phone] Social History Tobacco Use Types Packs/Day Years Used Date Smoking Tobacco: Never Assessed Sex and Gender Information Value Date Recorded Sex Assigned at Not on file Legal Sex Male 3:45 PM CDT Gender Identity Not on file Sexual Orientation Not on file documented as of this encounter Miscellaneous Notes * [employer] Conversion Note - Angelique ProviderMD - 06/28/2018 10:20 AM CDT Attempt [...]
--- OUTSIDE RECORDS SUMMARY | 2025-03-05 13:49 | XMS_ITS | Encounter Summary ---
Author Organization [employer] ([place], [place], [place], [place], [place]) Address [address] [place] [address] Care Team Providers Care Delimer Name Role Phone Unavailable Primary Care Provider Unavailabl e Encounter Details Date Type Department Care Team (Late st Contact Info) Description 06/27/2018 Transcribed Document [facility] [place] Family Medicine [facility] [place] [address] ProviderAngelique MD [address] [place] [address] [phone] Social History Tobacco Use Types Packs/Day Years Used Date Smoking Tobacco: Never Assessed Sex and Gender Information Value Date Recorded Sex Assigned at Not on file Legal Sex Male 3:45 PM CDT Gender Identity Not on file Sexual Orientation Not on file documented as of this encounter Miscellaneous Notes * [employer] Conversion Note - Angelique ProviderMD - 06/27/2018 11:02 PM CDT Pain [...]
--- OUTSIDE RECORDS SUMMARY | 2025-03-05 13:50 | XMS_ITS | Clinical Summary ---
Author Organization [employer] [facility] ([place], [place], [place], [place], [place]) Address [address] [place] [address] Care Team Providers Care Inventory Audit Clerk Name Role Phone Unavailable Primary Care [...]
--- OUTSIDE RECORDS SUMMARY | 2025-03-05 13:50 | XMS_ITS | Encounter Summary ---
Author Organization [employer] ([place], [place], [place], [place], [place]) Address [address] [place] [address] Care Team Providers Care Story Analyst Name Role Phone Unavailable Primary Care Provider Unavailabl e Encounter Details Date Type Department Care Team (Late st Contact Info) Description 07/01/2018 Transcribed Document [facility] Family Medicine [facility] [place] [address] ProviderAngelique MD [address] [place] [address] Social History Tobacco Use Types Packs/Day Years [...] of Signs/Symptoms of : Significant bleeding, Clot Coirnna Najera RN - 07/01/2018 13:14 EDT documented in this encounter Plan of Treatment Not on file documented as of this encounter Visit Diagnoses Not on filedocumented in this encounter
--- OUTSIDE RECORDS SUMMARY | 2025-03-05 13:50 | XMS_ITS | Encounter Summary ---
Author Organization [employer] ([place], [place], [place], [place], [place]) Address [address] [place] [address] Care Team Providers Care Brake Mechanic Name Role Phone Unavailable Primary Care Provider Unavailabl e Encounter Details Date Type Department Care Team (Late st Contact Info) Description 07/09/2018 Transcribed Document [facility] Family Medicine [facility] [address] ProviderAngelique MD [address] [place] [phone] Social History Tobacco Use Types Packs/Day Years [...] EDT Electronically signed by Kimberly [employer] Conversion Engineering Mathematician Cerjeannine at 08/05/2022 1:24 PM CDT documented in this encounter Plan of Treatment Not on file documented as of this encounter Visit Diagnoses Not on filedocumented in this encounter
--- OUTSIDE RECORDS SUMMARY | 2025-03-05 13:50 | XMS_ITS | Encounter Summary ---
Author Organization [employer] ([place], [place], [place], [place], [place]) Address [address] [place] [address] Care Team Providers Care Industrial Furnace Fabricator Name Role Phone Unavailable Primary Care Provider Unavailabl e Encounter Details Date Type Department Care Team (Late st Contact Info) Description 06/28/2018 Transcribed Document [facility] Radiology [address] [place] [address] Jett Narvaez MD [address] [place] [address] [place] [address] Social History Tobacco Use Types Packs/Day Years [...] Jauregui Accepting physician Dr. Wells Transferring facility [facility] Chief complaint right leg swelling History of present illness Patient presents as a transfer from [facility]. He has been having some numbness [...] At risk for sleep apnea / IMO [id number] / Confirmed, Active Problems (1) At risk for sleep apnea Objective VS/Measurements No qualifying data available General: No acute distress. Eye: Normal conjunctiva. Neck: No jugular venous distention. Respiratory: Lungs are clear to auscultation, Respirations are non-labored, Breath sounds are equal. Cardiovascular: Regular rhythm, No gallop, S1+ S2 No S3 or S4 Addison.. Gastrointestinal: Soft, Non-tender, Non-distended, Normal bowel sounds. [...]
--- OUTSIDE RECORDS SUMMARY | 2025-03-05 13:50 | XMS_ITS | Encounter Summary ---
Author Organization [employer] ([place], [place], [place], [place]) Address [address] [place] [address] Care Team Providers Care Vmware Systems Administrator Name Role Phone Unavailable Primary Care Provider Unavailabl e Encounter Details Date Type Department Care Team (Late st Contact Info) Description 07/10/2018 Transcribed Document [facility] Family Medicine [facility] [place] [address] ProviderAngelique MD [address] [place] [address] Social History Tobacco Use Types Packs/Day Years Used Date Smoking Tobacco: Never Assessed Sex and Gender Information Value Date Recorded Sex Assigned at Not on file Legal Sex Male 3:45 PM CDT Gender Identity Not on file Sexual Orientation Not on file documented as of this encounter Miscellaneous Notes * [employer]ner Conversion Note - Angelique ProviderMD - 07/10/2018 10:48 AM CDT Post [...]
--- OUTSIDE RECORDS SUMMARY | 2025-03-05 13:50 | XMS_ITS | Encounter Summary ---
Author Organization [employer] ([place], [place], [place], [place], [place]) Address [address] [place] [address] Care Team Providers Care Motorcycle Designer Name Role Phone Unavailable Primary Care Provider Unavailabl e Encounter Details Date Type Department Care Team (Late st Contact Info) Description 07/01/2018 Transcribed Document [facility] Family [place] [address] ProviderAngelique MD [address] [place] [address] Social History Tobacco Use Types Packs/Day Years Used Date Smoking Tobacco: Never Assessed Sex and Gender Information Value Date Recorded Sex Assigned at Not on file Legal Sex Male 3:45 PM CDT Gender Identity Not on file Sexual Orientation Not on file documented as of this encounter Miscellaneous Notes * [employer] Conversion Note - Angelique ProviderMD - 07/01/2018 1:13 PM CDT Nursing [...]
--- OUTSIDE RECORDS SUMMARY | 2025-03-05 13:50 | XMS_ITS | Encounter Summary ---
Author Organization [employer] ([place], [place], [place], [place], [place]) Address [address] [place] [address] Care Team Providers Care Global Professional Name Role Phone Unavailable Primary Care Provider Unavailabl e Encounter Details Date Type Department Care Team (Late st Contact Info) Description 07/01/2018 Transcribed Document [facility] [place] [facility] [place] [address] ProviderAngelique MD [address] [place] [address] [phone] Social History Tobacco Use Types Packs/Day Years Used Date Smoking Tobacco: Never Assessed Sex and Gender Information Value Date Recorded Sex Assigned at Not on file Legal Sex Male 3:45 PM CDT Gender Identity Not on file Sexual Orientation Not on file documented as of this encounter Miscellaneous Notes * [employer] Conversion Note - Angelique ProviderMD - 07/01/2018 3:16 PM CDT Patient: [...] Jauregui Accepting physician Dr. Wells Transferring facility [facility] Chief [...] to no prescription coverage with his Medicare. energy and sustainability manager stated that his Medicare insurance would prohibit use of special discount from the [employer]. So the patient was loaded with warfarin [...] (Current Encounter/Past 24 Hours) PT 25.9 Second(s) [place] 07/01/2018 04:59 INR 2.4 [place] 07/01/2018 04:59 Creatinine Clearance (Current Encounter/Past 24 Hours) No Creatinine Clearance Results Found (Past 24 Hours) Blood Products No qualifying data available. Type of Study: TTE procedure: EC Echo Complete. Patient Status: Routine [facility]quate [facility] Indications:Coronary artery disease. Allergies [...] 06/28/2018 07:52 EDT Electronically signed by Ronny [facility] Conversion Director Of Land Acquisition Cerner at 08/05/2022 1:33 PM CDT documented in this encounter Plan of Treatment Not on file documented as of this encounter Visit Diagnoses Not on filedocumented in this encounter
--- OUTSIDE RECORDS SUMMARY | 2025-03-05 13:50 | XMS_ITS | Encounter Summary ---
Author Organization [employer] ([place], [place], [place], [place], [place]) Address [address] [place] [address] Care Team Providers Care Facs Teacher Name Role Phone Unavailable Primary Care Provider Unavailabl e Encounter Details Date Type Department Care Team (Late st Contact Info) Description 07/01/2018 Transcribed Document [facility] [place] Family Medicine [facility] [place] [address] ProviderAngelique MD [address] [place] [address] Social History Tobacco Use Types Packs/Day Years Used Date Smoking Tobacco: Never Assessed Sex and Gender Information Value Date Recorded Sex Assigned at Not on file Legal Sex Male 3:45 PM CDT Gender Identity Not on file Sexual Orientation Not on file documented as of this encounter Miscellaneous Notes * Cerner Conversion Note - Angelique ProviderMD - 07/01/2018 1:24 PM CDT [address] [address] Patient Copy Patient Information: Name: SESAR FU Current Date: 07/01/2018 13:24:38 : 1940 Patient Address: [address] [address] Patient Attending Physician: CATALINA MARIN MD-INT Primary [...] 03/22/2010 Document Revised: 09/08/2016 Document Reviewed: 07/29/2015 [employer] Interactive Patient Education ? 2017 [employer] Deep Vein Thrombosis A deep vein [...] kale, broccoli, cabbage, anni greens, turnip greens, [place] sprouts, peas, cauliflower, seaweed, and parsley. ? Beef liver and pork liver. ? Green tea. ? Soybean oil. ??? Tell your health care provider about any and all medicines, vitamins, and supplements that you take, including aspirin and other fock-xrg-xdvsnsi anti-inflammatory medicines. Be especially cautious with aspirin and anti-inflammatory medicines. Do not take those before you ask your health care provider if it is safe to do so. This is important because many medicines can interfere with warfarin and affect the PT and INR results. ??? Do notstart or stop taking any ijmp-xqi-jwiwyez or prescription medicine unless your health care [...] Avoid contact sports. General instructions ??? Take pxrz-rap-tkbyaqv and prescription medicines only as told by [...] 07/29/2015 Elsevier Interactive Patient Education ? 2017 [employer] Medication Leaflets: aspirin (oral) ( pir [...] What is aspirin? Aspirin is a salicylate (ft-VNZ-ks-ate). It works by reducing substances in the [...] may report side effects to FDA at 0-212-RYI-2132. What other drugs will affect aspirin? Ask [...] drugs may affect aspirin, including prescription and baui-dui-vvyabqb medicines, vitamins, and herbal products. Not all [...] to ensure that the information provided by [employer]. ('[employer]') is accurate, up-to-date, and complete, but no guarantee is made to that effect. Drug information contained herein may be time sensitive. [employer] information has been compiled for use by healthcare practitioners and consumers in the [place] and therefore [employer] does not warrant that uses outside of the [place] are appropriate, unless specifically indicated otherwise. [employer]'s drug information does not endorse drugs, diagnose patients or recommend therapy. [employer] drug information is an informational resource designed [...] effective or appropriate for any given patient. [employer] does not assume any responsibility for any aspect of healthcare administered with the aid of information [employer] provides. The information contained herein is not intended to cover all possible uses, directions, precautions, warnings, drug interactions, allergic reactions, or adverse effects. If you have questions about the drugs you are taking, check with your doctor, nurse or pharmacist. Copyright 8429-7727 [employer]. Version: 15.. Revision Date: 07/17/2017. warfarin (oral) [...] may report side effects to FDA at 0-688-GWQ-8743. What other drugs will affect warfarin? Many drugs (including some nidi-akf-yamczgu medicines and herbal products) can affect your [...] echinacea, garlic, ginkgo biloba, ginseng, goldenseal, or [place]'s wort. This list is not complete and many other drugs can interact with warfarin. This includes prescription and ghkn-ciq-qrzcfud medicines, vitamins, and herbal products. Give a [...] to ensure that the information provided by [employer]. ('[employer]') is accurate, up-to-date, and complete, but no guarantee is made to that effect. Drug information contained herein may be time sensitive. [employer] information has been compiled for use by healthcare practitioners and consumers in the [place] and therefore [employer] does not warrant that uses outside of the [place] are appropriate, unless specifically indicated otherwise. [employer] drug information does not endorse drugs, diagnose patients or recommend therapy. [employer] drug information is an informational resource designed [...] effective or appropriate for any given patient. [facility] does not assume any responsibility for any aspect of healthcare administered with the aid of information [facility] provides. The information contained herein is not intended to cover all possible uses, directions, precautions, warnings, drug interactions, allergic reactions, or adverse effects. If you have questions about the drugs you are taking, check with your doctor, nurse or pharmacist. Copyright 8995-4149 [facility] [employer]. Version: 22.01. Revision Date: 12/29/2016. famotidine (fam [...] may report side effects to FDA at 2-573-NUF-5297. What other drugs will affect famotidine? Famotidine can make it harder for your body to absorb other medicines you take by mouth. Tell your doctor if you are taking: ? cefditoren; ?? dasatinib; ?? delavirdine; or ?? fosamprenavir. This list is not complete. Other drugs may affect famotidine, including prescription and llle-mfq-lrudfwp medicines, vitamins, and herbal products. Not all [...] to ensure that the information provided by [employer]. ('[employer]') is accurate, up-to-date, and complete, but no guarantee is made to that effect. Drug information contained herein may be time sensitive. [employer] information has been compiled for use by healthcare practitioners and consumers in the [place] and therefore [employer] does not warrant that uses outside of the [place] are appropriate, unless specifically indicated otherwise. [employer]'s drug information does not endorse drugs, diagnose patients or recommend therapy. [employer] drug information is an informational resource designed [...] effective or appropriate for any given patient. [employer] does not assume any responsibility for any aspect of healthcare administered with the aid of information [employer] provides. The information contained herein is not intended to cover all possible uses, directions, precautions, warnings, drug interactions, allergic reactions, or adverse effects. If you have questions about the drugs you are taking, check with your doctor, nurse or pharmacist. Copyright 7329-6295 [employer]. Version: 15.02. Revision Date: 03/15/2018. CIGARETTE SMOKING: The facts are clear, cigarette smoking will shorten your life. Smoking can cause many illnesses along the way. As a healthcare provider, we recommend that you stop smoking. Assistance with quitting is available by contacting 4-564-WQBANOW. This is a free resource providing counseling, [...] Be sure to sign up for the 10X[employer] Room patient portal, which gives you 07/11 access to your medical information ??? including these discharge instructions ??? using your computer, smartphone, or tablet. Just go to [email or web address] to get started. Questions? Call . [facility] would like to thank you for allowing us to assist you with your healthcare needs. TANK Arreguin WARREN B, (or disability representative) have received the above patient education materials/instructions and have verbalized understanding: Patient Signature _ Date/Time Patient Wage Adjuster Signature (if needed) Date/Time Clinician/Hospital Wage Adjuster Signature (if needed) Date/Time Electronically signed by Ronny, [facility] Conversion Test Director Jc at 08/05/2022 1:31 PM CDT documented in this encounter Plan of Treatment Not on file documented as of this encounter Visit Diagnoses Not on filedocumented in this encounter
--- OUTSIDE RECORDS SUMMARY | 2025-03-05 13:50 | XMS_ITS | Encounter Summary ---
Author Organization [employer] ([place], [place], [place], [place], [place]) Address [address] [place] [address] Care Team Providers Care Fringe Maker Name Role Phone Unavailable Primary Care Provider Unavailabl e Encounter Details Date Type Department Care Team (Late st Contact Info) Description 06/30/2018 Transcribed Document [facility] [place] [facility] [place] [address] ProviderAngelique MD [address] [place] [id number] Social History Tobacco Use Types Packs/Day Years [...] Performed On: 06/30/2018 5:00 EDT by Alix Galarza Rn-Resource Chart Check Chart Reviewed Date and Time : 06/30/2018 4:40 EDT Powerplans Initiated/Discontinued as Appropriate : Yes All Active Orders Reviewed : Yes Alix Galarza, Rn-Resource - 06/30/2018 4:40 EDT documented in this encounter Plan of Treatment Not on file documented as of this encounter Visit Diagnoses Not on filedocumented in this encounter
--- OUTSIDE RECORDS SUMMARY | 2025-03-05 13:50 | XMS_ITS | Encounter Summary ---
Author Organization [employer] ([place], [place], [place], [place], [place]) Address [address] [place] [address] Care Team Providers Care Food Service Sales Representatives Name Role Phone Unavailable Primary Care Provider Unavailabl e Encounter Details Date Type Department Care Team (Late st Contact Info) Description 06/28/2018 Transcribed Document [facility] [place] [facility] [place] [address] ProviderAngelique MD [address] [place] [address] [id number] Social History Tobacco Use Types Packs/Day Years Used Date Smoking Tobacco: Never Assessed Sex and Gender Information Value Date Recorded Sex Assigned at Not on file Legal Sex Male 3:45 PM CDT Gender Identity Not on file Sexual Orientation Not on file documented as of this encounter Miscellaneous Notes * Cerner Conversion Note - Angelique ProviderMD - 06/28/2018 12:10 PM CDT Patient: WILLY PEMBERTON Age: 77 Years Sex: Male : 1940 Chief Complaint: transferred from [facility] with SOA, RLE swelling, [...] he go to the Coumadin clinic in [place] 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, 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 Right leg DVT I82.401 Lovenox and then warfarin Orders: enoxaparin, 90 mg, SubCutaneous, Inj, Q19GGlt, Start 06/28/18 10:00:00 EDT [facility] [place] Medications Inpatient aspirin, 81 mg= 1 Tab, Oral, Daily Colace, 100 mg= 1 Cap, Oral, BID, PRN DuoNeb 0.5 mg-2.5 mg/3 mL inhalation solution, 3 mL, Nebulized Inhalation , Q6H, PRN Lipitor, 10 mg= 1 Tab, Oral, Weekly lisinopril, 10 mg= 1 Tab, Oral, Daily Lovenox, 90 mg= 0.9 mL, SubCutaneous, F09SHbf MiraLax, 17 Gram= 1 Packet, Oral, Daily, [...]
--- OUTSIDE RECORDS SUMMARY | 2025-03-05 13:50 | XMS_ITS | Encounter Summary ---
Author Organization [employer] ([place], [place], [place], [place], [place]) Address [address] [place] [address] Care Team Providers Care Paper Reclaiming Machine Operator Name Role Phone Unavailable Primary Care Provider Unavailabl e Encounter Details Date Type Department Care Team (Late st Contact Info) Description 07/01/2018 Transcribed Document [facility] [place] [facility] [place] [address] ProviderAngelique MD [address] [place] [address] [phone] Social History Tobacco Use Types Packs/Day Years Used Date Smoking Tobacco: Never Assessed Sex and Gender Information Value Date Recorded Sex Assigned at Not on file Legal Sex Male 3:45 PM CDT Gender Identity Not on file Sexual Orientation Not on file documented as of this encounter Miscellaneous Notes * Cerner Conversion Note - Angelique ProviderMD - 07/01/2018 1:24 PM CDT Patient [...] 03/22/2010 Document Revised: 09/08/2016 Document Reviewed: 07/29/2015 [employer] Interactive Patient Education ? 2017 [employer] Deep Vein Thrombosis A deep vein [...] kale, broccoli, cabbage, anni greens, turnip greens, [place] sprouts, peas, cauliflower, seaweed, and parsley. ? Beef liver and pork liver. ? Green tea. ? Soybean oil. ??? Tell your health care provider about any and all medicines, vitamins, and supplements that you take, including aspirin and other clct-gro-mritckw anti-inflammatory medicines. Be especially cautious with aspirin and anti-inflammatory medicines. Do not take those before you ask your health care provider if it is safe to do so. This is important because many medicines can interfere with warfarin and affect the PT and INR results. ??? Do notstart or stop taking any vtij-yrv-vtdkuyg or prescription medicine unless your health care [...] Avoid contact sports. General instructions ??? Take fppw-rqx-sltnmez and prescription medicines only as told by [...] 07/29/2015 Elsevier Interactive Patient Education ? 2017 [employer] documented in this encounter Plan of Treatment Not on file documented as of this encounter Visit Diagnoses Not on filedocumented in this encounter
--- OUTSIDE RECORDS SUMMARY | 2025-03-05 13:50 | XMS_ITS | Encounter Summary ---
Author Organization [employer] ([place], [place], [place], [place], [place]) Address [address] [place] [address] Care Team Providers Care Director Personal Name Role Phone Unavailable Primary Care Provider Unavailabl e Encounter Details Date Type Department Care Team (Late st Contact Info) Description 06/28/2018 Transcribed Document [facility] [place] [facility] [place] [address] ProviderAngelique MD [address] [place] [id number] Social History Tobacco Use Types Packs/Day Years [...] lower extremity DVTs who presented to an [facility] for complaints of numbness in the lower extremities over the last 2 weeks. 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 On morning of presentation patient woke up with moderate edema and swelling of the right lower extremity and some mild discomfort. He went to the [facility] emergency department where he had a lower extremity venous duplex and a CT PE protocol. It was found he had a right lower extremity acute DVT as well as a reported bilateral pulmonary embolism. He was started on a heparin drip and transferred to [facility] for further evaluation and treatment. 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 Integumentary: Warm, Dry, Earl, Intact. Neurologic: Alert, Oriented, No focal deficits. [...] setting Electronically signed by Kimberly Jefferson Conversion Biazzi Nitrator Operator Cerner at 08/05/2022 1:07 PM CDT documented in this encounter Plan of Treatment Not on file documented as of this encounter Visit Diagnoses Not on filedocumented in this encounter
--- OUTSIDE RECORDS SUMMARY | 2025-03-05 13:50 | XMS_ITS | Clinical Summary ---
Author Organization [facility] Address [address] [place] [address] Care Team Providers Care Mortgage Lender Name Role Phone Giovani Pendleton MD Primary Care Provider [phone] Dayne Flaherty MD Unavailable Allergies No known active allergies Medications cholecalciferol (Vitamin D3) 1.25 MG (91506 UT) capsule Vitamin D3 1 QD Active [...] Health Maintenance Due Date Last Done Comments [facility]-Depression Screening 1940 [facility]-Medicare Annual Wellness (AWV) 1940 [facility]-Infant/Child/Adol SDOH Screenings 1940 [id number] Vaccine (#1) 1945 [facility]- SDOH Screenings 1958 [...] this topic Insurance [employer] Care Teams Mortgage Lender Relationship Specialty Start Date End Date Giovani Pendleton MD [address] [facility] [address] [place] [address] PCP - General 09/10/21 Dayne Flaherty MD [address] [place] [address] Consulting Physician Neurosurgery 09/22/21
--- OUTSIDE RECORDS SUMMARY | 2025-03-05 13:50 | XMS_ITS | Encounter Summary ---
Author Organization [employer] ([place], [place], [place], [place], [place]) Address [address] [place] [address] Care Team Providers Care Manager Statistical Programming Name Role Phone Unavailable Primary Care Provider Unavailabl e Encounter Details Date Type Department Care Team (Late st Contact Info) Description 07/04/2018 Transcribed Document [facility] [place] [address] ProviderAngelique MD [address] [place] [id number] Social History Tobacco Use Types Packs/Day Years [...]
== END 2025-03-05 13:34 ==
LOC: ACC 12:57
PROVIDERS: PCP Internal Medicine Adolescent Medicine; Visit Provider Internal Medicine Adolescent Medicine
DX: Z79.01 Long term (current) use of anticoagulants (principal)
CPT/HCPCS: 85610; 99211; G0463